=== PATIENT | female | born 1960 | race Caucasian/White ===

== ENCOUNTER 2020-05-03 17:13 | Outpatient (REF) | payer MEDICARE, MEDICAID, SELFPAY ==
--- NOTE | 2020-05-03 | MM_ITS ---
EXAMINATION: MM SCREENING DIGITAL BREAST TOMOSYNTHESIS, BILATERAL CLINICAL INFORMATION: Screening. Asymptomatic. The lifetime risk of breast cancer based on the Tyrer-Cuzick Model is 9%. COMPARISON: Mammography: 09/09/2018, 04/16/2017, 03/28/2016 TECHNIQUE: Digital breast tomosynthesis is performed in both the craniocaudal and mediolateral oblique views along with computer-aided detection (CAD). Synthesized 2D images are generated from the tomosynthesis. FINDINGS: There are scattered areas of fibroglandular density (ACR BI-RADS breast composition Category b). Parenchymal pattern is similar to prior studies. There is no interval mass or architectural abnormality or abnormal calcifications. No developing density. The axilla and skin contours are unremarkable. MM/MM tomosynthesis screening BI IMPRESSION: No mammographic evidence of malignancy. ASSESSMENT: BI-RADS 1: Negative RECOMMENDATION: Routine annual mammography screening. This patient's information was entered into a reminder system with a target due date for their next mammogram.
== END 2020-05-03 17:14 | disposition home or self-care (01) ==
LOC: HO.MAMMO 17:13
PROVIDERS: PCP Nurse Practitioner Family; Visit Provider Nurse Practitioner Family
DX: Z12.31 Encounter for screening mammogram for malignant neoplasm of breast (principal)
CPT/HCPCS: 77063; 77067

== ENCOUNTER 2020-06-13 10:53 | Emergency (ER) | payer MEDICARE, MEDICAID, SELFPAY ==
--- NOTE | 2020-06-13 | XR_ITS ---
EXAMINATION: XR HAND, LEFT CLINICAL INFORMATION: History of fall. Left wrist pain and swelling. COMPARISON: None TECHNIQUE: PA, lateral, and oblique views of the left hand. FINDINGS: Comminuted fractures of the left distal radius with dorsal angulation, and intra-articular extension is noted. Significant overlying soft tissue swelling is present. Fracture of the ulnar styloid process is also noted. The radiocarpal as well as intercarpal alignments are intact. The remainder of the visualized bones are intact. XR/XR hand LT min 3V IMPRESSION: Abnormal radiographs of the left ribs showing evidence of comminuted fracture of the left distal radius with intra-articular extension and ulnar styloid process fracture, and overlying significant soft tissue swelling.
[2020-06-13 11:06] VITALS: BP 147/76; PULSE 66; RESP 16; TEMP 36.9; O2SAT 97; BMI 23.4
--- NOTE | 2020-06-13 12:50 | ED.EXTPRO ---
HPI - Extremity Problem General Chief complaint: Extremity Injury, Upper Stated complaint: ?hand fracture, fall Time Seen by Provider: 06/13/20 12:50 History of Present Illness HPI Narrative: Patient complains of left wrist pain after a fall 7 days ago while on vacation was a fall on outstretched hand, no other injury no numbness no weakness no fever no other injury Related Data Previous Rx's Medication Instructions Recorded atorvastatin 10 mg tablet 10 mg PO DAILY 90 Days #90 tab 04/19/20 Allergies Allergy/AdvReac Type Severity Reaction Status Date / Time abacavir Allergy Unknown Verified 10/30/19 00:00 From ZIAGEN Allergy Severe HIGH FEVER Uncoded 02/26/20 15:15 Erythromycin Allergy Unknown Uncoded 10/30/19 00:00 Review of Systems Review of Systems: Positive for left wrist pain and swelling No dizziness no weakness no fever no chills no headache no head injury no neck pain no rash no numbness no weakness Yes all other systems are reviewed and are negative PMFSH Past Medical History Source: nursing notes reviewed Medical History (Updated 06/13/20 @ 13:08 by ANTONIO Anton) Acid reflux DVT (deep venous thrombosis) High cholesterol HIV (human immunodeficiency virus infection) HTN (hypertension) PTSD (post-traumatic stress disorder) Social History Social History Advance Directives: No Advance Directives Information Provided: Yes Physical Exam Vital Signs: Vital Signs: Last Vital Signs Temp 98.5 F 06/13/20 11:06 Pulse 66 06/13/20 11:06 Resp 16 06/13/20 11:06 BP 147/76 H 06/13/20 11:06 Pulse Ox 97 06/13/20 11:06 Body Mass Index 23.4 General appearance is comfortable relaxed cooperative no acute distress Head is normocephalic atraumatic Neck is supple Respiratory no distress Extremities the left wrist is mildly swollen with decreased range of motion, skin is intact, neurovascular intact distal with full range of motion in the fingers Neuro no focal deficit Course Course Course Narrative: X-ray identified a 1-week-old comminuted fracture of the left distal radius with dorsal angulation as well as a fracture of the ulnar styloid A volar splint was placed by the tech and patient will follow-up with orthopedics Discharge Plan Discharge Clinical Impression: Fracture of wrist Qualifiers: Encounter type: initial encounter Fracture type: closed Laterality: left Qualified Code(s): S62.102A - Fracture of unspecified carpal bone, left wrist, initial encounter for closed fracture Patient Disposition: Home, Self-Care Additional Instructions: Follow with orthopedist this week Return any concerns Prescriptions: No Action atorvastatin 10 mg tablet 10 mg PO DAILY 90 Days Qty: 90 RF: 1 Referrals: Jj Roman MD [Physician] - 2 days (Left wrist fracture 1-week-old) Stand Alone Forms: Work/School Release
== END 2020-06-13 13:52 | disposition home or self-care (01) ==
PROVIDERS: Physician Assistant Medical; Emergency Provider Emergency Medicine; PCP Nurse Practitioner Family
DX: S62.102A Fracture of unspecified carpal bone, left wrist, initial encounter for closed fracture (principal); M25.532 Pain in left wrist; I10 Essential (primary) hypertension; W01.0XXA Fall on same level from slipping, tripping and stumbling without subsequent striking against object, initial encounter; Y93.9 Activity, unspecified; Y92.9 Unspecified place or not applicable; Y99.9 Unspecified external cause status; Z20.828 Contact with and (suspected) exposure to other viral communicable diseases; Z79.899 Other long term (current) drug therapy
CPT/HCPCS: 29125; 73130; 99283; 99284; U0003

== ENCOUNTER 2020-06-14 16:36 | Outpatient (REF) | payer MEDICARE, MEDICAID, SELFPAY | END 2020-06-14 16:37 | disposition home or self-care (01) | LOC: HO.HOSX 16:36 | PROVIDERS: Visit Provider Orthopaedic Surgery | DX: Z13.89 Encounter for screening for other disorder (principal) ==

== ENCOUNTER 2020-06-15 09:25 | Outpatient (REF) | payer MEDICARE, MEDICAID, SELFPAY ==
--- NOTE | 2020-06-15 09:50 | XR_ITS ---
EXAMINATION: XR WRIST, LEFT CLINICAL INFORMATION: Left wrist pain. COMPARISON: 06/13/2020 TECHNIQUE: PA, lateral, and oblique views of the left wrist. FINDINGS: Interval application of a splint. Again noted is a mildly comminuted fracture of the distal radius with intra-articular extension at the level of the lunate facet, and minimal dorsal angulation of the distal radius. There is 0.2 cm cortical bone offset, posteriorly. Again noted is the mildly displaced fracture of the ulnar styloid. Carpal bones are normal. The carpal joint spaces are maintained. XR/XR wrist LT min 3V IMPRESSION: Interval application of a splint. Otherwise, no change in appearance of the fractures of the distal radius and ulnar styloid.
== END 2020-06-15 09:26 | disposition home or self-care (01) ==
LOC: HO.HOSX 09:25
PROVIDERS: PCP Nurse Practitioner Family; Visit Provider Orthopaedic Surgery
DX: S52.502A Unspecified fracture of the lower end of left radius, initial encounter for closed fracture (principal)
CPT/HCPCS: 25600; 73110; 99202

== ENCOUNTER 2020-07-06 09:20 | Outpatient (REF) | payer MEDICARE, MEDICAID, SELFPAY ==
--- NOTE | 2020-07-06 09:43 | XR_ITS ---
EXAMINATION: XR WRIST, LEFT CLINICAL INFORMATION: Left wrist pain COMPARISON: 06/15/2020 TECHNIQUE: PA, lateral, and oblique views of the left wrist. FINDINGS: Again noted is the comminuted, impacted, intra-articular fracture distal radius. There are persistent fracture lucencies. No significant interval healing. There are fracture lines that involve the distal radioulnar joint and radiocarpal joint. There is approximately degrees dorsal tilt of the distal radius, similar compared to 06/15/2020. There is approximately 0.2 cm loss of radial height/length. Soft tissues remain swollen around the fractured distal radius. Again noted is the mildly displaced fracture of the tip of the ulnar styloid. The carpal bones are intact. The carpal joint spaces are maintained. XR/XR wrist LT min 3V IMPRESSION: * Currently, no significant healing of the mildly displaced, comminuted intra-articular fracture of distal radius. There is mild posterior angulation of the distal radius. * No evidence of carpal bone injury.
== END 2020-07-06 09:21 | disposition home or self-care (01) ==
LOC: HO.HOSX 09:20
PROVIDERS: PCP Nurse Practitioner Family; Visit Provider Orthopaedic Surgery
DX: S52.502D Unspecified fracture of the lower end of left radius, subsequent encounter for closed fracture with routine healing (principal); R20.0 Anesthesia of skin
CPT/HCPCS: 73110; 99212

== ENCOUNTER 2020-07-20 08:43 | Outpatient (REF) | payer MEDICARE, MEDICAID, SELFPAY ==
--- NOTE | ~2020-07-20 | XR_ITS ---
EXAMINATION: XR WRIST, LEFT CLINICAL INFORMATION: Pain left wrist. COMPARISON: Left wrist 07/06/2020 TECHNIQUE: PA, lateral, and oblique views of the left wrist. FINDINGS: There is impacted fracture distal radius and displaced left styloid process fracture. The radiocarpal joint space is maintain normal. No visible acute fracture or dislocation seen. There is mild dorsal angulation. There is moderate dorsal wrist soft tissue swelling. XR/XR wrist LT min 3V IMPRESSION: Impacted distal radial fracture and a displaced lesser fracture are stable. There is moderate dorsal wrist soft tissues swelling which is stable as well. No callus formation seen yet.
== END 2020-07-20 08:44 | disposition home or self-care (01) ==
LOC: HO.XRAY 08:43
PROVIDERS: PCP Nurse Practitioner Family; Visit Provider Orthopaedic Surgery
DX: M25.532 Pain in left wrist (principal); S52.502A Unspecified fracture of the lower end of left radius, initial encounter for closed fracture
CPT/HCPCS: 73110; 99212

== ENCOUNTER 2020-08-11 08:25 | Outpatient (REF) | payer MEDICARE, MEDICAID, SELFPAY ==
--- NOTE | ~2020-08-11 | XR_ITS ---
EXAMINATION: XR WRIST, LEFT CLINICAL INFORMATION: Followup fracture radius. COMPARISON: Left wrist 07/20/2020 TECHNIQUE: PA, lateral, and oblique views of the left wrist. FINDINGS: Again visualized is a slowly healing distal radial impacted fracture with mild sclerotic changes likely callus formation. Minimally displaced ulnar styloid process fracture is stable. The intercarpal, radiocarpal joint space is normal. XR/XR wrist LT min 3V IMPRESSION: Slowly healing distal radial impacted fracture with mild sclerotic changes. No significant change in distal ulnar styloid process fracture.
== END 2020-08-11 08:26 | disposition home or self-care (01) ==
LOC: HO.XRAY 08:25
PROVIDERS: PCP Nurse Practitioner Family; Visit Provider Orthopaedic Surgery
DX: S52.502D Unspecified fracture of the lower end of left radius, subsequent encounter for closed fracture with routine healing (principal)
CPT/HCPCS: 73110; 99212

== ENCOUNTER 2020-09-29 10:30 | Outpatient (RCR) | payer MEDICARE, MEDICAID, SELFPAY ==
--- NOTE | 2020-08-17 10:49 | MHC.OT.OEV ---
[address] [phone] F: [phone] Occupational Therapy Evaluation Diagnosis: Left distal radius fx and ulnar fx Date of Onset: 06/06/20 Attending Provider: Dr. Mayer Prescribed Treatment: Indy and Treat MD Follow Up Appointment: History of Current Condition: Pt was on a vacation in [place], wearing heals and fell onto her left hand/wrist. She self splinted for the duration of trip, then went to the ED and was found to have left distal radius fx and left ulnar fx. She followed up with ortho 06/15/20 and was placed in short arm cast for a few weeks, then removed and placed in removable prefab wrist brace. She reports falling twice since then, but no change in healing or alignment seen on x-rays. 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 travel Living Situation, Family and/or Social Support: Granddaughter is staying with her Current Level of Function and Occupation Self Care, Employment, Leisure: Mostly Ind w/ self care and homecare, cannot carry groceries in left hand, light duty at work, avoiding carrying trays at work Sleep: Waking you up every night Driving: Independent Balance: Some impaired balance, has fallen twice since, also difficulty seeing past her mask Pain Assessment Pain Score: 5 Pain Scale Used: Numeric (0 - 10) Pain Location and Description: Ulnar wrist pain 5/10 resting, 8/10 w/ use, sharp, ache, pulling Aggravating Factors: Lifting, opening jars Alleviating Factors: Tylenol, resting Skin and Soft Tissue Assessment Comments: left dorsal and ulnar wrist swelling left thenar and hypothenar atrophy Nerve assessment Ulnar Nerve: WFL Median Nerve: WFL Radial Nerve: WFL Sensory Assessment Comments: Pt report left hand/digit numbness B/L Sparks Riky 3.61 Edema Assessment Comments: Wrist R 14.9 cm L 15.8 cm Dexterity Assessment Comments: Nine Hole Peg R 25 sec 26 sec Special Tests Comments: *Unable to flex into position for Phalen's test AROM(PROM) Strength Elbow Flexion: Extension: Pronation: R 75 L 48 Supination: R 85 L 72 Comments: Flexion: Extension: Pronation: Supination: Comments: Wrist Flexion: R 65 L 32 Extension: R 58 L 50 Ulnar Deviation: R 35 L 20 Radial Deviation: R 22 L 20 Comments: Flexion: Extension: Ulnar Deviation: Radial Deviation: Comments: Thumb Thumb CMC Flexion: Thumb MCP Flexion: Thumb IP Flexion: Radial Abduction: Palmar Abduction: [place] (Kapandji 0-10): 10 Comments: WFL Digits Index MCP: PIP: DIP: Long MCP: PIP: DIP: Ring MCP: PIP: DIP: Small MCP: PIP: DIP: Comments: WFL to DPC Gross Grasp: R 56 L 20 Lateral Pinch: R 12 L 6 Two-Point Pinch: R 8 L 3 Three-Jaw Curtis: R 12 L 4 Comments: Patient Education Primary Language: Romansh 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 Patient demonstrates Patient verbalizes Barriers to Learning: None Readiness for Learning: Accepting Who was educated? Patient Comments: Lifting/Use precautions Modifications for sleep comfort HEP w/ wrist ROM Plan of Care Assessment: Jenn presents about 10 weeks s/p FOOSH injury w/ left distal radius and distal ulna fxs. She was casted about 10 days after her injury, lag due to vacation timing, and has since been in resting wrist prefab orthosis, still wearing for work and heavier use. On assessment, she cont's to report moderate pain, primarily in ulnar wrist. She has decreased range in all planes and decreased sane rn and pinch strength. Overall, she is doing well functionally, but uses her dominant right hand mostly and is still avoiding heavier activities at work and home. She also reports left hand numbness and has visible thenar and hypothenar atrophy. Jennifer will benefit from cont'd therapy services to address range, strength, pain and functional limitations. STG Duration: 2 weeks Short Term Goals: Ind w/ HEP Left wrist flex 45 degrees Left wrist ext 55 degrees Left wrist pro 45 degrees Gross grasp >30 lb <2/10 pain in left wrist LTG Duration: 6 weeks Assisted Goals: Wean from orthosis wear Left wrist flex 55 degrees Left wrist ext 60 degrees Left wrist pro 70 degrees Gross grasp >40lb QuickDASH score <30 pts Frequency and Duration: The patient will be seen 2 x/wk for 6 weeks Treatment Plan: Therapeutic Exercise Therapeutic Activity Home Exercise Program Splinting Neuro Re-ed Patient Education Desensitization/Sensory Re-ed Edema Control ADL Training Ultrasound NMES Iontophoresis Paraffin Fluidotherapy MHP Cold Packs Joint Mobilization Soft Tissue Mobilization Kinesiotaping Electronically Signed By: Jennifer Boyd OTR/L Please sign and return to therapist, Thank you for your referral.
--- NOTE | 2020-10-25 09:51 | MHC.OT.DC ---
[address] [phone] F: [phone] Occupational Therapy Discharge Note Provider: Dr Mayer Diagnosis: Left distal radius fx and ulnar fx Date of Surgery: Date of Evaluation: 08/17/20 Date of Discharge: 10/25/20 Treatments to Date: 7 Cancellations to Date: 0 No Shows to Date: 0 Discharge Status: Patient Elected to Stop Discharge Summary: Jenn has progressed well w/ functional use of left hand and wrist, primary limitation continued to be flexion w/ decreased carry over between visits. She was fit w/ static progressing flexion orthosis but w/ poor follow through w/ use. 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 Left wrist pre tx ext 64 flex 28 post tx ext 75 flex 45 Gross Grasp 48lb Electronically Signed By: Jennifer Boyd OTR/L Reviewed/agree with student documentation: N/A Therapist: Please Sign and return to therapist, thank you for your referral.
== END 2020-10-25 13:13 | disposition other institution (70) ==
LOC: HO.OT 10:30
PROVIDERS: Visit Provider Orthopaedic Surgery
DX: S52.502A Unspecified fracture of the lower end of left radius, initial encounter for closed fracture (principal)
CPT/HCPCS: 29125; 97110; 97165; 97760

== ENCOUNTER 2020-11-10 11:19 | Outpatient (REF) | payer MEDICARE, MEDICAID, SELFPAY ==
--- NOTE | ~2020-11-10 | XR_ITS ---
EXAMINATION: XR FOOT, RIGHT CLINICAL INFORMATION: Pain. COMPARISON: None TECHNIQUE: AP, lateral, and oblique views of the right foot. FINDINGS: There is mild loss of first MTP joint space with periarticular spurring. Rest the joint spaces are preserved. No acute fracture, dislocation or lytic process seen. The ankle mortise and subtalar joints are normal. There is a small calcaneal enthesophyte. The soft tissues are normal. XR/XR foot RT min 3V IMPRESSION: Degenerative arthritic changes first MTP joint. Small calcaneal heel enthesophyte. No acute fracture or dislocation.
== END 2020-11-10 11:20 | disposition home or self-care (01) ==
LOC: HO.HMGCX 11:19
PROVIDERS: PCP Nurse Practitioner Family; Visit Provider Hospitalist
DX: M79.671 Pain in right foot (principal)
CPT/HCPCS: 73630

== ENCOUNTER 2021-01-05 09:39 | Outpatient (REF) | payer MEDICARE, MEDICAID, SELFPAY ==
--- NOTE | ~2021-01-05 | CT_ITS ---
EXAMINATION: CT CHEST SCREENING CLINICAL INFORMATION: Smoking history COMPARISON: Previous chest x-ray October 2019 TECHNIQUE: Multidetector volumetric CT imaging of the chest is performed without contrast using low dose technique. Additional 2D coronal and sagittal reformatted images and axial 3D maximum intensity projection (MIP) images are generated on the CT workstation. This CT examination was performed using dose optimization techniques as appropriate, variously including the following: *Automated exposure control *Adjustment of mA and/or kV according to patient size (this includes techniques or standardized protocols for targeted exams where dose is matched to indication/reason for exam; i.e. extremities or head) *Use of iterative reconstruction technique DLP: 32 mGy-cm FINDINGS: LUNGS: There is mild paraseptal emphysema. There is a 2 mm peripheral right lower lobe nodule axial image 292 series 5. There are 2 adjacent semisolid left lower lobe nodules axial image 300 series 5. There is a 1 mm peripheral left lower lobe nodule axial image 301 series 5. The lungs are otherwise clear. MEDIASTINUM: There is evidence of atherosclerotic disease. The thoracic aorta is upper normal in size. The heart does not appear enlarged. There is mild coronary artery calcification. There are no enlarged lymph nodes. PLEURA: There is no pleural effusion. No pleural mass or thickening. AXILLA: No lymphadenopathy. UPPER ABDOMEN: The gallbladder has been removed. There is diverticulosis of the colon. OSSEOUS STRUCTURES: There are degenerative changes of the spine. CT/CT lung screening IMPRESSION: Mild emphysema. Small pulmonary nodules. ASSESSMENT: Lung-RADS category 2: Benign RECOMMENDATION: Annual low-dose chest CT follow-up recommended.
== END 2021-01-05 09:40 | disposition home or self-care (01) ==
LOC: HO.CT 09:39
PROVIDERS: Visit Provider Physician Assistant Medical
DX: Z12.2 Encounter for screening for malignant neoplasm of respiratory organs (principal); F17.210 Nicotine dependence, cigarettes, uncomplicated
CPT/HCPCS: 71271

== ENCOUNTER 2021-01-07 09:09 | Outpatient (REF) | payer MEDICARE, MEDICAID, SELFPAY ==
[2021-01-07 11:56] LABS: Alanine Aminotransferase 17 U/L (0-31); Albumin Level 4.2 g/dL (3.5-5.0); Alkaline Phosphatase 77 U/L (39-117); Anion Gap 14 (12-20); Aspartate Amino Transferase 24 U/L (5-31); Bilirubin Total 0.5 mg/dL (0.0-1.0); Blood Urea Nitrogen 17 mg/dL (9-16); Calcium 9.5 mg/dL (8.4-10.2); Carbon Dioxide 26 mmol/L (22-29); Chloride 105 mmol/L (96-108); Cholesterol 161 mg/dL; Estimated Glomerular Filt Rate > 60; Glucose Fasting 98 mg/dL (60-99); HDL Cholesterol 74 mg/dL; LDL Cholesterol Calculated 77 mg/dl; Potassium 5.2 mmol/L (3.3-5.1); Sodium 140 mmol/L (135-145); Total Protein 7.4 g/dL (6.5-8.0); Triglycerides 53 mg/dL
[2021-01-07 12:17] LABS: TSH reflex Free T4 2.15 uIU/mL (0.32-4.0); Vitamin D 25-OH Total 24.8 ng/mL (>30)
== END 2021-01-07 09:10 | disposition home or self-care (01) ==
LOC: HO.HMGCLDS 09:09
PROVIDERS: PCP Nurse Practitioner Family; Visit Provider Nurse Practitioner Family
DX: I10 Essential (primary) hypertension (principal); Z78.0 Asymptomatic menopausal state
CPT/HCPCS: 36415; 80053; 80061; 82306; 84443

== ENCOUNTER 2021-01-13 05:27 | Emergency (ER) | payer MEDICARE, MEDICAID, SELFPAY ==
[2021-01-13 06:03] VITALS: BP 144/81; PULSE 60; RESP 16; TEMP 36.8; O2SAT 97; BMI 19.8
--- NOTE | 2021-01-13 06:37 | ED_ITS ---
HPI - Skin/Abscess/Foreign Bdy General Chief complaint: Skin/Abscess/Foreign Body Stated complaint: bug bite Time Seen by Provider: 01/13/21 06:37 Source: patient Mode of arrival: ambulatory Limitations: no limitations History of Present Illness MD complaint: insect bite/sting Onset (ago): day(s) (1) Tetanus up to date: yes Location: LUE Severity: moderate Quality: pruritic Relieving factors: none Exacerbating factors: none Context: recent camping (itchy bite did not have to remove any insect felt a bite then it became itchy) Associated symptoms: denies other symptoms Treatments prior to arrival: OTC topical medication Related Data Home Medications Medication Instructions Recorded Confirmed aspirin 81 mg tablet,delayed 81 mg PO DAILY 06/15/20 11/10/20 release (Aspirin Low Dose) buprenorphine 2 mg-naloxone 0.5 mg 2 film BUCCAL DAILY 06/15/20 11/10/20 sublingual film (Suboxone) Previous Rx's Medication Instructions Recorded atorvastatin 10 mg tablet 10 mg PO DAILY 90 Days #90 tab 08/19/20 losartan 50 mg tablet 50 mg PO DAILY 90 Days #90 tab 09/08/20 venlafaxine 25 mg tablet 25 mg PO DAILY 90 Days #90 tab 09/08/20 albuterol sulfate 90 mcg/actuation 1 puff PO QID PRN #8.5 g 10/22/20 aerosol inhaler amoxicillin 875 mg-potassium 1 tab PO BID 10 Days #20 tab 11/01/20 clavulanate 125 mg tablet (Augmentin) fluconazole 150 mg tablet 150 mg PO Q OTHER DAY 3 Days #2 tab 11/10/20 ibuprofen 600 mg tablet 600 mg PO TID #90 tab 11/10/20 mupirocin 2 % topical ointment 1 appl TOPICAL BID 7 Days #15 g 01/13/21 prednisone 20 mg tablet 40 mg PO DAILY 4 Days #8 tab 01/13/21 Allergies Allergy/AdvReac Type Severity Reaction Status Date / Time abacavir Allergy Unknown Unknown Verified 01/13/21 06:07 From ZIAGEN Allergy Severe HIGH FEVER Uncoded 01/13/21 06:07 Erythromycin Allergy Unknown Unknown Uncoded 01/13/21 06:07 Review of Systems Review of Systems: Constitutional : No Fever, No Chills ENT/Mouth : No sore throat, No Rhinorrhea Eyes: No Eye Pain, No Swelling, No Redness Cardiovascular : No Chest Pain, No SOB Respiratory : No Cough, No Sputum Gastrointestinal : No Nausea, No Vomiting, No Diarrhea, No abdominal Pain Genitourinary : No Dysuria, No Hematuria Musculoskeletal : No joint pain, No Myalgias, No Joint Swelling Skin : pos Skin Lesions, no skin rash Neuro : No Weakness, No Numbness, No Headache Psych : No Anxiety, No Depression PMFSH Past Medical History Attestation statement: The following information was validated with the patient. Medical History COPD (chronic obstructive pulmonary disease) GERD (gastroesophageal reflux disease) Hepatitis C (~1998) History of opioid abuse HIV (human immunodeficiency virus infection) (~1996) HTN (hypertension) Hyperlipidemia Liver cirrhosis Osteopenia Personal history of nicotine dependence PTSD (post-traumatic stress disorder) PVD (peripheral vascular disease) Surgical History History of angioplasty (~2017) History of carpal tunnel surgery of right wrist (~2003) History of colonoscopy (~2016) History of esophagogastroduodenoscopy (EGD) (~2016) History of hysterectomy History of liver biopsy (~2001) Hx of cholecystectomy (~2001) Family History Family History Mother Lung cancer Social History Social History Alcohol intake: current Patient Tobacco Use Status: Current everyday Tobacco user Cigarette Packs Per Day: 0.5 Cigarettes Per Day: 12 Years Smoked: 45 (onset 12) Advance Directives: No Advance Directives Information Provided: Yes Patient : No Current occupational status: employed 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 Oriented X3. No acute distress. Eyes: Pupils equal, round and reactive to light. ENT: Pharynx normal. Neck: Normal inspection. Neck supple. CVS: Normal heart rate and rhythm. Pulses normal. Respiratory: No respiratory distress. Breath sounds normal. Abdomen: Soft and nontender. Skin: Skin warm and dry. Normal skin color. L forearm anterior 3cm raised welt no erythema/fluctuance/ttp - small pinpoint bite area noted, no bullseye rash Extremities: No lower extremity edema. Neuro: Oriented X 3. No motor deficit. No sensory deficit. MDM - Skin/Abscess/Foreign Bdy MDM Narrative Medical decision making narrative: 60 yo female with hx of chronic pain, asthma, HTN comes in with 1 day of pruritic bite on L forearm, no signs of infection seems to be localized allergic reaction - will start on low dose steroids and refer to PCP if not improved. Stable for DC Discharge Plan Discharge Clinical Impression: Bug bite Qualifiers: Encounter type: initial encounter Qualified Code(s): W57.XXXA - Bitten or stung by nonvenomous insect and other nonvenomous arthropods, initial encounter Patient Disposition: Home, Self-Care Instructions: Insect Bite or Sting (ED), General Allergic Reaction (ED) Additional Instructions: return to ED for any worsening symptoms or concerns Prescriptions: New prednisone 20 mg tablet 40 mg PO DAILY 4 Days Qty: 8 RF: 0 mupirocin 2 % ointment 1 appl topical BID 7 Days Qty: 15 RF: 0 No Action atorvastatin 10 mg tablet 10 mg PO DAILY 90 Days Qty: 90 RF: 1 losartan 50 mg tablet 50 mg PO DAILY 90 Days Qty: 90 RF: 1 venlafaxine 25 mg tablet 25 mg PO DAILY 90 Days Qty: 90 RF: 1 albuterol sulfate 90 mcg/actuation HFA aerosol inhaler 1 puff PO QID PRN (Reason: for dyspnea) Qty: 8.5 RF: 3 ibuprofen 600 mg tablet 600 mg PO TID Qty: 90 RF: 0 fluconazole 150 mg tablet 150 mg PO Q OTHER DAY 3 Days Qty: 2 RF: 0 amoxicillin-pot clavulanate [Augmentin] 875-125 mg tablet 1 tab PO BID 10 Days Qty: 20 RF: 0 buprenorphine-naloxone [Suboxone] 2-0.5 mg film 2 film buccal DAILY RF: 0 aspirin [Aspirin Low Dose] 81 mg tablet,delayed release (DR/EC) 81 mg PO DAILY RF: 0 Referrals: Dami Grajeda FNP-BC [Primary Care Provider] - 2 days (if not better)
[2021-01-13] MEDS: predniSONE 20 MG TABLET 40 MG PO (07:00)
== END 2021-01-13 07:07 | disposition home or self-care (01) ==
PROVIDERS: Emergency Provider Emergency Medicine; PCP Nurse Practitioner Family
DX: L29.9 Pruritus, unspecified (principal); F17.210 Nicotine dependence, cigarettes, uncomplicated; I10 Essential (primary) hypertension; J45.909 Unspecified asthma, uncomplicated; Z71.6 Tobacco abuse counseling; Z79.899 Other long term (current) drug therapy; Z79.82 Long term (current) use of aspirin
CPT/HCPCS: 99283

== ENCOUNTER 2021-01-21 08:45 | Outpatient (REF) | payer MEDICARE, MEDICAID, SELFPAY ==
[2021-01-21 12:07] LABS: Anion Gap 13 (12-20); Carbon Dioxide 29 mmol/L (22-29); Chloride 102 mmol/L (96-108); Potassium 5.5 mmol/L (3.3-5.1); Sodium 138 mmol/L (135-145)
== END 2021-01-21 08:46 | disposition home or self-care (01) ==
LOC: HO.HMGCLDS 08:45
PROVIDERS: PCP Nurse Practitioner Family; Visit Provider Nurse Practitioner Family
DX: E87.5 Hyperkalemia (principal)
CPT/HCPCS: 36415; 80051

== ENCOUNTER 2021-01-25 09:36 | Outpatient (REF) | payer MEDICARE, MEDICAID, SELFPAY ==
[2021-01-25 11:53] LABS: Anion Gap 12 (12-20); Carbon Dioxide 29 mmol/L (22-29); Chloride 104 mmol/L (96-108); Potassium 4.5 mmol/L (3.3-5.1); Sodium 140 mmol/L (135-145)
== END 2021-01-25 09:37 | disposition home or self-care (01) ==
LOC: HO.HMGCLDS 09:36
PROVIDERS: PCP Nurse Practitioner Family; Visit Provider Nurse Practitioner Family
DX: E87.5 Hyperkalemia (principal)
CPT/HCPCS: 36415; 80051

== ENCOUNTER 2021-05-18 08:35 | Outpatient (REF) | payer MEDICARE, MEDICAID, SELFPAY ==
--- NOTE | ~2021-05-18 | MM_ITS ---
EXAMINATION: MM SCREENING DIGITAL BREAST TOMOSYNTHESIS, BILATERAL CLINICAL INFORMATION: Screening. Asymptomatic. The lifetime risk of breast cancer based on the Tyrer-Cuzick Model is 9.2%. COMPARISON: Mammography: 05/03/2020 and studies dating back to 09/02/2009. TECHNIQUE: Digital breast tomosynthesis is performed in both the craniocaudal and mediolateral oblique views along with computer-aided detection (CAD). Synthesized 2D images are generated from the tomosynthesis. FINDINGS: There are scattered areas of fibroglandular density (ACR BI-RADS breast composition Category b). There is a stable parenchymal pattern within the left breast. Within the deep lateral aspect of the right breast, there is an asymmetric density which has a solid component measuring approximately 4 x 3 mm in size, lying 8 cm from the nipple. Recommend spot compression view in craniocaudal projection. By tomosynthesis, the lesion lies superiorly; however, I cannot definitely see a new corresponding density on mediolateral oblique projection. MM/MM tomosynthesis screening BI IMPRESSION: Asymmetric density deep lateral right breast for further evaluation with spot compression view and possible ultrasound. ASSESSMENT: BI-RADS 0: Incomplete - Need Additional Imaging Evaluation RECOMMENDATION: 1. Additional views of the right breast. 2. Targeted ultrasound if warranted after review of the additional views. 3. Radiology department staff will contact the patient for additional imaging. This patient's information was entered into a reminder system with a target due date for their next mammogram.
--- NOTE | ~2021-05-18 | MM_ITS ---
EXAMINATION: BONE DENSITOMETRY CLINICAL INDICATION: Other specified disorders of bone density and structure. COMPARISON: Previous BD dated 11/20/2018 and baseline BD dated 12/11/2006. TECHNIQUE: Using a [employer] DXA System (software version: 13.1) manufactured by [employer], dual-energy x-ray absorptiometry was performed of the lumbar spine and left hip. The images are of good technical quality. Summary results are attached. FINDINGS: AP SPINE L1-L4: Current: BMD 0.939 g/cm2, Z-score -0.3, T-score -2.0, osteopenia, 4.8% increase from previous, 10.8% decrease from baseline (<5% change is not significant). Prior: BMD 0.896 g/cm2. Baseline: BMD 1.053 g/cm2. LEFT FEMUR, NECK: Current: BMD 0.726 g/cm2, Z-score -0.7, T-score -2.2, osteopenia. Prior: BMD 0.730 g/cm2. Baseline: BMD 0.815 g/cm2. LEFT FEMUR, TOTAL: Current: BMD 0.817 g/cm2, Z-score -0.2, T-score -1.5, osteopenia, 3.2% increase from previous, 8.6% decrease from baseline (<5% change is not significant). Prior: BMD 0.792 g/cm2. Baseline: BMD 0.894 g/cm2. IDENTIFIED RISK FACTORS: Recurrent falls, low calcium intake, tobacco use (current smoker), history of fracture (adult). Early menopause, secondary osteoporosis, hysterectomy, right oophorectomy. HISTORY OF FRACTURE: Wrist. Other. MEDICATIONS: Calcium supplements or multivitamin, vitamin D. MM/XR DEXA axial skeleton IMPRESSION: 1. DIAGNOSIS: Osteopenia based on the lowest T-score value of -2.2 in the femoral neck applying World Health Organization criteria. 2. 10-YEAR FRACTURE RISK PREDICTION, FRAX: Major osteoporotic fracture (clinical spine, forearm, hip or shoulder) 19.0%. Hip fracture 5.4%. 3. Treatment Recommendations: NOF guidelines recommend consideration for treatment in postmenopausal women and men age 50 and older presenting with the following: -A hip or vertebral (clinical or morphometric) fracture. -T-score less than or equal to -2.5 at the femoral neck or spine after appropriate evaluation to exclude secondary causes. -Low bone mass at the hip or spine and a 10-year fracture probability by FRAX of greater than or equal to 3% for hip fracture or greater than or equal to 20% for major osteoporotic fracture based on the [place] adapted WHO algorithm. 4. Other Recommendations: All treatment decisions require clinical judgment and consideration of individual patient factors, including patient preferences, comorbidities, previous drug use, risk factors not captured in the FRAX model (e.g. frailty, falls, vitamin D deficiency, increased bone turnover, interval significant decline in bone density) and possible under or overestimation of fracture risk by FRAX. Additional medical evaluation for secondary cause of low bone mineral density may be appropriate. FUTURE SCAN RECOMMENDATION: People with diagnosed cases of osteoporosis or at high risk for fracture should have regular bone mineral density tests. For patients eligible for Medicare, routine testing is allowed once every 2 years. The testing frequency can be increased to one year for patients who have rapidly progressing disease, those who are receiving or discontinuing medical therapy to restore bone mass, or have additional risk factors.
== END 2021-05-18 08:36 | disposition home or self-care (01) ==
LOC: HO.MAMMO 08:35
PROVIDERS: Visit Provider Nurse Practitioner Family
DX: Z12.31 Encounter for screening mammogram for malignant neoplasm of breast (principal); M85.80 Other specified disorders of bone density and structure, unspecified site; Z78.0 Asymptomatic menopausal state; Z91.81 History of falling; E83.51 Hypocalcemia; F17.200 Nicotine dependence, unspecified, uncomplicated; Z90.710 Acquired absence of both cervix and uterus; Z90.721 Acquired absence of ovaries, unilateral; Z79.899 Other long term (current) drug therapy
CPT/HCPCS: 77063; 77067; 77080

== ENCOUNTER → 2021-05-30 10:25 | Outpatient (REF) | payer MEDICARE, MEDICAID, SELFPAY ==
--- NOTE | 2021-05-30 10:28 | CA_ITS ---
Transthoracic Echocardiogram Patient (Last, First, Middle): Jenn Stahl M Gender: Female Date of : 1960 Age: 60 Procedure Date: 05/30/2021 Procedure Type: Transthoracic Echocardiogram Location: OP Height: 154.94 cm Weight: 53.07 kg BSA: 1.50 m2 Heart Rate: bpm BP: 117 / 68 mmHg Refrigeration Lead: CAROLYN Referring MD: Dami Grajeda [facility] Symptoms: R01.1 - Cardiac murmur, unspecified Study Quality: Good ECG Rhythm: Sinus Conclusions: - The left ventricular systolic function is normal. The visually estimated ejection fraction is between 65-70%. - No obvious valvular pathology seen on this study. - There is mild dilatation of the ascending aorta measuring 3.80 cm. Findings Left Ventricle Normal left ventricular cavity size. There is normal left ventricular wall thickness. The left ventricular systolic function is normal. The visually estimated ejection fraction is between 65-70%. There is no evidence of regional wall motion abnormalities. Diastolic function is normal for age. Right Ventricle Normal right ventricular cavity size and systolic function. Atria Both atria are normal in size. Aortic Valve There is a normal trileaflet aortic valve. There is mild calcification of the aortic valve. There is no aortic valve stenosis. There is no aortic valve regurgitation. Mitral Valve The mitral valve appears normal. There is trace mitral valve regurgitation. There is no mitral valve stenosis. Pulmonic Valve The pulmonic valve was not well visualized. Tricuspid Valve Normal tricuspid valve structure. There is no tricuspid valve regurgitation. The pulmonary artery systolic pressure is normal. Great Vessels The aortic annulus is normal in size. There is mild dilatation of the ascending aorta measuring 3.80 cm. Venous The inferior vena cava is normal in size and collapses greater than 50% with inspiration. Pericardium/Pleural There is no evidence of pericardial effusion. Prior Study Comparison Changes noted compared to prior study dated: 06/20/2017. Minimal increase in ascending aortic size. Could also be technical. Recommendations, Care & Conclusions No obvious valvular pathology seen on this study. Measurements 2D Linear Measurements IVSd: 0.93 0.6-0.9/0.6-1.0 cm LVIDd: 3.96 3.9-5.3/4.2-5.9 cm LVIDd Index: 2.64 2.4-3.2/2.2-3.1 cm/m2 LVIDs: 2.51 2.0-3.6 cm LVPWd: 0.88 0.7-1.1 cm Ao Root: 3.10 2.1-3.5 cm LA Diam: 2.80 2.7-3.8/3.0-4.0 cm LAIDs Index: 1.87 1.5-2.3 cm/m2 LV Mass: 135.20 67-162/88-224 g LV Mass Index: 90.13 43-95/49-115 g/m2 LVOT Diam: 1.80 3.0+(-)1.3 cm 2D Systolic Function EF 4C: 64.50 >55% EF 2C: 76.70 >55% EF BiP: 71.90 >55% Mitral Valve MV Pk E: 0.84 MV PK A: 0.83 MV Decel Time: 228.00 E/A: 1.00 E'Lateral: 8.70 E'Medial: 7.40 E/E' Med: 11.40 E/E' Lat: 9.70 PHT: 67.00 MVA PHT: 3.28 Decel Haakon: 3.71 Aortic Valve AoV Pk Manpreet: 1.03 AoV Pk Grad: 4.00 LVOT LVOT Pk Manpreet: 1.10 LVOT Mn Manpreet: 0.70 LVOT VTI: 0.25 LVOT Pk Grad: 5.00 LVOT Mn Grad: 2.00 LVOT Diam: 1.80 LVOT Area: 2.54 Diastolic Function MV Pk E: 0.84 MV Pk A: 0.83 E/A: 1.00 E'Medial: 7.40 E/E' Med: 11.40 E' Laterial: 8.70 E/E' Lat: 9.70 Right Ventricle TAPSE (mm): 2.29 TVS' Manpreet: 14.40 Tricuspid Valve TR Pk Manpreet: 2.16 TR Pk Grad: 19.00 RA Press: 3.00 RVSP: 22.00 Great Vessels Aorta Ao Root-2D: 3.10 2.0-3.7 cm Ao Asc: 3.80 2.1-3.4 cm Updated in Other Vendor System with Status of Final Cirilo Fabian MD electronically signed on 05/30/2021 5:37:07 PM with status of Final
== END ==
LOC: HO.CARD 10:25
PROVIDERS: Visit Provider Nurse Practitioner Family
DX: R01.1 Cardiac murmur, unspecified (principal)
CPT/HCPCS: 93306

== ENCOUNTER 2021-06-02 08:39 | Outpatient (REF) | payer MEDICARE, MEDICAID, SELFPAY ==
[2021-06-02 11:39] LABS: MANUAL DIFF FLAG NO
[2021-06-02 11:48] LABS: Basophils Percent Auto 0.3 % (0-2); Eosinophils Absolute Auto 0.2 X10*3/uL (0.0-0.4); Eosinophils Percent Auto 2.5 % (0-4); Hematocrit 40.1 % (37.0-47.0); Imm Gran Abs Auto 0.02 X10*3/uL (0.00-0.03); Imm Gran Pct Auto 0.3 % (0.0-0.4); Lymphocytes Absolute Auto 2.6 X10*3/uL (1.2-4.9); Lymphocytes Percent Auto 40.3 % (20-40); Mean Corpuscular HGB Conc 32.4 g/dl (31.0-35.0); Mean Corpuscular Hemoglobin 32.1 pg (27.0-33.0); Mean Platelet Volume 10.7 fL (9.4-12.3); Monocytes Absolute Auto 0.5 X10*3/uL (0.1-1.2); Neutrophils Absolute Auto 3.2 x10*3/uL (2.0-8.3); Neutrophils Percent Auto 48.6 % (45-73); Platelet Count 174 X10*3/uL (160-400); Red Blood Count 4.05 X10*6/uL (4.20-5.50); Red Cell Distribution Width 12.6 % (11.0-16.0); White Blood Count 6.5 X10*3/uL (4.8-10.8)
[2021-06-02 12:04] LABS: Alanine Aminotransferase 25 U/L (0-31); Albumin Level 4.2 g/dL (3.5-5.0); Alkaline Phosphatase 64 U/L (39-117); Anion Gap 12 (12-20); Aspartate Amino Transferase 22 U/L (5-31); Bilirubin Total 0.5 mg/dL (0.0-1.0); Blood Urea Nitrogen 19 mg/dL (9-16); Calcium 9.3 mg/dL (8.4-10.2); Carbon Dioxide 27 mmol/L (22-29); Chloride 105 mmol/L (96-108); Estimated Glomerular Filt Rate 58; Glucose Random 105 mg/dL (60-115); Iron 75 mcg/dL (30-160); Percent Iron Saturation 19 % (15-50); Potassium 4.7 mmol/L (3.3-5.1); Sodium 139 mmol/L (135-145); Total Iron Binding Capacity 385 mcg/dL (228-428); Total Protein 7.4 g/dL (6.5-8.0); Unsaturated Iron Binding 310 ug/dL
[2021-06-02 12:29] LABS: Ferritin 43 ng/mL (10-250)
[2021-06-02 12:30] LABS: TSH reflex Free T4 3.49 uIU/mL (0.32-4.0)
[2021-06-02 12:37] LABS: Folate 13.1 ng/mL (> or = 4.0); Vitamin B12 405 pg/mL (200-900)
== END 2021-06-02 08:40 | disposition home or self-care (01) ==
LOC: HO.HMGCLDS 08:39
PROVIDERS: PCP Nurse Practitioner Family; Visit Provider Nurse Practitioner Family
DX: L65.9 Nonscarring hair loss, unspecified (principal)
CPT/HCPCS: 36415; 80053; 82607; 82728; 82746; 83540; 84443; 85025

== ENCOUNTER 2021-06-02 13:21 | Outpatient (REF) | payer MEDICARE, MEDICAID, SELFPAY ==
--- NOTE | ~2021-06-02 | MM_ITS ---
EXAMINATION: MM DIAGNOSTIC DIGITAL BREAST TOMOSYNTHESIS, RIGHT CLINICAL INFORMATION: Density deep lateral aspect of the right breast. COMPARISON: Mammography: May 18, 2021 and studies dating back to September 02, 2009 TECHNIQUE: Digital breast tomosynthesis is performed. 2D images are generated from the tomosynthesis. The following views are obtained: Full-field 90 degree mediolateral and mediolateral oblique views as well as spot compression view in craniocaudal projection. FINDINGS: There are scattered areas of fibroglandular density (ACR BI-RADS breast composition Category b). Spot compression view demonstrates some effacement of the density which now has the appearance to prior studies with no new suspicious dominant mass appreciated. Results are discussed with the patient at time of visit. MM/MM tomosynthesis added views R IMPRESSION: No specific mammographic evidence to suggest malignancy. ASSESSMENT: BI-RADS 1: Negative RECOMMENDATION: Routine annual mammography screening. This patient's information was entered into a reminder system with a target due date for their next mammogram.
== END 2021-06-02 13:22 | disposition home or self-care (01) ==
LOC: HO.MAMMO 13:21
PROVIDERS: Visit Provider Nurse Practitioner Family
DX: R92.2 Inconclusive mammogram (principal)
CPT/HCPCS: 77061; 77065

== ENCOUNTER 2021-07-05 13:50 | Outpatient (REF) | payer MEDICARE, MEDICAID, SELFPAY ==
[2021-07-05 14:08] LABS: Appearance Urine CLOUDY; Color Urine YELLOW; Glucose Urine UA NEG (NEG); Leukocyte Esterase Urine 2+ (NEG); Nitrite Urine NEG (NEG); Specific Gravity - Urine 1.025 (1.005-1.025); Urine Blood TRACE (NEG); Urine Ketones NEG (NEG); Urine Protein NEG (NEG-TRACE)
[2021-07-05 14:28] LABS: Bacteria Urine 2+ /LPF; RBC Urine 0-2 /HPF (0); Squamous Epithelial Cell Urine TRACE /LPF; WBC Clumps Urine NOTED; WBC Urine 50-75 /HPF (0-4)
== END 2021-07-05 13:51 | disposition home or self-care (01) ==
LOC: HO.LNP 13:50
PROVIDERS: Visit Provider Nurse Practitioner Family
DX: R30.0 Dysuria (principal)
CPT/HCPCS: 81001; 87086; 87088; 87186

== ENCOUNTER 2021-11-02 08:40 | Outpatient (REF) | payer MEDICARE, MEDICAID, SELFPAY ==
--- NOTE | ~2021-11-02 | CT_ITS ---
EXAMINATION: CT ANGIOGRAM CHEST CLINICAL INFORMATION: Thoracic aortic ectasia. COMPARISON: CT lung screening study 01/05/2021. TECHNIQUE: Multiple axial images were obtained through the chest after the administration of 70 mL of Omnipaque 350 intravenous contrast. Extensive vascular post-processing including two-dimensional and three-dimensional reformatted images were created and reviewed on an independent workstation. This CT examination was performed using dose optimization techniques as appropriate, variously including the following: *Automated exposure control *Adjustment of mA and/or kV according to patient size (this includes techniques or standardized protocols for targeted exams where dose is matched to indication/reason for exam; i.e. extremities or head) *Use of iterative reconstruction technique DLP: 102 mGy-cm VASCULAR FINDINGS: There is mild dilatation of the ascending aorta with maximum dimension of 3.6 cm. A two-vessel branching pattern of the aortic arch is seen with a common trunk involving the brachiocephalic and left carotid arteries. Some mild calcific plaque is present. No aortic dissection. A tricuspid aortic valve is seen. Minimal coronary calcifications are present. The visualized portion of the upper abdominal aorta is unremarkable with some calcific plaque. The celiac and SMA are patent. There are single renal arteries seen on each side which are patent. NONVASCULAR FINDINGS: LUNGS: The lungs are clear with no evidence of inflammation or nodules. MEDIASTINUM: The mediastinum is normal. PLEURA: There is no pleural effusion. No pleural mass or thickening. AXILLA: No lymphadenopathy. UPPER ABDOMEN: There is a 1.3 cm right renal cyst seen which needs no further imaging or followup. OSSEOUS STRUCTURES: Mild degenerative changes present throughout the spine. Sclerosis is present in the vertebral bodies of T11 and T12 adjacent to the disc space. CT/CT angio chest aorta IMPRESSION: Maximal dimension of the ascending aorta is 3.6 cm, which is well below the upper limits of normal for a patient of 61 years of age which is 4.1 cm. Normal aortic diameters (in millimeters) Ascending aorta: 31+0.16 x age. Descending aorta: 21+0.16 x age. Reference: [employer] Cardiovascular J 2005; 40 (3): 175-178 Fleischner guidelines were followed.
[2021-11-02 10:09] LABS: Alanine Aminotransferase 13 U/L (0-31); Albumin Level 4.2 g/dL (3.5-5.0); Alkaline Phosphatase 56 U/L (39-117); Anion Gap 12 (12-20); Aspartate Amino Transferase 20 U/L (5-31); Bilirubin Total 0.4 mg/dL (0.0-1.0); Blood Urea Nitrogen 17 mg/dL (9-16); Calcium 9.6 mg/dL (8.4-10.2); Carbon Dioxide 26 mmol/L (22-29); Chloride 106 mmol/L (96-108); Cholesterol 173 mg/dL; Estimated Glomerular Filt Rate > 60; Glucose Fasting 113 mg/dL (60-99); HDL Cholesterol 64 mg/dL; LDL Cholesterol Calculated 92 mg/dl; Potassium 5.4 mmol/L (3.3-5.1); Sodium 139 mmol/L (135-145); Total Protein 7.6 g/dL (6.5-8.0); Triglycerides 88 mg/dL
[2021-11-02 10:55] LABS: Appearance Urine CLEAR; Color Urine YELLOW; Glucose Urine UA NEG (NEG); Leukocyte Esterase Urine NEG (NEG); Nitrite Urine NEG (NEG); Specific Gravity - Urine 1.025 (1.005-1.025); UACC Culture Trigger NO; Urine Blood 2+ (NEG); Urine Ketones NEG (NEG); Urine Protein NEG (NEG-TRACE)
[2021-11-02] MEDS: iohexoL 350 MG/ML 75 ML INFUS..BTL IV (11:10)
[2021-11-02 11:12] LABS: Squamous Epithelial Cell Urine 1+ /LPF
[2021-11-02 11:13] LABS: Bacteria Urine TRACE /LPF; WBC Urine 0-2 /HPF (0-4)
[2021-11-02 11:14] LABS: Amorphous Sediment Urine 1+ /LPF
== END 2021-11-02 08:41 | disposition home or self-care (01) ==
LOC: HO.CT 08:40
PROVIDERS: PCP Nurse Practitioner Family; Visit Provider Nurse Practitioner Family
DX: I77.810 Thoracic aortic ectasia (principal); F17.200 Nicotine dependence, unspecified, uncomplicated; L65.9 Nonscarring hair loss, unspecified
CPT/HCPCS: 36415; 71275; 80053; 80061; 81001; 84443; Q9967

== ENCOUNTER 2021-11-10 09:51 | Outpatient (REF) | payer MEDICARE, MEDICAID, SELFPAY ==
--- NOTE | ~2021-11-10 | XR_ITS ---
EXAMINATION: XR TOES, RIGHT CLINICAL INFORMATION: Pain COMPARISON: Previous x-ray November 2020 TECHNIQUE: 3 views of the right fifth toe were obtained. FINDINGS: Bone alignment is normal. No acute fracture or dislocation is seen. There is question of old healed fracture of the proximal phalanx of the third toe. This is seen on only one view and is unchanged from previous x-ray 2020. 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 Joint spaces are otherwise normal. There may be soft tissue swelling of the distal fifth toe. XR/XR toe RT min 2V IMPRESSION: Soft tissue swelling of the fifth toe. Question old or healing fracture of the proximal phalanx of the third toe. 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
[2021-11-10 11:11] LABS: Urine Cytology See Pathology rpt
[2021-11-10 11:22] LABS: Appearance Urine HAZY; Color Urine YELLOW; Glucose Urine UA NEG (NEG); Leukocyte Esterase Urine NEG (NEG); Nitrite Urine NEG (NEG); Specific Gravity - Urine 1.025 (1.005-1.025); Urine Blood 1+ (NEG); Urine Ketones 5 MG/DL (NEG); Urine Protein NEG (NEG-TRACE)
[2021-11-10 11:54] LABS: Anion Gap 11 (12-20); Carbon Dioxide 27 mmol/L (22-29); Chloride 104 mmol/L (96-108); Potassium 4.7 mmol/L (3.3-5.1); Sodium 137 mmol/L (135-145)
[2021-11-10 12:15] LABS: Bacteria Urine TRACE /LPF; Squamous Epithelial Cell Urine 3+ /LPF; WBC Urine 0 /HPF (0-4)
== END 2021-11-10 09:52 | disposition home or self-care (01) ==
LOC: HO.HMGCX 09:51
PROVIDERS: PCP Nurse Practitioner Family; Visit Provider Nurse Practitioner Family
DX: R31.29 Other microscopic hematuria (principal); M79.674 Pain in right toe(s); E87.5 Hyperkalemia
CPT/HCPCS: 36415; 73660; 80051; 81001; 87086; 88112

== ENCOUNTER 2022-05-24 08:25 | Outpatient (REF) | payer MEDICARE, MEDICAID, SELFPAY ==
--- NOTE | ~2022-05-24 | MM_ITS ---
EXAMINATION: MM SCREENING DIGITAL BREAST TOMOSYNTHESIS, BILATERAL CLINICAL INFORMATION: Screening. Asymptomatic. Family history breast cancer, mother. The lifetime risk of breast cancer based on the Tyrer-Cuzick Model is 9%. COMPARISON: Mammography: 06/02/2021, 05/18/2021, 05/03/2020, 09/09/2018, 04/16/2017 TECHNIQUE: Digital breast tomosynthesis is performed in both the craniocaudal and mediolateral oblique views along with computer-aided detection (CAD). Synthesized 2D images are generated from the tomosynthesis. FINDINGS: There are scattered areas of fibroglandular density (ACR BI-RADS breast composition Category b). Parenchymal pattern is similar to prior studies. There are scattered bilateral stable asymmetries. No developing density or architectural abnormality. No significant mass or abnormal calcifications. The axilla and skin contours are unremarkable. MM/MM tomosynthesis screening BI IMPRESSION: No mammographic evidence of malignancy. ASSESSMENT: BI-RADS 2: Benign RECOMMENDATION: Routine annual mammography screening. This patient's information was entered into a reminder system with a target due date for their next mammogram.
== END 2022-05-24 08:26 | disposition home or self-care (01) ==
LOC: HO.MAMMO 08:25
PROVIDERS: Visit Provider Nurse Practitioner Family
DX: Z12.31 Encounter for screening mammogram for malignant neoplasm of breast (principal)
CPT/HCPCS: 77063; 77067

== ENCOUNTER 2022-05-28 14:41 | Emergency (ER) | payer OTHER, MEDICARE, SELFPAY ==
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
[2022-05-28 15:52] VITALS: BP 135/93; PULSE 75; RESP 18; TEMP 36.4; O2SAT 100; BMI 22.2
== END 2022-05-28 19:17 | disposition left against medical advice (07) ==
PROVIDERS: Emergency Provider Emergency Medicine
DX: S76.012A Strain of muscle, fascia and tendon of left hip, initial encounter (principal); S86.912A Strain of unspecified muscle(s) and tendon(s) at lower leg level, left leg, initial encounter; M54.2 Cervicalgia; M25.552 Pain in left hip; R51.9 Headache, unspecified; V43.52XA Car driver injured in collision with other type car in traffic accident, initial encounter; Y93.9 Activity, unspecified; Y92.410 Unspecified street and highway as the place of occurrence of the external cause; Y99.9 Unspecified external cause status
CPT/HCPCS: 73502; 73564; 99281; 99283

== ENCOUNTER 2022-06-24 09:05 | Outpatient (REF) | payer OTHER, SELFPAY ==
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
== END 2022-06-24 09:06 | disposition home or self-care (01) ==
LOC: HO.HMGCX 09:05
PROVIDERS: PCP Nurse Practitioner Family; Visit Provider Nurse Practitioner Family
DX: M54.2 Cervicalgia (principal); V89.2XXA Person injured in unspecified motor-vehicle accident, traffic, initial encounter
CPT/HCPCS: 72040

== ENCOUNTER 2022-07-24 11:24 | Outpatient (REF) | payer OTHER, MEDICARE, MEDICAID, SELFPAY ==
--- NOTE | ~2022-07-24 | XR_ITS ---
EXAMINATION: XR CHEST CLINICAL INFORMATION: Cough COMPARISON: Previous chest x-ray October 2019 and chest CTA October 2021 TECHNIQUE: 2 views of the chest were obtained. FINDINGS: The cardiac and mediastinal contours are stable. There is atherosclerotic disease with thoracic aortic calcification. The lungs are clear. There is no pleural effusion or pneumothorax. There are degenerative changes of the spine. XR/XR chest 2V IMPRESSION: No evidence for acute disease in the chest.
[2022-07-24 15:05] LABS: Influenza A PCR NEGATIVE (Negative); Influenza B PCR NEGATIVE (Negative); Resp Syncy Virus RNA Qual PCR NEGATIVE (Negative); SARS COV2 PCR INHOUSE NEGATIVE (Negative)
== END 2022-07-24 11:25 | disposition home or self-care (01) ==
LOC: HO.HMGCX 11:24
PROVIDERS: PCP Nurse Practitioner Family; Visit Provider Nurse Practitioner Family
DX: Z20.822 Contact with and (suspected) exposure to COVID-19 (principal); R68.89 Other general symptoms and signs; R09.89 Other specified symptoms and signs involving the circulatory and respiratory systems; R05.9 Cough, unspecified
CPT/HCPCS: 0241U; 71046

== ENCOUNTER 2022-09-11 10:00 | Outpatient (RCR) | payer OTHER, MEDICARE, MEDICAID, SELFPAY ==
[2022-08-07 10:14] VITALS: BP 136/65; PULSE 61
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
--- NOTE | 2022-09-12 11:35 | MHC.PT.DC ---
[facility] [place] Office [place] Office [place] Office [address] [phone] F: [phone] F: [phone] F: [phone] F: [phone] Physical Therapy Discharge Report Diagnosis: Cervicalagia, low back pain Date of Surgery: NA Date of Evaluation: 08/07/22 Date of Discharge: 09/12/22 Treatments to Date: 8 Cancellations to Date: 0 No Shows to Date: 0 Discharge Status: Achieved Goals Improved Function Independent with HEP Discharge Summary: Jenn has completed 8 PT visits. She has improved significantly and is independent with all HEP. She has achieved all goals set for her. She is therefore being d/c from PT today. Jenn was in agreement with the plan. I reviewed low back and shoulder exercises with her. She was able to perform them all without any pain or difficulty. Electronically signed by: Karin Morales, PT DPT Please sign and return to therapist. Thank you for your referral.
== END 2022-09-12 11:36 | disposition home or self-care (01) ==
LOC: HO.PT 10:00
PROVIDERS: PCP Nurse Practitioner Family; Visit Provider Nurse Practitioner Family
DX: M54.2 Cervicalgia (principal); M54.50 Low back pain, unspecified; V89.2XXD Person injured in unspecified motor-vehicle accident, traffic, subsequent encounter
CPT/HCPCS: 97110; 97140; 97161; 97530

== ENCOUNTER 2022-09-29 10:57 | Emergency (ER) | payer OTHER, MEDICARE, MEDICAID, SELFPAY ==
--- NOTE | ~2022-09-29 | US_ITS ---
EXAMINATION: US VENOUS ULTRASOUND WITH DOPPLER LOWER EXTREMITY, LEFT CLINICAL INFORMATION: Left lower extremity pain COMPARISON: 04/24/2019 TECHNIQUE: Ultrasound of the deep veins is performed from the hip to the calf with compression sonography and color and pulse Doppler assessment. Spectral analysis with color-flow imaging is performed. FINDINGS: There is normal venous compression and respiratory variation and augmented flow. The visualized common femoral vein, superficial femoral vein, profunda femoral vein, popliteal vein, and the trifurcation region shows no evidence of deep venous thrombosis. There is no significant popliteal fossa cyst. If the patient's symptoms persist, followup ultrasound in 5 days 7 days might be of value to exclude proximal propagation from a non-visualized calf vein. US/US venous duplex LE LT IMPRESSION: No DVT demonstrated in the left lower extremity.
--- NOTE | ~2022-09-29 | US_ITS ---
CLINICAL INDICATION: History of arterial occlusion. FINDINGS: Real-time duplex on the examination of the lower extremity arterial systems was performed bilaterally from the levels of the common femoral artery to the ankle. Left lower extremity peak systolic velocities (cm/s): Common femoral artery: 108 Profunda femoral artery: 135 Proximal superficial femoral artery: 118 Mid superficial femoral artery: 119 Distal superficial femoral artery: 140 Popliteal artery: 57 Posterior tibial artery: 52 Grayscale and color Doppler imaging of the left lower extremity demonstrates triphasic waveforms throughout. US/US arterial duplex LE LT IMPRESSION: No evidence of hemodynamically significant stenosis.
[2022-09-29 10:59] VITALS: BP 157/80; PULSE 76; RESP 18; TEMP 36.7; O2SAT 96; BMI 22.6
--- NOTE | 2022-09-29 11:04 | ED.GENADULT ---
HPI - General Adult General Chief complaint: Extremity Problem <Curry Billings - Last Filed: 09/29/22 11:05> Stated complaint: L Calf & Foot Swelling No Injury <Curry Billings - Last Filed: 09/29/22 11:05> Time Seen by Provider: 09/29/22 16:09 <Curry Billings - Last Filed: 09/29/22 11:05> Source: patient <Dede Carreno MD - Last Filed: 09/29/22 16:37> Mode of arrival: ambulatory <Deed Carreno MD - Last Filed: 09/29/22 16:37> Limitations: no limitations <Dede Carreno MD - Last Filed: 09/29/22 16:37> History of Present Illness HPI narrative: Patient comes to the emergency room complaining of swelling in the dorsum of the left foot. Patient states that whenever she walks it hurts. 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 However, patient states that she has history of arterial clots in the right lower extremity, she called her vascular surgeon who urged her to come to the emergency room. Patient denies any numbness tingling. Denies any obvious injury. <Dede Carreno MD - Last Filed: 09/29/22 16:37> Related Data Home medications: Home Medications Medication Instructions Recorded Confirmed aspirin 81 mg tablet,delayed 81 mg PO DAILY 06/15/20 07/24/22 release (Shakira Low Dose Aspirin) buprenorphine 2 mg-naloxone 0.5 mg 2 film buccal DAILY 06/15/20 07/24/22 sublingual film (Suboxone) calcium carbonate-vitamin D3 500 cap PO 03/08/21 07/24/22 mg (1,250 mg)-50 unit capsule elviteg 150 mg-cob 150 mg-emtricit 1 tab PO DAILY 03/08/21 07/24/22 200 mg-tenofo alafenam 10 mg tablet (Genvoya) Previous Rx's Medication Instructions Recorded ibuprofen 600 mg tablet 600 mg PO TID #90 tabs 11/22/21 albuterol sulfate 90 mcg/actuation 1 puff PO QID PRN for dyspnea #8.5 03/20/22 aerosol inhaler grams venlafaxine 25 mg tablet 25 mg PO DAILY 90 days #90 tabs 05/25/22 budesonide-formoterol HFA 80 1 inh inhalation BID #10.2 grams 06/13/22 mcg-4.5 mcg/actuation aerosol inhaler (Symbicort) cyclobenzaprine 10 mg tablet 10 mg PO TID PRN muscle spasm #10 06/23/22 tabs atorvastatin 10 mg tablet 10 mg PO DAILY 90 days #90 tabs 06/25/22 losartan 50 mg tablet 50 mg PO DAILY 90 days #90 tabs 06/28/22 benzonatate 100 mg capsule 100 mg PO TID PRN cough #20 caps 07/24/22 doxycycline monohydrate 100 mg 100 mg PO BID 10 days #20 caps 07/24/22 capsule prednisone 20 mg tablet 40 mg PO DAILY 5 days #10 tabs 07/24/22 tizanidine 2 mg tablet 2 mg PO BEDTIME PRN muscle 08/14/22 spasticity 15 days #15 tabs <Curry Billings - Last Filed: 09/29/22 11:05> Allergies/adverse reactions: Allergies Allergy/AdvReac Type Severity Reaction Status Date / Time abacavir Allergy Unknown Unknown Verified 07/24/22 11:12 From ZIAGEN Allergy Severe HIGH FEVER Uncoded 06/23/22 10:18 Erythromycin Allergy Unknown Unknown Uncoded 06/23/22 10:18 <Curry Billings - Last Filed: 09/29/22 11:05> Review of Systems Review of Systems: Constitutional : No Weight loss, No Fever, No Chills, No Night Sweats, No Fatigue, No Malaise ENT/Mouth : No Hearing loss, No Ear Pain, No Nasal Congestion, No Sinus Pain, No Hoarseness, No sore throat, No Rhinorrhea, No Swallowing Difficulty Eyes: No Eye Pain, No Swelling, No Redness, No Foreign Body, No Discharge, No Vision Changes Cardiovascular : No Chest Pain, No SOB, No Dyspnea on Exertion, No Orthopnea, No Edema, No Palpitations Respiratory : No Cough, No Sputum, No Wheezing, No Smoke Exposure, No Dyspnea Gastrointestinal : No Nausea, No Vomiting, No Diarrhea, No Constipation, No abdominal Pain, No Hematochezia, No Melena Genitourinary : no irregular bleeding, No Dysuria, No Urinary Frequency, No Hematuria, No Urinary Incontinence, No Urgency, No Flank Pain, No Urinary Flow Changes, No Hesitancy Musculoskeletal : Complaining of pain in the dorsum of the left foot, No Myalgias, No Joint Swelling Skin : No Skin Lesions, No rash Neuro : No Weakness, No Numbness, No Paresthesias, No Loss of Consciousness, No Dizziness, No Headache Psych : No Anxiety/Panic, No Depression, No SI/HI/AH/VH, No Social Issues, Heme/Lymph: No Bruising, No Bleeding,No Lymphadenopathy Endocrine : No Polyuria, No Polydipsia, No Temperature Intolerance <Dede Carreno MD - Last Filed: 09/29/22 16:37> [facility] Past Medical History Medical History: Medical History COPD (chronic obstructive pulmonary disease) GERD (gastroesophageal reflux disease) Hepatitis C (~1998) History of opioid abuse HIV (human immunodeficiency virus infection) (~1996) HTN (hypertension) Hyperlipidemia Liver cirrhosis Osteopenia Personal history of nicotine dependence PTSD (post-traumatic stress disorder) PVD (peripheral vascular disease) <Curry Billings - Last Filed: 09/29/22 11:05> Surgical History: Surgical History History of angioplasty (~2017) History of carpal tunnel surgery of right wrist (~2003) History of colonoscopy (~2016) History of esophagogastroduodenoscopy (EGD) (~2016) History of hysterectomy History of liver biopsy (~2001) Hx of cholecystectomy (~2001) <Curry Billings - Last Filed: 09/29/22 11:05> Family History Family History: Family History Mother Lung cancer Father Substance use disorder Son Substance use disorder <Curry Billings - Last Filed: 09/29/22 11:05> Social History Social History: Social History Housing: Apartment Alcohol intake: current Patient Tobacco Use Status: Current everyday Tobacco user Cigarettes Per Day: 10 Years Smoked: 45 (onset 12) e-Cigarette/Vaping Use: Never Used Second Hand Smoke Exposure: No Advance Directives: No Advance Directives Information Provided: No Current occupational status: employed 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, 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 Cognitive needs: No Hearing needs: No Vision needs: No <Curry Billings - Last Filed: 09/29/22 11:05> Physical Exam ED Vital Signs: Vital Signs - 24 hr 09/29/22 10:59 09/29/22 14:55 Temperature 98.1 F 98.6 F Pulse Rate 76 61 Respiratory Rate 18 18 Blood Pressure 157/80 H 154/61 H Pulse Oximetry 96 98 Oxygen Delivery Method Room Air Room Air BMI result Body Mass Index 22.6 <Curry Billings - Last Filed: 09/29/22 11:05> Vital Signs - 24 hr 09/29/22 10:59 09/29/22 14:55 Temperature 98.1 F 98.6 F Pulse Rate 76 61 Respiratory Rate 18 18 Blood Pressure 157/80 H 154/61 H Pulse Oximetry 96 98 Oxygen Delivery Method Room Air Room Air BMI result Body Mass Index 22.6 <Dede Carreno MD - Last Filed: 09/29/22 16:37> Const Other: Appearance: Alert. Oriented X3. No acute distress. Eyes: Pupils equal, round and reactive to light. ENT: Pharynx normal. Neck: Normal inspection. Neck supple. No lymph nodes noted. No crepitus CVS: Normal heart rate and rhythm. Pulses normal. Normal S1 and S2 Respiratory: No respiratory distress. Breath sounds normal. No Wheezing. No rales Abdomen: Soft and nontender. No rigidity. No distention. Skin: Skin warm and dry. Normal skin color. Normal skin turgor. Extremities: No lower extremity edema. There is no pain to palpation in the calves, no swelling around the ankles legs, there is a 3 cm x 3 cm patch of swelling in the dorsum of the left foot, patient has good pedal pulses on both feet, both extremities are warm, no discoloration. Neuro: Oriented X 3. No motor deficit. No sensory deficit. Moving all extremities. No slurred speech. CN 2 through 12 grossly intact Psych: calm, cooperative, normal affect <Dede Carreno MD - Last Filed: 09/29/22 16:37> Course Course Course Narrative: 62-year-old female past medical history significant for right lower extremity arterial occlusion status post stent placement with Dr. Walton presents for evaluation left calf pain and swelling since Sunday. Patient was referred here by her vascular surgeon. The left lower extremity is cool with good color and minimal objective edema. Plan for arterial and venous ultrasound left lower extremity. Have a low suspicion for ischemic limb at this time. <Curry Billings - Last Filed: 09/29/22 11:05> Medical Decision Making Medical Decision Making [facility] Narrative: -patient's physical exam is not indicative of a blood clot either venous or arterial. -venous ultrasound and arterial ultrasound of the left lower extremity do not show any occlusions. -patient has a chronic lump in the dorsum of the left foot. I offered an x-ray, patient states that she needs to plan her vacation and needs to go home. Patient states that she feels follow-up with the primary care physician, already has an appointment scheduled for this week. <Dede Carreno MD - Last Filed: 09/29/22 16:37> Differential Diagnosis Differential Diagnoses: The differential diagnosis associated with the presentation includes (DVT, arterial thrombosis, Barajas's neuroma, calcification) <Dede Carreno MD - Last Filed: 09/29/22 16:37> Lab Data [facility] Lab Attestation statement: I reviewed the patient's lab results. <Dede Carreno MD - Last Filed: 09/29/22 16:37> Result Diagrams: 09/29/22 11:26 09/29/22 11:26 <Curry Billings - Last Filed: 09/29/22 11:05> Labs: Lab Results 09/29/22 09/29/22 09/29/22 Range/Units 11:26 11:26 11:26 WBC 5.6 (4.8-10.8) X10*3/uL RBC 4.32 (4.20-5.50) X10*6/uL Hgb 13.6 (12.0-16.0) g/dl Hct 41.3 (37.0-47.0) % MCV 95.6 (80.0-98.0) fL MCH 31.5 (27.0-33.0) pg MCHC 32.9 (31.0-35.0) g/dl RDW 13.1 (11.0-16.0) % Plt Count 191 (160-400) X10*3/uL MPV 9.5 (9.4-12.3) fL Immature Gran % (Auto) 0.2 (0.0-0.4) % Neut % (Auto) 63.3 (45-73) % Lymph % (Auto) 28.4 (20-40) % [place] % (Auto) 5.7 (2-11) % Eos % (Auto) 2.2 (0-4) % Baso % (Auto) 0.2 (0-2) % Lymph # (Auto) 1.6 (1.2-4.9) X10*3/uL [place] # (Auto) 0.3 (0.1-1.2) X10*3/uL Eos # (Auto) 0.1 (0.0-0.4) X10*3/uL Baso # (Auto) 0.0 (0.0-0.2) X10*3/uL Abs Immat Gran (auto) 0.01 (0.00-0.03) X10*3/uL Absolute Neuts (auto) 3.5 (2.0-8.3) x10*3/uL Absolute Nucleated RBC 0.000 (0.0-0.012) X10*3/uL Nucleated RBC % (auto) 0.0 (0.0-0.2) /100WBC PT 10.9 (10.0-13.1) SEC INR 1.0 (0.9-1.1) APTT 34.5 (26.0-36.4) SEC Sodium 141 (135-145) mmol/L Potassium 4.4 (3.3-5.1) mmol/L Chloride 106 (96-108) mmol/L Carbon Dioxide 28 (22-29) mmol/L Anion Gap 11 L (12-20) BUN 17 H (9-16) mg/dL Creatinine 0.92 (0.5-1.4) mg/dL Estim Creat Clear Calc 46.6 Estimated GFR > 60 Random Glucose 99 (60-115) mg/dL Calcium 9.3 (8.4-10.2) mg/dL <Curry Billings - Last Filed: 09/29/22 11:05> Lab Results 09/29/22 09/29/22 09/29/22 Range/Units 11:26 11:26 11:26 WBC 5.6 (4.8-10.8) X10*3/uL RBC 4.32 (4.20-5.50) X10*6/uL Hgb 13.6 (12.0-16.0) g/dl Hct 41.3 (37.0-47.0) % MCV 95.6 (80.0-98.0) fL MCH 31.5 (27.0-33.0) pg MCHC 32.9 (31.0-35.0) g/dl RDW 13.1 (11.0-16.0) % Plt Count 191 (160-400) X10*3/uL MPV 9.5 (9.4-12.3) fL Immature Gran % (Auto) 0.2 (0.0-0.4) % Neut % (Auto) 63.3 (45-73) % Lymph % (Auto) 28.4 (20-40) % [place] % (Auto) 5.7 (2-11) % Eos % (Auto) 2.2 (0-4) % Baso % (Auto) 0.2 (0-2) % Lymph # (Auto) 1.6 (1.2-4.9) X10*3/uL [place] # (Auto) 0.3 (0.1-1.2) X10*3/uL Eos # (Auto) 0.1 (0.0-0.4) X10*3/uL Baso # (Auto) 0.0 (0.0-0.2) X10*3/uL Abs Immat Gran (auto) 0.01 (0.00-0.03) X10*3/uL Absolute Neuts (auto) 3.5 (2.0-8.3) x10*3/uL Absolute Nucleated RBC 0.000 (0.0-0.012) X10*3/uL Nucleated RBC % (auto) 0.0 (0.0-0.2) /100WBC PT 10.9 (10.0-13.1) SEC INR 1.0 (0.9-1.1) APTT 34.5 (26.0-36.4) SEC Sodium 141 (135-145) mmol/L Potassium 4.4 (3.3-5.1) mmol/L Chloride 106 (96-108) mmol/L Carbon Dioxide 28 (22-29) mmol/L Anion Gap 11 L (12-20) BUN 17 H (9-16) mg/dL Creatinine 0.92 (0.5-1.4) mg/dL Estim Creat Clear Calc 46.6 Estimated GFR > 60 Random Glucose 99 (60-115) mg/dL Calcium 9.3 (8.4-10.2) mg/dL <Dede Carreno MD - Last Filed: 09/29/22 16:37> Radiology Impression Discussion of test interpretation with radiology: I have reviewed the radiologist's reading. <Dede Carreno MD - Last Filed: 09/29/22 16:37> Radiologist Impression: [place] [id number] Ultrasound Report Signed Patient: Jenn Stahl MR#: [id number] : 1960 Acct:[id number] Age/Sex: 62 / F ADM Date: 09/29/22 Loc: .ED Attending Dr: Ordering Physician: Curry Billings Date of Service: 09/29/22 Procedure(s): US venous duplex LE LT Accession Number(s): [id number] cc: Curry Billings ~ EXAMINATION:? US VENOUS ULTRASOUND WITH DOPPLER LOWER EXTREMITY, LEFT CLINICAL INFORMATION:? Left lower extremity pain COMPARISON:? 04/24/2019 TECHNIQUE: Ultrasound of the deep veins is performed from the hip to the calf with compression sonography and color and pulse Doppler assessment. Spectral analysis with color-flow imaging is performed. FINDINGS: There is normal venous compression and respiratory variation and augmented flow. The visualized common femoral vein, superficial femoral vein, profunda femoral vein, popliteal vein, and the trifurcation region shows no evidence of deep venous thrombosis. ? There is no significant popliteal fossa cyst. If the patient's symptoms persist, followup ultrasound in 5 days 7 days might be of value to exclude proximal propagation from a non-visualized calf vein. US/US venous duplex LE LT IMPRESSION: No DVT demonstrated in the left lower extremity. FINDINGS: Real-time duplex on the examination of the lower extremity arterial systems was performed bilaterally from the levels of the common femoral artery to the ankle. Left lower extremity peak systolic velocities (cm/s): Common femoral artery:? 108 Profunda femoral artery:? 135 Proximal superficial femoral artery:? 118 Mid superficial femoral artery:? 119 Distal superficial femoral artery:? 140 Popliteal artery:? 57 Posterior tibial artery:? 52 Grayscale and color Doppler imaging of the left lower extremity demonstrates triphasic waveforms throughout. US/US arterial duplex LE LT IMPRESSION: ? No evidence of hemodynamically significant stenosis. ? <Dede Carreno MD - Last Filed: 09/29/22 16:37> Discharge Plan Discharge Clinical Impression: Foot pain, left <Curry Billings - Last Filed: 09/29/22 11:05> Patient Disposition: Home, Self-Care <Curry Billings - Last Filed: 09/29/22 11:05> Instructions: Metatarsalgia (DC) <Curry Billings - Last Filed: 09/29/22 11:05> Additional Instructions: Please follow-up with your primary care physician tomorrow. If you have any worsening or new symptoms, please return to the emergency room or call 911 <Curry Billings - Last Filed: 09/29/22 11:05> Prescriptions: No Action ibuprofen 600 mg tablet 600 mg PO TID Qty: 90 0RF albuterol sulfate 90 mcg/actuation HFA aerosol inhaler 1 puff PO QID PRN (Reason: for dyspnea) Qty: 8.5 3RF venlafaxine 25 mg tablet 25 mg PO DAILY 90 Days Qty: 90 1RF budesonide-formoterol [Symbicort] 80-4.5 mcg/actuation HFA aerosol inhaler 1 inh inhalation BID Qty: 10.2 2RF atorvastatin 10 mg tablet 10 mg PO DAILY 90 Days Qty: 90 1RF losartan 50 mg tablet 50 mg PO DAILY 90 Days Qty: 90 1RF tizanidine 2 mg tablet 2 mg PO BEDTIME PRN (Reason: muscle spasticity) 15 Days Qty: 15 0RF Genvoya [id number] mg tablet 1 tab PO DAILY calcium carbonate-vitamin D3 500 mg(1,250mg) -50 unit capsule PO cyclobenzaprine 10 mg tablet 10 mg PO TID PRN (Reason: muscle spasm) Qty: 10 0RF Rx Instructions: Do not take this medication with tizanidine. Tizanidine is ineffective for this patient. doxycycline monohydrate 100 mg capsule 100 mg PO BID 10 Days Qty: 20 0RF benzonatate 100 mg capsule 100 mg PO TID PRN (Reason: cough) Qty: 20 0RF prednisone 20 mg tablet 40 mg PO DAILY 5 Days Qty: 10 0RF buprenorphine-naloxone [Suboxone] 2-0.5 mg film 2 film buccal DAILY Rx Instructions: place 1 strip/tab under (each) side of tongue aspirin [Shakira Low Dose Aspirin] 81 mg tablet,delayed release (DR/EC) 81 mg PO DAILY <Curry Billings - Last Filed: 09/29/22 11:05>
[2022-09-29 11:31] LABS: MANUAL DIFF FLAG NO
[2022-09-29 11:33] LABS: Basophils Percent Auto 0.2 % (0-2); Eosinophils Absolute Auto 0.1 X10*3/uL (0.0-0.4); Eosinophils Percent Auto 2.2 % (0-4); Hematocrit 41.3 % (37.0-47.0); Hemoglobin 13.6 g/dl (12.0-16.0); Imm Gran Abs Auto 0.01 X10*3/uL (0.00-0.03); Imm Gran Pct Auto 0.2 % (0.0-0.4); Lymphocytes Absolute Auto 1.6 X10*3/uL (1.2-4.9); Lymphocytes Percent Auto 28.4 % (20-40); Mean Corpuscular HGB Conc 32.9 g/dl (31.0-35.0); Mean Corpuscular Hemoglobin 31.5 pg (27.0-33.0); Mean Corpuscular Volume 95.6 fL (80.0-98.0); Mean Platelet Volume 9.5 fL (9.4-12.3); Monocytes Absolute Auto 0.3 X10*3/uL (0.1-1.2); Monocytes Percent Auto 5.7 % (2-11); Neutrophils Absolute Auto 3.5 x10*3/uL (2.0-8.3); Neutrophils Percent Auto 63.3 % (45-73); Platelet Count 191 X10*3/uL (160-400); Red Blood Count 4.32 X10*6/uL (4.20-5.50); Red Cell Distribution Width 13.1 % (11.0-16.0); White Blood Count 5.6 X10*3/uL (4.8-10.8)
[2022-09-29 11:39] LABS: Prothrombin Time 10.9 SEC (10.0-13.1)
[2022-09-29 11:41] LABS: Partial Thromboplastin Time 34.5 SEC (26.0-36.4)
[2022-09-29 11:52] LABS: Anion Gap 11 (12-20); Blood Urea Nitrogen 17 mg/dL (9-16); Calcium 9.3 mg/dL (8.4-10.2); Carbon Dioxide 28 mmol/L (22-29); Chloride 106 mmol/L (96-108); Creatinine Clr Calc Pharmacy 46.6; Estimated Glomerular Filt Rate > 60; Glucose Random 99 mg/dL (60-115); Potassium 4.4 mmol/L (3.3-5.1); Sodium 141 mmol/L (135-145)
[2022-09-29 14:55] VITALS: BP 154/61; PULSE 61; RESP 18; TEMP 37; O2SAT 98
== END 2022-09-29 16:46 | disposition home or self-care (01) ==
PROVIDERS: Physician Assistant; Emergency Provider Emergency Medicine; PCP Nurse Practitioner Family
DX: R60.0 Localized edema (principal); M79.672 Pain in left foot; F17.210 Nicotine dependence, cigarettes, uncomplicated; Z71.6 Tobacco abuse counseling; Z79.899 Other long term (current) drug therapy
CPT/HCPCS: 36415; 80048; 85025; 85610; 85730; 93926; 93971; 99283; 99284

== ENCOUNTER 2022-10-24 08:32 | Outpatient (REF) | payer MEDICARE, MEDICAID, SELFPAY ==
--- NOTE | ~2022-10-24 | US_ITS ---
EXAMINATION: ANKLE-BRACHIAL INDICES SINGLE LEVEL PULSE VOLUME RECORDING ARTERIAL DUPLEX BILATERAL LEGS CLINICAL INFORMATION: Peripheral vascular disease COMPARISON: Left lower extremity Doppler ultrasound 09/29/2022. Noninvasive study 10/27/2019. TECHNIQUE: Ankle-brachial indices and PVR at the ankle were obtained. Duplex Doppler of the bilateral lower extremity arterial systems was performed. FINDINGS: RIGHT: Ankle-brachial index: 0.99 PVR: Mildly abnormal. Common femoral: PSV 155 cm/s. Triphasic waveform. Deep femoral: PSV 76 cm/s. Triphasic waveform. Proximal superficial femoral: PSV 90 cm/s. Biphasic waveform. Mid superficial femoral: PSV 105 cm/s. Biphasic waveform. Distal superficial femoral: PSV 76 cm/s. Biphasic waveform. Popliteal: PSV 87 cm/s. Biphasic waveform. Posterior tibial: PSV 63 cm/s. Triphasic waveform. Peroneal: PSV 56 cm/s. Biphasic waveform. LEFT: Ankle-brachial index: 1.01 PVR: Mildly abnormal. Common femoral: PSV 136 cm/s. Triphasic waveform. Deep femoral: PSV 59 cm/s. Triphasic waveform. Proximal superficial femoral: PSV 135 cm/s. Biphasic waveform. Mid superficial femoral: PSV 97 cm/s. Biphasic waveform. Distal superficial femoral: PSV 66 cm/s. Biphasic waveform. Popliteal: PSV 61 cm/s. Biphasic waveform. Posterior tibial: PSV 67 cm/s. Biphasic waveform. Peroneal: PSV 51 cm/s. Biphasic waveform. US/US arterial duplex LE BI IMPRESSION: Right: KALYN 0.99. Mildly abnormal PVR waveform. Diffuse atherosclerosis without hemodynamically significant stenosis. Left: KALYN 1.01. Mildly abnormal PVR waveform. Diffuse atherosclerosis without hemodynamically significant stenosis. Overall, disease appears stable compared to 10/27/2019.
--- NOTE | ~2022-10-24 | US_ITS ---
EXAMINATION: ANKLE-BRACHIAL INDICES SINGLE LEVEL PULSE VOLUME RECORDING ARTERIAL DUPLEX BILATERAL LEGS CLINICAL INFORMATION: Peripheral vascular disease COMPARISON: Left lower extremity Doppler ultrasound 09/29/2022. Noninvasive study 10/27/2019. TECHNIQUE: Ankle-brachial indices and PVR at the ankle were obtained. Duplex Doppler of the bilateral lower extremity arterial systems was performed. FINDINGS: RIGHT: Ankle-brachial index: 0.99 PVR: Mildly abnormal. Common femoral: PSV 155 cm/s. Triphasic waveform. Deep femoral: PSV 76 cm/s. Triphasic waveform. Proximal superficial femoral: PSV 90 cm/s. Biphasic waveform. Mid superficial femoral: PSV 105 cm/s. Biphasic waveform. Distal superficial femoral: PSV 76 cm/s. Biphasic waveform. Popliteal: PSV 87 cm/s. Biphasic waveform. Posterior tibial: PSV 63 cm/s. Triphasic waveform. Peroneal: PSV 56 cm/s. Biphasic waveform. LEFT: Ankle-brachial index: 1.01 PVR: Mildly abnormal. Common femoral: PSV 136 cm/s. Triphasic waveform. Deep femoral: PSV 59 cm/s. Triphasic waveform. Proximal superficial femoral: PSV 135 cm/s. Biphasic waveform. Mid superficial femoral: PSV 97 cm/s. Biphasic waveform. Distal superficial femoral: PSV 66 cm/s. Biphasic waveform. Popliteal: PSV 61 cm/s. Biphasic waveform. Posterior tibial: PSV 67 cm/s. Biphasic waveform. Peroneal: PSV 51 cm/s. Biphasic waveform. US/US KALYN complete IMPRESSION: Right: KALYN 0.99. Mildly abnormal PVR waveform. Diffuse atherosclerosis without hemodynamically significant stenosis. Left: KALYN 1.01. Mildly abnormal PVR waveform. Diffuse atherosclerosis without hemodynamically significant stenosis. Overall, disease appears stable compared to 10/27/2019.
== END 2022-10-24 08:33 | disposition home or self-care (01) ==
LOC: HO.US 08:32
PROVIDERS: PCP Nurse Practitioner Family; Visit Provider Surgery Vascular Surgery
DX: I70.213 Atherosclerosis of native arteries of extremities with intermittent claudication, bilateral legs (principal)
CPT/HCPCS: 93923; 93925

== ENCOUNTER 2023-01-04 09:31 | Outpatient (REF) | payer MEDICARE, MEDICAID, SELFPAY ==
[2023-01-04 11:15] LABS: MANUAL DIFF FLAG NO
[2023-01-04 11:38] LABS: Appearance Urine Clear; Color Urine Yellow; Glucose Urine UA Negative (Negative); Leukocyte Esterase Urine Negative (Negative); Nitrite Urine Negative (Negative); PH 5.5 (5.0-9.0); Specific Gravity - Urine 1.025 (1.005-1.025); UMIC TRIGGER UACC YES; Urine Blood Trace (Negative); Urine Ketones Trace mg/dL (Negative); Urine Protein Negative (Neg-Trace)
[2023-01-04 11:41] LABS: Bacteria Urine 1+ (None Seen); Hyaline Casts Urine 0-2 /LPF (0-2); WBC Urine 0-5 /HPF (0-5)
[2023-01-04 12:01] LABS: Basophils Percent Auto 0.2 % (0-2); Eosinophils Absolute Auto 0.1 X10*3/uL (0.0-0.4); Eosinophils Percent Auto 1.8 % (0-4); Hematocrit 40.6 % (37.0-47.0); Hemoglobin 13.5 g/dl (12.0-16.0); Imm Gran Abs Auto 0.01 X10*3/uL (0.00-0.03); Imm Gran Pct Auto 0.2 % (0.0-0.4); Lymphocytes Absolute Auto 1.9 X10*3/uL (1.2-4.9); Lymphocytes Percent Auto 29.1 % (20-40); Mean Corpuscular HGB Conc 33.3 g/dl (31.0-35.0); Mean Corpuscular Hemoglobin 32.1 pg (27.0-33.0); Mean Corpuscular Volume 96.7 fL (80.0-98.0); Mean Platelet Volume 10.6 fL (9.4-12.3); Monocytes Absolute Auto 0.5 X10*3/uL (0.1-1.2); Neutrophils Percent Auto 60.7 % (45-73); Platelet Count 181 X10*3/uL (160-400); Red Cell Distribution Width 13.2 % (11.0-16.0); White Blood Count 6.5 X10*3/uL (4.8-10.8)
[2023-01-04 12:27] LABS: Alanine Aminotransferase 10 U/L (0-31); Albumin Level 4.1 g/dL (3.5-5.0); Alkaline Phosphatase 59 U/L (39-117); Anion Gap 14 (12-20); Aspartate Amino Transferase 19 U/L (5-31); Bilirubin Total 0.3 mg/dL (0.0-1.0); Blood Urea Nitrogen 17 mg/dL (9-16); Calcium 9.6 mg/dL (8.4-10.2); Carbon Dioxide 24 mmol/L (22-29); Chloride 105 mmol/L (96-108); Cholesterol 140 mg/dL; Estimated Glomerular Filt Rate > 60; Glucose Fasting 94 mg/dL (60-99); HDL Cholesterol 67 mg/dL; LDL Cholesterol Calculated 64 mg/dl; Potassium 4.3 mmol/L (3.3-5.1); Sodium 139 mmol/L (135-145); Total Protein 7.6 g/dL (6.5-8.0); Triglycerides 46 mg/dL
[2023-01-04 13:00] LABS: TSH reflex Free T4 2.06 uIU/mL (0.32-4.0); Vitamin D 25-OH Total 32.7 ng/mL (>30)
== END 2023-01-04 09:32 | disposition home or self-care (01) ==
LOC: HO.HMGCLDS 09:31
PROVIDERS: PCP Nurse Practitioner Family; Visit Provider Nurse Practitioner Family
DX: Z00.00 Encounter for general adult medical examination without abnormal findings (principal); E55.9 Vitamin D deficiency, unspecified; E78.5 Hyperlipidemia, unspecified; Z78.0 Asymptomatic menopausal state
CPT/HCPCS: 36415; 80053; 80061; 81001; 82306; 84443; 85025

== ENCOUNTER 2023-01-11 09:33 | Outpatient (AMB) | payer MEDICARE, MEDICAID, SELFPAY ==
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
[2023-01-11 09:42] VITALS: BMI 21.7
== END 2023-01-11 09:47 | disposition home or self-care (01) ==
PROVIDERS: PCP Nurse Practitioner Family; Visit Provider Surgery Vascular Surgery
DX: I73.9 Peripheral vascular disease, unspecified (principal); Z98.62 Peripheral vascular angioplasty status
CPT/HCPCS: 99213

== ENCOUNTER → 2023-01-11 09:33 | Outpatient (BNVA) | payer MEDICARE, MEDICAID, SELFPAY | PROVIDERS: PCP Nurse Practitioner Family; Visit Provider Surgery Vascular Surgery ==

== ENCOUNTER 2023-02-19 08:58 | Outpatient (AMB) | payer MEDICARE, MEDICAID, SELFPAY ==
--- NOTE | 2023-02-19 09:00 | MHC.OFFVIS ---
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 Accompanied by: Self / Same As Patient Allergies abacavir Allergy (Unknown, Verified 02/19/23 09:36) Unknown From ZIAGEN Allergy (Severe, Uncoded 02/19/23 09:36) HIGH FEVER Erythromycin Allergy (Unknown, Uncoded 02/19/23 09:36) Unknown Medication List - Last Reconciled 02/19/23 by KB Holcomb- albuterol sulfate 90 mcg/actuation 1 puff PO QID PRN aspirin (Shakira Low Dose Aspirin) 81 mg PO DAILY atorvastatin 10 mg PO DAILY 90 days budesonide-formoterol 80-4.5 mcg/actuation (Symbicort) 1 inh inhalation BID buprenorphine-naloxone 2-0.5 mg (Suboxone) 2 film buccal DAILY calcium carbonate-vitamin D3 500 mg(1,250mg) -50 unit caps PO boivzsh-czi-kpfpn-tenof alafen [id number] mg (Genvoya) 1 tab PO DAILY ibuprofen 600 mg PO TID losartan 50 mg PO DAILY 90 days venlafaxine 25 mg PO DAILY 90 days HPI HPI Comments History of Present Illness Details Jenn is a pleasant 62-year-old female patient of Dr. Grajeda. She has a past medical history of liver cirrhosis, COPD, PVD, history of opioid abuse on Suboxone, osteopenia, GERD, hyperlipidemia, hep C, nicotine dependence, PTSD, hypertension, and HIV. She presents to the office today as a new patient for microscopic hematuria. In discussion with the patient today she reports to be doing and feeling well. In review of patient's chart it appears urinalysis have been positive for microscopic hematuria dating back to June 2021. When asked she does report a longstanding smoking history of approximately 50 years. She reports smoking approximately 1 pack of cigarettes per day. She otherwise denies any known chemical exposure. She otherwise denies any urinary issues or concerns at this time. She denies urinary urgency, urinary frequency, incontinence, nocturia, hematuria, dysuria, foul smelling urine, changes to urinary stream, flank pain, fever, and or chills. She is happy with her current voiding parameters. In office urinalysis today with 1+ microscopic hematuria. Discussed at length potential causes for microscopic hematuria as well as further microscopic hematuria workup to include CT urogram, cytology, and in office cystoscopy. Discussed at length risks versus benefit of surveillance monitoring versus further microscopic hematuria. Discussed and stressed the importance of limiting/quitting smoking for overall health and well being. 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 She otherwise offers no issues or concerns at this time. [facility] Medical History Liver cirrhosis COPD (chronic obstructive pulmonary disease) PVD (peripheral vascular disease) History of opioid abuse Osteopenia GERD (gastroesophageal reflux disease) Hyperlipidemia Hepatitis C (~1998) Personal history of nicotine dependence PTSD (post-traumatic stress disorder) HTN (hypertension) HIV (human immunodeficiency virus infection) (~1996) Surgical History History of colonoscopy (~2016) History of esophagogastroduodenoscopy (EGD) (~2016) History of angioplasty (~2017) History of carpal tunnel surgery of right wrist (~2003) History of liver biopsy (~2001) Hx of cholecystectomy (~2001) History of hysterectomy Family History Mother Lung cancer Father Substance use disorder Son Substance use disorder Social History Housing: Apartment Alcohol intake: current Patient Tobacco Use Status: Current everyday Tobacco user Cigarettes Per Day: 10 Years Smoked: 45 (onset 12) e-Cigarette/Vaping Use: Never Used Second Hand Smoke Exposure: No Current occupational status: employed 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, 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 Cognitive needs: No Hearing needs: No Vision needs: No Review of Systems Const Reports as per HPI Eyes Reports no additional complaints ENT Reports no additional complaints Card Reports as per HPI Resp Reports as per HPI GI Reports as per HPI Reports as per HPI Musc Reports as per HPI Neuro Reports as per HPI Psych Reports as per HPI Endo Reports no additional complaints Nura/Lymph Reports as per HPI Physical Exam Const General: cooperative, healthy appearing, comfortable, no acute distress, well developed, alert and awake Orientation/consciousness: patient oriented x3 Limitations: no limitations HEENT Head: Yes normal to inspection, Yes normocephalic and Yes atraumatic Ears: hearing grossly normal bilaterally Eyes General: appearance normal, both eyes and all related structures Neck Neck: Yes normal visual inspection and Yes trachea midline Chest Chest palpation & inspection: normal inspection of the chest Resp Effort & Inspection: normal respiratory effort and able to speak in complete sentences Cardio Rate: regular rate GI Inspection: Yes normal to inspection General: Yes no CVA tenderness Back/Spine/Pelvis Back: no CVA tenderness Skin General skin exam: no rashes or lesions noted Neuro General: patient oriented x3 Extrem General: Yes normal to inspection Psych Appearance: grossly normal and well kempt Mental Status: mental status grossly normal Speech and movement: Normal speech and movement present and Clear speech present Affect: normal affect Attitude: cooperative Thought process: Normal thought process present Thought content: Normal thought content present Insight: Fair insight present (Psych) Judgement: Fair judgement present (Psych) Results AMB Urinalysis, Automated UA Leukoctes 0 [place]/uL Last Edit by [employer] on 02/19/23 09:14 UA Nitrite Negative Last Edit by [employer] on 02/19/23 09:14 UA Urobilinogen 0.2 mg/dL Last Edit by [employer] on 02/19/23 09:14 UA Protein 0 mg/dL Last Edit by [employer] on 02/19/23 09:14 UA pH 6.0 Last Edit by [employer] on 02/19/23 09:14 UA Blood 25 Vineet/uL Last Edit by [employer] on 02/19/23 09:14 UA Specific [place] 1.025 Last Edit by [employer] on 02/19/23 09:14 UA Ketone Negative Last Edit by [employer] on 02/19/23 09:14 UA Bilirubin 0 mg/dL Last Edit by [employer] on 02/19/23 09:14 UA Glucose 0 mg/dL Last Edit by [employer] on 02/19/23 09:14 Results Reviewed Results Reviewed: Laboratory Last Values Urine pH (Auto) 6.0 02/19/23 09:01 Specific [place] (Auto) 1.025 02/19/23 09:01 Urine Protein (Auto) 0 mg/dL 02/19/23 09:01 Glucose (UA)(Auto) 0 mg/dL 02/19/23 09:01 Urine Ketones (Auto) Negative 02/19/23 09:01 Urine Blood (Auto) 25 [place]/uL 02/19/23 09:01 Urine Nitrite (Auto) Negative 02/19/23 09:01 Urine Bilirubin (Auto) 0 mg/dL 02/19/23 09:01 Urine Urobilinogen (Auto) 0.2 mg/dL 02/19/23 09:01 Leukocyte Esterase (Auto) 0 [place]/uL 02/19/23 09:01 Assessment & Plan Assessment & Plan (1) Microscopic hematuria: Code(s): R31.29 - Other microscopic hematuria (2) Nicotine dependence: Code(s): F17.200 - Nicotine dependence, unspecified, uncomplicated Plan In office urinalysis results reviewed with the patient today; as noted above; will send for urine cytology Discussed at length potential causes for microscopic hematuria. Discussed further microscopic hematuria workup with CT urogram, cytology, and in office cystoscopy; discussed risks and benefits of surveillance monitoring verses further microscopic hematuria workup at length. Discussed, educated, instructed on the importance of drinking plenty of water daily. Discussed importance of limiting/quitting cigarette smoking for overall health and well-being. CT urogram ordered. BUN and creatinine ordered for imaging. Follow-up in office cystoscopy in 4-6 weeks with imaging, labs, and urine cytology to be completed prior; or sooner with any issues, concerns, and or questions Orders: Orders AMB Urinalysis Automated Today Z13.9 - Encounter for screening, unspecified Urine Cytology Today R31.29 - Other microscopic hematuria CT urogram Today R31.0 - Gross hematuria Creatinine Today R31.29 - Other microscopic hematuria Blood Urea Nitrogen Today R31.29 - Other microscopic hematuria Patient Instructions: The patient had an opportunity to ask questions regarding the treatment plan. All questions were answered. Physical exam, labs, and imaging were discussed and reviewed in detail. As well as risks, benefits, and discussion of treatment choices. No major barriers to understanding were identified. The patient expressed understanding and agreement with the above treatment plan. The patient was made aware they should contact our office by phone for worsening of their current condition, the appearance of new symptoms, or with any questions or concerns. Compliance is encouraged with any medications and follow up testing that is ordered. It is a privilege to be allowed the opportunity to participate in? your urological care.? Again, if you have any questions or concerns If you have any questions or concerns please do not hesitate to contact me. The office is [phone]. This note is constructed using voice recognition software. While every effort has been made to ensure accuracy holter technician errors may have been included. Yours sincerely, AMARJIT Holcomb Coding Level of Care Code New Pt Level 3 (39454) Diagnoses Microscopic hematuria R31.29 Nicotine dependence F17.200
== END 2023-02-19 09:35 | disposition home or self-care (01) ==
PROVIDERS: PCP Nurse Practitioner Family; Visit Provider Nurse Practitioner Family
DX: R31.29 Other microscopic hematuria (principal); F17.200 Nicotine dependence, unspecified, uncomplicated; Z13.9 Encounter for screening, unspecified
CPT/HCPCS: 99203

== ENCOUNTER 2023-02-19 08:58 | Outpatient (REF) | payer MEDICARE, MEDICAID, SELFPAY | END 2023-02-19 08:59 | disposition home or self-care (01) | LOC: HO.LNP 08:58 | PROVIDERS: PCP Nurse Practitioner Family; Visit Provider Nurse Practitioner Family | DX: Z13.89 Encounter for screening for other disorder (principal) | CPT/HCPCS: 81003; 99202 ==

== ENCOUNTER 2023-02-19 09:36 | Outpatient (REF) | payer MEDICARE, MEDICAID, SELFPAY ==
[2023-02-19 10:26] LABS: Urine Cytology See Pathology rpt
[2023-02-19 10:55] LABS: Blood Urea Nitrogen 16 mg/dL (9-16); Estimated Glomerular Filt Rate > 60
== END 2023-02-19 09:37 | disposition home or self-care (01) ==
LOC: HO.10HDL 09:36
PROVIDERS: Visit Provider Nurse Practitioner Family
DX: R31.29 Other microscopic hematuria (principal); F17.200 Nicotine dependence, unspecified, uncomplicated; Z71.6 Tobacco abuse counseling
CPT/HCPCS: 36415; 81003; 82565; 84520; 88112; 99202

== ENCOUNTER 2023-03-28 10:14 | Outpatient (REF) | payer MEDICARE, MEDICAID, SELFPAY ==
[2023-03-28 11:09] LABS: Blood Urea Nitrogen 14 mg/dL (9-16); Estimated Glomerular Filt Rate > 60
== END 2023-03-28 10:15 | disposition home or self-care (01) ==
LOC: HO.10HDL 10:14
PROVIDERS: Visit Provider Nurse Practitioner Family
DX: R31.29 Other microscopic hematuria (principal); R30.0 Dysuria
CPT/HCPCS: 36415; 82565; 84520

== ENCOUNTER 2023-03-30 07:54 | Outpatient (REF) | payer MEDICARE, MEDICAID, SELFPAY ==
--- NOTE | ~2023-03-30 | CT_ITS ---
EXAMINATION: CT ABDOMEN AND PELVIS WITHOUT AND WITH CONTRAST CLINICAL INFORMATION: Gross hematuria COMPARISON: None available. TECHNIQUE: Noncontrast CT of the abdomen and pelvis is performed followed by split bolus contrast-enhanced images using 85 mL Omnipaque 350 contrast.? Postcontrast imaging is performed during the combined nephrogram and excretion phase. Sagittal and coronal reformatted images were obtained on the technologist's workstation for both the precontrast and postcontrast phases. This CT examination was performed using dose optimization techniques as appropriate, variously including the following: *Automated exposure control *Adjustment of mA and/or kV according to patient size (this includes techniques or standardized protocols for targeted exams where dose is matched to indication/reason for exam; i.e. extremities or head) *Use of iterative reconstruction technique DLP: 369 mGy-cm FINDINGS: LUNG BASES: The visualized lung bases are unremarkable. LIVER, GALLBLADDER, AND BILIARY TREE: The liver is normal in size, shape, and attenuation. No focal hepatic lesion or biliary ductal dilatation is present. Gallbladder is surgically absent. PANCREAS: Unremarkable. SPLEEN: Unremarkable. ADRENAL GLANDS: Unremarkable. KIDNEYS AND URETERS: There is simple cyst in interpolar cortex of right kidney, measured 1.3 cm. There is no hydroureteronephrosis or nephrolithiasis bilaterally. Ureters are nondilated. BLADDER: Unremarkable. GASTROINTESTINAL TRACT: The small and large bowel are unremarkable. The appendix is unremarkable. ABDOMINAL WALL: No significant hernia is appreciated. LYMPH NODES: Normal. VASCULAR: There are atherosclerotic calcifications of abdominal aorta and common iliac arteries but no evidence of aneurysmal dilatation. PELVIC VISCERA: Uterus is surgically absent OSSEUS STRUCTURES: There are degenerative changes with subchondral sclerosis at the level of T12-T11 CT/CT urogram IMPRESSION: No explanation for hematuria. Simple cyst in the right kidney. Status post cholecystectomy and hysterectomy.
[2023-03-30] MEDS: iohexoL 350 MG/ML 100 ML INFUS..BTL IV (08:48)
== END 2023-03-30 07:55 | disposition home or self-care (01) ==
LOC: HO.CT 07:54
PROVIDERS: PCP Nurse Practitioner Family; Visit Provider Nurse Practitioner Family
DX: R31.0 Gross hematuria (principal)
CPT/HCPCS: 74178; Q9967

== ENCOUNTER → 2023-04-04 15:08 | Outpatient (REF) | payer MEDICARE, MEDICAID, SELFPAY ==
--- NOTE | 2023-04-04 15:10 | CA_ITS ---
Transthoracic Echocardiogram Patient (Last, First, Middle): Jenn Stahl M Gender: Female Date of : 1960 Age: 62 Procedure Date: 04/04/2023 Procedure Type: Transthoracic Echocardiogram Location: OP Height: 152.4 cm Weight: 49.9 kg BSA: 1.45 m2 Heart Rate: bpm BP: 120 / 68 mmHg Agate Setter: TO Referring MD: Dami Grajeda [facility] Icer Machine: Xavier Sanchez MD Symptoms: I77.810 - Thoracic aortic ectasia Study Quality: Adequate ECG Rhythm: Sinus Conclusions: - 1. Normal LV ejection fraction of 60 65% 2. Normal cardiac valvular Dopplers 3. Mildly dilated ascending aorta at 3.9 cm Findings Left Ventricle Normal left ventricular size, thickness, and systolic function. The visually estimated ejection fraction is between 60-65%. Spectral Doppler is indicative of a normal filling pattern. Peak GLS is -23.6%, within normal limits. Right Ventricle Normal right ventricular cavity size and systolic function. Atria Both atria are normal in size. There is no evidence of interatrial shunt. Aortic Valve The aortic valve structure and function is likely normal. There is no aortic valve stenosis. There is no aortic valve regurgitation. Mitral Valve Normal mitral valve structure and function. There is trace mitral valve regurgitation. There is no mitral valve stenosis. Pulmonic Valve The pulmonic valve is likely normal. There is trace pulmonic valve regurgitation. Tricuspid Valve Normal tricuspid valve structure. There is trace tricuspid valve regurgitation. The right ventricular systolic pressure is normal. Normal right atrial pressure. There is no evidence of pulmonary hypertension. Great Vessels The pulmonary artery was not well visualized. There is mild dilatation of the ascending aorta. Venous The inferior vena cava is normal in size and collapses greater than 50% with inspiration. Pericardium/Pleural There is no evidence of pericardial effusion. Prior Study Comparison No significant change compared to prior study dated: 05/30/2021. Measurements 2D Linear Measurements IVSd: 1.03 0.6-0.9/0.6-1.0 cm LVIDd: 3.91 3.9-5.3/4.2-5.9 cm LVIDd Index: 2.70 2.4-3.2/2.2-3.1 cm/m2 LVIDs: 2.36 2.0-3.6 cm LVPWd: 0.82 0.7-1.1 cm LA Diam: 3.60 2.7-3.8/3.0-4.0 cm LAIDs Index: 2.48 1.5-2.3 cm/m2 LV Mass: 136.89 67-162/88-224 g LV Mass Index: 94.41 43-95/49-115 g/m2 LVOT Diam: 2.00 3.0+(-)1.3 cm 2D Systolic Function EF 4C: 64.60 >55% EF 2C: 67.10 >55% EF BiP: 65.70 >55% Mitral Valve MV Pk E: 0.72 MV PK A: 0.86 MV Decel Time: 296.00 E/A: 0.80 E'Lateral: 6.85 E'Medial: 4.90 E/E' Med: 14.60 E/E' Lat: 10.50 PHT: 87.00 MVA PHT: 2.53 Decel Bethel: 2.42 Aortic Valve AoV Pk Manpreet: 1.68 AoV Mn Manpreet: 1.16 AoV VTI: 0.35 AoV Pk Grad: 11.00 Aov Mn Grad: 6.00 AGNIESZKA Cont.VTI: 2.44 LVOT LVOT Pk Manpreet: 1.34 LVOT Mn Manpreet: 0.74 LVOT VTI: 0.27 LVOT Pk Grad: 7.00 LVOT Mn Grad: 3.00 LVOT Diam: 2.00 LVOT Area: 3.14 Diastolic Function MV Pk E: 0.72 MV Pk A: 0.86 E/A: 0.80 E'Medial: 4.90 E/E' Med: 14.60 E' Laterial: 6.85 E/E' Lat: 10.50 Right Ventricle TAPSE (mm): 20.00 TVS' Manpreet: 12.90 Tricuspid Valve TR Pk Manpreet: 2.40 TR Pk Grad: 23.00 RA Press: 3.00 RVSP: 26.00 Great Vessels Aorta Sinus of Valsalva: 3.01 2.0-3.5 cm Ao Asc: 3.90 2.1-3.4 cm Updated in Other Vendor System with Status of Final Xavier Sanchez MD electronically signed on 04/05/2023 5:01:37 PM with status of Final
== END ==
LOC: HO.CARD 15:08
PROVIDERS: PCP Nurse Practitioner Family; Visit Provider Nurse Practitioner Family
DX: I77.810 Thoracic aortic ectasia (principal); R01.1 Cardiac murmur, unspecified
CPT/HCPCS: 93306

== ENCOUNTER → 2023-04-04 15:10 | Outpatient (BNV) | payer MEDICARE, MEDICAID, SELFPAY | PROVIDERS: PCP Nurse Practitioner Family; Visit Provider Internal Medicine Cardiovascular Disease | DX: R01.1 Cardiac murmur, unspecified (principal); I77.810 Thoracic aortic ectasia | CPT/HCPCS: 93306 ==

== ENCOUNTER 2023-05-07 14:58 | Outpatient (AMB) | payer MEDICARE, MEDICAID, SELFPAY ==
--- NOTE | 2023-05-07 15:02 | A.OFFPC_ITS ---
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 It was recommended that pt have a carotid US, will order. Pt reports recent hair loss. Will order labs and refer to dermatology. Denies fever, chills, and dizziness. [facility] Medical History Liver cirrhosis COPD (chronic obstructive pulmonary disease) PVD (peripheral vascular disease) History of opioid abuse Osteopenia GERD (gastroesophageal reflux disease) Hyperlipidemia Hepatitis C (~1998) Personal history of nicotine dependence PTSD (post-traumatic stress disorder) HTN (hypertension) HIV (human immunodeficiency virus infection) (~1996) Surgical History History of colonoscopy (~2016) History of esophagogastroduodenoscopy (EGD) (~2016) History of angioplasty (~2017) History of carpal tunnel surgery of right wrist (~2003) History of liver biopsy (~2001) Hx of cholecystectomy (~2001) History of hysterectomy Family History Mother Lung cancer Father Substance use disorder Son Substance use disorder Housing: Apartment Alcohol intake: current Patient Tobacco Use Status: Current everyday Tobacco user Cigarettes Per Day: 10 Years Smoked: 45 (onset 12) Packs per year/per ci.00 e-Cigarette/Vaping Use: Never Used Second Hand Smoke Exposure: No Current occupational status: employed 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 Richard Gonzalez, Annie Pérez, James Nevarez and colleagues, with an educational florinda from [employer]. Review of Systems Const Reports as per HPI Physical exam (Primary Care) Vital Signs: Last Vital Signs Pulse 51 05/07/23 15:05 BP 122/76 05/07/23 15:05 Pulse Ox 97 05/07/23 15:05 Oxygen Delivery Method Room Air 05/07/23 15:05 BMI result Body Mass Index 21.7 Tobacco/Smoking Status: Tobacco use Status Tobacco use date assessed 11/08/22 05/07/23 15:04 Patient Tobacco Use Status Current everyday Tobacco 05/07/23 15:04 e-Cigarette/Vaping Use Never Used 05/07/23 15:04 Thrive Assessment: Date of Thrive Assessment Date Thrive assessed 11/08/22 05/07/23 15:04 Const General: cooperative Orientation/consciousness: patient oriented x3 HENMT Other: fairly large amt of hair noted to scalp. Resp Effort & Inspection: normal respiratory effort Auscultation: clear to auscultation bilaterally Cardio Rate: regular rate Rhythm: regular rhythm Heart sounds: S1 normal heart sound present, S2 normal heart sound present and Murmur heart sound present systolic Neuro General: patient oriented x3 Psych Appearance: grossly normal Mental Status: mental status grossly normal Speech and movement: Normal speech and movement present Affect: normal affect Attitude: cooperative Thought process: Normal thought process present Thought content: Normal thought content present Insight: Good insight present (Psych) Judgement: Good judgement present (Psych) Assessment and Plan Assessment & Plan (1) Hollenhorst plaque: Code(s): H34.219 - Partial retinal artery occlusion, unspecified eye Plan: Carotid US ordered (2) Hair loss: Code(s): L65.9 - Nonscarring hair loss, unspecified Plan: Labs ordered Plan The patient agreed to the use of a medical records coder for this encounter. Scribed for AMARJIT Littlejohn by Romi Mancilla medical records coder, on 05/07/2023 at 15:30 EST. Orders: Orders US carotid duplex BI Today H34.219 - Partial retinal artery occlusion, unspecified eye Complete Blood Count Auto Diff Today L65.9 - Nonscarring hair loss, unspecified TSH reflex Free T4 Today L65.9 - Nonscarring hair loss, unspecified Vitamin B12 and Folate Today L65.9 - Nonscarring hair loss, unspecified Referrals Dermatology Referral L65.9 - Nonscarring hair loss, unspecified Coding Level of Care Code Est Pt Level 3 (01145) Diagnoses Hollenhorst plaque H34.219 Hair loss L65.9
[2023-05-07 15:05] VITALS: BP 122/76; PULSE 51; O2SAT 97; BMI 21.7
== END 2023-05-07 16:16 | disposition home or self-care (01) ==
PROVIDERS: PCP Nurse Practitioner Family; Visit Provider Nurse Practitioner Family
DX: H34.219 Partial retinal artery occlusion, unspecified eye (principal); L65.9 Nonscarring hair loss, unspecified
CPT/HCPCS: 99213

== ENCOUNTER 2023-05-10 13:19 | Outpatient (AMB) | payer MEDICARE, MEDICAID, SELFPAY ==
--- NOTE | 2023-05-10 13:24 | A.OFFVIS_ITS ---
Intake Intake Visit Reasons: 6w/cysto/CT Intake Note: Patient presents today for a CYSTOSCOPY Procedure: Meds: None Allergies to Antibiotic: No Known Allergies Blood Thinner: Aspirin Urinalysis test clear for Cysto? Disposable Uro-G Cystoscope Cannula: Lot: [id number] Exp: 10/22/2024 Dining Room Cashier Required: No Accompanied by: Self / Same As Patient Allergies abacavir Allergy (Unknown, Verified 05/10/23 13:25) Unknown From ZIAGEN Allergy (Severe, Uncoded 05/10/23 13:25) HIGH FEVER Erythromycin Allergy (Unknown, Uncoded 05/10/23 13:25) Unknown HPI HPI Comments History of Present Illness Details Jenn is a 62-year-old female who presents today to the office for a follow-up. 05/10/2023? She is followed today for a cystosocpy procedure. She was last seen by EQUIPMENT APPLICATION SPECIALIST on 02/19/2023 for microscopic hematuria. The patient has a history of HIV, hepatitis C, history of opiod abuse, and personal history of nicotine dependence, depression and peripneral vascular dieaase. Cystoscopy procedure: consent was obtained for the procedure. Cystoscopy findings: small erythmeatous irregularity noted on the left lateral wall. Review of chart: Last visit: 02/19/2023? Jenn is a pleasant 62-year-old female patient of Dr. Grajeda. She has a past medical history of liver cirrhosis, COPD, PVD, history of opioid abuse on Suboxone, osteopenia, GERD, hyperlipidemia, hep C, nicotine dependence, PTSD, hypertension, and HIV. She presents to the office today as a new patient for microscopic hematuria. In discussion with the patient today she reports to be doing and feeling well. In review of patient's chart it appears urinalysis cain ve been positive for microscopic hematuria dating back to June 2021. When asked she does report a longstanding smoking history of approximately 50 years. She r.eports smoking approximately 1 pack of cigarettes per day. She otherwise denies any known chemical exposure. She otherwise denies any urinary issues or concerns at this time. She denies urinary urgency, urinary frequency, incontinence, nocturia, hematuria, dysuria, foul smelling urine, changes to urinary stream, flank pain, fever, and or chills. She is happy with her current voiding parameters. In office urinalysis today with 1+ microscopic hematuria. Discussed at length potential causes for microscopic hematuria as well as further microscopic hematuria workup to include CT urogram, cytology, and in office cystoscopy. Discussed at length risks versus benefit of surveillance monitoring versus further microscopic hematuria. Discussed and stressed the importance of limiting/quitting smoking for overall health and well being. Plan: 05/10/23---Smoking cessation discussed Cystoscopy bladder biopsies. Discussed risks to include but not limited to, blood in the urine, burning with urination, urgency. Consent obtained. [facility] Medical History Liver cirrhosis COPD (chronic obstructive pulmonary disease) PVD (peripheral vascular disease) History of opioid abuse Osteopenia GERD (gastroesophageal reflux disease) Hyperlipidemia Hepatitis C (~1998) Personal history of nicotine dependence PTSD (post-traumatic stress disorder) HTN (hypertension) HIV (human immunodeficiency virus infection) (~1996) Surgical History History of colonoscopy (~2016) History of esophagogastroduodenoscopy (EGD) (~2016) History of angioplasty (~2017) History of carpal tunnel surgery of right wrist (~2003) History of liver biopsy (~2001) Hx of cholecystectomy (~2001) History of hysterectomy Family History Mother Lung cancer Father Substance use disorder Son Substance use disorder Social History Housing: Apartment Alcohol intake: current Patient Tobacco Use Status: Current everyday Tobacco user Cigarettes Per Day: 10 Years Smoked: 45 (onset 12) e-Cigarette/Vaping Use: Never Used Second Hand Smoke Exposure: No Current occupational status: employed 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 Information consent for procedure given to the patient. Discussed technical aspects, risks, benefits and alternatives in full. Addressed all of the patient's questions and concerns regarding the procedure. The patient demonstrated knowledge and understanding. They wish to proceed with this procedure. Preparation The patient was prepped in the usual manner. A sled maker was present and in the room. Genitalia was prepped with betadine solution in a sterile manner. Lidocaine Jelly 2% was placed into the urethra and 16Fr flexible Olympus cystoscope was inserted into the meatus after adequate lubrication. Procedure Time out per protocol performed. Bladder Inspection Bladder Inspection: The bladder was inspected in its entirety with utilization retroflexion displaying: Tumor(s): small erythmeatous irregularity noted on the left lateral wall. Trabeculation: mild Mucosal Erthema: mild Orifices: normal shape and position Urethra: normal Cystoscopy findings: small erythmeatous irregularity noted on the left lateral wall. [id number] DISPOSABLE SCOPE URO-G FLEXIBLE SCOPE Procedure code (CPT) selection complete Office Meds lidocaine HCl 2 % mucosal jelly in applicator Performing Provider: Stacie Dawson MD Performing Location: [facility] Administered by: Merlyn Birch RN on 05/10/23 13:40 Dose Route Admin Location Dispensed Lot Number Expiration Date NDC Classification Analyst 10 mL intra-urethral 20 mL naproxen 500 mg tablet Performing Provider: Stacie Dawson MD Performing Location: [facility] Administered by: Merlyn Birch RN on 05/10/23 13:40 Dose Route Admin Location Dispensed Lot Number Expiration Date NDC Classification Analyst 500 mg PO 1 tab ciprofloxacin HCl 500 mg tablet Performing Provider: Stacie Dawson MD Performing Location: [facility] Administered by: Merlyn Birch RN on 05/10/23 13:40 Dose Route Admin Location Dispensed Lot Number Expiration Date NDC Classification Analyst 500 mg PO 1 tab Results AMB Urinalysis, Automated UA Leukoctes 0 [place]/uL Last Edit by EMILIO Wilkinson on 05/10/23 13:38 UA Nitrite Negative Last Edit by EMILIO Wilkinson on 05/10/23 13:38 UA Urobilinogen 0.2 mg/dL Last Edit by Ashlee Carrington [facility] on 05/10/23 13:3 8 UA Protein 15 mg/dL Last Edit by Ashlee Carrington [facility] on 05/10/23 13:38 UA pH 6.0 Last Edit by Ashlee Carrington [facility] on 05/10/23 13:38 UA Blood 25 Vineet/uL Last Edit by sAhlee Carrington [facility] on 05/10/23 13:38 1+ Ashlee Carrington 05/10/23 13:38 UA Specific [place] 1.030 Last Edit by Ashlee Carrington [place] on 05/10/23 13: 38 UA Ketone Negative Last Edit by Ashlee Carrington [facility] on 05/10/23 13:38 UA Bilirubin 0 mg/dL Last Edit by Ashlee Carrington [facility] on 05/10/23 13:38 UA Glucose 0 mg/dL Last Edit by Ashlee Carrington [facility] on 05/10/23 13:38 Results Reviewed Results Reviewed: Laboratory Last Values Urine pH (Auto) 6.0 05/10/23 13:33 Specific [place] (Auto) 1.030 05/10/23 13:33 Urine Protein (Auto) 15 mg/dL 05/10/23 13:33 Glucose (UA)(Auto) 0 mg/dL 05/10/23 13:33 Urine Ketones (Auto) Negative 05/10/23 13:33 Urine Blood (Auto) 25 Vineet/uL 05/10/23 13:33 Urine Nitrite (Auto) Negative 05/10/23 13:33 Urine Bilirubin (Auto) 0 mg/dL 05/10/23 13:33 Urine Urobilinogen (Auto) 0.2 mg/dL 05/10/23 13:33 Leukocyte Esterase (Auto) 0 [place]/uL 05/10/23 13:33 Date of Service: 03/30/23 EXAMINATION: CT ABDOMEN AND PELVIS WITHOUT AND WITH CONTRAST CLINICAL INFORMATION: Gross hematuria COMPARISON: None FINDINGS: LUNG BASES: The visualized lung bases are unremarkable. LIVER, GALLBLADDER, AND BILIARY TREE: The liver is normal in size, shape, and attenuation. No focal hepatic lesion or biliary ductal dilatation is present. Gallbladder is surgically absent. PANCREAS: Unremarkable. SPLEEN: Unremarkable. ADRENAL GLANDS: Unremarkable. KIDNEYS AND URETERS: There is simple cyst in interpolar cortex of right kidney, measured 1.3 cm. There is no hydroureteronephrosis or nephrolithiasis bilaterally. Ureters are nondilated. BLADDER: Unremarkable. GASTROINTESTINAL TRACT: The small and large bowel are unremarkable. The appendix is unremarkable. ABDOMINAL WALL: No significant hernia is appreciated. LYMPH NODES: Normal. VASCULAR: There are atherosclerotic calcifications of abdominal aorta and common iliac arteries but no evidence of aneurysmal dilatation. PELVIC VISCERA: Uterus is surgically absent OSSEUS STRUCTURES: There are degenerative changes with subchondral sclerosis at the level of T12-T11 IMPRESSION: No explanation for hematuria. Simple cyst in the right kidney. Status post cholecystectomy and hysterectomy Assessment & Plan Assessment & Plan (1) Nicotine dependence: Code(s): F17.200 - Nicotine dependence, unspecified, uncomplicated (2) Lesion of bladder: Code(s): N32.9 - Bladder disorder, unspecified (3) Hematuria: Code(s): R31.9 - Hematuria, unspecified Plan 05/10/23---Smoking cessation discussed Cystoscopy bladder biopsies. Discussed risks to include but not limited to, blood in the urine, burning with urination, urgency. Consent obtained. Orders: Orders AMB Urinalysis Automated 05/10/23 Z13.9 - Encounter for screening, unspecified AMB Cystoscopy 05/10/23 R30.0 - Dysuria, R31.29 - Other microscopic hematuria Patient Instructions: The patient had an opportunity to ask questions regarding treatment plan. All questions were answered. Imaging, Laboratory studies and physical exam results were discussed and reviewed in detail. No major barriers to understanding were identified. The patient expressed understanding and agreement with the above treatment plan. The patient is aware they should contact our office by phone for worsening of their current condition or the appearance of new symptoms. Compliance is encouraged with any medications and followup testing that is ordered. It is a privilege to be allowed the opportunity to participate in the urologic care of your patient. If you have any questions or concerns regarding treatment for the above conditions please do not hesitate to contact me. The office telephone contact is [phone]. This note is constructed in part using voice recognition software. While every effort has been made to ensure accuracy support service tech errors may have been included. Yours sincerely, Stacie Dawson MD Coding Level of Care Code Est Pt Level 4 (93007) Diagnoses Nicotine dependence F17.200 Lesion of bladder N32.9 Hematuria R31.9 CPT Codes Cystoscopy - CPT: 49784-[id number] ([id number])
== END 2023-05-10 14:42 | disposition home or self-care (01) ==
PROVIDERS: PCP Nurse Practitioner Family; Visit Provider Urology
DX: R31.29 Other microscopic hematuria (principal); R30.0 Dysuria; Z13.9 Encounter for screening, unspecified
CPT/HCPCS: 52000

== ENCOUNTER → 2023-05-10 13:19 | Outpatient (BNVA) | payer MEDICARE, MEDICAID, SELFPAY | PROVIDERS: PCP Nurse Practitioner Family; Visit Provider Urology | DX: N32.9 Bladder disorder, unspecified (principal); R31.9 Hematuria, unspecified; F17.210 Nicotine dependence, cigarettes, uncomplicated; Z71.6 Tobacco abuse counseling | CPT/HCPCS: 52000; 81003 ==

== ENCOUNTER 2023-05-21 09:54 | Outpatient (REF) | payer MEDICARE, MEDICAID, SELFPAY ==
[2023-05-21 10:29] LABS: MANUAL DIFF FLAG NO
[2023-05-21 10:34] LABS: Basophils Percent Auto 0.2 % (0-2); Eosinophils Absolute Auto 0.2 X10*3/uL (0.0-0.4); Eosinophils Percent Auto 2.4 % (0-4); Hematocrit 44.3 % (37.0-47.0); Hemoglobin 14.7 g/dl (12.0-16.0); Imm Gran Abs Auto 0.01 X10*3/uL (0.00-0.03); Imm Gran Pct Auto 0.1 % (0.0-0.4); Lymphocytes Absolute Auto 2.3 X10*3/uL (1.2-4.9); Lymphocytes Percent Auto 25.4 % (20-40); Mean Corpuscular HGB Conc 33.2 g/dl (31.0-35.0); Mean Corpuscular Hemoglobin 32.6 pg (27.0-33.0); Mean Corpuscular Volume 98.2 fL (80.0-98.0); Mean Platelet Volume 9.9 fL (9.4-12.3); Monocytes Absolute Auto 0.7 X10*3/uL (0.1-1.2); Monocytes Percent Auto 7.3 % (2-11); Neutrophils Absolute Auto 5.7 x10*3/uL (2.0-8.3); Neutrophils Percent Auto 64.6 % (45-73); Platelet Count 219 X10*3/uL (160-400); Red Blood Count 4.51 X10*6/uL (4.20-5.50); Red Cell Distribution Width 12.6 % (11.0-16.0); White Blood Count 8.9 X10*3/uL (4.8-10.8)
[2023-05-21 11:07] LABS: TSH reflex Free T4 1.82 uIU/mL (0.32-4.0)
[2023-05-21 11:45] LABS: Folate 12.9 ng/mL (> or = 4.0); Vitamin B12 550 pg/mL (200-900)
== END 2023-05-21 09:55 | disposition home or self-care (01) ==
LOC: HO.10HDL 09:54
PROVIDERS: Visit Provider Nurse Practitioner Family
DX: L65.9 Nonscarring hair loss, unspecified (principal)
CPT/HCPCS: 36415; 82607; 82746; 84443; 85025

== ENCOUNTER 2023-05-22 09:23 | Outpatient (AMB) | payer MEDICARE, MEDICAID, SELFPAY ==
--- NOTE | 2023-05-22 09:26 | A.OFFPC_ITS ---
Vital Signs 05/22/23 09:28 Weight 112 lb BP 120/78 Blood Pressure Location Rt brachial Position Sitting Pulse 60 Pulse Source Pulse Oximeter Pulse Oximetry (%) 96 Oxygen Delivery Method Room Air Intake Visit Reasons: Cystoscopy w bladder bx-EKG Allergies abacavir Allergy (Unknown, Verified 05/22/23 09:28) Unknown From ZIAGEN Allergy (Severe, Uncoded 05/22/23 09:28) HIGH FEVER Erythromycin Allergy (Unknown, Uncoded 05/22/23 09:28) Unknown Tobacco use date assessed: 11/08/22 HPI Cystoscopy w bladder bx-EKG HPI Details Pt is here for a pre-op evaluation. She is scheduled to undergo a cystoscopy with bladder biopsy on 06/19 due to a small bladder lesion. EKG done in office showed NSR. Pt is clear for surgery/procedure from my standpoint. [facility] Medical History Liver cirrhosis COPD (chronic obstructive pulmonary disease) PVD (peripheral vascular disease) History of opioid abuse Osteopenia GERD (gastroesophageal reflux disease) Hyperlipidemia Hepatitis C (~1998) Personal history of nicotine dependence PTSD (post-traumatic stress disorder) HTN (hypertension) HIV (human immunodeficiency virus infection) (~1996) Surgical History History of colonoscopy (~2016) History of esophagogastroduodenoscopy (EGD) (~2016) History of angioplasty (~2017) History of carpal tunnel surgery of right wrist (~2003) History of liver biopsy (~2001) Hx of cholecystectomy (~2001) History of hysterectomy Family History Mother Lung cancer Father Substance use disorder Son Substance use disorder Social History Housing: Apartment Alcohol intake: current Patient Tobacco Use Status: Current everyday Tobacco user Cigarettes Per Day: 10 Years Smoked: 45 (onset 12) e-Cigarette/Vaping Use: Never Used Second Hand Smoke Exposure: No Current occupational status: employed 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 Richard Gonzalez, Annie Pérez, James Nevarez and colleagues, with an educational florinda from [employer]. Review of Systems Const Denies chills and Denies fever(s) Eyes Denies blurry vision ENT Denies vertigo, Denies dizziness and Denies sore throat Card Denies chest pain at rest, Denies chest pain with activity, Denies diaphoresis, Denies dyspnea and Denies dyspnea on exertion Resp Denies cough, Denies dyspnea, Denies dyspnea on exertion and Denies wheezing GI Denies abdominal pain, Denies melena, Denies hematochezia, Denies constipation, Denies diarrhea and Denies loose stools Denies hematuria Musc Denies numbness and Denies tingling Skin/Breast Denies lesions Neuro Denies vertigo, Denies dizziness, Denies numbness and Denies tingling Psych Denies anxiety, Denies depression, Denies homicidal ideation, Denies suicidal ideation and Denies other (substance abuse) Aller/Immun Denies wheezing Physical exam (Primary Care) Vital Signs: Last Vital Signs Pulse 60 05/22/23 09:28 BP 120/78 05/22/23 09:28 Pulse Ox 96 05/22/23 09:28 Oxygen Delivery Method Room Air 05/22/23 09:28 Tobacco/Smoking Status: Tobacco use Status Tobacco use date assessed 11/08/22 05/22/23 09:27 Patient Tobacco Use Status Current everyday Tobacco 05/22/23 09:27 e-Cigarette/Vaping Use Never Used 05/22/23 09:27 Thrive Assessment: Date of Thrive Assessment Date Thrive assessed 11/08/22 05/22/23 09:27 Const General: cooperative Nutritional Appearance: well nourished Orientation/consciousness: patient oriented x3 Neck Neck: Yes no lymphadenopathy Resp Other: lungs fairly clear Effort & Inspection: normal respiratory effort Cardio Rate: regular rate Rhythm: regular rhythm Heart sounds: S1 normal heart sound present, S2 normal heart sound present and Murmur heart sound present systolic Neuro General: patient oriented x3 Psych Appearance: grossly normal Mental Status: mental status grossly normal Speech and movement: Normal speech and movement present Affect: normal affect Attitude: cooperative Thought process: Normal thought process present Thought content: Normal thought content present Insight: Good insight present (Psych) Judgement: Good judgement present (Psych) Assessment and Plan Assessment & Plan (1) Pre-op evaluation: Code(s): Z01.818 - Encounter for other preprocedural examination Plan The patient agreed to the use of a biomedical engineering professor for this encounter. Scribed for KB Littlejohn-MARIBEL by Romi Mancilla biomedical engineering professor, on 05/22/2023 at 09:50 EST. Coding Level of Care Code Est Pt Prev Care 40-64y(82011) Diagnoses Pre-op evaluation Z01.818
[2023-05-22 09:28] VITALS: BP 120/78; PULSE 60; O2SAT 96
== END 2023-05-22 11:06 | disposition home or self-care (01) ==
PROVIDERS: PCP Nurse Practitioner Family; Visit Provider Nurse Practitioner Family
DX: Z01.818 Encounter for other preprocedural examination (principal)
CPT/HCPCS: 93000; 99213

== ENCOUNTER 2023-06-05 14:18 | Outpatient (REF) | payer MEDICARE, MEDICAID, SELFPAY ==
--- NOTE | ~2023-06-05 | US_ITS ---
EXAMINATION: US EXTRACRANIAL CAROTID DUPLEX, BILATERAL CLINICAL INFORMATION: Partial retinal artery occlusion, unspecified eye COMPARISON: None available. TECHNIQUE: Real-time ultrasound and Doppler techniques (integrating B-mode 2-D vascular images, Doppler spectral analysis and color-flow Doppler imaging) were utilized to interrogate the extracranial carotid arteries, the vertebral arteries and proximal subclavian arteries bilaterally. The degree of stenosis is determined by criteria similar to NASCET. FINDINGS: Right Side: 1. There is mild atherosclerotic plaque seen in the bifurcation/proximal ICA region. 2. The common carotid artery PSV proximally is 71.1 cm/s and distally 68.0 cm/s. 3. The proximal internal carotid artery velocities are 70.7 cm/s systolic and 25.5 cm/s diastolic. 4. The proximal external carotid artery PSV is 77.8 cm/s. 5. The vertebral artery shows antegrade flow. 6. The subclavian artery waveforms are normal. Left Side: 1. There is mild atherosclerotic plaque seen in the bifurcation/proximal ICA region. 2. The common carotid artery PSV proximally is 65.2 cm/s and distally 70.3 cm/s. 3. The proximal internal carotid artery velocities are 82.7 cm/s systolic and 32.8 cm/s diastolic. 4. The proximal external carotid artery PSV is 77.4 cm/s. 5. The vertebral artery shows antegrade flow. 6. The subclavian artery waveforms are normal. US/US carotid duplex BI IMPRESSION: 1. RIGHT: Minimal, non-hemodynamically significant stenosis of the proximal right internal carotid artery corresponding to a 0-49% stenosis by velocity criteria. 2. LEFT: Minimal, non-hemodynamically significant stenosis of the proximal left internal carotid artery corresponding to a 0-49% stenosis by velocity criteria.
== END 2023-06-05 14:19 | disposition home or self-care (01) ==
LOC: HO.US 14:18
PROVIDERS: PCP Nurse Practitioner Family; Visit Provider Nurse Practitioner Family
DX: I65.23 Occlusion and stenosis of bilateral carotid arteries (principal)
CPT/HCPCS: 93880

== ENCOUNTER 2023-06-19 08:32 | Day surgery (SDC) | payer MEDICARE, MEDICAID, SELFPAY ==
[2023-06-15 10:13] VITALS: BMI 21.2
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
[2023-06-19] VITALS (7 sets, daily range): BP systolic 114–138; BP diastolic 51–65; PULSE 57–73; RESP 14–17; TEMP 36.4–37.2; O2SAT 92–100; BMI 22.5
--- NOTE | 2023-06-19 09:28 | PC.NURSE ---
patient had four attempts iv insertion with no luck. md iraheta attempting iv insertion to left upper wrist and patient jumped in the air and yelled out my nerve catheter removed. redirected and applied ice pack to inner left wrist and top of left hand. no other iv insertions attempted at this time.
--- NOTE | 2023-06-19 10:04 | PC.NURSE ---
no longer having nerve pain to her left hand. iv inserted to right hand by md anti. valencia well. no other complaints.
[2023-06-19] MEDS: Lactated Ringers 1,000 ML 100 ML IVCONT (10:05)
[2023-06-19] MEDS: Albuterol Sulfate (0.083%) 2.5 MG/3 ML VIAL.NEB INHALE (11:17)
--- NOTE | 2023-06-19 11:29 | MHC.SHP ---
Pre-Procedural Eval Section A Date of Service: 06/19/23 The patient is an INPATIENT: No Section B Chief Complaint: Bladder disorder, unspecified Allergies: Allergies Allergy/AdvReac Type Severity Reaction Status Date / Time abacavir Allergy Severe high fever Verified 06/15/23 09:53 erythromycin base Allergy Unknown Unknown Verified 06/15/23 09:52 Plan Diagnosis/Plan: Unchanged I have reviewed the history and physical and performed a pertinent physical examination on my patient. No changes have occurred unless specified. Cystoscopy bladder biopsy Time Spent With Patient Time: Total time managing care of this patient today ____ minutes.
--- NOTE | 2023-06-19 12:12 | W.PM.OPN ---
Operative Note Operative Note Date of Service: 06/19/23 Narrative: PREOP DIAGNOSIS: Microscopic hematuria, nicotine dependence, irregular erythematous bladder lesion POSTOP DIAGNOSIS: Microscopic hematuria, nicotine dependence, irregular erythematous bladder lesion PROCEDURE: CYSTOSCOPY, BLADDER BIOPSY SURGEON: Satcie Dawson MD ANESTHESIA: General Findings: Less than 1 cm irregular bladder lesion left lateral wall Details of procedure: The patient was brought into the operating room placed on the OR table in supine position. Ancef 2 g IV. General anesthesia was administered. The patient was repositioned into lithotomy position, prepped and draped in the usual sterile fashion. Time-out was done per protocol. A 22 fr cystoscope was placed transurethrally into the bladder. Urine was sent for culture. The right and left ureteral orifices were visualized. There were mild trabeculations noted. There was an irregular erythematous lesion less than 1 cm at the left lateral wall. The flexible biopsy forceps was used to biopsy this area. The entire abnormal tissue grossly visualized was removed. The Bugbee was used to provide adequate hemostasis. 2% lidocaine urojet was passed transurethrally into the bladder. The patient was brought out of anesthesia and taken to recovery in stable condition. Complications: None Drains: none
[2023-06-19] MEDS: Phenazopyridine HCL 200 MG TABLET PO (12:36)
== END 2023-06-19 14:05 | disposition home or self-care (01) ==
PROVIDERS: PCP Nurse Practitioner Family; Visit Provider Urology
PROC: (CPT 52204; principal; 2023-06-19 10:10)
DX: N32.89 Other specified disorders of bladder (principal); R31.29 Other microscopic hematuria; K74.60 Unspecified cirrhosis of liver; J44.9 Chronic obstructive pulmonary disease, unspecified; B20 Human immunodeficiency virus [HIV] disease; K21.9 Gastro-esophageal reflux disease without esophagitis; E78.5 Hyperlipidemia, unspecified; I73.9 Peripheral vascular disease, unspecified; I10 Essential (primary) hypertension; M85.80 Other specified disorders of bone density and structure, unspecified site; Z79.82 Long term (current) use of aspirin; Z79.891 Long term (current) use of opiate analgesic; Z88.1 Allergy status to other antibiotic agents; Z88.8 Allergy status to other drugs, medicaments and biological substances; F17.210 Nicotine dependence, cigarettes, uncomplicated
CPT/HCPCS: 52204; 87086; 88305; 88342; 88360; 94640; J0131; J0690; J1100; J2250; J2405; J2704; J3010

== ENCOUNTER → 2023-06-19 08:32 | Outpatient (BNV) | payer MEDICARE, MEDICAID, SELFPAY | PROVIDERS: PCP Nurse Practitioner Family; Visit Provider Urology | DX: N32.9 Bladder disorder, unspecified (principal) | CPT/HCPCS: 52204 ==

== ENCOUNTER 2023-06-25 15:15 | Outpatient (REF) | payer MEDICARE, MEDICAID, SELFPAY ==
--- NOTE | ~2023-06-25 | CT_ITS ---
EXAMINATION: CT CHEST SCREENING CLINICAL INFORMATION: Current smoker with 50 pack-year history COMPARISON: Previous CTs, most recent, 11/06/2021. TECHNIQUE: Multidetector volumetric CT imaging of the chest is performed without contrast using low dose technique. Additional 2D coronal and sagittal reformatted images and axial 3D maximum intensity projection (MIP) images are generated on the CT workstation. This CT examination was performed using dose optimization techniques as appropriate, variously including the following: *Automated exposure control *Adjustment of mA and/or kV according to patient size (this includes techniques or standardized protocols for targeted exams where dose is matched to indication/reason for exam; i.e. extremities or head) *Use of iterative reconstruction technique DLP: 102 mGy-cm FINDINGS: MEDICAID SPECIALIST: Right superior mediastinal prominence. Clear lungs. Aortic calcifications. LUNGS: Trachea and bronchi are patent. Centrilobular emphysema with hyperinflation. Cystic lung changes. Scattered atelectasis. MEDIASTINUM: Unremarkable thyroid. No pathologic lymphadenopathy. Nonenlarged heart. No pericardial effusion. Atherosclerotic calcifications nonaneurysmal aorta. Nonenlarged pulmonary arteries. CORONARY ARTERY CALCIFICATION: Mild PLEURA: There is no pleural effusion. No pleural mass or thickening. AXILLA: No lymphadenopathy. UPPER ABDOMEN: Status post cholecystectomy. OSSEOUS STRUCTURES: Degenerative changes. Lower thoracic compression deformities with spurring and sclerosis. No suspicious osseous lesions. CT/CT lung screening IMPRESSION: Emphysema. No suspicious lung lesions. ASSESSMENT: Lung-RADS category 1: Negative RECOMMENDATION: Routine annual low-dose CT screening in 12 months.
== END 2023-06-25 15:16 | disposition home or self-care (01) ==
LOC: HO.CT 15:15
PROVIDERS: PCP Nurse Practitioner Family; Visit Provider Nurse Practitioner Family
DX: Z12.2 Encounter for screening for malignant neoplasm of respiratory organs (principal); F17.210 Nicotine dependence, cigarettes, uncomplicated
CPT/HCPCS: 71271

== ENCOUNTER 2023-06-29 11:02 | Outpatient (AMB) | payer MEDICARE, MEDICAID, SELFPAY ==
--- NOTE | 2023-06-29 11:03 | A.OFFVIS_ITS ---
Intake Intake Visit Reasons: Bladder bx results Intake Note: Patient presents today via phone for Biopsy Results: Meds: None Allergies to Antibiotic: No Known Allergies Blood Thinner: Aspirin Ip Network Architect Required: No Accompanied by: Self / Same As Patient Allergies abacavir Allergy (Severe, Verified 08/15/23 13:56) high fever erythromycin base Allergy (Unknown, Verified 08/15/23 13:56) Unknown HPI HPI Comments History of Present Illness Details Jenn is a 62-year-old female who presents today telehealth follow- up. The patient has a history of HIV, hepatitis C, history of opiod abuse, and personal history of nicotine dependence, depression and peripneral vascular dieaase. Status post cystoscopy bladder biopsy 06/19/2023. I have reviewed the pathology results with the patient--atypical area that was biopsied came back as--- Benign urothelial hyperplasia with edema and chronic inflammation with lymphoid aggregates, consistent with cystitis. The patient states she is doing well post procedure denies dysuria, denies gross hematuria. Review of chart 05/10/2023? She is followed today for a cystosocpy procedure. She was last seen by RESOURCE TECHNICIAN on 02/19/2023 for microscopic hematuria. The patient has a history of HIV, hepatitis C, history of opiod abuse, and personal history of nicotine dependence, depression and peripneral vascular dieaase. Cystoscopy procedure: consent was obtained for the procedure. Cystoscopy findings: small erythmeatous irregularity noted on the left lateral wall. Plan: ---Smoking cessation discussed, Cystoscopy bladder biopsies. Discussed risks to include but not limited to, blood in the urine, burning with urination, urgency. Consent obtained. 02/19/2023? Jenn is a pleasant 62-year-old female patient of Dr. Grajeda. She has a past medical history of liver cirrhosis, COPD, PVD, history of opioid abuse on Suboxone, osteopenia, GERD, hyperlipidemia, hep C, nicotine dependence, PTSD, hypertension, and HIV. She presents to the office today as a new patient for microscopic hematuria. In discussion with the patient today she reports to be doing and feeling well. In review of patient's chart it appears urinalysis have been positive for microscopic hematuria dating back to June 2021. When asked she does report a longstanding smoking history of approximately 50 years. She r.eports smoking approximately 1 pack of cigarettes per day. She otherwise denies any known chemical exposure. She otherwise denies any urinary issues or concerns at this time. She denies urinary urgency, urinary frequency, incontinence, nocturia, hematuria, dysuria, foul smelling urine, changes to urinary stream, flank pain, fever, and or chills. She is happy with her current voiding parameters. In office urinalysis today with 1+ microscopic hematuria. Discussed at length potential causes for microscopic hematuria as well as further microscopic hematuria workup to include CT urogram, cytology, and in office cystoscopy. Discussed at length risks versus benefit of surveillance monitoring versus further microscopic hematuria. Discussed and stressed the importance of limiting/quitting smoking for overall health and well being. 06/29/23--Plan FU in 6 months [facility] [place] Medical History Liver cirrhosis COPD (chronic obstructive pulmonary disease) PVD (peripheral vascular disease) History of opioid abuse Osteopenia GERD (gastroesophageal reflux disease) Hyperlipidemia Hepatitis C (~1998) Personal history of nicotine dependence PTSD (post-traumatic stress disorder) HTN (hypertension) HIV (human immunodeficiency virus infection) (~1996) Surgical History History of colonoscopy (~2016) History of esophagogastroduodenoscopy (EGD) (~2016) History of angioplasty (~2017) History of carpal tunnel surgery of right wrist (~2003) History of liver biopsy (~2001) Hx of cholecystectomy (~2001) History of hysterectomy Family History Mother Lung cancer Father Substance use disorder Son Substance use disorder Social History Household Members: None Housing: Apartment Do you presently have visiting nurse or other home services: No Alcohol intake: current Patient Tobacco Use Status: Current everyday Tobacco user Tobacco use type: Cigarette Cigarette Packs Per Day: 1.5 Cigarettes Per Day: 30.0 Years Smoked: 50 e-Cigarette/Vaping Use: Never Used Second Hand Smoke Exposure: No service: No Current occupational status: employed 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, 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 Cognitive needs: No Hearing needs: No Vision needs: No Review of Systems Const Reports as per HPI Eyes Reports no additional complaints ENT Reports no additional complaints Card Reports as per HPI Resp Reports as per HPI GI Reports as per HPI Reports as per HPI Musc Reports as per HPI Neuro Reports as per HPI Psych Reports as per HPI Endo Reports no additional complaints Nura/Lymph Reports as per HPI Results Reviewed Results Reviewed: Collected: 06/19/23 Location: [facility] Received: 06/19/23 Diagnosis Bladder, left lateral wall, biopsy: Benign urothelial hyperplasia with edema and chronic inflammation with lymphoid aggregates, consistent with cystitis; no evidence of malignancy Assessment & Plan Assessment & Plan (1) Nicotine dependence: Code(s): F17.200 - Nicotine dependence, unspecified, uncomplicated (2) Lesion of bladder: Code(s): N32.9 - Bladder disorder, unspecified (3) Hematuria: Code(s): R31.9 - Hematuria, unspecified Plan FU in 6 months Patient Instructions: The patient had an opportunity to ask questions regarding treatment plan. All questions were answered. Laboratory results were discussed and reviewed in [facility]. No major barriers to understanding were identified. The patient expressed understanding and agreement with the above treatment plan. The patient is aware they should contact our office by phone for worsening of their current condition or the appearance of new symptoms. Compliance is encouraged with any medications and followup testing that is ordered. It is a privilege to be allowed the opportunity to participate in the urologic care of your patient. If you have any questions or concerns regarding treatment for the above conditions please do not hesitate to contact me. The office telephone contact is [phone]. This note is constructed in part using voice recognition software. While every effort has been made to ensure accuracy manager general errors may have been included. Yours sincerely, Stacie Dawson MD Telehealth Telehealth Location of provider rendering services: practice address Location of patient: address on file Patient Identification confirmed using: Name, : Yes Telehealth method: voice only Patient verbally consented to treatment: Yes Patient verbally consented to billing insurance company: Yes Patient informed of any privacy concerns related to visit: Yes Minutes spent on Phone/Video with Pt.: 15 Coding Level of Care Code Tele Est Pt Level 3 (85177) Diagnoses Nicotine dependence F17.200 Lesion of bladder N32.9 Hematuria R31.9
== END 2023-06-29 11:32 | disposition home or self-care (01) ==
LOC: HO.HUSH 11:02
PROVIDERS: PCP Nurse Practitioner Family; Visit Provider Urology
DX: F17.200 Nicotine dependence, unspecified, uncomplicated (principal); N32.9 Bladder disorder, unspecified; R31.9 Hematuria, unspecified
CPT/HCPCS: 99442

== ENCOUNTER → 2023-06-29 11:02 | Outpatient (BNVA) | payer MEDICARE, MEDICAID, SELFPAY | PROVIDERS: PCP Nurse Practitioner Family; Visit Provider Urology ==

== ENCOUNTER 2023-07-05 14:39 | Outpatient (REF) | payer MEDICARE, MEDICAID, SELFPAY ==
--- NOTE | ~2023-07-05 | MM_ITS ---
EXAMINATION: BONE DENSITOMETRY CLINICAL INDICATION: Other specified disorders of bone density and structure, unspecified. COMPARISON: Previous BD dated 05/18/2021 and baseline BD dated 12/11/2006. TECHNIQUE: Using a Spotsetter DXA System (software version: 13.1) manufactured by [employer], dual-energy x-ray absorptiometry was performed of the lumbar spine and left hip. The images are of good technical quality. Summary results are attached. FINDINGS: LEFT FEMUR, NECK: Current: BMD 0.715 g/cm2, Z-score -0.7, T-score -2.3, osteopenia. Prior: BMD 0.726 g/cm2. Baseline: BMD 0.815 g/cm2. LEFT FEMUR, TOTAL: Current: BMD 0.785 g/cm2, Z-score -0.3, T-score -1.8, osteopenia, 3.9% decrease from previous, 12.2% decrease from baseline (<5% change is not significant). Prior: BMD 0.817 g/cm2. Baseline: BMD 0.894 g/cm2. AP SPINE L1-L4: Current: BMD 0.954 g/cm2, Z-score 0.0, T-score -1.9, osteopenia, 1.6% increase from previous, 9.4% decrease from baseline (<5% change is not significant). Prior: BMD 0.939 g/cm2. Baseline: BMD 1.053 g/cm2. IDENTIFIED RISK FACTORS: History of fracture (adult), hysterectomy, left oophorectomy, menopause, tobacco user (current smoker). HISTORY OF FRACTURE: Wrist, other. MEDICATIONS: Calcium, vitamin D. MM/XR DEXA axial skeleton IMPRESSION: 1. DIAGNOSIS: Osteopenia based on the lowest T-score value of -2.3 in the femoral neck applying World Health Organization criteria. 2. 10-YEAR FRACTURE RISK PREDICTION, FRAX: Major osteoporotic fracture (clinical spine, forearm, hip or shoulder) 20.2%. Hip fracture 6.4%. 3. Treatment Recommendations: NOF guidelines recommend consideration for treatment in postmenopausal women and men age 50 and older presenting with the following: -A hip or vertebral (clinical or morphometric) fracture. -T-score less than or equal to -2.5 at the femoral neck or spine after appropriate evaluation to exclude secondary causes. -Low bone mass at the hip or spine and a 10-year fracture probability by FRAX of greater than or equal to 3% for hip fracture or greater than or equal to 20% for major osteoporotic fracture based on the [place] adapted WHO algorithm. 4. Other Recommendations: All treatment decisions require clinical judgment and consideration of individual patient factors, including patient preferences, comorbidities, previous drug use, risk factors not captured in the FRAX model (e.g. frailty, falls, vitamin D deficiency, increased bone turnover, interval significant decline in bone density) and possible under or overestimation of fracture risk by FRAX. Additional medical evaluation for secondary cause of low bone mineral density may be appropriate. FUTURE SCAN RECOMMENDATION: People with diagnosed cases of osteoporosis or at high risk for fracture should have regular bone mineral density tests. For patients eligible for Medicare, routine testing is allowed once every 2 years. The testing frequency can be increased to one year for patients who have rapidly progressing disease, those who are receiving or discontinuing medical therapy to restore bone mass, or have additional risk factors.
== END 2023-07-05 14:40 | disposition home or self-care (01) ==
LOC: HO.MAMMO 14:39
PROVIDERS: PCP Nurse Practitioner Family; Visit Provider Nurse Practitioner Family
DX: Z12.31 Encounter for screening mammogram for malignant neoplasm of breast (principal); Z13.820 Encounter for screening for osteoporosis; M85.80 Other specified disorders of bone density and structure, unspecified site; Z78.0 Asymptomatic menopausal state
CPT/HCPCS: 77063; 77067; 77080

== ENCOUNTER → 2023-07-05 15:00 | Outpatient (BNV) | payer MEDICARE, MEDICAID, SELFPAY | PROVIDERS: PCP Nurse Practitioner Family; Visit Provider Radiology Diagnostic Radiology | DX: Z12.31 Encounter for screening mammogram for malignant neoplasm of breast (principal) | CPT/HCPCS: 77063; 77067 ==

== ENCOUNTER 2023-07-16 08:00 | Outpatient (AMB) | payer MEDICARE, MEDICAID, SELFPAY ==
--- NOTE | 2023-07-16 08:02 | AM.OFFWIN_ITS ---
Intake Vital Signs 07/16/23 08:03 Height 5 ft Weight 52.163 kg BMI 22.5 BP 122/76 Blood Pressure Location Lt brachial Position Sitting Pulse 80 Pulse Source Pulse Oximeter Temp 101.1 F H Temp Source Oral Pulse Oximetry (%) 92 Oxygen Delivery Method Room Air Intake Visit Reasons: EP cough, body ache (masked) Intake Note: pt is here for c.o cough and body ache, difficulty breathing since sunday night Patient Tobacco Use Status: Current everyday Tobacco user Allergies abacavir Allergy (Severe, Verified 07/16/23 08:06) high fever erythromycin base Allergy (Unknown, Verified 07/16/23 08:06) Unknown Do you need a note to return to daycare/school/sports/work: No HPI HPI Comments History of Present Illness Details 0819 62 year old female hx cigaret smoking, c arotid stenosis , hep c, HIV, ascending aortic dilation, peripheral artery disease, osteopenia, presenting with complaints of shortness of breath, fatigue, malaise, subjective fevers and chills since Sunday worsening. Patient reports she has been feeling very short of breath particularly when she walks her dog. No associated chest pain, sick contacts, nausea, vomiting, abdominal pain. Physical examination with bilateral wheezing on expiration. Patient noted to be tachycardic and febrile. Heart rate around 120 History and physical exam concerning for viral illness versus pneumonia. Unlikely PE, ACS. No signs of acute respiratory distress at this time Ambulatory oxygen 89-90% on room air. Patient does not use oxygen. Called in and expect to [facility] Emergency Department spoke with Dr. Crowe [facility] Medical History Liver cirrhosis COPD (chronic obstructive pulmonary disease) PVD (peripheral vascular disease) History of opioid abuse Osteopenia GERD (gastroesophageal reflux disease) Hyperlipidemia Hepatitis C (~1998) Personal history of nicotine dependence PTSD (post-traumatic stress disorder) HTN (hypertension) HIV (human immunodeficiency virus infection) (~1996) Surgical History History of colonoscopy (~2016) History of esophagogastroduodenoscopy (EGD) (~2016) History of angioplasty (~2017) History of carpal tunnel surgery of right wrist (~2003) History of liver biopsy (~2001) Hx of cholecystectomy (~2001) History of hysterectomy Family History Mother Lung cancer Father Substance use disorder Son Substance use disorder Social History Housing: Apartment Alcohol intake: current Patient Tobacco Use Status: Current everyday Tobacco user Tobacco use type: Cigarette Cigarettes Per Day: 15 Years Smoked: 45 (onset 12) e-Cigarette/Vaping Use: Never Used Second Hand Smoke Exposure: No Current occupational status: employed Current occupation: [employer], 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 Cognitive needs: No Hearing needs: No Vision needs: No Review of Systems Const All systems reviewed & are unremarkable except as noted in HPI and below Physical Exam Vital Signs: Last Vital Signs Temp 101.1 F H 07/16/23 08:03 Pulse 80 07/16/23 08:03 BP 122/76 07/16/23 08:03 Pulse Ox 92 07/16/23 08:03 Oxygen Delivery Method Room Air 07/16/23 08:03 BMI result Body Mass Index 22.5 febrile Appearance: Alert.? Oriented X3.? No acute distress.? Head: Normocephalic, atraumatic, no step-offs or deformities Eyes: Pupils equal, round and reactive to light.? ENT: Pharynx normal.? Neck: Normal inspection.? Neck supple.? CVS: Rapid regular rhythm likely sinus tachycardia in the 120s.? Pulses normal.? Respiratory: No respiratory distress.? Breath sounds with bilateral wheezing.? Abdomen: Soft and nontender.? Skin: Skin warm and dry.? Normal skin color.? Normal skin turgor.? Extremities: No lower extremity edema.? No calf ttp. 5/5 strength to bilateral upper and lower extremities Back: No midline tenderness, no C-spine tenderness, full range of motion, no CVA tenderness bilaterally Neuro: Oriented X 3.? No motor deficit.? No sensory deficit. CN 2-12 intact Assessment & Plan Assessment & Plan (1) Hypoxia: Code(s): R09.02 - Hypoxemia (2) Bronchitis: Code(s): J40 - Bronchitis, not specified as acute or chronic Plan [facility] Coding Level of Care Code Est Pt Level 3 (65490) Diagnoses Hypoxia R09.02 Bronchitis J40
[2023-07-16 08:03] VITALS: BP 122/76; PULSE 80; TEMP 38.4; O2SAT 92; BMI 22.5
== END 2023-07-16 08:38 | disposition home or self-care (01) ==
PROVIDERS: PCP Nurse Practitioner Family; Visit Provider Physician Assistant
DX: R09.02 Hypoxemia (principal); J40 Bronchitis, not specified as acute or chronic
CPT/HCPCS: 99213

== ENCOUNTER 2023-07-16 08:33 | Inpatient (IN) | payer MEDICARE, MEDICAID, SELFPAY ==
[2023-07-16] VITALS (13 sets, daily range): BP systolic 111–143; BP diastolic 50–66; PULSE 66–80; RESP 14–20; TEMP 36.6–37.1; O2SAT 89–97; BMI 22.6
--- NOTE | ~2023-07-16 | XR_ITS ---
EXAMINATION: XR CHEST CLINICAL INFORMATION: Chest tightness COMPARISON: 07/25/2022 TECHNIQUE: 2 views of the chest were obtained. FINDINGS: No significant abnormality is noted involving the heart, lungs, mediastinum, bony thorax or soft tissues. XR/XR chest 2V IMPRESSION: Unremarkable examination, without interval change.
--- NOTE | 2023-07-16 08:48 | ECG_ITS ---
Test Reason : CHEST TIGHTNESS Blood Pressure : / mmHG Vent. Rate : 072 BPM Atrial Rate : 072 BPM P-R Int : 134 ms QRS Dur : 072 ms QT Int : 360 ms P-R-T Axes : 081 076 071 degrees QTc Int : 394 ms Normal sinus rhythm Normal ECG When compared with ECG of 12-MAY-2014 10:51, No significant change was found Referred By: Remy Crowe Electronically Signed By:ZEINAB SHI
--- NOTE | 2023-07-16 08:56 | ED.URI ---
HPI - URI/Sore Throat General Chief Complaint: Upper Respiratory Symptoms Stated Complaint: Fever/Body aches/Oxygen level 90 Time Seen by Provider: 07/16/23 08:47 Source: patient Mode of arrival: ambulatory Limitations: no limitations History of Present Illness HPI Narrative: 62-year-old female with history of asthma/ COPD and currently smoker came in for evaluation of cough, fever, body ache. Patient initially was evaluated at a walk-in clinic because her oxygenation was 90% on room air was a concern of sepsis patient was sent to the emergency room for further evaluation. Patient with initial vital signs appear stable do not meet criteria for SIRS. Related Data Home Medications Medication Instructions Recorded Confirmed aspirin 81 mg tablet,delayed 81 mg PO DAILY 06/15/20 06/15/23 release (Shakira Low Dose Aspirin) calcium carbonate-vitamin D3 500 1 cap PO DAILY 03/08/21 06/15/23 mg (1,250 mg)-50 unit capsule elviteg 150 mg-cob 150 mg-emtricit 1 tab PO DAILY 03/08/21 06/15/23 200 mg-tenofo alafenam 10 mg tablet (Genvoya) buprenorphine 8 mg-naloxone 2 mg 16 mg sublingual DAILY 06/15/23 06/18/23 sublingual film Previous Rx's Medication Instructions Recorded ibuprofen 600 mg tablet 600 mg PO TID #90 tabs 11/22/21 albuterol sulfate 90 mcg/actuation 1 puff PO QID PRN for dyspnea #8.5 03/20/22 aerosol inhaler grams budesonide-formoterol HFA 80 1 inh inhalation BID #10.2 grams 10/02/22 mcg-4.5 mcg/actuation aerosol inhaler (Symbicort) atorvastatin 10 mg tablet 10 mg PO DAILY 90 days #90 tabs 07/01/23 losartan 50 mg tablet 50 mg PO DAILY 90 days #90 tabs 07/01/23 venlafaxine 25 mg tablet 25 mg PO DAILY 90 days #90 tabs 07/01/23 Allergies Allergy/AdvReac Type Severity Reaction Status Date / Time abacavir Allergy Severe high fever Verified 07/16/23 08:39 erythromycin base Allergy Unknown Unknown Verified 07/16/23 08:39 Review of Systems Review of Systems: All other systems are reviewed and are negative Constitutional: Reports as per HPI and Reports no additional constitutional complaints Eyes: Reports as per HPI and Reports no additional eye complaints Reports system reviewed and no additional complaints, except as documented Cardiovascular: Reports as per HPI and Reports no additional cardiovascular complaints Respiratory: Reports as per HPI and Reports no additional respiratory complaints Gastrointestinal: Reports as per HPI and Reports no additional gastrointestinal complaints Genitourinary: Reports no additional female genitourinary complaints Musculoskeletal: Reports no additional musculoskeletal complaints Skin/Breast: Reports system reviewed and no additional complaints, except as docu Psychiatric: Reports no additional psychiatric complaints Endocrine: Reports no additional endocrine complaints Hematologic/Lymphatic: Reports no additional hematologic/lymphatic complaints Allergic/Immunologic: Reports no additional allergic/immunologic complaints Reports system reviewed and no additional complaints, except as documented and Reports Abnormal speech present [facility] Past Medical History Medical History Liver cirrhosis COPD (chronic obstructive pulmonary disease) PVD (peripheral vascular disease) History of opioid abuse Osteopenia GERD (gastroesophageal reflux disease) Hyperlipidemia Hepatitis C (~1998) Personal history of nicotine dependence PTSD (post-traumatic stress disorder) HTN (hypertension) HIV (human immunodeficiency virus infection) (~1996) Surgical History History of colonoscopy (~2016) History of esophagogastroduodenoscopy (EGD) (~2016) History of angioplasty (~2017) History of carpal tunnel surgery of right wrist (~2003) History of liver biopsy (~2001) Hx of cholecystectomy (~2001) History of hysterectomy Family History Family History Mother Lung cancer Father Substance use disorder Son Substance use disorder Social History Social History Housing: Apartment Alcohol intake: current Patient Tobacco Use Status: Current everyday Tobacco user Tobacco use type: Cigarette Cigarettes Per Day: 15 Years Smoked: 45 (onset 12) Smoked in Last 30 Days: Yes e-Cigarette/Vaping Use: Never Used Second Hand Smoke Exposure: No Use of substances other than those prescribed or required for medical reasons: No Advance Directives: No Advance Directives Information Provided: No Current occupational status: employed 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 Blood pressure elevated. Heart rate normal. Respiratory rate normal. Temperature normal. Oxygen saturation normal. Appearance: Alert. Oriented X3. No acute distress. Head: Normal external exam. Normocephalic. Atraumatic. No Marcelino signs noted. No raccoon eyes noted Eyes: PERRLA. EOMI. Conjunctiva and sclera normal. Eyelids normal. ENT: TM's Normal. Pharynx normal. Uvula midline. Moist mucous membranes. No trismus noted. No drooling noted. No muffled voice noted. Neck: Normal inspection. Neck supple. FROM. No adenopathy. Thyroid Normal. No meningeal signs. No neck mass noted. CVS: Normal heart rate and rhythm. Heart sound normal. No murmurs noted. Pulses normal throughout. Respiratory: No respiratory distress. Painless inspiration. diffuse bilateral expiratory wheezing with prolonged expiration and decreased breathing sounds bilaterally. No accessory muscle usage noted or decreased air movement noted. Abdomen: Soft and nontender. Bowel sounds normal in all 4 quadrants. No distention noted. No organomegaly noted. No visible injury noted. Back: No CVA tenderness. Full range of motion noted. Skin: Skin warm and dry. Normal skin color. Normal skin turgor. No rashes/lesions/lacerations noted. Extremities: No lower extremity edema. Extremities exhibit normal range of motion. Extremities nontender. Neuro: Oriented X 3. Cranial nerve exam: II-XII are grossly intact No motor deficit. No sensory deficit. Reflexes normal. Course Reevaluation(s) Reevaluation #1: 62-year-old female with history of COPD and heavy smoking positive for influenza A, patient is hypoxic on air, require supplemental oxygen to keep her in normal oxygenation. COPD exacerbation. Time: 14:30 Medications Administered Discontinued Medications Generic Name Dose Route Start Last Admin Trade Name Freq PRN Reason Stop Dose Admin Albuterol Sulfate 2.5 mg/ 0 mg 07/16/23 11:46 07/16/23 11:50 Albuterol/Ipratropium 3 ml INHALE 07/16/23 11:47 5 dose ONCE ONE Administration Sodium Chloride 1,000 mls @ 999 mls/hr 07/16/23 08:47 07/16/23 10:41 Ns IV 07/16/23 09:47 Infused .Q1H1M ONE Infusion Medical Decision Making Differential Diagnosis Differential Diagnoses: The differential diagnosis associated with the presentation includes ( Pneumonia, pneumothorax, effusion, influenza, COVID-19 infection, RSV, UTI, COPD exacerbation.) Admission/Observation Consideration of admission/observation: Escalation of care including admission/observation considered Consult Healthcare Provider Management of the patient was discussed with: Hospitalist ( Dr. Pathak) Lab Data MDM Lab Attestation statement: I reviewed the patient's lab results. 07/16/23 09:25 07/16/23 10:32 Labs: Lab Results 07/16/23 07/16/23 07/16/23 Range/Units 09:25 09:59 10:32 WBC 4.7 L (4.8-10.8) X10*3/uL RBC 4.20 (4.20-5.50) X10*6/uL Hgb 13.7 (12.0-16.0) g/dl Hct 40.8 (37.0-47.0) % MCV 97.1 (80.0-98.0) fL MCH 32.6 (27.0-33.0) pg MCHC 33.6 (31.0-35.0) g/dl RDW 12.6 (11.0-16.0) % Plt Count 130 L D (160-400) X10*3/uL MPV 10.1 (9.4-12.3) fL Immature Gran % (Auto) 0.4 (0.0-0.4) % Neut % (Auto) 64.5 (45-73) % Lymph % (Auto) 17.4 L (20-40) % [place] % (Auto) 15.2 H (2-11) % Eos % (Auto) 2.1 (0-4) % Baso % (Auto) 0.4 (0-2) % Lymph # (Auto) 0.8 L (1.2-4.9) X10*3/uL [place] # (Auto) 0.7 (0.1-1.2) X10*3/uL Eos # (Auto) 0.1 (0.0-0.4) X10*3/uL Baso # (Auto) 0.0 (0.0-0.2) X10*3/uL Abs Immat Gran (auto) 0.02 (0.00-0.03) X10*3/uL Absolute Neuts (auto) 3.0 (2.0-8.3) x10*3/uL Absolute Nucleated RBC 0.000 (0.0-0.012) X10*3/uL Nucleated RBC % (auto) 0.0 (0.0-0.2) /100WBC Smear Tech's Comments VERIFIED Sodium 136 (135-145) mmol/L Potassium 4.0 (3.3-5.1) mmol/L Chloride 103 (96-108) mmol/L Carbon Dioxide 26 (22-29) mmol/L Anion Gap 11 L (12-20) BUN 12 (9-16) mg/dL Creatinine 0.76 (0.5-1.4) mg/dL Estim Creat Clear Calc 53.6 Estimated GFR > 60 Random Glucose 82 (60-115) mg/dL Lactic Acid 0.5 (0.5-2.0) mmol/L Calcium 8.1 L D (8.4-10.2) mg/dL Total Bilirubin 0.3 (0.0-1.0) mg/dL Direct Bilirubin 0.1 (0.0-0.5) mg/dL AST 21 (5-31) U/L ALT 12 (0-31) U/L Alkaline Phosphatase 51 (39-117) U/L Troponin I High Sens 5.3 (<3.5-17.0) ng/L B-Natriuretic Peptide 87 (<100) pg/mL Total Protein 6.5 (6.5-8.0) g/dL Albumin 3.5 (3.5-5.0) g/dL Lipase 10 (8-78) U/L Urine Color Urine Appearance Urine pH (5.0-9.0) Ur Specific [place] (1.005-1.025) Urine Protein (Neg-Trace) mg/dL Urine Glucose (UA) (Negative) mg/dL Urine Ketones (Negative) mg/dL Urine Blood (Negative) Urine Nitrite (Negative) Ur Leukocyte Esterase (Negative) Urine RBC (0-2) /HPF Urine WBC (0-5) /HPF Ur Squamous Epith Cells (0-2) /HPF Urine Bacteria (None Seen) Hyaline Casts (0-2) /LPF Influenza Type A (PCR) POSITIVE A (Negative) Influenza Type B (PCR) NEGATIVE (Negative) RSV RNA Qual (PCR) NEGATIVE (Negative) SARS-CoV-2 RNA (RT-PCR) NEGATIVE (Negative) 07/16/23 Range/Units 11:40 WBC (4.8-10.8) X10*3/uL RBC (4.20-5.50) X10*6/uL Hgb (12.0-16.0) g/dl Hct (37.0-47.0) % MCV (80.0-98.0) fL MCH (27.0-33.0) pg MCHC (31.0-35.0) g/dl RDW (11.0-16.0) % Plt Count (160-400) X10*3/uL MPV (9.4-12.3) fL Immature Gran % (Auto) (0.0-0.4) % Neut % (Auto) (45-73) % Lymph % (Auto) (20-40) % [place] % (Auto) (2-11) % Eos % (Auto) (0-4) % Baso % (Auto) (0-2) % Lymph # (Auto) (1.2-4.9) X10*3/uL [place] # (Auto) (0.1-1.2) X10*3/uL Eos # (Auto) (0.0-0.4) X10*3/uL Baso # (Auto) (0.0-0.2) X10*3/uL Abs Immat Gran (auto) (0.00-0.03) X10*3/uL Absolute Neuts (auto) (2.0-8.3) x10*3/uL Absolute Nucleated RBC (0.0-0.012) X10*3/uL Nucleated RBC % (auto) (0.0-0.2) /100WBC Smear Tech's Comments Sodium (135-145) mmol/L Potassium (3.3-5.1) mmol/L Chloride (96-108) mmol/L Carbon Dioxide (22-29) mmol/L Anion Gap (12-20) BUN (9-16) mg/dL Creatinine (0.5-1.4) mg/dL Estim Creat Clear Calc Estimated GFR Random Glucose (60-115) mg/dL Lactic Acid (0.5-2.0) mmol/L Calcium (8.4-10.2) mg/dL Total Bilirubin (0.0-1.0) mg/dL Direct Bilirubin (0.0-0.5) mg/dL AST (5-31) U/L ALT (0-31) U/L Alkaline Phosphatase (39-117) U/L Troponin I High Sens (<3.5-17.0) ng/L B-Natriuretic Peptide (<100) pg/mL Total Protein (6.5-8.0) g/dL Albumin (3.5-5.0) g/dL Lipase (8-78) U/L Urine Color Yellow Urine Appearance Clear Urine pH 5.5 (5.0-9.0) Ur Specific [place] 1.010 (1.005-1.025) Urine Protein Negative (Neg-Trace) mg/dL Urine Glucose (UA) Negative (Negative) mg/dL Urine Ketones Trace (Negative) mg/dL Urine Blood Moderate (2+) H (Negative) Urine Nitrite Negative (Negative) Ur Leukocyte Esterase Negative (Negative) Urine RBC 6-10 H (0-2) /HPF Urine WBC 0-5 (0-5) /HPF Ur Squamous Epith Cells 0-2 (0-2) /HPF Urine Bacteria None Seen (None Seen) Hyaline Casts 0-2 (0-2) /LPF Influenza Type A (PCR) (Negative) Influenza Type B (PCR) (Negative) RSV RNA Qual (PCR) (Negative) SARS-CoV-2 RNA (RT-PCR) (Negative) Independent Interpretation I performed an independent interpretation of an: Plain X-Ray ( chest:Unremarkable examination, without interval change.) Radiology Impression Discussion of test interpretation with radiology: I have reviewed the radiologist's reading. Chronic Conditions Patient?s care impacted by: Other ( COPD, history of cigarette smoking.) Discharge Plan Discharge Clinical Impression: COPD exacerbation, Influenza A, Hypoxia Patient Disposition: Admitted As Inpatient Prescriptions: No Action ibuprofen 600 mg tablet 600 mg PO TID Qty: 90 0RF albuterol sulfate 90 mcg/actuation HFA aerosol inhaler 1 puff PO QID PRN (Reason: for dyspnea) Qty: 8.5 3RF budesonide-formoterol [Symbicort] 80-4.5 mcg/actuation HFA aerosol inhaler 1 inh inhalation BID Qty: 10.2 2RF atorvastatin 10 mg tablet 10 mg PO DAILY 90 Days Qty: 90 1RF venlafaxine 25 mg tablet 25 mg PO DAILY 90 Days Qty: 90 1RF losartan 50 mg tablet 50 mg PO DAILY 90 Days Qty: 90 1RF buprenorphine-naloxone 8-2 mg film 16 mg sublingual DAILY Genvoya [id number] mg tablet 1 tab PO DAILY calcium carbonate-vitamin D3 500 mg(1,250mg) -50 unit capsule 1 cap PO DAILY aspirin [Shakira Low Dose Aspirin] 81 mg tablet,delayed release (DR/EC) 81 mg PO DAILY
[2023-07-16] MEDS: 0.9 % Sodium Chloride 1,000 ML 999 ML IV (09:27)
[2023-07-16 09:43] LABS: Basophils Percent Auto 0.4 % (0-2); Eosinophils Absolute Auto 0.1 X10*3/uL (0.0-0.4); Eosinophils Percent Auto 2.1 % (0-4); Hematocrit 40.8 % (37.0-47.0); Hemoglobin 13.7 g/dl (12.0-16.0); Imm Gran Abs Auto 0.02 X10*3/uL (0.00-0.03); Imm Gran Pct Auto 0.4 % (0.0-0.4); Lymphocytes Absolute Auto 0.8 X10*3/uL (1.2-4.9); Lymphocytes Percent Auto 17.4 % (20-40); Mean Corpuscular HGB Conc 33.6 g/dl (31.0-35.0); Mean Corpuscular Hemoglobin 32.6 pg (27.0-33.0); Mean Corpuscular Volume 97.1 fL (80.0-98.0); Monocytes Absolute Auto 0.7 X10*3/uL (0.1-1.2); Monocytes Percent Auto 15.2 % (2-11); Neutrophils Percent Auto 64.5 % (45-73); Red Cell Distribution Width 12.6 % (11.0-16.0); White Blood Count 4.7 X10*3/uL (4.8-10.8)
[2023-07-16 09:48] LABS: MANUAL DIFF FLAG SCAN
[2023-07-16 10:04] LABS: Mean Platelet Volume 10.1 fL (9.4-12.3); Platelet Count 130 X10*3/uL (160-400); SLIDE REVIEW VERIFIED
[2023-07-16 10:55] LABS: Lactic Acid 0.5 mmol/L (0.5-2.0)
[2023-07-16 11:02] LABS: Alanine Aminotransferase 12 U/L (0-31); Albumin Level 3.5 g/dL (3.5-5.0); Alkaline Phosphatase 51 U/L (39-117); Anion Gap 11 (12-20); Aspartate Amino Transferase 21 U/L (5-31); Bilirubin Direct 0.1 mg/dL (0.0-0.5); Bilirubin Total 0.3 mg/dL (0.0-1.0); Blood Urea Nitrogen 12 mg/dL (9-16); Calcium 8.1 mg/dL (8.4-10.2); Carbon Dioxide 26 mmol/L (22-29); Chloride 103 mmol/L (96-108); Creatinine Clr Calc Pharmacy 53.6; Estimated Glomerular Filt Rate > 60; Glucose Random 82 mg/dL (60-115); Lipase 10 U/L (8-78); Sodium 136 mmol/L (135-145); Total Protein 6.5 g/dL (6.5-8.0)
[2023-07-16 11:08] LABS: B Type Natriuretic Peptide 87 pg/mL (<100); Troponin-I High Sensitivity 5.3 ng/L (<3.5-17.0)
[2023-07-16 11:46] LABS: Appearance Urine Clear; Color Urine Yellow; Glucose Urine UA Negative (Negative); Leukocyte Esterase Urine Negative (Negative); Nitrite Urine Negative (Negative); PH 5.5 (5.0-9.0); UMIC TRIGGER UACC YES; Urine Blood Moderate (2+) (Negative); Urine Ketones Trace mg/dL (Negative); Urine Protein Negative (Neg-Trace)
[2023-07-16 11:48] LABS: Bacteria Urine None Seen (None Seen); Hyaline Casts Urine 0-2 /LPF (0-2); Squamous Epithelial Cell Urine 0-2 /HPF (0-2); WBC Urine 0-5 /HPF (0-5)
--- NOTE | 2023-07-16 11:48 | PC.NURSE ---
md arizmendi aware pt drops at times to 90-91% on monitor. on walking to and from bathroom o2 sat 95% on return. pt reports sob at times- RN paged RT to evaluate. no distress noted. +CMS. regular breathing rate.
[2023-07-16] MEDS: Albuterol Sulfate 2.5 MG, Albuterol/Iprat 2.5/0.5MG 3 ML 3 ML INHALE (11:50)
[2023-07-16 13:16] LABS: Influenza A PCR POSITIVE (Negative); Influenza B PCR NEGATIVE (Negative); Resp Syncy Virus RNA Qual PCR NEGATIVE (Negative); SARS COV2 PCR INHOUSE NEGATIVE (Negative)
--- NOTE | 2023-07-16 15:33 | P.HPHOSP_ITS ---
History of Present Illness Date of Service: 07/16/23 Chief Complaint: sob 62F PMH hiv, hcv, copd, pvd, htn, mood disorder, presented with sob. Patient Reports 2 days of symptoms. sob, non productive cough, fevers, body aches. denies chest pain, n/v/d. presented to urgent care, found to be hypoxic. in ED flu positive. Review of Systems 2 Review of Systems: Yes all other systems are reviewed and are negative [facility] Medical History Liver cirrhosis COPD (chronic obstructive pulmonary disease) PVD (peripheral vascular disease) History of opioid abuse Osteopenia GERD (gastroesophageal reflux disease) Hyperlipidemia Hepatitis C (~1998) Personal history of nicotine dependence PTSD (post-traumatic stress disorder) HTN (hypertension) HIV (human immunodeficiency virus infection) (~1996) Family History Mother Lung cancer Father Substance use disorder Son Substance use disorder Surgical History History of colonoscopy (~2016) History of esophagogastroduodenoscopy (EGD) (~2016) History of angioplasty (~2017) History of carpal tunnel surgery of right wrist (~2003) History of liver biopsy (~2001) Hx of cholecystectomy (~2001) History of hysterectomy Social History Housing: Apartment Alcohol intake: current Patient Tobacco Use Status: Current everyday Tobacco user Tobacco use type: Cigarette Cigarettes Per Day: 15 Years Smoked: 45 (onset 12) Smoked in Last 30 Days: Yes e-Cigarette/Vaping Use: Never Used Second Hand Smoke Exposure: No Use of substances other than those prescribed or required for medical reasons: No Advance Directives: No Advance Directives Information Provided: No Current occupational status: employed 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, 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 Cognitive needs: No Hearing needs: No Vision needs: No Meds Allergies Allergy/AdvReac Type Severity Reaction Status Date / Time abacavir Allergy Severe high fever Verified 07/16/23 08:39 erythromycin base Allergy Unknown Unknown Verified 07/16/23 08:39 Active Medications: Current Medications Acetaminophen (Acetaminophen 325 Mg Tablet) 650 mg PO Q6H PRN PRN Reason: Pain, Mild (Pain Scale 1-3) Albuterol/Ipratropium (Albuterol/Iprat 2.5/0.5mg 3 Ml Ampul.Neb) 3 ml INHALE RQ4H WHILE AWAKE [facility] Enoxaparin Sodium (Enoxaparin Sodium 40 Mg/0.4 Ml Syringe) 40 mg SUBCUT Q24H KIMANI Melatonin (Melatonin 3 Mg Tablet) 6 mg PO BEDTIME PRN PRN Reason: Insomnia Methylprednisolone Sodium Succinate (Methylprednisolone Sod Succ 40 Mg/Ml Vial) 40 mg IVPUSH Q12H [facility] Nicotine (Nicotine 21 Mg Patch.Td24) 21 mg TRANSDERMA DAILY [facility] Oseltamivir Phosphate (Oseltamivir Phosphate 75 Mg Capsule) 75 mg PO Q12H KIMANI Stop: 07/21/23 06:01 Sodium Chloride (0.9 % Sodium Chloride Flush 3 Ml Syringe) 3 ml IVFLUSH QSHIFT [facility] Home Medications Medication Instructions Recorded Confirmed Last Taken Type aspirin 81 mg tablet,delayed 81 mg PO DAILY 06/15/20 07/16/23 07/15/23 History release (Shakira Low Dose Aspirin) calcium carbonate-vitamin D3 500 1 cap PO DAILY 03/08/21 07/16/23 07/15/23 History mg (1,250 mg)-50 unit capsule elviteg 150 mg-cob 150 mg-emtricit 1 tab PO DAILY 03/08/21 07/16/23 07/15/23 History 200 mg-tenofo alafenam 10 mg tablet (Genvoya) buprenorphine 8 mg-naloxone 2 mg 16 mg sublingual DAILY 06/15/23 07/16/23 07/15/23 History sublingual film ibuprofen 600 mg tablet 600 mg PO TID PRN Pain (Scale 07/16/23 07/16/23 07/15/23 History Score 1-3) Physical Exam 2 Vital Signs and Narrative: Vital Signs: Last Vital Signs Temp 98.7 F 07/16/23 13:45 Pulse 76 07/16/23 14:00 Resp 16 07/16/23 13:45 BP 111/52 L 07/16/23 14:00 Pulse Ox 97 07/16/23 14:00 O2 Del Method Nasal Cannula 07/16/23 14:00 O2 Flow Rate 2 07/16/23 14:00 BMI result Body Mass Index 22.6 General: AO X 3, no acute distress Resp: diminished bilateral, no accessory muscles used CVS: S1,S2,RRR GI: soft, non tender, non distended Neuro: motor grossly intact, alert Psych: appropriate affect, appropriate insight Results Labs 07/16/23 09:25 07/16/23 10:32 Labs: Laboratory Results - last 24 hr 07/16/23 07/16/23 07/16/23 09:25 09:59 10:32 MCV 97.1 MCH 32.6 MCHC 33.6 RDW 12.6 Plt Count 130 L D MPV 10.1 Immature Gran % (Auto) 0.4 Neut % (Auto) 64.5 Lymph % (Auto) 17.4 L [place] % (Auto) 15.2 H Eos % (Auto) 2.1 Baso % (Auto) 0.4 Lymph # (Auto) 0.8 L [place] # (Auto) 0.7 Eos # (Auto) 0.1 Baso # (Auto) 0.0 Abs Immat Gran (auto) 0.02 Absolute Neuts (auto) 3.0 Absolute Nucleated RBC 0.000 Nucleated RBC % (auto) 0.0 Smear Tech's Comments VERIFIED Anion Gap 11 L Estim Creat Clear Calc 53.6 Estimated GFR > 60 Random Glucose 82 Lactic Acid 0.5 Calcium 8.1 L D Total Bilirubin 0.3 Direct Bilirubin 0.1 AST 21 ALT 12 Alkaline Phosphatase 51 B-Natriuretic Peptide 87 Total Protein 6.5 Albumin 3.5 Lipase 10 Urine Color Urine Appearance Urine pH Ur Specific [place] Urine Protein Urine Glucose (UA) Urine Ketones Urine Blood Urine Nitrite Ur Leukocyte Esterase Urine RBC Urine WBC Ur Squamous Epith Cells Urine Bacteria Hyaline Casts Influenza Type A (PCR) POSITIVE A Influenza Type B (PCR) NEGATIVE RSV RNA Qual (PCR) NEGATIVE SARS-CoV-2 RNA (RT-PCR) NEGATIVE 07/16/23 11:40 MCV MCH MCHC RDW Plt Count MPV Immature Gran % (Auto) Neut % (Auto) Lymph % (Auto) [place] % (Auto) Eos % (Auto) Baso % (Auto) Lymph # (Auto) [place] # (Auto) Eos # (Auto) Baso # (Auto) Abs Immat Gran (auto) Absolute Neuts (auto) Absolute Nucleated RBC Nucleated RBC % (auto) Smear Tech's Comments Anion Gap Estim Creat Clear Calc Estimated GFR Random Glucose Lactic Acid Calcium Total Bilirubin Direct Bilirubin AST ALT Alkaline Phosphatase B-Natriuretic Peptide Total Protein Albumin Lipase Urine Color Yellow Urine Appearance Clear Urine pH 5.5 Ur Specific [place] 1.010 Urine Protein Negative Urine Glucose (UA) Negative Urine Ketones Trace Urine Blood Moderate (2+) H Urine Nitrite Negative Ur Leukocyte Esterase Negative Urine RBC 6-10 H Urine WBC 0-5 Ur Squamous Epith Cells 0-2 Urine Bacteria None Seen Hyaline Casts 0-2 Influenza Type A (PCR) Influenza Type B (PCR) RSV RNA Qual (PCR) SARS-CoV-2 RNA (RT-PCR) Imaging Radiologist's Impressions: Impressions Chest X-Ray 07/16/23 08:57 IMPRESSION: Unremarkable examination, without interval change. Assessment and Plan (1) Hypoxia: Status: Acute Plan 62F PMH hiv, hcv, copd, pvd, htn, mood disorder, presented with sob acute hypoxic respiratory failure due to copd with acute decompensation due to flu solumderol, duonebs, tamiflu wean o2 hiv haart htn losartan mood disorder effexor opiate dependence suboxone pvd asa, statin dvt prophylaxis - lovenox full code patient with hyopxia due to flu and copd, needs o2 supplement and iv steroids, nebs, likely to require atleast 2 midnights inpatient Quality Stroke Does the patient have a stroke diagnosis?: No VTE Prior VTE?: No VTE Risk Level:: Medical - moderate - high VTE Device Contraindication: Treatment Not Indicated VTE Drug Contraindication: N/A - Med Ordered
--- NOTE | 2023-07-16 15:38 | PHA.MEDREC ---
Pharmacy Consult ? Medication Reconciliation Pharmacy has completed the medication reconciliation. Patient reported medications. Sheron Amezcua, ChauD
[2023-07-16] MEDS: Albuterol/Iprat 2.5/0.5MG 3 ML AMPUL.NEB INHALE ×2 (15:57→19:20)
[2023-07-16] MEDS: Acetaminophen 325 MG TABLET 650 MG PO (16:34)
[2023-07-16] MEDS: Nicotine 21 MG PATCH.TD24 TRANSDERMA (16:34)
[2023-07-16] MEDS: methylPREDNISolone Sod Succ 40 MG/ML VIAL IVPUSH (16:35)
[2023-07-16] MEDS: Oseltamivir Phosphate 75 MG CAPSULE PO (18:51)
[2023-07-16] MEDS: Enoxaparin Sodium 40 MG/0.4 ML SYRINGE SUBCUT (18:51)
--- NOTE | 2023-07-16 21:52 | PC.NURSE ---
assumed care of patient at 21:15 - pt resting comfortably on stretcher in no apparent distress,denies pain, call banegas within reach. plan of care ongoing
[2023-07-17 05:03] LABS: Hematocrit 39.6 % (37.0-47.0); Hemoglobin 13.1 g/dl (12.0-16.0); Mean Corpuscular HGB Conc 33.1 g/dl (31.0-35.0); Mean Corpuscular Hemoglobin 32.9 pg (27.0-33.0); Mean Corpuscular Volume 99.5 fL (80.0-98.0); Mean Platelet Volume 10.1 fL (9.4-12.3); Platelet Count 127 X10*3/uL (160-400); Red Blood Count 3.98 X10*6/uL (4.20-5.50); Red Cell Distribution Width 12.4 % (11.0-16.0); White Blood Count 3.9 X10*3/uL (4.8-10.8)
[2023-07-17 05:25] LABS: Anion Gap 12 (12-20); Blood Urea Nitrogen 11 mg/dL (9-16); Calcium 9.1 mg/dL (8.4-10.2); Carbon Dioxide 26 mmol/L (22-29); Chloride 105 mmol/L (96-108); Creatinine Clr Calc Pharmacy 52.3; Estimated Glomerular Filt Rate > 60; Glucose Fasting 143 mg/dL (60-99); Potassium 4.4 mmol/L (3.3-5.1); Sodium 139 mmol/L (135-145)
[2023-07-17] MEDS: methylPREDNISolone Sod Succ 40 MG/ML VIAL IVPUSH ×2 (05:25→15:26)
[2023-07-17] MEDS: Oseltamivir Phosphate 75 MG CAPSULE PO ×2 (05:25→17:07)
[2023-07-17] MEDS: Acetaminophen 325 MG TABLET 650 MG PO ×2 (05:25→17:07)
--- NOTE | 2023-07-17 05:29 | PC.NURSE ---
pt medicated per mar tolerated well with water. lung sounds cta. pt reports feeling comfortably and does not need breathing tx at this time. sats 98% on 2L NC. resp even and unlabored. call banegas within reach.
[2023-07-17 07:29] VITALS: PULSE 57; RESP 18; O2SAT 94
[2023-07-17] MEDS: Albuterol/Iprat 2.5/0.5MG 3 ML AMPUL.NEB INHALE ×3 (07:29→15:35)
[2023-07-17 08:42] VITALS: BP 141/68; PULSE 71; RESP 20; TEMP 36.1; O2SAT 93
[2023-07-17] MEDS: Losartan Potassium 50 MG TABLET PO (09:03)
[2023-07-17] MEDS: Atorvastatin Calcium 10 MG TABLET PO (09:03)
[2023-07-17] MEDS: Venlafaxine HCL 25 MG TABLET PO (09:03)
[2023-07-17] MEDS: Calcium + Vitamin D 250 MG TABLET 500 MG PO (09:03)
[2023-07-17] MEDS: Aspirin Enteric Coated 81 MG TABLET.DR PO (09:03)
[2023-07-17] MEDS: Nicotine 21 MG PATCH.TD24 TRANSDERMA (09:04)
[2023-07-17] MEDS: Buprenorphine/Naloxone 8/2 mg FILM 2 FILM SUBLINGUAL (09:04)
[2023-07-17] MEDS: 0.9 % Sodium Chloride Flush 3 ML SYRINGE IVFLUSH ×2 (09:04→15:26)
--- NOTE | 2023-07-17 09:06 | P.PNIM_ITS ---
Subjective Subjective Date of Service: 07/17/23 Interval History: nasuea Physical Exam 2 Vital Signs: Vital Signs: Last Vital Signs Temp 97.0 F 07/17/23 08:42 Pulse 71 07/17/23 08:42 Resp 20 07/17/23 08:42 BP 141/68 H 07/17/23 08:42 Pulse Ox 93 07/17/23 08:42 O2 Del Method Room Air 07/17/23 08:42 O2 Flow Rate 2 07/16/23 20:26 BMI result Body Mass Index 22.6 General: AO X 3, no acute distress Resp: mild wheeze bilateral, no accessory muscles used CVS: S1,S2,RRR GI: soft, non tender, non distended Neuro: motor grossly intact, alert Psych: appropriate affect, appropriate insight Objective Data Active Medications Acetaminophen (Acetaminophen 325 Mg Tablet) 650 mg PO Q6H PRN PRN Reason: Pain, Mild (Pain Scale 1-3) Last Admin: 07/17/23 05:25 Dose: 650 mg Documented By: ASTRID Albuterol/Ipratropium (Albuterol/Iprat 2.5/0.5mg 3 Ml Ampul.Neb) 3 ml INHALE RQ4H WHILE AWAKE [facility] Last Admin: 07/17/23 07:29 Dose: 3 ml Documented By: MOHIT Aspirin (Aspirin Enteric Coated 81 Mg Tablet.Dr) 81 mg PO DAILY [facility] Atorvastatin Calcium (Atorvastatin Calcium 10 Mg Tablet) 10 mg PO DAILY [facility] Buprenorphine/Naloxone (Buprenorphine/Naloxone 8/2 Mg Film) 2 film SUBLINGUAL DAILY [facility] Calcium Carbonate/Cholecalciferol (Calcium + Vitamin D 250 Mg Tablet) 500 mg PO DAILY [facility] Enoxaparin Sodium (Enoxaparin Sodium 40 Mg/0.4 Ml Syringe) 40 mg SUBCUT Q24H [facility] Last Admin: 07/16/23 18:51 Dose: 40 mg Documented By: CARMEN Losartan Potassium (Losartan Potassium 50 Mg Tablet) 50 mg PO DAILY [facility]; Protocol Melatonin (Melatonin 3 Mg Tablet) 6 mg PO BEDTIME PRN PRN Reason: Insomnia Methylprednisolone Sodium Succinate (Methylprednisolone Sod Succ 40 Mg/Ml Vial) 40 mg IVPUSH Q12H [facility] Last Admin: 07/17/23 05:25 Dose: 40 mg Documented By: ASTRID Nicotine (Nicotine 21 Mg Patch.Td24) 21 mg TRANSDERMA DAILY [facility] Last Admin: 07/16/23 16:34 Dose: 21 mg Documented By: CARMEN Non-Formulary Medication (Cwacmbd-Zeb-Axuce-Tenof Alafen [Genvoya]) 1 tab PO DAILY [facility] Oseltamivir Phosphate (Oseltamivir Phosphate 75 Mg Capsule) 75 mg PO Q12H [facility] Stop: 07/21/23 06:01 Last Admin: 07/17/23 05:25 Dose: 75 mg Documented By: ASTRID Sodium Chloride (0.9 % Sodium Chloride Flush 3 Ml Syringe) 3 ml IVFLUSH QSHIFT [facility] Last Admin: 07/17/23 00:38 Dose: Not Given Documented By: BRUCE Non-Admin Reason: Previously Administered Venlafaxine HCl (Venlafaxine Hcl 25 Mg Tablet) 25 mg PO DAILY [facility] Labs 07/17/23 04:51 07/17/23 04:51 Labs: Laboratory Results - last 24 hr 07/16/23 07/16/23 07/16/23 09:25 09:59 10:32 MCV 97.1 MCH 32.6 MCHC 33.6 RDW 12.6 Plt Count 130 L D MPV 10.1 Immature Gran % (Auto) 0.4 Neut % (Auto) 64.5 Lymph % (Auto) 17.4 L [place] % (Auto) 15.2 H Eos % (Auto) 2.1 Baso % (Auto) 0.4 Lymph # (Auto) 0.8 L [place] # (Auto) 0.7 Eos # (Auto) 0.1 Baso # (Auto) 0.0 Abs Immat Gran (auto) 0.02 Absolute Neuts (auto) 3.0 Absolute Nucleated RBC 0.000 Nucleated RBC % (auto) 0.0 Smear Tech's Comments VERIFIED Anion Gap 11 L Estim Creat Clear Calc 53.6 Estimated GFR > 60 Random Glucose 82 Fasting Glucose Lactic Acid 0.5 Calcium 8.1 L D Total Bilirubin 0.3 Direct Bilirubin 0.1 AST 21 ALT 12 Alkaline Phosphatase 51 B-Natriuretic Peptide 87 Total Protein 6.5 Albumin 3.5 Lipase 10 Urine Color Urine Appearance Urine pH Ur Specific [place] Urine Protein Urine Glucose (UA) Urine Ketones Urine Blood Urine Nitrite Ur Leukocyte Esterase Urine RBC Urine WBC Ur Squamous Epith Cells Urine Bacteria Hyaline Casts Influenza Type A (PCR) POSITIVE A Influenza Type B (PCR) NEGATIVE RSV RNA Qual (PCR) NEGATIVE SARS-CoV-2 RNA (RT-PCR) NEGATIVE 07/16/23 07/17/23 11:40 04:51 MCV 99.5 H MCH 32.9 MCHC 33.1 RDW 12.4 Plt Count 127 L MPV 10.1 Immature Gran % (Auto) Neut % (Auto) Lymph % (Auto) [place] % (Auto) Eos % (Auto) Baso % (Auto) Lymph # (Auto) [place] # (Auto) Eos # (Auto) Baso # (Auto) Abs Immat Gran (auto) Absolute Neuts (auto) Absolute Nucleated RBC 0.000 Nucleated RBC % (auto) 0.0 Smear Tech's Comments Anion Gap 12 Estim Creat Clear Calc 52.3 Estimated GFR > 60 Random Glucose Fasting Glucose 143 H Lactic Acid Calcium 9.1 D Total Bilirubin Direct Bilirubin AST ALT Alkaline Phosphatase B-Natriuretic Peptide Total Protein Albumin Lipase Urine Color Yellow Urine Appearance Clear Urine pH 5.5 Ur Specific [place] 1.010 Urine Protein Negative Urine Glucose (UA) Negative Urine Ketones Trace Urine Blood Moderate (2+) H Urine Nitrite Negative Ur Leukocyte Esterase Negative Urine RBC 6-10 H Urine WBC 0-5 Ur Squamous Epith Cells 0-2 Urine Bacteria None Seen Hyaline Casts 0-2 Influenza Type A (PCR) Influenza Type B (PCR) RSV RNA Qual (PCR) SARS-CoV-2 RNA (RT-PCR) Assessment and Plan (1) Hypoxia: Status: Acute Plan 62F PMH hiv, hcv, copd, pvd, htn, mood disorder, presented with sob acute hypoxic respiratory failure due to copd with acute decompensation due to flu continue solumderol, duonebs, day 2 tamiflu wean o2 as tolerated hiv haart htn losartan mood disorder effexor opiate dependence suboxone pvd asa, statin dvt prophylaxis - lovenox full code reason for continued hospitalization:nausea, sob, weaning o2 Quality Stroke Does the patient have a stroke diagnosis?: No VTE Prior VTE?: No VTE Risk Level:: Medical - moderate - high VTE Device Contraindication: Treatment Not Indicated VTE Drug Contraindication: N/A - Med Ordered
--- NOTE | 2023-07-17 10:18 | HO.WOUND ---
Wound Consult: Initial 62yr old?F admitted to [facility] on 07/16/23 - See progress notes and H&P for detailed history.? Wound consult placed for Left Hand wound POA.? Patient agreeable to assessment and photo documentation.? Arrival to bedside pt reports the wound originated as a dog bit approximately one month ago. She reports she went to walk in clinic and they prescribed her oral ABX but she was not able to fill the script. Of note she does appear to have a dermatitis throughout her hands including the palms of her hands. She reports she has had this for years. The tissue is intact and blanchable. The wounds on the Left dorsal side of the hand are resolving - they do not appear to be infected at this time - there is slight swelling noted along with slight pink pigmentation - the patient reports the left hand does not feel swollen. She reports she has no pain and no oozing from the wounds. Although Dog bits are concerning for infection given over a month ago there does not appear to be an active infection at this time - TT to provider to assess for infection. No topical interventions needed at this time. The dermatitis can be treated with topical steroids or ointment to sooth the dry skin. She was advised to follow up outpt dermatology for dermatitis etiology and treatment - she reports understanding.
[2023-07-17 11:38] VITALS: PULSE 64; RESP 18; O2SAT 95
--- NOTE | 2023-07-17 11:47 | MHC.CM.PN ---
pt on droplet precaitions dc plan home no servies she has a ride home
--- NOTE | 2023-07-17 12:15 | MHC.CLN ---
RE; CONSULT FOR POOR PO RECOMMEND ADDING ENSURE BID TO INCREASE KCALS. SUPP TO PROVIDE 700KCALS, 40G PROTEIN MONITOR PO INTAKE CLOSELY
[2023-07-17 15:07] VITALS: BP 113/55; PULSE 60; RESP 18; TEMP 36.2; O2SAT 93
[2023-07-17 15:35] VITALS: PULSE 70; RESP 18; O2SAT 96
[2023-07-17] MEDS: Enoxaparin Sodium 40 MG/0.4 ML SYRINGE SUBCUT (17:08)
[2023-07-17 19:24] VITALS: BP 131/59; PULSE 66; RESP 18; TEMP 36.3; O2SAT 93
[2023-07-18] MEDS: 0.9 % Sodium Chloride Flush 3 ML SYRINGE IVFLUSH ×2 (00:05→08:42)
[2023-07-18 03:13] VITALS: BP 125/60; PULSE 56; RESP 16; TEMP 36.1; O2SAT 96
[2023-07-18] MEDS: methylPREDNISolone Sod Succ 40 MG/ML VIAL IVPUSH (04:27)
[2023-07-18] MEDS: Oseltamivir Phosphate 75 MG CAPSULE PO (06:04)
[2023-07-18 07:27] VITALS: BP 130/82; PULSE 61; RESP 16; TEMP 36; O2SAT 93
[2023-07-18 07:51] VITALS: PULSE 61; RESP 16; O2SAT 95
[2023-07-18] MEDS: Albuterol/Iprat 2.5/0.5MG 3 ML AMPUL.NEB INHALE ×2 (07:51→11:29)
[2023-07-18] MEDS: Losartan Potassium 50 MG TABLET PO (08:40)
[2023-07-18] MEDS: Nicotine 21 MG PATCH.TD24 TRANSDERMA (08:41)
[2023-07-18] MEDS: Calcium + Vitamin D 250 MG TABLET 500 MG PO (08:41)
[2023-07-18] MEDS: Atorvastatin Calcium 10 MG TABLET PO (08:41)
[2023-07-18] MEDS: Aspirin Enteric Coated 81 MG TABLET.DR PO (08:41)
[2023-07-18] MEDS: Venlafaxine HCL 25 MG TABLET PO (08:41)
[2023-07-18] MEDS: Buprenorphine/Naloxone 8/2 mg FILM 2 FILM SUBLINGUAL (08:43)
--- NOTE | 2023-07-18 10:38 | PM.DS ---
DS: Providers Provider Date of Service: 07/18/23 Date of admission: 07/16/23 17:30 Primary care physician: AMARJIT Vazquez Consults: 07/17/23 08:45 Consult to Wound Care Routine Reason for consultation: recent dog bite Has provider been notified: Yes DS: Diagnosis Discharge Diagnosis (1) Hypoxia: Status: Acute (2) Influenza A: Status: Acute (3) COPD exacerbation: Status: Acute DS: Summary Hospital Course Hospital Course: Admission note HPI 62F PMH hiv, hcv, copd, pvd, htn, mood disorder, presented with sob. Patient Reports 2 days of symptoms. sob, non productive cough, fevers, body aches. denies chest pain, n/v/d. presented to urgent care, found to be hypoxic. in ED flu positive. Hospital course The patient was admitted for treatment of acute hypoxic respiratory failure due to copd with acute decompensation due to Influenza A infection. Treated with solumderol, duonebs and tamiflu with good response over the course of hospital stay as she was weaned o2 down to room air. Continue Prednisone and Tamiflu for 3 more days Use nebulizer 3 times daily for the next 3 days then as needed Nicotine patches to helo quitting smoking Time Attestation Discharge coordination time: Greater than 30 minutes Quality: Safe Use of Opioids Does Pt have an Active Cancer Diagnosis on the Problem List?: No Quality: Stroke Does the patient have a stroke diagnosis?: No Physical Exam Vital Signs: Vital Signs: Last Vital Signs Temp 96.8 F 07/18/23 07:27 Pulse 61 07/18/23 07:51 Resp 16 07/18/23 07:51 BP 130/82 07/18/23 07:27 Pulse Ox 93 07/18/23 07:27 O2 Del Method Room Air 07/18/23 07:27 O2 Flow Rate 2 07/16/23 20:26 BMI result Body Mass Index 22.6 Const: Other: Constitutional : Awake, interactive, not in distress Neck : Normal inspection, Supple Cardiovascular : RRR, no JVP, no lower extremity edema Respiratory : good bilateral air entry, no crackles, wheezes or rhonchi Gastrointestinal: soft, lax, Normal bowel sounds, Non tender Skin : Warm, Dry Neurological : Alert & oriented x3, No focal deficit DS: Data Data Completed and Pending Labs on day of discharge: Preliminary micro results at discharge 07/16/23 10:43 Blood Culture - Preliminary Blood - Venous No growth after 24 hours. 07/16/23 10:32 Blood Culture - Preliminary Blood - Venous No growth after 24 hours. Imaging Chest x-ray: Radiologist's impression: ITS Impressions Chest X-Ray 07/16/23 08:57 IMPRESSION: Unremarkable examination, without interval change. Discharge Plan Discharge Anticipated Discharge Date/Time: 07/18/23 10:31 Patient Disposition: Home, Self-Care Discharge Diagnosis: Influenza A COPD exacerbation Referrals: Dami Grajeda FNP- [Primary Care Provider] - 1 Week Discharge Medications: New ipratropium-albuterol 0.5 mg-3 mg(2.5 mg base)/3 mL Solution For Nebulization 3 ml inhalation TID Qty: 180 0RF oseltamivir [Tamiflu] 75 mg Capsule 75 mg PO Q12H Qty: 6 0RF nicotine 21 mg/24 hr Patch 24 Hour 21 mg transdermal DAILY Qty: 90 0RF (DME) nebulizers Misc See Rx Instructions .Route Qty: 1 0RF Rx Instructions: As directed prednisone 20 mg tablet 40 mg PO DAILY Qty: 6 0RF Continued albuterol sulfate 90 mcg/actuation HFA aerosol inhaler 1 puff PO QID PRN (Reason: for dyspnea) Qty: 8.5 3RF atorvastatin 10 mg tablet 10 mg PO DAILY 90 Days Qty: 90 1RF venlafaxine 25 mg tablet 25 mg PO DAILY 90 Days Qty: 90 1RF losartan 50 mg tablet 50 mg PO DAILY 90 Days Qty: 90 1RF buprenorphine-naloxone 8-2 mg film 16 mg sublingual DAILY ibuprofen 600 mg tablet 600 mg PO TID PRN (Reason: Pain (Scale Score 1-3)) Genvoya [phone] mg tablet 1 tab PO DAILY calcium carbonate-vitamin D3 500 mg(1,250mg) -50 unit capsule 1 cap PO DAILY aspirin [Shakira Low Dose Aspirin] 81 mg tablet,delayed release (DR/EC) 81 mg PO DAILY Discharge Orders: Discharge Order (Routine); Ordered 07/18/23 Ordered By: Latasha Cortes Diet: Advance to usual diet Activity on Discharge: As tolerated Stand Alone Forms: Patient Portal Discharge page Care Plan Goals: Read below Health Concerns: Read below Plan of Treatment: Read below Assessment: Continue Prednisone and Tamiflu for 3 more days Use nebulizer 3 times daily for the next 3 days then as needed Nicotine patches to helo quitting smoking
--- NOTE | 2023-07-18 10:41 | MHC.CM.PN ---
pt dcd home no servies
[2023-07-18 11:29] VITALS: PULSE 68; RESP 16; O2SAT 95
== END 2023-07-18 12:25 | disposition home or self-care (01) | DRG 193 ==
LOC: HO.ED 14:37 → HO.EDOVER 17:37 → HO.S3 07-17 07:48
PROVIDERS: Admitting Provider Internal Medicine; Emergency Provider Emergency Medicine; PCP Nurse Practitioner Family; Visit Provider Student in an Organized Health Care Education/Training Program
DX: J10.1 Influenza due to other identified influenza virus with other respiratory manifestations (principal); J96.01 Acute respiratory failure with hypoxia; F11.20 Opioid dependence, uncomplicated; J44.1 Chronic obstructive pulmonary disease with (acute) exacerbation; Z21 Asymptomatic human immunodeficiency virus [HIV] infection status; F17.210 Nicotine dependence, cigarettes, uncomplicated; F39 Unspecified mood [affective] disorder; I73.9 Peripheral vascular disease, unspecified; I10 Essential (primary) hypertension; Z71.6 Tobacco abuse counseling; Z79.82 Long term (current) use of aspirin; Z79.899 Other long term (current) drug therapy
CPT/HCPCS: 0241U; 36415; 71046; 80048; 80076; 81001; 83605; 83690; 83880; 84484; 85025; 85027; 87040; 93005; 94640; 99285; J1650; J2920

== ENCOUNTER → 2023-07-16 08:48 | Outpatient (BNV) | payer MEDICARE, MEDICAID, SELFPAY | PROVIDERS: Emergency Provider Emergency Medicine; PCP Nurse Practitioner Family; Visit Provider Internal Medicine | DX: R07.89 Other chest pain (principal); R09.02 Hypoxemia | CPT/HCPCS: 93010 ==

== ENCOUNTER → 2023-07-16 09:31 | Outpatient (BNV) | payer MEDICARE, MEDICAID, SELFPAY | PROVIDERS: Emergency Provider Emergency Medicine; PCP Nurse Practitioner Family; Visit Provider Internal Medicine | DX: J96.01 Acute respiratory failure with hypoxia (principal); J44.1 Chronic obstructive pulmonary disease with (acute) exacerbation; J10.1 Influenza due to other identified influenza virus with other respiratory manifestations | CPT/HCPCS: 99223; 99233; 99239 ==

== ENCOUNTER 2023-08-15 13:01 | Outpatient (AMB) | payer MEDICARE, MEDICAID, SELFPAY ==
--- NOTE | 2023-08-15 13:04 | MHC.PC.OV ---
Vital Signs 08/15/23 13:07 Weight 117 lb BP 130/72 Blood Pressure Location Rt brachial Position Sitting Pulse 63 Pulse Source Pulse Oximeter Pulse Oximetry (%) 96 Oxygen Delivery Method Room Air Intake Visit Reasons: 2 month fu Allergies abacavir Allergy (Severe, Verified 08/15/23 13:56) high fever erythromycin base Allergy (Unknown, Verified 08/15/23 13:56) Unknown Medication List - Last Reconciled 08/15/23 by ALLEN Reaves albuterol sulfate 90 mcg/actuation 1 puff PO QID PRN aspirin (Shakira Low Dose Aspirin) 81 mg PO DAILY atorvastatin 10 mg PO DAILY 90 days buprenorphine-naloxone 8-2 mg 16 mg sublingual DAILY calcium carbonate-vitamin D3 500 mg(1,250mg) -50 unit 1 cap PO DAILY gnoplda-abk-gdpaa-tenof alafen [phone] mg (Genvoya) 1 tab PO DAILY ibuprofen 600 mg PO TID PRN ipratropium-albuterol 0.5 mg-3 mg(2.5 mg base)/3 mL 3 mL inhalation TID losartan 50 mg PO DAILY 90 days nebulizers copd, use PRN nicotine 21 mg transdermal DAILY venlafaxine 25 mg PO DAILY 90 days Tobacco use date assessed: 08/15/23 Fall risk assessment: No Falls in past year Last assessed Fall Risk: 08/15/23 Dental Screening Dental Screen Date: 08/15/23 Did you have a dental visit in the last 12 months?: Yes Did you have a dental problem in the last 6 months where you did not have access to dental care?: No Was dental information given to patient?: Patient has dentist HPI 2 month fu HPI Details recent hospitalization for COPD exac/flu. Pt reports wearing a nicotine patch since being admitted (21mg patch). Pt reports having 5 cigarettes since being released. Gave her encouragement to stay off cigarettes. Will cont the nicotine patches. #2 right toe, first mtp joint (pt pointed to) reports pain. 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 Will get an xr. [facility] Medical History Liver cirrhosis COPD (chronic obstructive pulmonary disease) PVD (peripheral vascular disease) History of opioid abuse Osteopenia GERD (gastroesophageal reflux disease) Hyperlipidemia Hepatitis C (~1998) Personal history of nicotine dependence PTSD (post-traumatic stress disorder) HTN (hypertension) HIV (human immunodeficiency virus infection) (~1996) Surgical History History of colonoscopy (~2016) History of esophagogastroduodenoscopy (EGD) (~2016) History of angioplasty (~2017) History of carpal tunnel surgery of right wrist (~2003) History of liver biopsy (~2001) Hx of cholecystectomy (~2001) History of hysterectomy Family History Mother Lung cancer Father Substance use disorder Son Substance use disorder Social History Household Members: None Housing: Apartment Do you presently have visiting nurse or other home services: No Alcohol intake: current Patient Tobacco Use Status: Current everyday Tobacco user Tobacco use type: Cigarette Cigarette Packs Per Day: 1.5 Cigarettes Per Day: 30.0 Years Smoked: 50 e-Cigarette/Vaping Use: Never Used Second Hand Smoke Exposure: No service: No Current occupational status: employed 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 83991 - PHQ-9 Billing: Patient declined-do not bill Source: Developed by Drs. Richard Gonzalez, James Frances and colleagues, with an educational florinda from [employer]. Thrive Questionnaire Date Thrive assessed: 07/17/23 PEARL-7 AMB Questionnaire PEARL-7 Date PEARL - 7 assessed: 08/15/23 Source: Developed by Drs. Richard Gonzalez, James Frances and colleagues, with an educational florinda from [employer]. PEARL-7 Assessment Billing PEARL-7 Assessment Tool: pt declined-do not bill Physical exam (Primary Care) Vital Signs: Last Vital Signs Pulse 63 08/15/23 13:07 BP 130/72 08/15/23 13:07 Pulse Ox 96 08/15/23 13:07 Oxygen Delivery Method Room Air 08/15/23 13:07 Tobacco/Smoking Status: Tobacco use Status Tobacco use date assessed 08/15/23 08/15/23 13:11 Patient Tobacco Use Status Current everyday Tobacco 08/15/23 13:04 Tobacco use type Cigarette 08/15/23 13:04 e-Cigarette/Vaping Use Never Used 08/15/23 13:04 Thrive Assessment: Date of Thrive Assessment Date Thrive assessed 07/17/23 08/15/23 13:04 Const General: cooperative and healthy appearing Resp Auscultation: clear to auscultation bilaterally Cardio Rate: regular rate Rhythm: regular rhythm Heart sounds: S1 normal heart sound present, S2 normal heart sound present and Murmur heart sound present systolic Extrem Other: right foot, first toe, MTP joint tender with weight bearing but not with palpation. slight swelling, no erythema. Assessment and Plan Assessment & Plan (1) Foot pain: Code(s): M79.673 - Pain in unspecified foot Plan: xr ordered (2) Smoker: Code(s): F17.200 - Nicotine dependence, unspecified, uncomplicated (3) Flu: Code(s): J11.1 - Influenza due to unidentified influenza virus with other respiratory manifestations Plan pt wearing nicotine patches, working well. Orders: Orders XR foot RT 2V Today M79.673 - Pain in unspecified foot Medications: Changed From nebulizers As directed 1 ea 0RF J44.1 - Chronic obstructive pulmonary disease with (acute) exacerbation To nebulizers copd, use PRN 1 ea 0RF J44.1 - Chronic obstructive pulmonary disease with (acute) exacerbation Coding Level of Care Code Est Pt Level 3 (60272) Diagnoses Foot pain M79.673 Smoker F17.200 Flu J11.1
[2023-08-15 13:07] VITALS: BP 130/72; PULSE 63; O2SAT 96
== END 2023-08-15 16:44 | disposition home or self-care (01) ==
PROVIDERS: PCP Nurse Practitioner Family; Visit Provider Nurse Practitioner Family
DX: M79.671 Pain in right foot (principal); F17.210 Nicotine dependence, cigarettes, uncomplicated; J11.1 Influenza due to unidentified influenza virus with other respiratory manifestations
CPT/HCPCS: 99213

== ENCOUNTER 2023-08-15 13:43 | Outpatient (REF) | payer MEDICARE, MEDICAID, SELFPAY ==
--- NOTE | ~2023-08-15 | XR_ITS ---
EXAMINATION: XR FOOT, RIGHT CLINICAL INFORMATION: Pain in unspecified foot COMPARISON: Right foot 11/10/2020 TECHNIQUE: AP, lateral, and oblique views of the right foot. FINDINGS: The bones are intact. No acute fracture. Question of old healed fracture of the proximal phalanx of the third toe. This is only seen on one view and is unchanged compared to the prior study of 11/10/2020 Alignment is anatomic. There is severe narrowing of the first metatarsophalangeal joint with ncpt-as-uvhx appearance, marginal osteophytes including a dorsal osteophyte. Large posterior plantar calcaneal spur is seen. XR/XR foot RT 2V IMPRESSION: 1. Severe osteoarthritis of the first metatarsophalangeal joint. 2. Large posterior plantar calcaneal spur.
== END 2023-08-15 13:44 | disposition home or self-care (01) ==
LOC: HO.HMGCX 13:43
PROVIDERS: PCP Nurse Practitioner Family; Visit Provider Nurse Practitioner Family
DX: M79.671 Pain in right foot (principal)
CPT/HCPCS: 73620

== ENCOUNTER 2023-08-22 14:04 | Outpatient (REF) | payer MEDICARE, MEDICAID, SELFPAY ==
[2023-08-22 16:27] LABS: MANUAL DIFF FLAG NO
[2023-08-22 16:59] LABS: Basophils Percent Auto 0.2 % (0-2); Eosinophils Absolute Auto 0.1 X10*3/uL (0.0-0.4); Eosinophils Percent Auto 2.2 % (0-4); Hematocrit 36.5 % (37.0-47.0); Hemoglobin 12.4 g/dl (12.0-16.0); Imm Gran Abs Auto 0.04 X10*3/uL (0.00-0.03); Imm Gran Pct Auto 0.8 % (0.0-0.4); Lymphocytes Absolute Auto 1.9 X10*3/uL (1.2-4.9); Lymphocytes Percent Auto 39.3 % (20-40); Mean Corpuscular Hemoglobin 32.5 pg (27.0-33.0); Mean Corpuscular Volume 95.5 fL (80.0-98.0); Mean Platelet Volume 10.6 fL (9.4-12.3); Monocytes Absolute Auto 0.4 X10*3/uL (0.1-1.2); Monocytes Percent Auto 7.5 % (2-11); Neutrophils Absolute Auto 2.5 x10*3/uL (2.0-8.3); Platelet Count 196 X10*3/uL (160-400); Red Blood Count 3.82 X10*6/uL (4.20-5.50); Red Cell Distribution Width 12.8 % (11.0-16.0); White Blood Count 4.9 X10*3/uL (4.8-10.8)
[2023-08-23 22:04] LABS: Anti DNA DS Antibody <1 IU/mL; Antibody to SS-A Antigen <1.0 NEG AI (<1.0 NEG); Antibody to SS-B Antigen <1.0 NEG AI (<1.0 NEG)
[2023-08-24 11:52] LABS: Anti Nuclear Antibody Screen NEGATIVE (NEGATIVE)
[2023-08-24 20:28] LABS: A. Phagocytphilium DNA,RT-PCR NOT DETECTED (NOT DETECTED); Babesia Microti DNA, RT-PCR NOT DETECTED (NOT DETECTED); Borrelia Miyamotoi,DNA RT-PCR NOT DETECTED (NOT DETECTED); E.Chaffeensis DNA RT-PCR NOT DETECTED (NOT DETECTED); Lyme(Borrelia ssp)DNA RT-PCR NOT DETECTED (NOT DETECTED)
[2023-08-26 15:12] LABS: DNAds, Crithidia Antibody Negative (Negative)
[2023-08-28 10:24] LABS: Complement C3 120 mg/dL (83-193)
== END 2023-08-22 14:05 | disposition home or self-care (01) ==
LOC: HO.HMGCLDS 14:04
PROVIDERS: PCP Nurse Practitioner Family; Visit Provider Nurse Practitioner Family
DX: R53.83 Other fatigue (principal)
CPT/HCPCS: 36415; 85025; 86038; 86160; 86225; 86235; 86255; 87468; 87469; 87478; 87484; 87798

== ENCOUNTER 2023-12-05 11:31 | Outpatient (AMB) | payer MEDICARE, MEDICAID, SELFPAY ==
--- NOTE | 2023-12-05 11:37 | A.OFFPC_ITS ---
Vital Signs 12/05/23 11:39 Height 5 ft Weight 110 lb BMI 21.5 BP 124/76 Blood Pressure Location Lt brachial Position Sitting Pulse 73 Pulse Oximetry (%) 97 Oxygen Delivery Method Room Air Intake Visit Reasons: Preop- no labs or EKG Intake Note: pt here for pre-op clearance for Cataract surgery 12/11/23 and 12/25/23 Allergies abacavir Allergy (Severe, Verified 12/05/23 11:49) high fever erythromycin base Allergy (Unknown, Verified 12/05/23 11:49) Unknown Medication List - Last Reconciled 12/05/23 by Bernabe Dumont, KB albuterol sulfate 90 mcg/actuation 1 puff PO QID PRN aspirin (Shakira Low Dose Aspirin) 81 mg PO DAILY atorvastatin 10 mg PO DAILY 90 days buprenorphine-naloxone 8-2 mg 16 mg sublingual DAILY calcium carbonate-vitamin D3 500 mg(1,250mg) -50 unit 1 cap PO DAILY rrfrxqp-qfe-guppx-tenof alafen [phone] mg (Genvoya) 1 tab PO DAILY ibuprofen 600 mg PO TID PRN ipratropium-albuterol 0.5 mg-3 mg(2.5 mg base)/3 mL 3 mL inhalation TID losartan 50 mg PO DAILY 90 days nebulizers copd, use PRN venlafaxine 25 mg PO DAILY 90 days Tobacco use date assessed: 12/05/23 Dental Screening Dental Screen Date: 12/05/23 Did you have a dental visit in the last 12 months?: Yes Did you have a dental problem in the last 6 months where you did not have access to dental care?: No Was dental information given to patient?: Patient has dentist HPI HPI Comments History of Present Illness Details Patient is a 63-year-old female in today for a preoperative clearance for cataract surgery with intra-ocular lens implants in hydrus micro stent insertion. Patient is scheduled to have this procedure on 12/11/2023. Patient has a past medical history significant for HIV, peripheral vascular disease, cataract, glaucoma, reactive airway disease, chronic GERD, nicotine dependence, PTSD, currently utilizing Suboxone for history of opioid dependence. We have received preoperative clearance forms from [facility] where patient is getting the procedure. Will order labs CBC, CD4, viral load. Concerned that these labs will not reflex before patient surgery in 5 days. Patient understands to withhold NSAIDs at least 3 days prior to surgery. [facility] Medical History (Updated 12/06/23 @ 09:13 by KB Martin) Liver cirrhosis COPD (chronic obstructive pulmonary disease) PVD (peripheral vascular disease) History of opioid abuse Osteopenia GERD (gastroesophageal reflux disease) Hyperlipidemia Hepatitis C (~1998) Personal history of nicotine dependence PTSD (post-traumatic stress disorder) HTN (hypertension) HIV (human immunodeficiency virus infection) (~1996) Surgical History History of colonoscopy (~2016) History of esophagogastroduodenoscopy (EGD) (~2016) History of angioplasty (~2017) History of carpal tunnel surgery of right wrist (~2003) History of liver biopsy (~2001) Hx of cholecystectomy (~2001) History of hysterectomy Family History Mother Lung cancer Father Substance use disorder Son Substance use disorder Social History Household Members: None Housing: Apartment Do you presently have visiting nurse or other home services: No Alcohol intake: current Patient Tobacco Use Status: Current everyday Tobacco user Tobacco use type: Cigarette Cigarette Packs Per Day: 1.5 Cigarettes Per Day: 30.0 Years Smoked: 50 e-Cigarette/Vaping Use: Never Used Second Hand Smoke Exposure: No service: No Current occupational status: employed 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 How often do you have a drink containing alcohol?: 2-4 times a month 2. How many drinks containing alcohol do you have on a typical day when you are drinking?: 1 or 2 3. How often do you have six or more drinks on one occasion?: Never Total Score: 2 PEARL-7 AMB Questionnaire PEARL-7 Date PEARL - 7 assessed: 08/15/23 Source: Developed by Drs. Richard Gonzalez, Annie Pérez, James Nevarez and colleagues, with an educational florinda from [employer]. Review of Systems Const All systems reviewed & are unremarkable except as noted in HPI and below Denies chills, Denies fever(s) and Denies headache(s) ENT Denies dizziness, Denies headache(s) and Denies sore throat Card Denies chest pain and Denies dyspnea Resp Denies chest congestion, Denies cough, Denies dyspnea and Denies wheezing GI Denies diarrhea, Denies nausea and Denies vomiting Neuro Denies dizziness and Denies headache(s) Psych Denies homicidal ideation and Denies suicidal ideation Aller/Immun Denies wheezing Physical exam (Primary Care) Vital Signs: Last Vital Signs Pulse 73 12/05/23 11:39 BP 124/76 12/05/23 11:39 Pulse Ox 97 12/05/23 11:39 Oxygen Delivery Method Room Air 12/05/23 11:39 Care Plan Goal for BP management: Patient's blood pressure is controlled. BMI result Body Mass Index 21.5 Tobacco/Smoking Status: Tobacco use Status Tobacco use date assessed 12/05/23 12/05/23 11:45 Patient Tobacco Use Status Current everyday Tobacco 12/05/23 11:45 Tobacco use type Cigarette 12/05/23 11:45 e-Cigarette/Vaping Use Never Used 12/05/23 11:45 Are you ready to quit: No Thrive Assessment: Date of Thrive Assessment Date Thrive assessed 07/17/23 12/05/23 11:45 Const General: cooperative and no acute distress Orientation/consciousness: patient oriented x3 Limitations: no limitations HENMT Head: Yes normal to inspection and Yes normocephalic Ears: TM's normal bilaterally Neck Neck: Yes normal visual inspection, Yes full ROM and Yes no lymphadenopathy Resp Effort & Inspection: normal respiratory effort Auscultation: clear to auscultation bilaterally Cardio Rate: regular rate Rhythm: regular rhythm Heart sounds: Murmur heart sound present systolic GI Inspection: Yes normal to inspection Skin General skin exam: no rashes or lesions noted Neuro General: patient oriented x3 and deep tendon reflexes 2+ bilaterally Cognition (Neuro): normal cognition Romberg Test: Negative Extrem General: Yes normal to inspection Psych Thought content: Normal thought content present, suicidality and no homicidality Insight: Good insight present (Psych) Judgement: Good judgement present (Psych) Assessment and Plan Assessment & Plan (1) Pre-operative clearance: Comment: Will draw labs including CBC, CD4, HIV viral load. Patient is moderate cardiac risk for procedure. Code(s): Z01.818 - Encounter for other preprocedural examination (2) PAD (peripheral artery disease): Comment: 11/14/2017 - right popliteal artery plasty. Followed by vascular surgery. Code(s): I73.9 - Peripheral vascular disease, unspecified (3) Smoker: Comment: Half a pack per day smoker. Code(s): F17.200 - Nicotine dependence, unspecified, uncomplicated (4) Murmur: Comment: Known systolic murmur. Patient has echocardiogram on file Code(s): R01.1 - Cardiac murmur, unspecified (5) HIV (human immunodeficiency virus infection): Onset Date: ~1996 Comment: (dx 1996 - on Genvoya - followed by [facility] last seen 09/2020). Last lab draw 2022. Code(s): B20 - Human immunodeficiency virus [HIV] disease Qualifiers: HIV symptom status: unspecified Qualified Code(s): B20 - Human immu nodeficiency virus [HIV] disease Plan: Will draw CD4 and viral load per preoperative request. Orders: Orders Complete Blood Count Auto Diff 12/05/23 Z13.0 - Encounter for screening for diseases of the blood and blood-forming organs and certain disorders involving the immune mechanism HIV-1 RNA QN PCR Expanded 12/05/23 B20 - Human immunodeficiency virus [HIV] disease Lymphocyte Subset Panel 4 12/05/23 B20 - Human immunodeficiency virus [HIV] disease Comprehensive Met. Panel 12/05/23 Z91.89 - Other specified personal risk factors, not elsewhere classified Medications: Refilled albuterol sulfate 90 mcg/actuation 1 puff PO QID PRN 8.5 grams 3RF for dyspnea Coding Level of Care Code Est Pt Level 3 (52879) Diagnoses Pre-operative clearance Z01.818 PAD (peripheral artery disease) I73.9 Smoker F17.200 Murmur R01.1 HIV infection, unspecified symptom status B20 HIV symptom status: unspecified Time Spent (min) 28
[2023-12-05 11:39] VITALS: BP 124/76; PULSE 73; O2SAT 97; BMI 21.5
== END 2023-12-05 12:15 | disposition home or self-care (01) ==
PROVIDERS: PCP Nurse Practitioner Family; Visit Provider Nurse Practitioner Primary Care
DX: I73.9 Peripheral vascular disease, unspecified (principal); B20 Human immunodeficiency virus [HIV] disease; Z01.818 Encounter for other preprocedural examination; F17.200 Nicotine dependence, unspecified, uncomplicated; R01.1 Cardiac murmur, unspecified
CPT/HCPCS: 99213

== ENCOUNTER 2023-12-05 12:02 | Outpatient (REF) | payer BC, MEDICAID, SELFPAY ==
[2023-12-05 13:08] LABS: MANUAL DIFF FLAG NO
[2023-12-05 13:19] LABS: Basophils Percent Auto 0.1 % (0-2); Eosinophils Absolute Auto 0.1 X10*3/uL (0.0-0.4); Hematocrit 41.6 % (37.0-47.0); Hemoglobin 14.2 g/dl (12.0-16.0); Imm Gran Abs Auto 0.02 X10*3/uL (0.00-0.03); Imm Gran Pct Auto 0.3 % (0.0-0.4); Lymphocytes Absolute Auto 1.8 X10*3/uL (1.2-4.9); Lymphocytes Percent Auto 24.7 % (20-40); Mean Corpuscular HGB Conc 34.1 g/dl (31.0-35.0); Mean Corpuscular Hemoglobin 32.9 pg (27.0-33.0); Mean Corpuscular Volume 96.5 fL (80.0-98.0); Mean Platelet Volume 10.2 fL (9.4-12.3); Monocytes Absolute Auto 0.5 X10*3/uL (0.1-1.2); Monocytes Percent Auto 6.1 % (2-11); Neutrophils Percent Auto 67.8 % (45-73); Platelet Count 184 X10*3/uL (160-400); Red Blood Count 4.31 X10*6/uL (4.20-5.50); Red Cell Distribution Width 12.6 % (11.0-16.0); White Blood Count 7.3 X10*3/uL (4.8-10.8)
[2023-12-05 13:37] LABS: Alanine Aminotransferase 13 U/L (0-31); Albumin Level 4.4 g/dL (3.5-5.0); Alkaline Phosphatase 66 U/L (39-117); Anion Gap 14 (12-20); Aspartate Amino Transferase 22 U/L (5-31); Bilirubin Total 0.4 mg/dL (0.0-1.0); Blood Urea Nitrogen 16 mg/dL (9-16); Calcium 9.3 mg/dL (8.4-10.2); Carbon Dioxide 27 mmol/L (22-29); Chloride 103 mmol/L (96-108); Estimated Glomerular Filt Rate > 60; Glucose Random 89 mg/dL (60-115); Potassium 4.5 mmol/L (3.3-5.1); Sodium 139 mmol/L (135-145); Total Protein 7.9 g/dL (6.5-8.0)
== END 2023-12-05 12:03 | disposition home or self-care (01) ==
LOC: HO.HMGCLDS 12:02
PROVIDERS: PCP Nurse Practitioner Family; Visit Provider Nurse Practitioner Primary Care
DX: Z13.0 Encounter for screening for diseases of the blood and blood-forming organs and certain disorders involving the immune mechanism (principal); Z91.89 Other specified personal risk factors, not elsewhere classified
CPT/HCPCS: 36415; 80053; 85025

== ENCOUNTER 2023-12-27 10:03 | Outpatient (AMB) | payer MEDICARE, MEDICAID, SELFPAY ==
--- NOTE | 2023-12-27 10:09 | A.OFFVIS_ITS ---
Intake Visit Reasons: 6m follow up Intake Note: Patient presents today FOR 6M F/U Meds: None Allergies to Antibiotic: No Known Allergies Blood Thinner: Aspirin [employer] Hitch Driver Required: No Accompanied by: Self / Same As Patient Allergies abacavir Allergy (Severe, Verified 12/27/23 10:25) high fever erythromycin base Allergy (Unknown, Verified 12/27/23 10:25) Unknown HPI Comments Details: 12/27/23--Jenn has been evaluated for microscopic hematuria, she workup negative for malignancy or kidney stones. past medical history significant for HIV, hepatitis-C, history of opioid abuse, history of nicotine use. She presents for follow-up. She states she recently had cataract surgery and surgery for glaucoma. She denies urinary symptoms. Urinalysis trace blood no signs of infection. Discussed follow-up on a p.r.n. basis at this time. Review of chart 06/29/23--Jenn is a 62-year-old female who presents today telehealth follow- up. The patient has a history of HIV, hepatitis C, history of opiod abuse, and personal history of nicotine dependence, depression and peripneral vascular dieaase. Status post cystoscopy bladder biopsy 06/19/2023. I have reviewed the pathology results with the patient--atypical area that was biopsied came back as---Benign urothelial hyperplasia with edema and chronic inflammation with lymphoid aggregates, consistent with cystitis. The patient states she is doing well post procedure denies dysuria, denies gross hematuria. 05/10/2023? She is followed today for a cystosocpy procedure. She was last seen by METAL TECHNICIAN on 02/19/2023 for microscopic hematuria. The patient has a history of HIV, hepatitis C, history of opiod abuse, and personal history of nicotine dependence, depression and peripneral vascular dieaase. Cystoscopy procedure: consent was obtained for the procedure. Cystoscopy findings: small erythmeatous irregularity noted on the left lateral wall. Plan: ---Smoking cessation discussed, Cystoscopy bladder biopsies. Discussed risks to include but not limited to, blood in the urine, burning with urination, urgency. Consent obtained. 02/19/2023? Jenn is a pleasant 62-year-old female patient of Dr. Grajeda. She has a past medical history of liver cirrhosis, COPD, PVD, history of opioid abuse on Suboxone, osteopenia, GERD, hyperlipidemia, hep C, nicotine dependence, PTSD, hypertension, and HIV. She presents to the office today as a new patient for microscopic hematuria. In discussion with the patient today she reports to be doing and feeling well. In review of patient's chart it appears urinalysis have been positive for microscopic hematuria dating back to June 2021. When asked she does report a longstanding smoking history of approximately 50 years. She r.eports smoking approximately 1 pack of cigarettes per day. She otherwise denies any known chemical exposure. She otherwise denies any urinary issues or concerns at this time. She denies urinary urgency, urinary frequency, incontinence, nocturia, hematuria, dysuria, foul smelling urine, changes to urinary stream, flank pain, fever, and or chills. She is happy with her current voiding parameters. In office urinalysis today with 1+ microscopic hematuria. Discussed at length potential causes for microscopic hematuria as well as further microscopic hematuria workup to include CT urogram, cytology, and in office cystoscopy. Discussed at length risks versus benefit of surveillance monitoring versus further microscopic hematuria. Discussed and stressed the importance of limiting/quitting smoking for overall health and well being. [facility] Medical History Liver cirrhosis COPD (chronic obstructive pulmonary disease) PVD (peripheral vascular disease) History of opioid abuse Osteopenia GERD (gastroesophageal reflux disease) Hyperlipidemia Hepatitis C (~1998) Personal history of nicotine dependence PTSD (post-traumatic stress disorder) HTN (hypertension) HIV (human immunodeficiency virus infection) (~1996) Surgical History History of colonoscopy (~2016) History of esophagogastroduodenoscopy (EGD) (~2016) History of angioplasty (~2017) History of carpal tunnel surgery of right wrist (~2003) History of liver biopsy (~2001) Hx of cholecystectomy (~2001) History of hysterectomy Family History Mother Lung cancer Father Substance use disorder Son Substance use disorder Social History Household Members: None Housing: Apartment Do you presently have visiting nurse or other home services: No Alcohol intake: current Patient Tobacco Use Status: Current everyday Tobacco user Tobacco use type: Cigarette Cigarette Packs Per Day: 1.5 Cigarettes Per Day: 30.0 Years Smoked: 50 e-Cigarette/Vaping Use: Never Used Second Hand Smoke Exposure: No service: No Current occupational status: employed 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, 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 Cognitive needs: No Hearing needs: No Vision needs: No Review of Systems Const All systems reviewed & are unremarkable except as noted in HPI and below Reports no additional complaints Eyes Reports no additional complaints ENT Reports no additional complaints Card Reports no additional complaints Resp Reports no additional complaints GI Reports no additional complaints Reports as per HPI Musc Reports no additional complaints Skin/Breast Reports system reviewed and no additional complaints, except as documented Neuro Reports no additional complaints Psych Reports no additional complaints Endo Reports no additional complaints Nura/Lymph Reports no additional complaints Aller/Immun Reports no additional complaints Results AMB Urinalysis, Automated UA Leukoctes 0 Zaire/uL Last Edit by CHRISTOS Padilla on 12/27/23 10:37 UA Nitrite Negative Last Edit by CHRISTOS Padilla on 12/27/23 10:37 UA Urobilinogen 0.2 mg/dL Last Edit by CHRISTOS Padilla on 12/27/23 10:3 7 UA Protein 0 mg/dL Last Edit by CHRISTOS Padilla on 12/27/23 10:37 UA pH 6.0 Last Edit by CHRISTOS Padilla on 12/27/23 10:37 UA Blood 10 Vineet/uL Last Edit by CHRISTOS Padilla on 12/27/23 10:37 UA Specific [place] 1.015 Last Edit by CHRISTOS Padilla on 12/27/23 10: 37 UA Ketone Negative Last Edit by CHRISTOS Padilla on 12/27/23 10:37 UA Bilirubin 0 mg/dL Last Edit by CHRISTOS Padilla on 12/27/23 10:37 UA Glucose 0 mg/dL Last Edit by CHRISTOS Padilla on 12/27/23 10:37 Results Reviewed Results Reviewed: Date of Service: 03/30/23 EXAMINATION: CT ABDOMEN AND PELVIS WITHOUT AND WITH CONTRAST CLINICAL INFORMATION: Gross hematuria COMPARISON: None FINDINGS: LUNG BASES: The visualized lung bases are unremarkable. LIVER, GALLBLADDER, AND BILIARY TREE: The liver is normal in size, shape, and attenuation. No focal hepatic lesion or biliary ductal dilatation is present. Gallbladder is surgically absent. PANCREAS: Unremarkable. SPLEEN: Unremarkable. ADRENAL GLANDS: Unremarkable. KIDNEYS AND URETERS: There is simple cyst in interpolar cortex of right kidney, measured 1.3 cm. There is no hydroureteronephrosis or nephrolithiasis bilaterally. Ureters are nondilated. BLADDER: Unremarkable. GASTROINTESTINAL TRACT: The small and large bowel are unremarkable. The appendix is unremarkable. ABDOMINAL WALL: No significant hernia is appreciated. LYMPH NODES: Normal. VASCULAR: There are atherosclerotic calcifications of abdominal aorta and common iliac arteries but no evidence of aneurysmal dilatation. PELVIC VISCERA: Uterus is surgically absent OSSEUS STRUCTURES: There are degenerative changes with subchondral sclerosis at the level of T12-T11 IMPRESSION: No explanation for hematuria. Simple cyst in the right kidney. Status post cholecystectomy and hysterectomy Collected: 06/19/23 Location: [facility] Received: 06/19/23 Diagnosis Bladder, left lateral wall, biopsy: Benign urothelial hyperplasia with edema and chronic inflammation with lymphoid aggregates, consistent with cystitis; no evidence of malignancy Assessment & Plan Assessment & Plan (1) Nicotine dependence: Code(s): F17.200 - Nicotine dependence, unspecified, uncomplicated Category: Medical (2) Microscopic hematuria: Code(s): R31.29 - Other microscopic hematuria Category: Medical (3) Cystitis with hematuria: Code(s): N30.91 - Cystitis, unspecified with hematuria Category: Medical Plan Workup negative for malignancy or kidney stones. Follow-up p.r.n. Orders: Orders AMB Urinalysis Automated Today Z13.9 - Encounter for screening, unspecified Patient Instructions: The patient had an opportunity to ask questions regarding treatment plan. The patient expressed understanding and agreement with the above treatment plan. The patient is aware they should contact our office by phone for worsening of their current condition or the appearance of new symptoms. Compliance is encouraged with any medications and followup testing that is ordered. It is a privilege to be allowed the opportunity to participate in the urologic care of your patient. If you have any questions or concerns regarding treatment for the above conditions please do not hesitate to contact me. The office telephone contact is [phone]. This note is constructed in part using voice recognition software. While every effort has been made to ensure accuracy mine motor operator errors may have been included. Yours sincerely, Stacie Dawson MD Coding Level of Care Code Est Pt Level 3 (74209) Diagnoses Nicotine dependence F17.200 Microscopic hematuria R31.29 Cystitis with hematuria N30.91
== END 2023-12-27 10:42 | disposition home or self-care (01) ==
PROVIDERS: PCP Nurse Practitioner Family; Visit Provider Urology
DX: F17.200 Nicotine dependence, unspecified, uncomplicated (principal); R31.29 Other microscopic hematuria; N30.91 Cystitis, unspecified with hematuria; Z13.9 Encounter for screening, unspecified
CPT/HCPCS: 99213

== ENCOUNTER → 2023-12-27 10:03 | Outpatient (BNVA) | payer MEDICARE, MEDICAID, SELFPAY | PROVIDERS: PCP Nurse Practitioner Family; Visit Provider Urology | DX: N30.91 Cystitis, unspecified with hematuria (principal); R31.29 Other microscopic hematuria; F17.210 Nicotine dependence, cigarettes, uncomplicated | CPT/HCPCS: 81003; 99212 ==

== ENCOUNTER 2024-01-25 09:03 | Outpatient (AMB) | payer MEDICARE, SELFPAY ==
--- NOTE | 2024-01-25 09:31 | AM.OFFWIN_ITS ---
Intake Vital Signs 01/25/24 09:33 Height 5 ft Weight 109 lb BMI 21.3 BP 120/70 Blood Pressure Location Rt brachial Position Sitting Pulse 69 Pulse Source Pulse Oximeter Temp 98.7 F Temp Source Oral Pulse Oximetry (%) 96 Oxygen Delivery Method Room Air Intake Visit Reasons: EP Lumps in back of [id number] Intake Note: patient here for lumps in back of throat that have been present since December 25. Patient Tobacco Use Status: Current everyday Tobacco user Allergies abacavir Allergy (Severe, Verified 01/25/24 09:32) high fever erythromycin base Allergy (Unknown, Verified 01/25/24 09:32) Unknown Do you need a note to return to daycare/school/sports/work: No HPI HPI Comments History of Present Illness Details 63 y/o female patient who presents to [facility] walk in clinic with c/o Bumps on her tongue x 6 days. Reports painful lumps associated with throat pain. She is HIV positive and she is chronic cigarette smoker. [facility] Medical History (Updated 01/25/24 @ 10:09 by Mary Lou Ramos NP) Tongue sore Liver cirrhosis COPD (chronic obstructive pulmonary disease) PVD (peripheral vascular disease) History of opioid abuse Osteopenia GERD (gastroesophageal reflux disease) Hyperlipidemia Hepatitis C (~1998) Personal history of nicotine dependence PTSD (post-traumatic stress disorder) HTN (hypertension) HIV (human immunodeficiency virus infection) (~1996) Surgical History History of colonoscopy (~2016) History of esophagogastroduodenoscopy (EGD) (~2016) History of angioplasty (~2017) History of carpal tunnel surgery of right wrist (~2003) History of liver biopsy (~2001) Hx of cholecystectomy (~2001) History of hysterectomy Family History Mother Lung cancer Father Substance use disorder Son Substance use disorder Social History Household Members: None Housing: Apartment Do you presently have visiting nurse or other home services: No Alcohol intake: current Patient Tobacco Use Status: Current everyday Tobacco user Tobacco use type: Cigarette Cigarette Packs Per Day: 1.5 Cigarettes Per Day: 30.0 Years Smoked: 50 e-Cigarette/Vaping Use: Never Used Second Hand Smoke Exposure: No service: No Current occupational status: employed 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, 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 Cognitive needs: No Hearing needs: No Vision needs: No Review of Systems Const All systems reviewed & are unremarkable except as noted in HPI and below Physical Exam Vital Signs: Last Vital Signs Temp 98.7 F 01/25/24 09:33 Pulse 69 01/25/24 09:33 BP 120/70 01/25/24 09:33 Pulse Ox 96 01/25/24 09:33 Oxygen Delivery Method Room Air 01/25/24 09:33 BMI result Body Mass Index 21.3 Const General: cooperative and no acute distress Nutritional Appearance: thin Orientation/consciousness: patient oriented x3 HEENT Head: Yes normocephalic Ears: external ears normal and TM's normal bilaterally General nose exam: Normal external nose present Mouth: tongue abnormal (multiple small bumps on tongue. ) with white coating Resp Effort & Inspection: normal respiratory effort Auscultation: clear to auscultation bilaterally, no crackles, no rales, no rhonchi and no wheezes Cardio Heart sounds: S1 normal heart sound present and S2 normal heart sound present Neuro General: patient oriented x3 Results AMB Rapid Strep AMB Rapid Strep Negative Last Edit by CHRISTOS Gabriel on 01/25/24 09:58 Results Reviewed Results Reviewed: Laboratory Last Values Strep Scn Rapid Clinic Negative 01/25/24 09:58 Assessment & Plan Assessment & Plan (1) Tongue sore: Code(s): K14.6 - Glossodynia Plan: DDx's Thrush oral She is immunocompromised due to HIV Smoking cessation education provided to patient. Avoiding acidic or spicy foods rinsing the mouth with salt water Orders: Orders AMB Rapid Strep Screen Today Z13.9 - Encounter for screening, unspecified Medications: New nystatin swish in the mouth and retain for as long as possible (several minutes) before swallowing. 100,000 units PO QID 10 days 40 mL 0RF K14.6 - Glossodynia Coding Level of Care Code Est Pt Level 3 (99804) Diagnoses Tongue sore K14.6 Time Spent (min) 15
[2024-01-25 09:33] VITALS: BP 120/70; PULSE 69; TEMP 37.1; O2SAT 96; BMI 21.3
== END 2024-01-25 10:25 | disposition home or self-care (01) ==
PROVIDERS: PCP Nurse Practitioner Family; Visit Provider Nurse Practitioner Family
DX: K14.6 Glossodynia (principal); Z13.9 Encounter for screening, unspecified
CPT/HCPCS: 87880; 99213

== ENCOUNTER 2024-02-25 09:32 | Outpatient (AMB) | payer MEDICARE, SELFPAY ==
--- NOTE | 2024-02-25 09:49 | AM.OFFWIN_ITS ---
Intake Vital Signs 02/25/24 09:53 Weight 110 lb BP 124/66 Blood Pressure Location Lt brachial Position Sitting Pulse 71 Pulse Source Pulse Oximeter Pulse Oximetry (%) 98 Oxygen Delivery Method Room Air Intake Visit Reasons: EP-lt side ribs pain when breathing Intake Note: Patient here for for left sided rib pain that hurts when takes deep breathe, she states it started hurting in her mid back first. Patient Tobacco Use Status: Current everyday Tobacco user Allergies abacavir Allergy (Severe, Verified 02/25/24 09:52) high fever erythromycin base Allergy (Unknown, Verified 02/25/24 09:52) Unknown Do you need a note to return to daycare/school/sports/work: No HPI EP-lt side ribs pain when breathing HPI Details This note is constructed using voice recognition software. While every effort has been made to ensure accuracy, payroll representative errors may have been included. The patient is a 63 year old female who presents to the clinic today with left- sided rib pain for the past 2 months worsening in the last couple of days. She notes that she was ill 12/25/2023 with an upper respiratory infection which she has been dealing with since. She has been coughing regularly, particularly worse in the morning when she is coughing up a large amount of stuff . She does report that she is a smoker, and is not interested in quitting at this time, though she is aware that quitting smoking could help her situation. She has not tried anything to make the cough better, she was provided benzonatate 2 months ago, but did not feel that that helped much. She denies any fever, c hills, dyspnea. The pain is worse when she moves or rolls or coughs or takes a deep breath. She denies chest pain, palpitations, pressure. [facility] Medical History (Updated 01/25/24 @ 10:09 by Mary Lou Ramos NP) Tongue sore Liver cirrhosis COPD (chronic obstructive pulmonary disease) PVD (peripheral vascular disease) History of opioid abuse Osteopenia GERD (gastroesophageal reflux disease) Hyperlipidemia Hepatitis C (~1998) Personal history of nicotine dependence PTSD (post-traumatic stress disorder) HTN (hypertension) HIV (human immunodeficiency virus infection) (~1996) Surgical History History of colonoscopy (~2016) History of esophagogastroduodenoscopy (EGD) (~2017) History of angioplasty (~2018) History of carpal tunnel surgery of right wrist (~2003) History of liver biopsy (~2001) Hx of cholecystectomy (~2001) History of hysterectomy Family History Mother Lung cancer Father Substance use disorder Son Substance use disorder Social History Household Members: None Housing: Apartment Do you presently have visiting nurse or other home services: No Alcohol intake: current Patient Tobacco Use Status: Current everyday Tobacco user Tobacco use type: Cigarette Cigarette Packs Per Day: 1.5 Cigarettes Per Day: 30.0 Years Smoked: 50 e-Cigarette/Vaping Use: Never Used Second Hand Smoke Exposure: No service: No Current occupational status: employed 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, 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 Cognitive needs: No Hearing needs: No Vision needs: No Review of Systems Const All systems reviewed & are unremarkable except as noted in HPI and below Physical Exam Vital Signs: Last Vital Signs Pulse 71 02/25/24 09:53 BP 124/66 02/25/24 09:53 Pulse Ox 98 02/25/24 09:53 Oxygen Delivery Method Room Air 02/25/24 09:53 Const General: cooperative, healthy appearing, comfortable, no acute distress and alert Orientation/consciousness: patient oriented x3 Limitations: no limitations HEENT Head: Yes normal to inspection and Yes normocephalic Ears: hearing grossly normal bilaterally General nose exam: Normal external nose present Face and sinus: Yes normal facial exam and Yes sinuses nontender Mouth: Normal oral and palatal mucosa present and tongue normal Teeth and gingiva: dentition normal Throat: Yes posterior oropharynx normal Eyes General: appearance normal, both eyes and all related structures Neck Neck: Yes normal visual inspection, Yes full ROM and Yes no lymphadenopathy Chest Other: TTP over left side chest wall posteriorly and anterior. No erythema, warmth, or rash. Chest palpation & inspection: normal inspection of the chest Resp Effort & Inspection: normal respiratory effort and able to speak in complete sentences Auscultation: clear to auscultation bilaterally Cardio Jugular venous distension: no JVD Palpation: normal PMI Rate: regular rate Heart sounds: S1 normal heart sound present, S2 normal heart sound present, no click, no gallops, no murmurs and no rubs Skin General skin exam: no rashes or lesions noted, elasticity normal and turgor normal Neuro General: patient oriented x3 Psych Appearance: grossly normal Mental Status: mental status grossly normal Speech and movement: Normal speech and movement present Affect: normal affect Assessment & Plan Assessment & Plan (1) Rib pain on left side: Code(s): R07.81 - Pleurodynia Plan: Likely consistent with costochondritis. Advised patient to try a [id number] Robitussin, or use her benzonatate for symptomatic management. Patient declined any additional prescription at this time. Chest x-ray ordered given patient's longstanding history of smoking. Advised smoking cessation. Patient declined to wait for provider to review x-ray prior to leaving, we will contact patient with results when available. Discussed potential for antibiotic should there be any pneumonia, though it does not appear to be present on physical examination. Plan See above for full details and plan. Orders: Orders XR chest 2V Today R07.81 - Pleurodynia Coding Level of Care Code Est Pt Level 4 (29525) Diagnoses Rib pain on left side R07.81
[2024-02-25 09:53] VITALS: BP 124/66; PULSE 71; O2SAT 98
== END 2024-02-25 10:45 | disposition home or self-care (01) ==
PROVIDERS: PCP Nurse Practitioner Family; Visit Provider Registered Nurse
DX: R07.81 Pleurodynia (principal)

== ENCOUNTER → 2024-02-25 09:32 | Outpatient (BNVA) | payer MEDICARE, SELFPAY | PROVIDERS: PCP Nurse Practitioner Family; Visit Provider Nurse Practitioner Family ==

== ENCOUNTER 2024-02-25 10:27 | Outpatient (REF) | payer MEDICARE, SELFPAY ==
--- NOTE | ~2024-02-25 | XR_ITS ---
EXAMINATION: XR CHEST CLINICAL INFORMATION: Pleurodynia. COMPARISON: Chest x-ray dated 07/16/2023 and older exams. TECHNIQUE: 2 views of the chest were obtained. FINDINGS: The cardiomediastinal silhouette is within normal limits in size. Calcification of the aorta is seen. There is a small left pleural effusion blunting the CP angle with associated linear opacities in the left lung base, consistent with linear atelectasis. Lungs are otherwise hyperinflated, consistent with underlying obstructive lung disease. Minimal S-shaped thoracolumbar scoliosis, osteopenia, mild compression deformity of T12 and multilevel mild vertebral spondylosis again seen. Right upper quadrant jaya in place from prior cholecystectomy. Degenerative sclerotic change at the superior aspect of L1 again noted, similar to prior CT scan. XR/XR chest 2V IMPRESSION: 1. Small left pleural effusion with associated left basilar linear atelectasis. 2. Obstructive lung disease. 3. Osteopenia with mild compression deformity of T12, unchanged. Electronically signed by: Brigid Payne MD 02/25/2024 11:38 AM EDT
== END 2024-02-25 10:28 | disposition home or self-care (01) ==
LOC: HO.HMGCX 10:27
PROVIDERS: PCP Nurse Practitioner Family; Visit Provider Registered Nurse
DX: R07.81 Pleurodynia (principal)
CPT/HCPCS: 71046; 99212

== ENCOUNTER 2024-03-07 12:39 | Outpatient (AMB) | payer MEDICARE, SELFPAY ==
--- NOTE | 2024-03-07 12:43 | AM.OFFWIN_ITS ---
Intake Vital Signs 03/07/24 12:46 Height 5 ft Weight 110 lb BMI 21.5 BP 128/70 Blood Pressure Location Rt brachial Position Sitting Pulse 72 Pulse Source Pulse Oximeter Temp 98.1 F Temp Source Oral Pulse Oximetry (%) 98 Oxygen Delivery Method Room Air Intake Visit Reasons: EP Pneumonia on meds & still not well Intake Note: Patient here because she has pneumonia and was on meds for 10 days and still does not feel better. Patient Tobacco Use Status: Current everyday Tobacco user Allergies abacavir Allergy (Severe, Verified 03/07/24 12:46) high fever erythromycin base Allergy (Unknown, Verified 03/07/24 12:46) Unknown Do you need a note to return to daycare/school/sports/work: Yes HPI HPI Comments History of Present Illness Details This is a 63-year-old female who presented to the walk-in clinic complaining of persistent left-sided pleuritic chest/back pain. Patient was seen at the walk-in clinic on 02/25/2024 for left-sided rib pain. She underwent a chest x-ray, which showed a left-sided pleural effusion and some atelectasis. Patient was treated with PO amoxicillin/clavulanate 875/125 mg twice daily x 10 days for presumed pneumonia. Patient states she took this full course of antibiotics and travelled to [place]; however, her symptoms have progressively worsened despite antibiotics. She reports severe left-sided pleuritic chest and back pain. She states that the pain has started to travel to the right-side of her chest, as well. She reports some chronic shortness of breath but denies any new or worsening shortness of breath. She reports an occasional cough with occasional sputum production. She reports subjective fever/chills. She denies an y lower extremity edema. Patient also states she has been sick since December 26, 2023. She has unintentionally lost weight since then. [facility] Medical History (Updated 01/25/24 @ 10:09 by Mary Lou Ramos NP) Tongue sore Liver cirrhosis COPD (chronic obstructive pulmonary disease) PVD (peripheral vascular disease) History of opioid abuse Osteopenia GERD (gastroesophageal reflux disease) Hyperlipidemia Hepatitis C (~1998) Personal history of nicotine dependence PTSD (post-traumatic stress disorder) HTN (hypertension) HIV (human immunodeficiency virus infection) (~1996) Surgical History History of colonoscopy (~2016) History of esophagogastroduodenoscopy (EGD) (~2016) History of angioplasty (~2017) History of carpal tunnel surgery of right wrist (~2003) History of liver biopsy (~2001) Hx of cholecystectomy (~2001) History of hysterectomy Family History Mother Lung cancer Father Substance use disorder Son Substance use disorder Social History Household Members: None Housing: Apartment Do you presently have visiting nurse or other home services: No Alcohol intake: current Patient Tobacco Use Status: Current everyday Tobacco user Tobacco use type: Cigarette Cigarette Packs Per Day: 1.5 Cigarettes Per Day: 30.0 Years Smoked: 50 e-Cigarette/Vaping Use: Never Used Second Hand Smoke Exposure: No service: No Current occupational status: employed 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, 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 Cognitive needs: No Hearing needs: No Vision needs: No Review of Systems Const All systems reviewed & are unremarkable except as noted in HPI and below Reports no additional complaints Eyes Reports no additional complaints ENT Reports no additional complaints Card Reports no additional complaints Resp Reports no additional complaints GI Reports no additional complaints Reports no additional complaints Musc Reports no additional complaints Skin/Breast Reports system reviewed and no additional complaints, except as documented Neuro Reports no additional complaints Psych Reports no additional complaints Endo Reports no additional complaints Nura/Lymph Reports no additional complaints Aller/Immun Reports no additional complaints Physical Exam Vital Signs: Last Vital Signs Temp 98.1 F 03/07/24 12:46 Pulse 72 03/07/24 12:46 BP 128/70 03/07/24 12:46 Pulse Ox 98 03/07/24 12:46 Oxygen Delivery Method Room Air 03/07/24 12:46 BMI result Body Mass Index 21.5 Const Other: Vital signs reviewed. Constitutional: Non-toxic appearing. No acute distress. Well-developed and well-nourished. HEENT: Normocephalic and atraumatic. Tympanic membranes without erythema, edema, or bulging bilaterally. External auditory canals without erythema or edema bilaterally. Moist mucous membranes. No pharyngeal erythema or exudates. Skin: Warm and dry. No rashes or lesions noted. Neck: Full and painless range of motion. No cervical lymphadenopathy. Cardio: Regular rate and rhythm. No murmurs, gallops, or rubs. No lower extremity edema. No JVD. Pulmonary: No respiratory distress. No accessory muscle usage. Diminished breath sounds of the left base but otherwise clear to auscultation without wheezing, crackles, or rhonchi. Gastrointestinal: Soft, nontender, and nondistended in all 4 quadrants. Musculoskeletal: Normal range of motion in joints throughout the body. No deformity or other signs of injury. Neuro: Alert and oriented x4. Cranial nerves 2-12 grossly intact. No focal deficits appreciated. Psych: Normal mood and affect. Assessment & Plan Assessment & Plan (1) Pleuritic chest pain: Code(s): R07.81 - Pleurodynia Plan: This is a 63-year-old female who presented to the walk-in clinic complaining of persistent and progressively worsening left-sided pleuritic chest/back pain in the setting of recently diagnosed pneumonia on 02/25/2024. Patient had a chest x-ray on 02/25/2024, which showed a left-sided pleural effusion with atelectasis and this was treated as presumed pneumonia with amoxicillin/clavulanate. Patient states she completed this course of antibiotics; however, she continues to have progressively worsening pleuritic left-sided chest and back pain. Given recent travel, history of COPD and tobacco use disorder, and persistent symptoms despite antibiotic therapy, I recommended patient proceed to the emergency room for further evaluation. I believe the patient requires further lab workup as well as further radiological workup such as a CT chest or CTA chest to evaluate for worsening effusion, worsening pneumonia, or pulmonary embolism. Patient agreed with this plan and will proceed directly to [facility] Emergency room. I spoke with Nicol at [facility] regarding patient's history and physical examination as well as my recommendations for further work-up. I offered the patient an ambulance; however, she declined at this time and will drive herself. In my opinion, patient has the capacity to make her own medical decisions S she is alert and oriented x4 and she understands the risks. Coding Level of Care Code Est Pt Level 3 (92591) Diagnoses Pleuritic chest pain R07.81
[2024-03-07 12:46] VITALS: BP 128/70; PULSE 72; TEMP 36.7; O2SAT 98; BMI 21.5
== END 2024-03-07 13:16 | disposition home or self-care (01) ==
PROVIDERS: PCP Nurse Practitioner Family; Visit Provider Physician Assistant Medical
DX: R07.81 Pleurodynia (principal)

== ENCOUNTER → 2024-03-07 12:39 | Outpatient (BNVA) | payer MEDICARE, SELFPAY | PROVIDERS: PCP Nurse Practitioner Family | DX: R07.81 Pleurodynia (principal) | CPT/HCPCS: 99212 ==

== ENCOUNTER 2024-03-07 13:31 | Emergency (ER) | payer MEDICARE, SELFPAY ==
--- NOTE | ~2024-03-07 | XR_ITS ---
EXAMINATION: XR CHEST CLINICAL INFORMATION: Pneumonia since November. COMPARISON: Chest radiograph dated 02/25/2024. TECHNIQUE: 2 views of the chest were obtained. FINDINGS: The heart is normal in size. There is calcific atherosclerotic disease of the aorta. The right lung is clear. There is a small left pleural effusion, similar to the prior study. There is left lower lobe linear atelectasis, similar to the prior study. No pneumothorax. No acute osseous abnormality. There are cholecystectomy clips. XR/XR chest 2V IMPRESSION: Small left pleural effusion and left lower lobe linear atelectasis, similar to the prior examination dated 02/25/2024. Electronically signed by: Shashi Rodriguez DO 03/07/2024 03:46 PM EDT
[2024-03-07 13:55] VITALS: BP 147/56; PULSE 60; RESP 20; TEMP 37; O2SAT 97; BMI 20.8
[2024-03-07 17:01] LABS: MANUAL DIFF FLAG NO
[2024-03-07 17:03] LABS: Basophils Percent Auto 0.1 % (0-2); Eosinophils Absolute Auto 0.9 X10*3/uL (0.0-0.4); Eosinophils Percent Auto 12.6 % (0-4); Hematocrit 39.5 % (37.0-47.0); Hemoglobin 13.7 g/dl (12.0-16.0); Imm Gran Abs Auto 0.01 X10*3/uL (0.00-0.03); Imm Gran Pct Auto 0.1 % (0.0-0.4); Lymphocytes Absolute Auto 1.9 X10*3/uL (1.2-4.9); Lymphocytes Percent Auto 26.8 % (20-40); Mean Corpuscular HGB Conc 34.7 g/dl (31.0-35.0); Mean Corpuscular Hemoglobin 33.8 pg (27.0-33.0); Mean Corpuscular Volume 97.5 fL (80.0-98.0); Monocytes Absolute Auto 0.5 X10*3/uL (0.1-1.2); Monocytes Percent Auto 7.5 % (2-11); Neutrophils Absolute Auto 3.8 x10*3/uL (2.0-8.3); Neutrophils Percent Auto 52.9 % (45-73); Platelet Count 213 X10*3/uL (160-400); Red Blood Count 4.05 X10*6/uL (4.20-5.50); Red Cell Distribution Width 12.6 % (11.0-16.0); White Blood Count 7.2 X10*3/uL (4.8-10.8)
[2024-03-07 17:09] LABS: INTERNATIONAL NORM RATIO 0.9 (0.9-1.1); Prothrombin Time 10.6 SEC (10.9-12.4)
[2024-03-07 17:16] LABS: Anion Gap 11 (12-20); Blood Urea Nitrogen 10 mg/dL (9-16); Calcium 9.7 mg/dL (8.4-10.2); Carbon Dioxide 31 mmol/L (22-29); Chloride 101 mmol/L (96-108); Creatinine Clr Calc Pharmacy 50.9; Estimated Glomerular Filt Rate > 60; Glucose Random 100 mg/dL (60-115); Potassium 4.1 mmol/L (3.3-5.1); Sodium 139 mmol/L (135-145)
[2024-03-07 17:39] LABS: Influenza A PCR NEGATIVE (Negative); Influenza B PCR NEGATIVE (Negative); Resp Syncy Virus RNA Qual PCR NEGATIVE (Negative); SARS COV2 PCR INHOUSE NEGATIVE (Negative)
[2024-03-07 17:46] LABS: Troponin-I High Sensitivity < 2.7 ng/L (<3.5-17.0)
--- NOTE | 2024-03-07 18:26 | ED_ITS ---
HPI - General Adult General Chief complaint: General Medical Stated complaint: pneumonia Time Seen by Provider: 03/07/24 20:16 Source: patient Mode of arrival: ambulatory Limitations: no limitations History of Present Illness ED Provider: nahid SANABRIA narrative: Patient is chronic smoker with history of COPD been coughing since 01/01 mostly dry also having pain in the left lower lung for last 2 weeks no fever no chills cough is mostly dry patient is a nighttime pain gets worse on the left side of the chest but she takes a deep breath no leg swelling or pain patient was prescribed doxycycline and Augmentin on 02/24 for possible pneumonia patient comes here as she is still having the pain in the left side of the lower chest patient when she takes a deep breath patient does have history of HIV with undetectable viral load Related Data Home Medications ?Medication ?Instructions ?Recorded ?Confirmed aspirin 81 mg tablet,delayed 81 mg PO DAILY 06/15/20 12/05/23 release (Shakira Low Dose Aspirin) calcium carbonate-vitamin D3 500 1 cap PO DAILY 03/08/21 12/05/23 mg (1,250 mg)-50 unit capsule elviteg 150 mg-cob 150 mg-emtricit 1 tab PO DAILY 03/08/21 12/05/23 200 mg-tenofo alafenam 10 mg tablet (Genvoya) buprenorphine 8 mg-naloxone 2 mg 16 mg sublingual DAILY 06/15/23 12/05/23 sublingual film ibuprofen 600 mg tablet 600 mg PO TID PRN Pain (Scale 07/16/23 12/05/23 Score 1-3) Previous Rx's ?Medication ?Instructions ?Recorded ipratropium 0.5 mg-albuterol 3 mg 3 ml inhalation TID #180 mL 07/18/23 (2.5 mg base)/3 mL nebulization soln nebulizers #1 ea 08/15/23 albuterol sulfate 90 mcg/actuation 1 puff PO QID PRN for dyspnea #8.5 12/05/23 aerosol inhaler grams atorvastatin 10 mg tablet 10 mg PO DAILY 90 days #90 tabs 12/31/23 losartan 50 mg tablet 50 mg PO DAILY 90 days #90 tabs 12/31/23 venlafaxine 25 mg tablet 25 mg PO DAILY 90 days #90 tabs 12/31/23 benzonatate 100 mg capsule 100 mg PO TID #90 caps 01/25/24 nystatin 100,000 unit/mL oral 100,000 unit PO QID 10 days #40 mL 01/25/24 suspension amoxicillin 875 mg-potassium 1 tab PO BID 10 days #20 tabs 02/25/24 clavulanate 125 mg tablet doxycycline hyclate 100 mg capsule 100 mg PO BID #20 caps 02/25/24 albuterol sulfate 2.5 mg/3 mL 2.5 mg (3 mL) inhalation Q4-6H PRN 03/07/24 (0.083 %) solution for nebulization shortness of breath or wheezing #90 mL benzonatate 200 mg capsule 200 mg PO TID PRN cough #30 caps 03/07/24 fluconazole 150 mg tablet 150 mg PO DAILY 1 dose #1 tab 03/07/24 ibuprofen 600 mg tablet 600 mg PO Q6H PRN fever or pain 03/07/24 #30 tabs prednisone 20 mg tablet 40 mg (2 x 20 mg) PO DAILY #10 tabs 03/07/24 Allergies Allergy/AdvReac Type Severity Reaction Status Date / Time abacavir Allergy Severe high fever Verified 03/07/24 13:57 erythromycin base Allergy Unknown Unknown Verified 03/07/24 13:57 Review of Systems 2 Review of Systems: Yes all other systems are reviewed and are negative PMFSH Past Medical History Medical History Tongue sore Liver cirrhosis COPD (chronic obstructive pulmonary disease) PVD (peripheral vascular disease) History of opioid abuse Osteopenia GERD (gastroesophageal reflux disease) Hyperlipidemia Hepatitis C (~1998) Personal history of nicotine dependence PTSD (post-traumatic stress disorder) HTN (hypertension) HIV (human immunodeficiency virus infection) (~1996) Surgical History History of colonoscopy (~2016) History of esophagogastroduodenoscopy (EGD) (~2016) History of angioplasty (~2017) History of carpal tunnel surgery of right wrist (~2003) History of liver biopsy (~2001) Hx of cholecystectomy (~2001) History of hysterectomy Family History Family History Mother Lung cancer Father Substance use disorder Son Substance use disorder Social History Social History Household Members: None Housing: Apartment Do you presently have visiting nurse or other home services: No Alcohol intake: current Patient Tobacco Use Status: Current everyday Tobacco user Tobacco use type: Cigarette Cigarette Packs Per Day: 1.5 Cigarettes Per Day: 30.0 Years Smoked: 50 Smoked in Last 30 Days: Yes e-Cigarette/Vaping Use: Never Used Second Hand Smoke Exposure: No Use of substances other than those prescribed or required for medical reasons: No Advance Directives: No Advance Directives Information Provided: No Do you have a plan to hurt others: No Plan service: No Current occupational status: employed 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 Oriented X3. No acute distress. Eyes: No pallor or icterus ENT: Pharynx normal. Oral Mucosa moist Neck: Normal inspection. Neck supple. CVS: Normal heart rate and rhythm. Pulses normal. Respiratory: No respiratory distress. Equal air entry bilateral, prolonged expiration no crack or dullness Abdomen: Soft and nontender. Bowel sounds are present, no mass palpable, Skin: Skin warm and dry. Normal skin color. Normal skin turgor. Extremities: No lower extremity edema. No calf tenderness Neuro: Oriented X 3. Course Course Course Narrative: This is a Rapid Medical Exam performed in triage by Cynthia Luis PA-C. Full HPI, ROS and PE to be performed by primary ED provider. 63-year-old female with a past medical history hepatitis-C, HIV, HTN, PTSD, COPD, liver cirrhosis, presenting to the ED c/o left-sided chest discomfort and SOB x10 days. Admits was recently diagnosed with pneumonia, finished course of antibiotics without improvement. Reports pain worse with deep inspiration and movement. Reports history of arterial clot requiring stenting, currently on aspirin PE: Lungs CTA, talking in complete sentences. No pedal edema. Concern for PE Plan: Labs, CXR, CTA Medications Administered Discontinued Medications Generic Name Dose Route Start Last Admin Trade Name Freq PRN Reason Stop Dose Admin Benzonatate 200 mg 03/07/24 20:51 03/07/24 21:43 Benzonatate 100 Mg Capsule PO 03/07/24 20:52 200 mg ONCE ONE Administration Albuterol Sulfate 2.5 mg/ 0 mg 03/07/24 20:39 03/07/24 21:25 Albuterol/Ipratropium 3 ml INHALE 03/07/24 20:40 5 dose ONCE ONE Administration Ibuprofen 600 mg 03/07/24 20:57 03/07/24 21:43 Ibuprofen 600 Mg Tablet PO 03/07/24 20:58 600 mg ONCE ONE Administration Prednisone 40 mg 03/07/24 20:39 03/07/24 21:43 Prednisone 20 Mg Tablet PO 03/07/24 20:40 40 mg ONCE ONE Administration Medical Decision Making Medical Decision Making MDM Narrative: Patient with chronic cough chronic smoker with COPD/chronic bronchitis comes with a left-sided rib pain/pleurisy for last 2 weeks treated for possible pneumonia with doxycycline and Augmentin chest x-ray at this time is negative labs are stable discharge patient home on ibuprofen prednisone and advised to take nebulizing treatment and stop smoking Differential Diagnosis Differential Diagnoses: The differential diagnosis associated with the presentation includes Lab Data MDM Lab Attestation statement: I reviewed the patient's lab results. [address] [address] XRay Report Signed Patient: Jenn Stahl MR#: [id number] : 1960 Acct:[id number] Age/Sex: 63 / F ADM Date: 03/07/24 Loc: .ED Attending Dr: Ordering Physician: Generic ED Physician Date of Service: 03/07/24 Procedure(s): XR chest 2V Accession Number(s): [id number] cc: Generic ED Physician; Dami Grajeda-BC~ EXAMINATION: XR CHEST CLINICAL INFORMATION: Pneumonia since November. COMPARISON: Chest radiograph dated 02/25/2024. TECHNIQUE: 2 views of the chest were obtained. FINDINGS: The heart is normal in size. There is calcific atherosclerotic disease of the aorta. The right lung is clear. There is a small left pleural effusion, similar to the prior study. There is left lower lobe linear atelectasis, similar to the prior study. No pneumothorax. No acute osseous abnormality. There are cholecystectomy clips. XR/XR chest 2V IMPRESSION: Small left pleural effusion and left lower lobe linear atelectasis, similar to the prior examination dated 02/25/2024. Electronically signed by: Shashi Rodriguez DO 03/07/2024 03:46 PM EDT RP 03/07/24 16:55 03/07/24 16:55 Labs: Lab Results 03/07/24 Range/Units 16:55 WBC 7.2 (4.8-10.8) X10*3/uL RBC 4.05 L (4.20-5.50) X10*6/uL Hgb 13.7 (12.0-16.0) g/dl Hct 39.5 (37.0-47.0) % MCV 97.5 (80.0-98.0) fL MCH 33.8 H (27.0-33.0) pg MCHC 34.7 (31.0-35.0) g/dl RDW 12.6 (11.0-16.0) % Plt Count 213 (160-400) X10*3/uL MPV 9.0 L (9.4-12.3) fL Immature Gran % (Auto) 0.1 (0.0-0.4) % Neut % (Auto) 52.9 (45-73) % Lymph % (Auto) 26.8 (20-40) % Leslie % (Auto) 7.5 (2-11) % Eos % (Auto) 12.6 H (0-4) % Baso % (Auto) 0.1 (0-2) % Lymph # (Auto) 1.9 (1.2-4.9) X10*3/uL Leslie # (Auto) 0.5 (0.1-1.2) X10*3/uL Eos # (Auto) 0.9 H (0.0-0.4) X10*3/uL Baso # (Auto) 0.0 (0.0-0.2) X10*3/uL Abs Immat Gran (auto) 0.01 (0.00-0.03) X10*3/uL Absolute Neuts (auto) 3.8 (2.0-8.3) x10*3/uL Absolute Nucleated RBC 0.000 (0.0-0.012) X10*3/uL Nucleated RBC % (auto) 0.0 (0.0-0.2) /100WBC PT 10.6 L (10.9-12.4) SEC INR 0.9 (0.9-1.1) D-Dimer High Sensitivty 220 NG/ML Sodium 139 (135-145) mmol/L Potassium 4.1 (3.3-5.1) mmol/L Chloride 101 (96-108) mmol/L Carbon Dioxide 31 H (22-29) mmol/L Anion Gap 11 L (12-20) BUN 10 (9-16) mg/dL Creatinine 0.79 (0.5-1.4) mg/dL Estim Creat Clear Calc 50.9 Estimated GFR > 60 Random Glucose 100 (60-115) mg/dL Calcium 9.7 (8.4-10.2) mg/dL Total Bilirubin 0.3 (0.0-1.0) mg/dL Direct Bilirubin 0.2 (0.0-0.5) mg/dL AST 18 (5-31) U/L ALT 10 (0-31) U/L Alkaline Phosphatase 85 (39-117) U/L Troponin I High Sens < 2.7 (<3.5-17.0) ng/L B-Natriuretic Peptide 39 (<100) pg/mL Total Protein 7.5 (6.5-8.0) g/dL Albumin 3.9 (3.5-5.0) g/dL Influenza Type A (PCR) NEGATIVE (Negative) Influenza Type B (PCR) NEGATIVE (Negative) RSV RNA Qual (PCR) NEGATIVE (Negative) SARS-CoV-2 RNA (RT-PCR) NEGATIVE (Negative) Discharge Plan Discharge Clinical Impression: Pleurisy, Chronic bronchitis Patient Disposition: Home, Self-Care Instructions: Pleurisy (ED), Chronic Bronchitis (ED) Additional Instructions: Stop smoking Continue nebulizing treatment every 4-6 hours as needed Prednisone as prescribed Ibuprofen for pain and inflammation Follow up with your PCP if not better Prescriptions: New albuterol sulfate 2.5 mg /3 mL (0.083 %) solution for nebulization 2.5 mg inhalation Q4-6H PRN (Reason: shortness of breath or wheezing) Qty: 90 0RF benzonatate 200 mg capsule 200 mg PO TID PRN (Reason: cough) Qty: 30 0RF prednisone 20 mg tablet 40 mg PO DAILY Qty: 10 0RF fluconazole 150 mg tablet 150 mg PO DAILY Qty: 1 0RF Rx Instructions: administer on day 1 of therapy ibuprofen 600 mg tablet 600 mg PO Q6H PRN (Reason: fever or pain) Qty: 30 0RF No Action atorvastatin 10 mg tablet 10 mg PO DAILY 90 Days Qty: 90 1RF venlafaxine 25 mg tablet 25 mg PO DAILY 90 Days Qty: 90 1RF losartan 50 mg tablet 50 mg PO DAILY 90 Days Qty: 90 1RF doxycycline hyclate 100 mg capsule 100 mg PO BID Qty: 20 0RF amoxicillin-pot clavulanate 875-125 mg tablet 1 tab PO BID 10 Days Qty: 20 0RF buprenorphine-naloxone 8-2 mg film 16 mg sublingual DAILY ibuprofen 600 mg tablet 600 mg PO TID PRN (Reason: Pain (Scale Score 1-3)) ipratropium-albuterol 0.5 mg-3 mg(2.5 mg base)/3 mL Solution For Nebulization 3 ml inhalation TID Qty: 180 0RF Genvoya [phone] mg tablet 1 tab PO DAILY calcium carbonate-vitamin D3 500 mg(1,250mg) -50 unit capsule 1 cap PO DAILY (DME) nebulizers Misc See Rx Instructions .Route Qty: 1 0RF Rx Instructions: copd, use PRN albuterol sulfate 90 mcg/actuation HFA aerosol inhaler 1 puff PO QID PRN (Reason: for dyspnea) Qty: 8.5 3RF nystatin 100,000 unit/mL suspension 100,000 unit PO QID 10 Days Qty: 40 0RF Rx Instructions: swish in the mouth and retain for as long as possible (several minutes) before swallowing. benzonatate 100 mg capsule 100 mg PO TID Qty: 90 0RF aspirin [Shakira Low Dose Aspirin] 81 mg tablet,delayed release (DR/EC) 81 mg PO DAILY Interventions: ED Discharge Assessment Last Done: 03/07/24 21:41 Discharge Date/Time: 03/07/24 21:48 Print Language: Singaporean
[2024-03-07 18:27] VITALS: BP 141/64; PULSE 74; RESP 20; TEMP 36.5; O2SAT 98
[2024-03-07 18:47] LABS: Alanine Aminotransferase 10 U/L (0-31); Albumin Level 3.9 g/dL (3.5-5.0); Alkaline Phosphatase 85 U/L (39-117); Aspartate Amino Transferase 18 U/L (5-31); Bilirubin Direct 0.2 mg/dL (0.0-0.5); Bilirubin Total 0.3 mg/dL (0.0-1.0); Total Protein 7.5 g/dL (6.5-8.0)
[2024-03-07 18:58] LABS: B Type Natriuretic Peptide 39 pg/mL (<100)
[2024-03-07 20:00] VITALS: BP 154/67; PULSE 62; RESP 20; TEMP 37.2; O2SAT 98
[2024-03-07 20:48] LABS: D Dimer High Sensitivity 220 NG/ML
[2024-03-07] MEDS: Albuterol Sulfate 2.5 MG, Albuterol/Iprat 2.5/0.5MG 3 ML 3 ML INHALE (21:25)
[2024-03-07 21:26] VITALS: PULSE 64; RESP 16; O2SAT 98
[2024-03-07 21:41] VITALS: BP 153/72; PULSE 72; RESP 16; TEMP 37.2; O2SAT 97
[2024-03-07] MEDS: predniSONE 20 MG TABLET 40 MG PO (21:43)
[2024-03-07] MEDS: Benzonatate 100 MG CAPSULE 200 MG PO (21:43)
[2024-03-07] MEDS: Ibuprofen 600 MG TABLET PO (21:43)
== END 2024-03-07 21:48 | disposition home or self-care (01) ==
PROVIDERS: Physician Assistant; Emergency Provider Internal Medicine; PCP Nurse Practitioner Family
DX: R09.1 Pleurisy (principal); J42 Unspecified chronic bronchitis; Z03.818 Encounter for observation for suspected exposure to other biological agents ruled out; R05.9 Cough, unspecified; R07.89 Other chest pain; B20 Human immunodeficiency virus [HIV] disease; F17.210 Nicotine dependence, cigarettes, uncomplicated
CPT/HCPCS: 0241U; 71046; 80048; 80076; 83880; 84484; 85025; 85379; 85610; 94640; 99284; 99285

== ENCOUNTER 2024-03-18 13:26 | Outpatient (REF) | payer MEDICARE, SELFPAY ==
--- NOTE | ~2024-03-18 | CT_ITS ---
EXAMINATION: CT CHEST WITHOUT CONTRAST CLINICAL INFORMATION: Pleural effusion not elsewhere classified COMPARISON: Prior chest radiograph dated 03/07/2024 TECHNIQUE: Multidetector volumetric CT imaging of the chest was done. Axial MIP volume rendering provided. Sagittal and coronal reformatted images were obtained. This CT examination was performed using dose optimization techniques as appropriate, variously including the following: *Automated exposure control *Adjustment of mA and/or kV according to patient size (this includes techniques or standardized protocols for targeted exams where dose is matched to indication/reason for exam; i.e. 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 There is linear scarring in the anterior left lower lung. The left pleural effusion seen on the prior chest radiograph has resolved. No suspicious consolidations or masses at this time. MEDIASTINUM: Heart size normal. No pericardial effusion. No significant adenopathy. Thoracic inlet is unremarkable. The transverse diameter of the ascending aorta at the level of the main pulmonary artery is 39 mm. CORONARY ARTERY CALCIFICATION: Mild to moderate PLEURA: Minimal residual left basilar pleural thickening. AXILLA: No lymphadenopathy. UPPER ABDOMEN: Unremarkable. OSSEOUS STRUCTURES: Kyphosis and spondylitic change in the thoracic spine particularly at the thoracolumbar junction. Sternum intact. CT/CT chest wo IV con IMPRESSION: Interval improvement. Only residual pleural thickening at the left base. Fleischner guidelines were followed. Electronically signed by: Pancho Gonzalez MD 03/19/2024 02:17 PM EDT
== END 2024-03-18 13:27 | disposition home or self-care (01) ==
LOC: HO.CT 13:26
PROVIDERS: PCP Nurse Practitioner Family; Visit Provider Nurse Practitioner Family
DX: J90 Pleural effusion, not elsewhere classified (principal)
CPT/HCPCS: 71250

== ENCOUNTER 2024-04-01 15:28 | Outpatient (AMB) | payer MEDICARE, SELFPAY ==
--- NOTE | 2024-04-01 13:27 | A.OFFVIS_ITS ---
Vital Signs 04/01/24 15:32 Height 5 ft Weight 106 lb 4 oz BMI 20.7 BP 108/56 L Blood Pressure Location Rt brachial Position Sitting Pulse 63 Pulse Source Pulse Oximeter Pulse Oximetry (%) 96 Oxygen Delivery Method Room Air Intake Visit Reasons: Abnormal CT scan/COPD Allergies abacavir Allergy (Severe, Verified 04/01/24 15:36) high fever erythromycin base Allergy (Unknown, Verified 04/01/24 15:36) Unknown HPI HPI Abnormal CT scan/COPD: Details: Varsha is a pleasant 63-year-old female, current 3/4 ppd smoker with 50 pack year history with underlying history of HIV, hepatitis-C with cirrhosis, hypertension, hyperlipidemia and opioid use disorder on Suboxone. She was referred by PCP after recent abnormal chest CT which revealed left lower lobe pleural thickening with associated pleural effusion. She was recently treated on 02/24 with doxycycline and Augmentin for presumed pneumonia as well as prednisone on 03/07 for pleuritic discomfort. PCP sent for chest CT from 03/18 given suboptimal response to medications which revealed resolution of pneumonia and LLL pleural effusion with residual left lower lobe pleural thickening. Prior LDCT did not reveal this. She reports prior h/o asthma, never requiring intubation. Arranging appointments for vaccinations. She reports dyspnea with exertion such as stairs and intermittent cough. She has symbicort 80 mcg however has not used yet. She uses albuterol MDI/neb frequently. She reports mother, former smoker, with history of lung cancer. She denies any seasonal allergies. She denies any occupational exposures. [facility] Medical History (Updated 04/01/24 @ 16:30 by Dede Acosta NP) Tongue sore Liver cirrhosis COPD (chronic obstructive pulmonary disease) PVD (peripheral vascular disease) History of opioid abuse Osteopenia GERD (gastroesophageal reflux disease) Hyperlipidemia Hepatitis C (~1998) Personal history of nicotine dependence PTSD (post-traumatic stress disorder) HTN (hypertension) HIV (human immunodeficiency virus infection) (~1996) Surgical History History of colonoscopy (~2016) History of esophagogastroduodenoscopy (EGD) (~2016) History of angioplasty (~2017) History of carpal tunnel surgery of right wrist (~2003) History of liver biopsy (~2001) Hx of cholecystectomy (~2001) History of hysterectomy Family History Mother Lung cancer Father Substance use disorder Son Substance use disorder Social History (Updated 04/01/24 @ 15:35 by Rhoda Dorsey CMA) Household Members: None Housing: Apartment Do you presently have visiting nurse or other home services: No Alcohol intake: current Patient Tobacco Use Status: Current everyday Tobacco user Tobacco use type: Cigarette Cigarette Packs Per Day: 1 Cigarettes Per Day: 20 Years Smoked: 50 e-Cigarette/Vaping Use: Never Used Second Hand Smoke Exposure: No service: No Current occupational status: employed 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, 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 Cognitive needs: No Hearing needs: No Vision needs: No Review of Systems Const Denies chills, Denies excessive sweating, Denies fever(s), Denies headache(s) an d Denies night sweats Eyes Denies dry eyes, Denies irritation and Denies itchy eyes ENT Reports Normal hearing present, Denies headache(s), Denies nasal congestion, Denies nasal discharge, Denies post nasal drip and Denies sore throat Card Denies chest pain, Denies chest pain at rest, Denies chest pain with activity, Denies claudication, Denies leg edema, Denies orthopnea and Denies paroxysmal nocturnal dyspnea Resp Denies chest congestion, Denies excessive phlegm production, Denies pain on insp iration, Denies pain with cough and Denies stridor Musc Denies myalgias Neuro Reports Normal hearing present and Denies headache(s) Endo Denies excessive sweating Nura/Lymph Denies lymphadenopathy Aller/Immun Denies itchy eyes and Denies seasonal rhinorrhea Physical Exam Vital Signs: Last Vital Signs Pulse 63 04/01/24 15:32 BP 108/56 L 04/01/24 15:32 Pulse Ox 96 04/01/24 15:32 Oxygen Delivery Method Room Air 04/01/24 15:32 BMI result Body Mass Index 20.7 Const General: cooperative, healthy appearing, comfortable, no acute distress, well developed and alert Orientation/consciousness: patient oriented x3 Limitations: no limitations HEENT Head: Yes normal to inspection, Yes normocephalic and Yes atraumatic Ears: hearing grossly normal bilaterally and external ears normal Eyes General: appearance normal, both eyes and all related structures Eyelids: Yes eyelids normal Sclerae: sclerae normal EOM: EOMs intact bilaterally Neck Neck: Yes normal visual inspection and Yes no lymphadenopathy Lymphatic: no lymphadenopathy noted Chest Chest palpation & inspection: normal inspection of the chest Resp Effort & Inspection: normal respiratory effort, able to speak in complete sen tences, no audible wheezes, no cough, no stridor, not tachypneic, no tripod positioning and no use of accessory muscles Auscultation: diminished lung sounds Cardio Jugular venous distension: no JVD Rate: regular rate Rhythm: regular rhythm Skin Other: warm, dry General skin exam: no rashes or lesions noted Neuro General: patient oriented x3 Cranial nerves: Yes Normal hearing present Cognition (Neuro): normal cognition Gait exam (Neuro): Normal gait present Extrem General: Yes normal to inspection, Yes capillary refill normal, Yes no clubbing, cyanosis or edema and Yes no pedal edema Psych Appearance: grossly normal and well kempt Speech and movement: Normal speech and movement present and Clear speech present Affect: normal affect Attitude: cooperative Thought process: Normal thought process present Thought content: Normal thought content present Insight: Good insight present (Psych) Judgement: Good judgement present (Psych) Results Reviewed Results Reviewed: [address] [address] [address] Scan Report Signed Patient: Jenn Stahl MR#: [id number] : 1960 Acct:[id number] Age/Sex: 63 / F ADM Date: 03/18/24 Loc: HO.CT Attending Dr: Dami OCASIO Ordering Physician: Dami Grajeda Date of Service: 03/18/24 Procedure(s): CT chest wo IV con Accession Number(s): [id number] cc: Dami Grajeda~ EXAMINATION: CT CHEST WITHOUT CONTRAST CLINICAL INFORMATION: Pleural effusion not elsewhere classified COMPARISON: Prior chest radiograph dated 03/07/2024 TECHNIQUE: Multidetector volumetric CT imaging of the chest was done. Axial MIP volume rendering provided. Sagittal and coronal reformatted images were obtained. This CT examination was performed using dose optimization techniques as appropriate, variously including the following: *Automated exposure control *Adjustment of mA and/or kV according to patient size (this includes techniques or standardized protocols for targeted exams where dose is matched to indication/reason for exam; i.e. extremities or head) *Use of iterative reconstruction technique DLP: 79 mGy-cm FINDINGS: CENTRAL STERILIZATION TECHNICIAN: Unremarkable LUNGS: The lungs are hyperaerated. There is linear scarring in the anterior left lower lung. The left pleural effusion seen on the prior chest radiograph has resolved. No suspicious consolidations or masses at this time. MEDIASTINUM: Heart size normal. No pericardial effusion. No significant adenopathy. Thoracic inlet is unremarkable. The transverse diameter of the ascending aorta at the level of the main pulmonary artery is 39 mm. CORONARY ARTERY CALCIFICATION: Mild to moderate PLEURA: Minimal residual left basilar pleural thickening. AXILLA: No lymphadenopathy. UPPER ABDOMEN: Unremarkable. OSSEOUS STRUCTURES: Kyphosis and spondylitic change in the thoracic spine particularly at the thoracolumbar junction. Sternum intact. CT/CT chest wo IV con IMPRESSION: Interval improvement. Only residual pleural thickening at the left base. Fleischner guidelines were followed. Electronically signed by: Pancho Gonzalez MD 03/19/2024 02:17 PM EDT Dictated By: Pancho Gonzalez MD Signed By: <Electronically signed by Pancho Gonzalez MD in OV> 03/19/24 1417 DD/ 1336 TD/TT: 03/18/24 1356 [employer]: Assessment & Plan Assessment & Plan (1) COPD (chronic obstructive pulmonary disease): Code(s): J44.9 - Chronic obstructive pulmonary disease, unspecified Category: Medical (2) Personal history of nicotine dependence: Comment: (Current smoker, onset 12, 1-1.5ppd x 45yrs, now 1/2-3/4ppd, 50+PYH + fam hx lung ca - in LDCT program) Code(s): Z87.891 - Personal history of nicotine dependence Category: Medical (3) Pleural effusion: Code(s): J90 - Pleural effusion, not elsewhere classified Category: Medical Plan Jenn presents for pulmonary evaluation with worsening COPD symptoms, unclear severity. Will send for PFT to assess. She has a prescription for symbicort but has been reluctant to use as she is prone to yeast infections. Discussed importance of good oral hygiene and will trial symbicort. She was recently treated for pneumonia and pleurisy with augmentin, doxycyline and prednisone with resolution of symptoms. Will have repeat chest CT in two months to assess LLL pleuritic thickening, which was likely associated from recent infectious process. All questions were answered and patient is in agreement of plan. Will follow up in 6-8 weeks or sooner if needed. Orders: Orders CT chest wo IV con 2 Months Z87.891 - Personal history of nicotine dependence PFT pulmonary function test Today J44.9 - Chronic obstructive pulmonary disease, unspecified Medications: Refilled albuterol sulfate 2.5 mg (3 mL) inhalation Q4-6H PRN 90 mL 0RF shortness of breath or wheezing Coding Level of Care Code New Pt Level 4 (44674) Diagnoses COPD (chronic obstructive pulmonary disease) J44.9 Personal history of nicotine dependence Z87.891 Pleural effusion J90
[2024-04-01 15:32] VITALS: BP 108/56; PULSE 63; O2SAT 96; BMI 20.7
== END 2024-04-01 16:12 | disposition home or self-care (01) ==
PROVIDERS: PCP Nurse Practitioner Family; Referring Provider Nurse Practitioner Family; Visit Provider Nurse Practitioner Family
DX: J44.9 Chronic obstructive pulmonary disease, unspecified (principal); Z87.891 Personal history of nicotine dependence; J90 Pleural effusion, not elsewhere classified
CPT/HCPCS: 99204; 99214

== ENCOUNTER → 2024-04-01 15:28 | Outpatient (BNVA) | payer MEDICARE, SELFPAY | PROVIDERS: PCP Nurse Practitioner Family; Referring Provider Nurse Practitioner Family; Visit Provider Nurse Practitioner Family | DX: J44.9 Chronic obstructive pulmonary disease, unspecified (principal); J90 Pleural effusion, not elsewhere classified; F17.210 Nicotine dependence, cigarettes, uncomplicated | CPT/HCPCS: 99202 ==

== ENCOUNTER 2024-04-21 12:54 | Outpatient (AMB) | payer MEDICARE, SELFPAY ==
[2024-04-21 13:10] VITALS: BP 126/66; PULSE 76; O2SAT 98; BMI 21.1
--- NOTE | 2024-04-21 13:10 | MHC.PC.OV ---
Vital Signs 04/21/24 13:10 Height 5 ft Weight 108 lb BMI 21.1 BP 126/66 Blood Pressure Location Lt brachial Position Sitting Pulse 76 Pulse Source Pulse Oximeter Pulse Oximetry (%) 98 Oxygen Delivery Method Room Air Intake Visit Reasons: PE Intake Note: Pt is here today for PE. Allergies abacavir Allergy (Severe, Verified 04/21/24 13:34) high fever erythromycin base Allergy (Unknown, Verified 04/21/24 13:34) Unknown Medication List - Last Reconciled 04/21/24 by ALLEN Reaves albuterol sulfate 90 mcg/actuation 1 puff PO QID PRN albuterol sulfate 2.5 mg (3 mL) inhalation Q4-6H PRN aspirin (Shakira Low Dose Aspirin) 81 mg PO DAILY atorvastatin 10 mg PO DAILY 90 days buprenorphine-naloxone 8-2 mg 16 mg sublingual DAILY calcium carbonate-vitamin D3 500 mg(1,250mg) -50 unit 1 cap PO DAILY yjzfeni-fux-arvlh-tenof alafen [id number] mg (Genvoya) 1 tab PO DAILY fluconazole 150 mg PO DAILY 1 dose ibuprofen 600 mg PO Q6H PRN ipratropium-albuterol 0.5 mg-3 mg(2.5 mg base)/3 mL 3 mL inhalation TID losartan 50 mg PO DAILY 90 days nebulizers copd, use PRN nystatin 100,000 units PO QID 10 days venlafaxine 25 mg PO DAILY 90 days Tobacco use date assessed: 04/21/24 Fall risk assessment: No Falls in past year Last assessed Fall Risk: 04/21/24 Dental Screening Dental Screen Date: 12/05/23 HPI PE HPI Details Pt is here for a PE. Will order labs. Colon screen is up to date. Pt no longer sees a EXECUTIVE MARKETING ASSISTANT, not interested in this. Mammo is up to date. Pt sees pulmonology, ID, and urology. Pt goes for low-dose CTs (smoker). Pt has a hx of esophageal stricture. She reports choking on liquids and solids. Will repeat barium swallow study (years ago last one, pt reported at the time she had a esophageal stricture) and refer to GI for a possible endo. [facility] Medical History Tongue sore Liver cirrhosis COPD (chronic obstructive pulmonary disease) PVD (peripheral vascular disease) History of opioid abuse Osteopenia GERD (gastroesophageal reflux disease) Hyperlipidemia Hepatitis C (~1998) Personal history of nicotine dependence PTSD (post-traumatic stress disorder) HTN (hypertension) HIV (human immunodeficiency virus infection) (~1996) Surgical History History of colonoscopy (~2016) History of esophagogastroduodenoscopy (EGD) (~2016) History of angioplasty (~2017) History of carpal tunnel surgery of right wrist (~2003) History of liver biopsy (~2001) Hx of cholecystectomy (~2001) History of hysterectomy Family History Mother Lung cancer Father Substance use disorder Son Substance use disorder Social History Household Members: None Housing: Apartment Do you presently have visiting nurse or other home services: No Alcohol intake: current Patient Tobacco Use Status: Current everyday Tobacco user Tobacco use type: Cigarette Cigarette Packs Per Day: 1 Cigarettes Per Day: 20 Years Smoked: 50 e-Cigarette/Vaping Use: Never Used Second Hand Smoke Exposure: No service: No Current occupational status: employed 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 1. Little interest or pleasure in doing things: not at all 2. Feeling down, depressed, or hopeless: not at all 3. Trouble falling or staying asleep, or sleeping too much: several days 4. Feeling tired or having little energy: several days 5. Poor appetite or overeating: not at all 6. Feeling bad about yourself - or that you are a failure or have let yourself or your family down: not at all 7. Trouble concentrating on things, such as reading the newspaper or watching television: not at all 8. Moving or speaking so slowly that other people could have noticed. Or the opposite - being so fidgety or restless that you have been moving around a lot more than usual: not at all 9. Thoughts that you would be better off or of hurting yourself in some way: not at all Total score: 2 Depression Screening Interpretation: Negative Depression Screening Done: Yes 60273 - PHQ-9 Billing: Yes Source: Developed by Drs. Richard Gonzalez, Annie Pérez, James Nevarez and colleagues, with an educational florinda from [employer]. Thrive Questionnaire Date Thrive assessed: 04/21/24 I am a: Patient What is your living situation today?: I have a steady place to live Within the past 12 months, did the food you bought not last and you didn't have the money to get more?: Never true Within the past 12 months, did you worry whether your food would run out before you got money to buy more?: Sometimes True Do you have trouble paying for medicines?: No Do you have trouble getting transportation to medical appointments?: No Do you have trouble paying your heating and electricity bill?: No Do you have trouble taking care of your child, family member or friend?: No Do you have trouble with day-to-day activities such as bathing, preparing meals, shopping, managing finances, etc.?: No Are you currently unemployed and looking for a job?: Yes Are you interested in more education?: No Please select the resources that you would like help with: None Currently or been in a relationship where the following occur: No concerns reported THRIVE Score: 1 AUDIT C Alcohol Use Questionnaire (AUDIT-C) 1. How often do you have a drink containing alcohol?: 2-4 times a month 2. How many drinks containing alcohol do you have on a typical day when you are drinking?: 1 or 2 3. How often do you have six or more drinks on one occasion?: Never Total Score: 2 PEARL-7 AMB Questionnaire PEARL-7 Date PEARL - 7 assessed: 04/21/24 Feeling nervous, anxious, or on edge: 1 = Several days Not being able to stop or control worryin = More than half the days Worrying too much about different things: 2 = More than half the days Trouble relaxin = Not at all Being so restless that it is hard to sit still: 1 = Several days Becoming easily annoyed or irritable: 0 = Not at all Feeling afraid as if something awful might happen: 1 = Several days Total PEARL-7 score (0-4 normal; 5-9 mild; 10-14 moderate; 15-21 severe): 7 Source: Developed by Drs. Richard Gonzalez, Annie Pérez, James Nevarez and colleagues, with an educational florinda from [employer]. PEARL-7 Assessment Billing PEARL-7 Assessment Tool: PEARL-7 Assessment 01504 Review of Systems Const Denies chills and Denies fever(s) Eyes Denies blurry vision ENT Denies vertigo, Denies dizziness and Denies sore throat Card Denies chest pain at rest, Denies chest pain with activity, Denies diaphoresis, Denies dyspnea and Denies dyspnea on exertion Resp Denies cough, Denies dyspnea, Denies dyspnea on exertion and Denies wheezing GI Denies abdominal pain, Denies melena, Denies hematochezia, Denies constipation, Denies diarrhea and Denies loose stools Denies hematuria Musc Denies numbness and Denies tingling Skin/Breast Denies lesions Neuro Denies vertigo, Denies dizziness, Denies numbness and Denies tingling Psych Denies anxiety, Denies depression, Denies homicidal ideation, Denies suicidal ideation and Denies other (substance abuse) Aller/Immun Denies wheezing Physical exam (Primary Care) Vital Signs: Last Vital Signs Pulse 76 04/21/24 13:10 BP 126/66 04/21/24 13:10 Pulse Ox 98 04/21/24 13:10 Oxygen Delivery Method Room Air 04/21/24 13:10 BMI result Body Mass Index 21.1 Tobacco/Smoking Status: Tobacco use Status Tobacco use date assessed 04/21/24 04/21/24 13:15 Patient Tobacco Use Status Current everyday Tobacco 04/21/24 13:15 Tobacco use type Cigarette 04/21/24 13:15 e-Cigarette/Vaping Use Never Used 04/21/24 13:15 PHQ-9: PHQ-9 Score PHQ-9: Total score 2 04/21/24 13:20 Depression Screening Interpretation: Negative Thrive Assessment: Date of Thrive Assessment Date Thrive assessed 04/21/24 04/21/24 13:15 Currently or been in a relationship where the following occur: No concerns reported Const General: cooperative Nutritional Appearance: well nourished Orientation/consciousness: patient oriented x3 HENMT Head: Yes normal to inspection, Yes normocephalic and Yes atraumatic Ears: TM's normal bilaterally Eyes General: appearance normal, both eyes and all related structures Alignment and Position: alignment normal and position normal Neck Neck: Yes normal visual inspection, Yes no lymphadenopathy and Yes supple Resp Effort & Inspection: normal respiratory effort Auscultation: clear to auscultation bilaterally and diminished lung sounds Cardio Rate: regular rate Rhythm: regular rhythm Heart sounds: S1 normal heart sound present, S2 normal heart sound present and Murmur heart sound present systolic GI Palpation (GI): Soft to palpation and nontender Auscultation: normal bowel sounds Skin Rashes: no rashes Neuro General: patient oriented x3, moves all extremities, no focal motor deficits and deep tendon reflexes 2+ bilaterally Romberg Test: Negative Psych Appearance: grossly normal Mental Status: mental status grossly normal Speech and movement: Normal speech and movement present Affect: normal affect Attitude: cooperative Thought process: Normal thought process present Thought content: Normal thought content present Insight: Good insight present (Psych) Judgement: Good judgement present (Psych) Coding Level of Care Code Est Pt Prev Care >65y(83681) Diagnoses Physical exam Z00.00 Vitamin D deficiency E55.9 Esophageal stricture K22.2 Dysphagia R13.10 Additional Codes PEARL-7 Assessment Billing - PEARL-7 Assessment Tool: PEARL-7 Assessment 45493 ([id number]) PHQ-9 - 94533 - PHQ-9 Billing: Yes ([id number]) Assessment & Plan Assessment & Plan (1) Physical exam: Code(s): Z00.00 - Encounter for general adult medical examination without abnormal findings Category: Medical (2) Vitamin D deficiency: Code(s): E55.9 - Vitamin D deficiency, unspecified Category: Medical Plan: lab ordered (3) Esophageal stricture: Code(s): K22.2 - Esophageal obstruction Category: Medical Plan: barium swallow ordered, referral to gastro (4) Dysphagia: Code(s): R13.10 - Dysphagia, unspecified Category: Medical Plan The patient agreed to the use of a medical records assistant for this encounter. Scribed for AMARJIT Littlejohn by Romi Mancilla medical records assistant, on 04/21/2024 at 13:20 EST. Orders: Orders Complete Blood Count Auto Diff Today Z00.00 - Encounter for general adult medical examination without abnormal findings Comprehensive [place]. Panel Fast Today Z00.00 - Encounter for general adult medical examination without abnormal findings TSH reflex Free T4 Today Z00.00 - Encounter for general adult medical examination without abnormal findings UA CC w/rflx Micro + Cult Today Z00.00 - Encounter for general adult medical examination without abnormal findings Lipid Panel Today Z00.00 - Encounter for general adult medical examination without abnormal findings Vitamin D 25-OH Total Today E55.9 - Vitamin D deficiency, unspecified [place] Modified Barium Swallow Today R13.10 - Dysphagia, unspecified Referrals Gastroenterology Referral K22.2 - Esophageal obstruction
== END 2024-04-21 13:38 | disposition home or self-care (01) ==
PROVIDERS: PCP Nurse Practitioner Family; Visit Provider Nurse Practitioner Family
DX: K22.2 Esophageal obstruction (principal); E55.9 Vitamin D deficiency, unspecified

== ENCOUNTER → 2024-04-21 12:54 | Outpatient (BNVA) | payer MEDICARE, SELFPAY | PROVIDERS: PCP Nurse Practitioner Family; Visit Provider Nurse Practitioner Family | DX: Z00.00 Encounter for general adult medical examination without abnormal findings (principal); E55.9 Vitamin D deficiency, unspecified; K22.2 Esophageal obstruction; R13.10 Dysphagia, unspecified | CPT/HCPCS: 96127; 99212 ==

== ENCOUNTER 2024-05-28 14:59 | Outpatient (REF) | payer MEDICARE, SELFPAY ==
[2024-05-28 10:59] VITALS: PULSE 76; O2SAT 96
--- NOTE | 2024-05-28 15:07 | PFT_ITS ---
Flows: FEV1: 75 % of predicted at 1.53 L FVC: 102 % of predicted at 2.63 L FEV1/FVC: 58 % Bronchodilator response: Absent Volumes: Total lung capacity: 94 % of predicted at 4.12 L Residual volume: 93 % of predicted at 1.49 L Slow vital capacity: 94 % of predicted at 2.62 L Expiratory reserve volume: 205 % of predicted at 1.31 L Diffusion capacity: Mildly decreased Impression: Moderate obstructive ventilatory defect with no bronchodilator response. Decreased diffusion capacity suggests emphysema. MTDD
== END 2024-05-28 15:00 | disposition home or self-care (01) ==
LOC: HO.RESP 14:59
PROVIDERS: PCP Nurse Practitioner Family; Visit Provider Nurse Practitioner Family
DX: J44.9 Chronic obstructive pulmonary disease, unspecified (principal)
CPT/HCPCS: 94010; 94640; 94727; 94729

== ENCOUNTER → 2024-05-28 15:07 | Outpatient (BNV) | payer MEDICARE, SELFPAY | PROVIDERS: PCP Nurse Practitioner Family; Visit Provider Internal Medicine Pulmonary Disease | DX: J44.9 Chronic obstructive pulmonary disease, unspecified (principal) | CPT/HCPCS: 94060; 94727; 94729 ==

== ENCOUNTER 2024-07-08 14:33 | Outpatient (REF) | payer MEDICARE, SELFPAY | END 2024-07-08 14:34 | disposition home or self-care (01) | LOC: HO.MAMMO 14:33 | PROVIDERS: PCP Nurse Practitioner Family; Visit Provider Nurse Practitioner Family | DX: Z12.31 Encounter for screening mammogram for malignant neoplasm of breast (principal) | CPT/HCPCS: 77063; 77067 ==

== ENCOUNTER → 2024-07-08 14:45 | Outpatient (BNV) | payer MEDICARE, SELFPAY | PROVIDERS: PCP Nurse Practitioner Family; Visit Provider Internal Medicine | DX: Z12.31 Encounter for screening mammogram for malignant neoplasm of breast (principal) | CPT/HCPCS: 77063; 77067 ==

== ENCOUNTER 2024-09-10 11:03 | Outpatient (REF) | payer MEDICARE, SELFPAY ==
[2024-09-10 13:12] LABS: MANUAL DIFF FLAG NO
[2024-09-10 13:26] LABS: Basophils Percent Auto 0.4 % (0-2); Eosinophils Absolute Auto 0.2 X10*3/uL (0.0-0.4); Eosinophils Percent Auto 2.5 % (0-4); Hemoglobin 14.6 g/dl (12.0-16.0); Imm Gran Abs Auto 0.02 X10*3/uL (0.00-0.03); Imm Gran Pct Auto 0.3 % (0.0-0.4); Lymphocytes Percent Auto 25.9 % (20-40); Mean Corpuscular Hemoglobin 34.1 pg (27.0-33.0); Mean Corpuscular Volume 100.5 fL (80.0-98.0); Mean Platelet Volume 10.2 fL (9.4-12.3); Monocytes Absolute Auto 0.6 X10*3/uL (0.1-1.2); Monocytes Percent Auto 7.4 % (2-11); Neutrophils Percent Auto 63.5 % (45-73); Platelet Count 145 X10*3/uL (160-400); Red Blood Count 4.28 X10*6/uL (4.20-5.50); Red Cell Distribution Width 13.2 % (11.0-16.0); White Blood Count 7.9 X10*3/uL (4.8-10.8)
[2024-09-10 13:44] LABS: Alanine Aminotransferase 14 U/L (0-31); Albumin Level 4.4 g/dL (3.5-5.0); Alkaline Phosphatase 72 U/L (39-117); Anion Gap 11 (12-20); Aspartate Amino Transferase 26 U/L (5-31); Bilirubin Total 0.6 mg/dL (0.0-1.0); Blood Urea Nitrogen 16 mg/dL (9-16); Calcium 9.8 mg/dL (8.4-10.2); Carbon Dioxide 30 mmol/L (22-29); Chloride 104 mmol/L (96-108); Cholesterol 169 mg/dL (<200); Estimated Glomerular Filt Rate > 60; Glucose Fasting 93 mg/dL (60-99); HDL Cholesterol 86 mg/dL (>40); LDL Cholesterol Calculated 59 mg/dL (<100); Potassium 4.9 mmol/L (3.3-5.1); Sodium 140 mmol/L (135-145); Total Protein 7.8 g/dL (6.5-8.0); Triglycerides 122 mg/dL (<150)
[2024-09-10 13:51] LABS: TSH reflex Free T4 1.45 uIU/mL (0.32-4.0); Vitamin D 25-OH Total 35.6 ng/mL (>30)
[2024-09-10 14:03] LABS: Appearance Urine Cloudy; Color Urine Yellow; Glucose Urine UA Negative (Negative); Leukocyte Esterase Urine Small (1+) (Negative); Nitrite Urine Negative (Negative); Specific Gravity - Urine 1.025 (1.005-1.025); UMIC TRIGGER UACC YES; Urine Blood Small (1+) (Negative); Urine Ketones Negative (Negative); Urine Protein Negative (Neg-Trace)
[2024-09-10 14:33] LABS: Bacteria Urine 4+ (None Seen); Calcium Oxalate Crystals Urine Present; Hyaline Casts Urine 0-2 /LPF (0-2); Squamous Epithelial Cell Urine >20 /HPF (0-2); UACC Culture Trigger YES
== END 2024-09-10 11:04 | disposition home or self-care (01) ==
LOC: HO.10HDL 11:03
PROVIDERS: Visit Provider Nurse Practitioner Family
DX: Z00.00 Encounter for general adult medical examination without abnormal findings (principal); E55.9 Vitamin D deficiency, unspecified; R82.90 Unspecified abnormal findings in urine
CPT/HCPCS: 36415; 80053; 80061; 81001; 81003; 82306; 84443; 85025; 87086

== ENCOUNTER 2024-09-27 11:55 | Outpatient (AMB) | payer MEDICARE, SELFPAY ==
[2024-09-27 14:40] VITALS: BP 140/80; PULSE 107; RESP 17; TEMP 37; O2SAT 98; BMI 21.5
--- NOTE | 2024-09-27 14:40 | AM.OFFWIN_ITS ---
Intake Vital Signs 09/27/24 14:40 Height 5 ft Weight 110 lb BMI 21.5 BP 140/80 H Blood Pressure Location Rt brachial Position Sitting Respiration 17 Pulse 107 H Pulse Source Pulse Oximeter Temp 98.6 F Temp Source Oral Pulse Oximetry (%) 98 Oxygen Delivery Method Room Air Intake Visit Reasons: EP- Pain Lt lung, cough [phone] Intake Note: Pt is here today c/o coughing and Lt side of rib pain Patient Tobacco Use Status: Current everyday Tobacco user Allergies abacavir Allergy (Severe, Verified 10/03/24 10:59) high fever erythromycin base Allergy (Unknown, Verified 10/03/24 10:59) Unknown HPI EP- Pain Lt lung, cough [phone] HPI Details Patient is a 64-year-old female with history of HIV, COPD, current tobacco smoker, and liver cirrhosis, who comes to the walk-in clinic complaining of persistent cough, that is now associated with left chest pain with breathing or coughing. She reports she has had these symptoms in the past and was diagnosed with pleurisy, which cleared with a course of steroids. She is pending follow-up with fruit or nut crops farm manager for repeat CT scan as she has developed another steady cough for the last few months, and she is supposed to follow up next week with a repeat chest CT with pulmonology, however it had to be rescheduled. She then started with left side pleuritic chest pain, reproducible with breathing. She denies shortness of breath, productive mucus with the cough, fever or chills, nausea vomiting or diarrhea, weakness or dizziness, palpitations, syncope, heartburn, abdominal pain, severe headache, or other significant associated symptoms. [facility] Medical History Nicotine dependence, cigarettes, uncomplicated Tongue sore Liver cirrhosis COPD (chronic obstructive pulmonary disease) PVD (peripheral vascular disease) History of opioid abuse Osteopenia GERD (gastroesophageal reflux disease) Hyperlipidemia Hepatitis C (~1998) PTSD (post-traumatic stress disorder) HTN (hypertension) HIV (human immunodeficiency virus infection) (~1996) Surgical History History of colonoscopy (~2016) History of esophagogastroduodenoscopy (EGD) (~2016) History of angioplasty (~2017) History of carpal tunnel surgery of right wrist (~2003) History of liver biopsy (~2001) Hx of cholecystectomy (~2001) History of hysterectomy Family History Mother Lung cancer Father Substance use disorder Son Substance use disorder Social History Household Members: None Housing: Apartment Do you presently have visiting nurse or other home services: No Alcohol intake: current Patient Tobacco Use Status: Current everyday Tobacco user Tobacco use type: Cigarette Cigarette Packs Per Day: 1 Cigarettes Per Day: 20 Years Smoked: 50 e-Cigarette/Vaping Use: Never Used Second Hand Smoke Exposure: No service: No Current occupational status: employed 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, 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 Cognitive needs: No Hearing needs: No Vision needs: No Review of Systems Const All systems reviewed & are unremarkable except as noted in HPI and below Physical Exam Vital Signs: Last Vital Signs Temp 98.6 F 09/27/24 14:40 Pulse 107 H 09/27/24 14:40 Resp 17 09/27/24 14:40 BP 140/80 H 09/27/24 14:40 Pulse Ox 98 09/27/24 14:40 Oxygen Delivery Method Room Air 09/27/24 14:40 BMI result Body Mass Index 21.5 Const General: cooperative, healthy appearing, comfortable, no acute distress, alert, awake, Physically active and well groomed; No anxious, diaphoretic, ill appearing, intoxicated appearing, poor hygiene or tired appearing Nutritional Appearance: average body habitus Orientation/consciousness: patient oriented x3 Limitations: no limitations HEENT Head: Yes normal to inspection, Yes normocephalic and Yes atraumatic Ears: hearing grossly normal bilaterally, external ears normal, TM's normal bilaterally and EAC's normal General nose exam: Normal external nose present, Normal nares present, No nasal polyps present, Normal nasal mucous membranes and turbinates present, Normal septum present and No nasal discharge present Face and sinus: Yes normal facial exam, Yes sinuses nontender and Yes face symmetric Mouth: Normal oral and palatal mucosa present, lip normal and tongue normal Throat: Yes posterior oropharynx normal, Yes abnormal tonsil (mildly erythematous bilaterally), No peritonsillar mass, No postnasal drainage, No uvular edema and No cobblestoning Chest Chest palpation & inspection: tenderness (Left lower ribs anterolaterally) Resp Effort & Inspection: normal respiratory effort, able to speak in complete sentences, normal respiratory pattern, no audible wheezes, Actively coughing (Frequent dry), respiratory effort not decreased, no grunting, not labored, no nasal flaring, no pursed lip breathing, no respiratory distress, no retractions, no segmental paradox chest wall movement, not tachypneic, no tripod positioning, no use of accessory muscles, No prolonged expiratory phase and symmetric chest movement Auscultation: clear to auscultation bilaterally, no crackles, no rales, no rhonchi, no wheezes, diminished lung sounds (Slightly at the bases bilaterally) and No rub present Percussion: percussion normal Cardio Palpation: normal PMI Rate: regular rate Rhythm: regular rhythm Heart sounds: S1 normal heart sound present and S2 normal heart sound present Skin Other: Good color, warm and dry Neuro General: patient oriented x3 Psych Appearance: grossly normal Mental Status: mental status grossly normal Speech and movement: Normal speech and movement present Affect: normal affect Attitude: cooperative Thought process: Normal thought process present Insight: Good insight present (Psych) Judgement: Good judgement present (Psych) Results Reviewed Results Reviewed: Plain film two view x-ray of the chest shows no acute cardiopulmonary disease, per radiologist read and my wet read Assessment & Plan Assessment & Plan (1) Cough: Code(s): R05.9 - Cough, unspecified Qualifiers: Cough type: chronic Qualified Code(s): R05.3 - Chronic cough Plan 64-year-old female with history of HIV, COPD, current tobacco smoker, and liver cirrhosis, who comes to the walk-in clinic complaining of persistent cough for a few months, that is now associated with left chest pain with breathing or coughing. She reports she has had these symptoms in the past and was diagnosed with pleurisy, which cleared with a course of steroids. She is pending follow- up with fruit or nut crops farm manager for repeat CT scan as she has developed another steady cough for the last few months, and she is supposed to follow up next week with a repeat chest CT with pulmonology, however it had to be rescheduled. Patient is overall stable today, with normal vital signs and overall unremarkable exam except for persistent cough. Plain film x-rays unremarkable for acute card iopulmonary disease, although it is possible that she does have an early pneumonia or that this is a flare-up of her emphysema, although she attributes her symptoms to recurrent pleurisy. We discussed that she should go to the emergency department for a chest CT to determine for sure if this was pleurisy, and to rule out pulmonary embolism, acute coronary syndrome, or other life threatening conditions. She reports that she will not go today, but she understands that it would be the safest option for her. As this could also be a flare-up of emphysema, I did agree to start her on a course of antibiotics and oral steroids. I think she should let her fruit or nut crops farm manager know that her symptoms have started to progress, and they might be able to seen her sooner than later next week. She agreed to go to the emergency department if symptoms worsened at all in the meantime. Orders: Orders SARS-CoV2/FLU/RSV 09/27/24 J06.9 - Acute upper respiratory infection, unspecified XR chest 2V 09/27/24 R05.9 - Cough, unspecified Medications: New doxycycline monohydrate 100 mg PO BID 14 caps 0RF 7 days prednisone then take 3 tabs for 3 days, then 2 tabs for 3 days, then 1 tab for 3 days. 40 mg (4 x 10 mg) PO DAILY 30 tabs 0RF 3 days Coding Level of Care Code Est Pt Level 4 (56228) Diagnoses Chronic cough R05.3 Cough type: chronic
== END 2024-09-27 15:20 | disposition home or self-care (01) ==
LOC: HO.HMCWIC 11:55
PROVIDERS: PCP Nurse Practitioner Family; Visit Provider Physician Assistant Medical
DX: R05.3 Chronic cough (principal)

== ENCOUNTER 2024-09-27 11:55 | Outpatient (REF) | payer MEDICARE, SELFPAY ==
--- NOTE | ~2024-09-27 | XR_ITS ---
CLINICAL HISTORY: R05.9 - Cough, unspecified 2 view chest x-ray Comparison: CR/SR - XR CHEST 2V - 03/07/2024 02:40 PM EDT Findings: The lungs are clear. Normal size heart. No acute fracture. IMPRESSION: 1. No acute findings. This document has been electronically signed by: Pradeep Martínez MD on 09/27/2024 15:24:08
== END 2024-09-27 11:56 | disposition home or self-care (01) ==
LOC: HO.HMGCX 11:55
PROVIDERS: PCP Nurse Practitioner Family; Visit Provider Physician Assistant Medical
DX: R05.3 Chronic cough (principal)
CPT/HCPCS: 71046; 99212

== ENCOUNTER → 2024-09-27 14:50 | Outpatient (BNV) | payer MEDICARE, SELFPAY | PROVIDERS: PCP Nurse Practitioner Family; Visit Provider Specialist | DX: R05.9 Cough, unspecified (principal) | CPT/HCPCS: 71046 ==

== ENCOUNTER 2024-10-03 10:52 | Emergency (ER) | payer MEDICARE, SELFPAY ==
--- NOTE | ~2024-10-03 | CT_ITS ---
EXAMINATION: CT CHEST ANGIOGRAPHY WITH IV CONTRAST INDICATION: pleuritic L sided chest pain, dyspnea COMPARISON: Comparison is made with the prior examination dated 03/18/2024. TECHNIQUE: Helical CT scan of the chest was performed following administration of intravenous contrast (65 mL Omnipaque 350). The contrast bolus was timed to optimally opacify the pulmonary arteries. Thin sections were obtained through the pulmonary arteries. Coronal and sagittal reformatted images were generated. 3D/MIP reconstructed images are also obtained and reviewed. This CT exam was performed with one or more of the following dose reduction techniques: automated exposure control, adjustment of the mA and/or kV according to patient size, use of iterative reconstruction technique. DLP: 175 mGy-cm CHEST: THYROID: The thyroid gland is unremarkable. PULMONARY ARTERIES: No intraluminal filling defects are identified within the pulmonary arteries to suggest pulmonary emboli. LUNGS: There are mild emphysematous changes. Again seen is scarring in the left lower lobe. The lungs are otherwise clear. MEDIASTINUM: There is no mediastinal lymphadenopathy. JUAN PABLO: There is no hilar lymphadenopathy. CARDIOVASCULATURE: The heart is normal in size. There is no pericardial effusion. Again seen is dilatation of the ascending thoracic aorta measuring up to 3.7 cm in diameter. DEGREE OF CORONARY CALCIFICATION: mild PLEURA: There is no pleural effusion. No pneumothorax. MAIN AIRWAYS: The mainstem bronchi and proximal branches are patent. AXILLA: There is no axillary lymphadenopathy. UPPER ABDOMEN: The visualized portions of the liver, spleen, and adrenals are unremarkable. BONES AND SOFT TISSUES: There is degenerative disc disease of the spine. CT/CT angio chest PE protocol IMPRESSION: No evidence of pulmonary emboli. Mild emphysema. Left lower lobe scarring. No acute abnormality is identified. Electronically signed by: Richard Elizondo MD 10/03/2024 12:36 PM EDT
[2024-10-03 10:54] VITALS: BP 141/98; PULSE 88; RESP 22; TEMP 37.1; O2SAT 98; BMI 18.6
[2024-10-03 11:17] LABS: MANUAL DIFF FLAG NO
[2024-10-03 11:24] LABS: Basophils Percent Auto 0.3 % (0-2); Eosinophils Percent Auto 0.3 % (0-4); Hematocrit 40.3 % (37.0-47.0); Hemoglobin 13.8 g/dl (12.0-16.0); Imm Gran Abs Auto 0.05 X10*3/uL (0.00-0.03); Imm Gran Pct Auto 0.4 % (0.0-0.4); Lymphocytes Absolute Auto 3.9 X10*3/uL (1.2-4.9); Lymphocytes Percent Auto 34.6 % (20-40); Mean Corpuscular HGB Conc 34.2 g/dl (31.0-35.0); Mean Corpuscular Hemoglobin 34.6 pg (27.0-33.0); Mean Platelet Volume 9.8 fL (9.4-12.3); Monocytes Absolute Auto 1.1 X10*3/uL (0.1-1.2); Monocytes Percent Auto 9.6 % (2-11); Neutrophils Absolute Auto 6.2 x10*3/uL (2.0-8.3); Neutrophils Percent Auto 54.8 % (45-73); Platelet Count 185 X10*3/uL (160-400); Red Blood Count 3.99 X10*6/uL (4.20-5.50); Red Cell Distribution Width 13.2 % (11.0-16.0); White Blood Count 11.3 X10*3/uL (4.8-10.8)
--- NOTE | 2024-10-03 11:25 | PC.NURSE ---
Patient was seen at the on Sunday for r/o pneumonia and pluracy. Placed on doxycycline and prednisone with minimal effect. Sent to the ED for a CT. c/o left sided chest pain increasing with movement and position. Patient alert and oriented. Lungs clear bilat. Respirations even and non-labored. Abdomen soft, flat, non-tender with positive bowel sounds. Positive pedal pulses with no edema noted. Provider arabella completed.
[2024-10-03 11:40] LABS: Alanine Aminotransferase 20 U/L (0-31); Albumin Level 4.2 g/dL (3.5-5.0); Alkaline Phosphatase 65 U/L (39-117); Anion Gap 10 (12-20); Aspartate Amino Transferase 28 U/L (5-31); Bilirubin Total 0.5 mg/dL (0.0-1.0); Blood Urea Nitrogen 16 mg/dL (9-16); Calcium 10.1 mg/dL (8.4-10.2); Carbon Dioxide 31 mmol/L (22-29); Chloride 103 mmol/L (96-108); Creatinine Clr Calc Pharmacy 54.7; Estimated Glomerular Filt Rate > 60; Glucose Random 100 mg/dL (60-115); Magnesium 1.8 mg/dL (1.6-2.6); Potassium 4.6 mmol/L (3.3-5.1); Sodium 139 mmol/L (135-145); Total Protein 7.3 g/dL (6.5-8.0); Troponin-I High Sensitivity 5.2 ng/L (<3.5-17.0)
[2024-10-03 11:48] LABS: B Type Natriuretic Peptide 73 pg/mL (<100)
--- NOTE | 2024-10-03 11:50 | ED_ITS ---
HPI - SOB/Dyspnea General Chief Complaint: Dyspnea Stated Complaint: Told To Come In For CT Scan Time Seen by Provider: 10/03/24 11:09 Source: patient and old records reviewed Mode of arrival: ambulatory Limitations: no limitations History of Present Illness ED Provider: LOU SANABRIA Narrative: 64 yo female with PMH of COPD, still smokes, pleurisy, HIV, PAD, aortic ascending dilation who notes last Sunday she went to in [place] who started her on prednisone and doxy after a normal CXR. She then states it is not getting better it hurts to breathe and touch. No fevers, does have some mucous. Had symptoms prior to the trip. She has no rash either. She already completed the doxy without relief. MD elicited complaint: shortness of breath and pain with inspiration Onset (ago): day(s) (10) Context: other Timing: intermittent Severity: moderate Exacerbating factors: coughing, inspiration and deep breaths Relieving factors: nothing Known history of: COPD Associated symptoms: cough Treatment prior to arrival: other (abx and prednisone) Related Data Home Medications ?Medication ?Instructions ?Recorded ?Confirmed aspirin 81 mg tablet,delayed 81 mg PO DAILY 06/15/20 04/21/24 release (Shakira Low Dose Aspirin) calcium carbonate-vitamin D3 500 1 cap PO DAILY 03/08/21 04/21/24 mg (1,250 mg)-50 unit capsule elviteg 150 mg-cob 150 mg-emtricit 1 tab PO DAILY 03/08/21 04/21/24 200 mg-tenofo alafenam 10 mg tablet (Genvoya) buprenorphine 8 mg-naloxone 2 mg 16 mg sublingual DAILY 06/15/23 04/21/24 sublingual film Previous Rx's ?Medication ?Instructions ?Recorded ipratropium 0.5 mg-albuterol 3 mg 3 ml inhalation TID #180 mL 07/18/23 (2.5 mg base)/3 mL nebulization soln nebulizers #1 ea 08/15/23 albuterol sulfate 90 mcg/actuation 1 puff PO QID PRN for dyspnea #8.5 12/05/23 aerosol inhaler grams nystatin 100,000 unit/mL oral 100,000 unit PO QID 10 days #40 mL 01/25/24 suspension ibuprofen 600 mg tablet 600 mg PO Q6H PRN fever or pain 03/07/24 #30 tabs albuterol sulfate 2.5 mg/3 mL 2.5 mg (3 mL) inhalation Q4-6H PRN 04/01/24 (0.083 %) solution for nebulization shortness of breath or wheezing #90 mL atorvastatin 10 mg tablet 10 mg PO DAILY 90 days #90 tabs 07/01/24 losartan 50 mg tablet 50 mg PO DAILY 90 days #90 tabs 07/01/24 venlafaxine 25 mg tablet 25 mg PO DAILY 90 days #90 tabs 07/25/24 doxycycline monohydrate 100 mg 100 mg PO BID 7 days #14 caps 09/27/24 capsule prednisone 10 mg tablet 40 mg (4 x 10 mg) PO DAILY 3 days 09/27/24 #30 tabs cyclobenzaprine 10 mg tablet 10 mg PO TID PRN muscle spasm #14 10/03/24 tabs lidocaine 5 % topical patch 1 patch topical DAILY #30 ea 10/03/24 Allergies Allergy/AdvReac Type Severity Reaction Status Date / Time abacavir Allergy Severe high fever Verified 10/03/24 10:59 erythromycin base Allergy Unknown Unknown Verified 10/03/24 10:59 Review of Systems 2 Review of Systems: Constitutional : No Weight loss, No Fever, No Chills ENT/Mouth : No sore throat, No Rhinorrhea Eyes: No Eye Pain, No Swelling Cardiovascular : pos Chest Pain, pos SOB, no Dyspnea on Exertion, No Orthopnea, No Edema, No Palpitations Respiratory : No Cough, No Sputum Gastrointestinal : no Nausea, No Vomiting, No Diarrhea, No abdominal Pain, No Hematochezia, No Melena Genitourinary : No Dysuria, No Urinary Frequency Musculoskeletal : No joint pain, No Myalgias, No Joint Swelling Skin : No Skin Lesions, No rash Neuro : No Weakness, No Numbness, No Dizziness, No Headache All other systems reviewed and are negative [facility] Past Medical History Attestation statement: The following information was validated with the patient. Source: old records reviewed Medical History Nicotine dependence, cigarettes, uncomplicated Tongue sore Liver cirrhosis COPD (chronic obstructive pulmonary disease) PVD (peripheral vascular disease) History of opioid abuse Osteopenia GERD (gastroesophageal reflux disease) Hyperlipidemia Hepatitis C (~1998) PTSD (post-traumatic stress disorder) HTN (hypertension) HIV (human immunodeficiency virus infection) (~1996) Surgical History History of colonoscopy (~2016) History of esophagogastroduodenoscopy (EGD) (~2016) History of angioplasty (~2017) History of carpal tunnel surgery of right wrist (~2003) History of liver biopsy (~2001) Hx of cholecystectomy (~2001) History of hysterectomy Family History Family History Mother Lung cancer Father Substance use disorder Son Substance use disorder Social History Social History Household Members: None Housing: Apartment Do you presently have visiting nurse or other home services: No Alcohol intake: current Patient Tobacco Use Status: Current everyday Tobacco user Tobacco use type: Cigarette Cigarette Packs Per Day: 1 Cigarettes Per Day: 20 Years Smoked: 50 e-Cigarette/Vaping Use: Never Used Second Hand Smoke Exposure: No Advance Directives: No Advance Directives Information Provided: Yes service: No Current occupational status: employed 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 Oriented X3. No acute distress. Eyes: Pupils equal, round and reactive to light. ENT: Pharynx normal. Neck: Normal inspection. Neck supple. CVS: Normal heart rate and rhythm. Pulses normal. Chest: ttp along L ribs no rash noted Respiratory: No respiratory distress. Breath sounds normal. Abdomen: Soft and nontender. Skin: Skin warm and dry. Normal skin color. Normal skin turgor. Extremities: No lower extremity edema. No calf ttp Neuro: Oriented X 3. No motor deficit. No sensory deficit. CN2-12 intact Medications Administered Discontinued Medications Generic Name Dose Route Start Last Admin Trade Name Freq PRN Reason Stop Dose Admin Iohexol 100 ml 10/03/24 12:00 10/03/24 12:02 Iohexol 350 Mg/Ml 100 Ml Infus..Btl IV 10/03/24 12:01 65 ml ONCE ONE Administration Medical Decision Making Medical Decision Making [facility] Narrative: 64 yo female with PMH of COPD, still smokes, pleurisy, HIV, PAD, aortic ascending dilation who has persistent L anterio chest pain x 10 days with pleuriti component and no response to steroids/doxy at this time will need EKG, trop, BNP, CTA for PE vs mass vs pneumonia vs rib fracture. She is not toxic appearing and in no resp distress. Differential Diagnosis Differential Diagnoses: The differential diagnosis associated with the presentation includes pleurisy, COPD, rib fracture, VTE Admission/Observation Consideration of admission/observation: Escalation of care including admission/observation considered trop negative , CTA negative stable for outpatient management Lab Data [facility] Lab Attestation statement: I reviewed the patient's lab results. 10/03/24 11:13 10/03/24 11:13 Labs: Lab Results 10/03/24 Range/Units 11:13 WBC 11.3 H (4.8-10.8) X10*3/uL RBC 3.99 L (4.20-5.50) X10*6/uL Hgb 13.8 (12.0-16.0) g/dl Hct 40.3 (37.0-47.0) % MCV 101.0 H (80.0-98.0) fL MCH 34.6 H (27.0-33.0) pg MCHC 34.2 (31.0-35.0) g/dl RDW 13.2 (11.0-16.0) % Plt Count 185 D (160-400) X10*3/uL MPV 9.8 (9.4-12.3) fL Immature Gran % (Auto) 0.4 (0.0-0.4) % Neut % (Auto) 54.8 (45-73) % Lymph % (Auto) 34.6 (20-40) % [place] % (Auto) 9.6 (2-11) % Eos % (Auto) 0.3 (0-4) % Baso % (Auto) 0.3 (0-2) % Lymph # (Auto) 3.9 (1.2-4.9) X10*3/uL [place] # (Auto) 1.1 (0.1-1.2) X10*3/uL Eos # (Auto) 0.0 (0.0-0.4) X10*3/uL Baso # (Auto) 0.0 (0.0-0.2) X10*3/uL Abs Immat Gran (auto) 0.05 H (0.00-0.03) X10*3/uL Absolute Neuts (auto) 6.2 (2.0-8.3) x10*3/uL Absolute Nucleated RBC 0.000 (0.0-0.012) X10*3/uL Nucleated RBC % (auto) 0.0 (0.0-0.2) /100WBC Sodium 139 (135-145) mmol/L Potassium 4.6 (3.3-5.1) mmol/L Chloride 103 (96-108) mmol/L Carbon Dioxide 31 H (22-29) mmol/L Anion Gap 10 L (12-20) BUN 16 (9-16) mg/dL Creatinine 0.81 (0.5-1.4) mg/dL Estim Creat Clear Calc 54.7 Estimated GFR > 60 Random Glucose 100 (60-115) mg/dL Calcium 10.1 (8.4-10.2) mg/dL Magnesium 1.8 (1.6-2.6) mg/dL Total Bilirubin 0.5 (0.0-1.0) mg/dL AST 28 (5-31) U/L ALT 20 (0-31) U/L Alkaline Phosphatase 65 (39-117) U/L Troponin I High Sens 5.2 D (<3.5-17.0) ng/L B-Natriuretic Peptide 73 (<100) pg/mL Total Protein 7.3 (6.5-8.0) g/dL Albumin 4.2 (3.5-5.0) g/dL Influenza Type A (PCR) NEGATIVE (Negative) Influenza Type B (PCR) NEGATIVE (Negative) RSV RNA Qual (PCR) NEGATIVE (Negative) SARS-CoV-2 RNA (RT-PCR) NEGATIVE (Negative) Independent Interpretation I performed an independent interpretation of an: EKG and CT Scan (no findings of pain) Interpretation: Rate: 66 Rhythm: NSR [place]: normal Normal P waves. Normal ALBERTO. Normal QRS complex. ST T wave : no ELLIS, normal qTC: 381 prior studies: no change from prior The study has been interpreted contemporaneously by me. . Radiology Impression Discussion of test interpretation with radiology: I have reviewed the radiologist's reading. External Record Review External record reviewed: Outpatient record Prescription Management I considered prescription management with: Pain Medication Discharge Plan Discharge Clinical Impression: Pleurisy Patient Disposition: Home, Self-Care Instructions: Pleurisy (ED) Additional Instructions: labs reassuring no covid flu rsv CT scan finds no cause of her pain at this time take tylenol for pain as needed and use lidocaine patches return for any worsening symptoms or concerns CT/CT angio chest PE protocol IMPRESSION: No evidence of pulmonary emboli. Mild emphysema. Left lower lobe scarring. No acute abnormality is identified. Prescriptions: New cyclobenzaprine 10 mg tablet 10 mg PO TID PRN (Reason: muscle spasm) Qty: 14 0RF lidocaine 5 % adhesive patch,medicated 1 patch topical DAILY Qty: 30 0RF Rx Instructions: leave on most painful area for up to 12 hrs No Action losartan 50 mg tablet 50 mg PO DAILY 90 Days Qty: 90 1RF atorvastatin 10 mg tablet 10 mg PO DAILY 90 Days Qty: 90 1RF venlafaxine 25 mg tablet 25 mg PO DAILY 90 Days Qty: 90 0RF buprenorphine-naloxone 8-2 mg film 16 mg sublingual DAILY ibuprofen 600 mg tablet 600 mg PO Q6H PRN (Reason: fever or pain) Qty: 30 0RF ipratropium-albuterol 0.5 mg-3 mg(2.5 mg base)/3 mL Solution For Nebulization 3 ml inhalation TID Qty: 180 0RF Genvoya [phone] mg tablet 1 tab PO DAILY calcium carbonate-vitamin D3 500 mg(1,250mg) -50 unit capsule 1 cap PO DAILY (DME) nebulizers Misc See Rx Instructions .Route Qty: 1 0RF Rx Instructions: copd, use PRN albuterol sulfate 90 mcg/actuation HFA aerosol inhaler 1 puff PO QID PRN (Reason: for dyspnea) Qty: 8.5 3RF nystatin 100,000 unit/mL suspension 100,000 unit PO QID 10 Days Qty: 40 0RF Rx Instructions: swish in the mouth and retain for as long as possible (several minutes) before swallowing. aspirin [Shakira Low Dose Aspirin] 81 mg tablet,delayed release (DR/EC) 81 mg PO DAILY albuterol sulfate 2.5 mg /3 mL (0.083 %) solution for nebulization 2.5 mg inhalation Q4-6H PRN (Reason: shortness of breath or wheezing) Qty: 90 0RF doxycycline monohydrate 100 mg capsule 100 mg PO BID 7 Days Qty: 14 0RF prednisone 10 mg tablet 40 mg PO DAILY 3 Days Qty: 30 0RF Rx Instructions: then take 3 tabs for 3 days, then 2 tabs for 3 days, then 1 tab for 3 days. Print Language: [place] Island[place]
[2024-10-03 12:00] VITALS: BP 136/66; PULSE 74; RESP 18; TEMP 36.6; O2SAT 96
[2024-10-03] MEDS: iohexoL 350 MG/ML 100 ML INFUS..BTL IV (12:02)
--- NOTE | 2024-10-03 12:02 | ECG_ITS ---
Test Reason : SOB Blood Pressure : */* mmHG Vent. Rate : 66 BPM Atrial Rate : 66 BPM P-R Int : 132 ms QRS Dur : 78 ms QT Int : 364 ms P-R-T Axes : 67 55 58 degrees QTcB Int : 381 ms Normal sinus rhythm Minimal voltage criteria for LVH, may be normal variant ( Sokolow-Barkley ) Borderline ECG When compared with ECG of 16-Jul-2023 09:18, No significant change was found Referred By: Mayte Hollis Electronically Signed By: ZEINAB SHI
[2024-10-03 12:30] LABS: Influenza A PCR NEGATIVE (Negative); Influenza B PCR NEGATIVE (Negative); Resp Syncy Virus RNA Qual PCR NEGATIVE (Negative); SARS COV2 PCR INHOUSE NEGATIVE (Negative)
[2024-10-03 13:25] VITALS: BP 136/66; PULSE 74; RESP 18; TEMP 36.6; O2SAT 96
== END 2024-10-03 13:26 | disposition home or self-care (01) ==
PROVIDERS: Emergency Provider Emergency Medicine; PCP Nurse Practitioner Family
DX: R09.1 Pleurisy (principal); R06.02 Shortness of breath; R05.9 Cough, unspecified; B20 Human immunodeficiency virus [HIV] disease; B19.20 Unspecified viral hepatitis C without hepatic coma; I10 Essential (primary) hypertension; E78.5 Hyperlipidemia, unspecified; F17.210 Nicotine dependence, cigarettes, uncomplicated; Z03.818 Encounter for observation for suspected exposure to other biological agents ruled out; Z79.02 Long term (current) use of antithrombotics/antiplatelets; Z79.899 Other long term (current) drug therapy
CPT/HCPCS: 0241U; 36415; 71275; 80053; 83735; 83880; 84484; 85025; 93005; 99284; 99285; Q9967

== ENCOUNTER → 2024-10-03 11:14 | Outpatient (BNV) | payer MEDICARE, SELFPAY | PROVIDERS: Emergency Provider Emergency Medicine; PCP Nurse Practitioner Family; Visit Provider Radiology Diagnostic Radiology | DX: J98.4 Other disorders of lung (principal) | CPT/HCPCS: 71275 ==

== ENCOUNTER → 2024-10-03 12:02 | Outpatient (BNV) | payer MEDICARE, SELFPAY | PROVIDERS: Emergency Provider Emergency Medicine; PCP Nurse Practitioner Family; Visit Provider Internal Medicine | DX: R06.02 Shortness of breath (principal) | CPT/HCPCS: 93010 ==

== ENCOUNTER 2024-10-21 09:47 | Outpatient (AMB) | payer MEDICARE, SELFPAY ==
[2024-10-21 09:48] VITALS: BP 118/76; PULSE 73; RESP 18; TEMP 36.9; O2SAT 97; BMI 18.5
--- NOTE | 2024-10-21 09:48 | A.OFFPC_ITS ---
Vital Signs 10/21/24 09:48 Height 5 ft 5 in Weight 111 lb BMI 18.5 BP 118/76 Blood Pressure Location Lt brachial Position Sitting Respiration 18 Pulse 73 Pulse Source Pulse Oximeter Temp 98.4 F Temp Source Oral Pulse Oximetry (%) 97 Oxygen Delivery Method Room Air Intake Visit Reasons: 6 months follow up Intake Note: Pt is here today for 6 months follow up visit. Allergies abacavir Allergy (Severe, Verified 10/21/24 09:49) high fever erythromycin base Allergy (Unknown, Verified 10/21/24 09:49) Unknown Tobacco use date assessed: 10/21/24 Fall risk assessment: No Falls in past year Last assessed Fall Risk: 10/21/24 Dental Screening Dental Screen Date: 10/21/24 Did you have a dental visit in the last 12 months?: No Did you have a dental problem in the last 6 months where you did not have access to dental care?: No Was dental information given to patient?: Patient declined HPI 6 months follow up HPI Details Chief Complaint The patient presents with a cough and increased shortness of breath. History of Present Illness The patient is a 64-year-old female presenting with a cough and increased shortness of breath. The symptoms are particularly noticeable on the left side of the chest, under the breast, and laterally during deep breathing. The cough and associated dyspnea have been worsening. A computed tomography angiography performed on October 03, 2024, indicated mild emphysema and scarring of the left lower lobe but was negative for pulmonary embolism. The patient denies fever, chills, and systemic symptoms such as chest pain outside of the noted breathing difficulty. Social History Health Maintenance Review of Systems - Respiratory: Reports cough and increas ed shortness of breath aggravated by breathing. - Constitutional: Denies fever and chill s. - Skin: Denies skin problems. - Lymphatic: Denies lymphadenopathy. - Musculoskeletal: Denies pain or aggrav ated discomfort with palpation or torso movement. Physical Exam General: Cooperative, healthy appearing, comfortable, no acute distress and well developed Orientation: Patient oriented x3 Limitations: No limitations Head: Normal to inspection Ears: Hearing grossly normal bilaterally Nose: Normal external nose present Face and sinus: Normal facial exam Eyes: Appearance normal, both eyes and all related structures Neck: Normal visual inspection and Yes full ROM Respiratory: Diminished lung sounds on the left side with faint wheezing. Normal respiratory effort and able to speak in complete sentences. Cardiovascular: Regular rate and rhythm. Normal S1 and S2 GI: Normal to inspection. Soft to palpation and nontender Skin: No rashes or lesions noted Neuro: Patient oriented x3 Extremities: Normal to inspection Results - Imaging: CTA performed on 10/03/2024 wa s negative for pulmonary embolism; findings included mild emphysema and left lower lobe scarring. WBC elevated (pt on steroids at the time) Plan The plan is to repeat the computed tomography scan with contrast to evaluate any potential changes in the pulmonary conditions. This repeat imaging aims to detect any progressions in the mild emphysema or left lower lobe scarring and guide further management strategies. The patient should maintain regular follow- up with the ship loader based on the outcome of the results. It is crucial that the patient understands the necessity of seeking immediate care for any significant worsening of symptoms. Discussion Notes I discussed with the patient the potential causes of her symptoms, including the presence of mild emphysema and scarring in the left lower lobe as identified on the CTA. We considered repeating the scan with contrast to rule out worsening conditions. I explained the risks and benefits of this approach, emphasizing that the scan will help in closely monitoring her lung health. The need for follow-up with a ship loader was also stressed based on findings, to adjust any therapies as needed. I advised her on signs and symptoms that would necessitate an ER visit, such as a significant increase in shortness of breath or onset of chest pain. Patient Instructions - Seek immediate medical attention if sy mptoms like severe shortness of breath or chest pain worsen. - Prepare for a repeat CT scan with cont rast as scheduled. - Follow up with your ship loader base d on imaging results. - Report any new or worsening symptoms p romptly. [facility] Medical History Nicotine dependence, cigarettes, uncomplicated Tongue sore Liver cirrhosis COPD (chronic obstructive pulmonary disease) PVD (peripheral vascular disease) History of opioid abuse Osteopenia GERD (gastroesophageal reflux disease) Hyperlipidemia Hepatitis C (~1998) PTSD (post-traumatic stress disorder) HTN (hypertension) HIV (human immunodeficiency virus infection) (~1996) Surgical History History of colonoscopy (~2016) History of esophagogastroduodenoscopy (EGD) (~2017) History of angioplasty (~2018) History of carpal tunnel surgery of right wrist (~2003) History of liver biopsy (~2001) Hx of cholecystectomy (~2001) History of hysterectomy Family History (Reviewed 10/21/24 @ 10:09 by Dami Grajeda [facility]) Mother Lung cancer Father Substance use disorder Son Substance use disorder Social History (Reviewed 10/21/24 @ 10:09 by Dami Grajeda [facility]) Household Members: None Housing: Apartment Do you presently have visiting nurse or other home services: No Alcohol intake: current Patient Tobacco Use Status: Current everyday Tobacco user Tobacco use type: Cigarette Cigarette Packs Per Day: 1 Cigarettes Per Day: 20 Years Smoked: 50 e-Cigarette/Vaping Use: Never Used Second Hand Smoke Exposure: No service: No Current occupational status: employed 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 1. Little interest or pleasure in doing things: several days 2. Feeling down, depressed, or hopeless: several days 3. Trouble falling or staying asleep, or sleeping too much: more than half the days 4. Feeling tired or having little energy: more than half the days 5. Poor appetite or overeating: several days 6. Feeling bad about yourself - or that you are a failure or have let yourself or your family down: not at all 7. Trouble concentrating on things, such as reading the newspaper or watching television: not at all 8. Moving or speaking so slowly that other people could have noticed. Or the opposite - being so fidgety or restless that you have been moving around a lot more than usual: not at all 9. Thoughts that you would be better off or of hurting yourself in some way: not at all Total score: 7 Depression Screening Interpretation: Negative Depression Screening Done: Yes 69973 - PHQ-9 Billing: Yes Source: Developed by Drs. Richard Gonzalez, Annie Pérez, James Nevarez and colleagues, with an educational florinda from [employer]. Thrive Questionnaire Date Thrive assessed: 10/21/24 I am a: Patient What is your living situation today?: I have a steady place to live Within the past 12 months, did the food you bought not last and you didn't have the money to get more?: Never true Within the past 12 months, did you worry whether your food would run out before you got money to buy more?: Never true Do you have trouble paying for medicines?: No Do you have trouble getting transportation to medical appointments?: No Do you have trouble paying your heating and electricity bill?: No Do you have trouble taking care of your child, family member or friend?: No Do you have trouble with day-to-day activities such as bathing, preparing meals, shopping, managing finances, etc.?: No Are you currently unemployed and looking for a job?: No Are you interested in more education?: No Please select the resources that you would like help with: None Currently or been in a relationship where the following occur: No concerns reported THRIVE Score: 0 AUDIT C Alcohol Use Questionnaire (AUDIT-C) 1. How often do you have a drink containing alcohol?: 2-4 times a month 2. How many drinks containing alcohol do you have on a typical day when you are drinking?: 1 or 2 3. How often do you have six or more drinks on one occasion?: Never Total Score: 2 PEARL-7 AMB Questionnaire PEARL-7 Date PEARL - 7 assessed: 10/21/24 Feeling nervous, anxious, or on edge: 0 = Not at all Not being able to stop or control worryin = Several days Worrying too much about different things: 1 = Several days Trouble relaxin = Not at all Being so restless that it is hard to sit still: 0 = Not at all Becoming easily annoyed or irritable: 0 = Not at all Feeling afraid as if something awful might happen: 0 = Not at all Total PEARL-7 score (0-4 normal; 5-9 mild; 10-14 moderate; 15-21 severe): 2 Source: Developed by Drs. Richard Gonzalez, Annie Pérez, James Nevarez and colleagues, with an educational florinda from [employer] PEARL-7 Assessment Billing PEARL-7 Assessment Tool: PEARL-7 Assessment 71213 Physical exam (Primary Care) Vital Signs: Last Vital Signs Temp 98.4 F 10/21/24 09:48 Pulse 73 10/21/24 09:48 Resp 18 10/21/24 09:48 BP 118/76 10/21/24 09:48 Pulse Ox 97 10/21/24 09:48 Oxygen Delivery Method Room Air 10/21/24 09:48 BMI result Body Mass Index 18.5 Tobacco/Smoking Status: Tobacco use Status Tobacco use date assessed 10/21/24 10/21/24 09:51 Patient Tobacco Use Status Current everyday Tobacco 10/21/24 09:51 Tobacco use type Cigarette 10/21/24 09:51 e-Cigarette/Vaping Use Never Used 10/21/24 09:51 PHQ-9: PHQ-9 Score PHQ-9: Total score 7 10/21/24 09:51 Depression Screening Interpretation: Negative Thrive Assessment: Date of Thrive Assessment Date Thrive assessed 10/21/24 10/21/24 09:51 Currently or been in a relationship where the following occur: No concerns repo rted Coding Level of Care Code Est Pt Level 4 (38202) Diagnoses Chronic cough R05.3 Cough type: chronic Chest discomfort R07.89 Additional Codes PEARL-7 Assessment Billing - PEARL-7 Assessment Tool: PEARL-7 Assessment 74218 ([id number]) PHQ-9 - 34322 - PHQ-9 Billing: Yes ([id number]) Assessment & Plan Assessment & Plan (1) Cough: Code(s): R05.9 - Cough, unspecified Category: Medical Qualifiers: Cough type: chronic Qualified Code(s): R05.3 - Chronic cough (2) Chest discomfort: Code(s): R07.89 - Other chest pain Category: Medical Plan . Orders: Orders CT chest w IV con Today R05.3 - Chronic cough, R07.89 - Other chest pain Complete Blood Count Auto Diff Today R05.3 - Chronic cough, R07.89 - Other chest pain TSH reflex Free T4 Today R05.3 - Chronic cough, R07.89 - Other chest pain Comprehensive Met. Panel Today R05.3 - Chronic cough, R07.89 - Other chest pain UA CC w/rflx Micro + Cult Today R05.3 - Chronic cough, R07.89 - Other chest pain Medications: New varenicline tartrate (Chantix) starter pack 0.5 mg PO BID 30 days 60 tabs 0RF
== END 2024-10-21 13:36 | disposition home or self-care (01) ==
LOC: HO.HMCC 09:48
PROVIDERS: PCP Nurse Practitioner Family; Visit Provider Nurse Practitioner Family
DX: R05.3 Chronic cough (principal); R07.89 Other chest pain

== ENCOUNTER → 2024-10-21 09:47 | Outpatient (BNVA) | payer MEDICARE, SELFPAY | PROVIDERS: PCP Nurse Practitioner Family; Visit Provider Nurse Practitioner Family | DX: R05.3 Chronic cough (principal); R07.89 Other chest pain | CPT/HCPCS: 96127; 99212 ==

== ENCOUNTER 2024-11-07 09:54 | Outpatient (AMB) | payer MEDICARE, SELFPAY ==
[2024-11-07 10:03] VITALS: BP 118/60; PULSE 73; O2SAT 94; BMI 18.2
--- NOTE | 2024-11-07 10:03 | A.OFFVIS_ITS ---
Vital Signs 11/07/24 10:03 Height 5 ft 5 in Weight 109 lb 8 oz BMI 18.2 BP 118/60 Blood Pressure Location Lt brachial Position Sitting Pulse 73 Pulse Source Pulse Oximeter Pulse Oximetry (%) 94 Oxygen Delivery Method Room Air Intake Visit Reasons: COPD/ [facility] ER FU/ CTA FU Allergies abacavir Allergy (Severe, Verified 11/07/24 10:06) high fever erythromycin base Allergy (Unknown, Verified 11/07/24 10:06) Unknown HPI HPI COPD/ [facility] ER FU/ CTA FU: Details: Varsha is a pleasant 64-year-old female, current smoker with 50 pack year history with underlying history of HIV, hepatitis-C with cirrhosis, hypertension, hyperlipidemia and opioid use disorder on Suboxone. She has been suboptimally controlled on Symbicort continues with dyspnea on exertion, productive morning cough and intermittent wheezing. Of note, symbicort no longer covered by insurance and previously prescribed DuoNeb, also not covered. She was recently treated for bronchitic symptoms with doxycycline and prednisone afer traveling in September with associated pleuritic discomfort. She was evaluated at [facility] ED on 10/03 diagnosed with pleurisy, CTA negative for PE. She continues to report pleuritic discomfort in the left substernal area that completely resovled with prednisone however once discontinued symptoms returned. She reports pain is sharp in nature and worsened with inspiration/cough. PCP ordered CT with IV contrast which is scheduled later today. She also will be starting Chantix as she continues to smoke 1 ppd and is motivated to quit. [facility] Medical History Nicotine dependence, cigarettes, uncomplicated Tongue sore Liver cirrhosis COPD (chronic obstructive pulmonary disease) PVD (peripheral vascular disease) History of opioid abuse Osteopenia GERD (gastroesophageal reflux disease) Hyperlipidemia Hepatitis C (~1998) PTSD (post-traumatic stress disorder) HTN (hypertension) HIV (human immunodeficiency virus infection) (~1996) Surgical History History of colonoscopy (~2016) History of esophagogastroduodenoscopy (EGD) (~2016) History of angioplasty (~2017) History of carpal tunnel surgery of right wrist (~2003) History of liver biopsy (~2001) Hx of cholecystectomy (~2001) History of hysterectomy Family History Mother Lung cancer Father Substance use disorder Son Substance use disorder Social History Household Members: None Housing: Apartment Do you presently have visiting nurse or other home services: No Alcohol intake: current Patient Tobacco Use Status: Current everyday Tobacco user Tobacco use type: Cigarette Cigarette Packs Per Day: 1 Cigarettes Per Day: 20 Years Smoked: 50 e-Cigarette/Vaping Use: Never Used Second Hand Smoke Exposure: No service: No Current occupational status: employed 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, 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 Cognitive needs: No Hearing needs: No Vision needs: No Review of Systems Const Denies chills, Denies excessive sweating, Denies fever(s), Denies headache(s) and Denies night sweats Eyes Denies dry eyes, Denies irritation and Denies itchy eyes ENT Reports Normal hearing present, Denies headache(s), Denies nasal congestion, Denies nasal discharge, Denies post nasal drip and Denies sore throat Card Denies chest pain, Denies chest pain at rest, Denies chest pain with activity, Denies claudication, Denies leg edema, Reports dyspnea on exertion, Denies orthopnea and Denies paroxysmal nocturnal dyspnea Resp Denies chest congestion, Reports cough, Denies excessive phlegm production, Denies pain on inspiration, Denies pain with cough, Reports dyspnea on exertion, Denies stridor and Reports wheezing Musc Denies myalgias Neuro Reports Normal hearing present and Denies headache(s) Endo Denies excessive sweating Nura/Lymph Denies lymphadenopathy Aller/Immun Denies itchy eyes, Denies seasonal rhinorrhea and Reports wheezing Physical Exam Vital Signs: Last Vital Signs Pulse 73 11/07/24 10:03 BP 118/60 11/07/24 10:03 Pulse Ox 94 11/07/24 10:03 Oxygen Delivery Method Room Air 11/07/24 10:03 BMI result Body Mass Index 18.2 Const General: cooperative, healthy appearing, comfortable, no acute distress, well developed and alert Orientation/consciousness: patient oriented x3 Limitations: no limitations HEENT Head: Yes normal to inspection, Yes normocephalic and Yes atraumatic Ears: hearing grossly normal bilaterally and external ears normal Eyes General: appearance normal, both eyes and all related structures Eyelids: Yes eyelids normal Sclerae: sclerae normal EOM: EOMs intact bilaterally Neck Neck: Yes normal visual inspection and Yes no lymphadenopathy Lymphatic: no lymphadenopathy noted Chest Chest palpation & inspection: normal inspection of the chest Resp Other: improved aeration after DuoNeb Effort & Inspection: normal respiratory effort, able to speak in complete sentences, no audible wheezes, no cough, no stridor, not tachypneic, no tripod positioning and no use of accessory muscles Auscultation: diminished lung sounds Cardio Jugular venous distension: no JVD Rate: regular rate Rhythm: regular rhythm Skin Other: warm, dry General skin exam: no rashes or lesions noted Neuro General: patient oriented x3 Cranial nerves: Yes Normal hearing present Cognition (Neuro): normal cognition Gait exam (Neuro): Normal gait present Extrem General: Yes normal to inspection, Yes capillary refill normal, Yes no clubbing, cyanosis or edema and Yes no pedal edema Psych Appearance: grossly normal and well kempt Speech and movement: Normal speech and movement present and Clear speech present Affect: normal affect Attitude: cooperative Thought process: Normal thought process present Thought content: Normal thought content present Insight: Good insight present (Psych) Judgement: Good judgement present (Psych) Office Procedures Nebulizer Treatment Nebulizer Treatment [id number]/MDI RX initial, or Nebulizer Subsequent Treatment Office Meds ipratropium 0.5 mg-albuterol 3 mg (2.5 mg base)/3 mL nebulization soln Performing Provider: Dede Acosta NP Performing Location: [facility] Administered by: Sydnee More LPN on 11/07/24 10:42 Dose Route Admin Location Dispensed Lot Number Expiration Date [facility] Nuclear Cardiology Technologist 3 mL inhalation 3 mL [id number] 02/08/26 94899-632-53 [employer] Results Reviewed Results Reviewed: [address] [address] [address] Scan Report Signed Patient: Jenn Stahl MR#: [id number] : 1960 Acct:[id number] Age/Sex: 64 / F ADM Date: 10/03/24 Loc: .ED Attending Dr: Ordering Physician: Mayte Hollis DO Date of Service: 10/03/24 Procedure(s): CT angio chest PE protocol Accession Number(s): [id number] cc: Mayte Hollis DO; Dami Grajeda [employer]TER-BC~ Report Number: [id number]: Total DLP = 175.00 mGy-cm EXAMINATION: CT CHEST ANGIOGRAPHY WITH IV CONTRAST INDICATION: pleuritic L sided chest pain, dyspnea COMPARISON: Comparison is made with the prior examination dated 03/18/2024. TECHNIQUE: Helical CT scan of the chest was performed following administration of intravenous contrast (65 mL Omnipaque 350). The contrast bolus was timed to optimally opacify the pulmonary arteries. Thin sections were obtained through the pulmonary arteries. Coronal and sagittal reformatted images were generated. 3D/MIP reconstructed images are also obtained and reviewed. This CT exam was performed with one or more of the following dose reduction techniques: automated exposure control, adjustment of the mA and/or kV according to patient size, use of iterative reconstruction technique. DLP: 175 mGy-cm CHEST: THYROID: The thyroid gland is unremarkable. PULMONARY ARTERIES: No intraluminal filling defects are identified within the pulmonary arteries to suggest pulmonary emboli. LUNGS: There are mild emphysematous changes. Again seen is scarring in the left lower lobe. The lungs are otherwise clear. MEDIASTINUM: There is no mediastinal lymphadenopathy. JUAN PABLO: There is no hilar lymphadenopathy. CARDIOVASCULATURE: The heart is normal in size. There is no pericardial effusion. Again seen is dilatation of the ascending thoracic aorta measuring up to 3.7 cm in diameter. DEGREE OF CORONARY CALCIFICATION: mild PLEURA: There is no pleural effusion. No pneumothorax. MAIN AIRWAYS: The mainstem bronchi and proximal branches are patent. AXILLA: There is no axillary lymphadenopathy. UPPER ABDOMEN: The visualized portions of the liver, spleen, and adrenals are unremarkable. BONES AND SOFT TISSUES: There is degenerative disc disease of the spine. CT/CT angio chest PE protocol IMPRESSION: No evidence of pulmonary emboli. Mild emphysema. Left lower lobe scarring. No acute abnormality is identified. Electronically signed by: Richard Elizondo MD 10/03/2024 12:36 PM EDT RP Dictated By: Richard Elizondo MD Signed By: <Electronically signed by Richard Elizondo MD in OV> 10/03/24 1236 DD/ 1156 TD/TT: 10/03/24 1211 Certified Credit Counselor: Assessment & Plan Assessment & Plan (1) COPD (chronic obstructive pulmonary disease): Code(s): J44.9 - Chronic obstructive pulmonary disease, unspecified Category: Medical (2) Nicotine dependence, cigarettes, uncomplicated: Comment: (Current smoker, onset 12, 1-1.5ppd x 45yrs, now 1/2-3/4ppd, 50+PYH + fam hx lung ca - in LDCT program) Code(s): F17.210 - Nicotine dependence, cigarettes, uncomplicated Category: Medical (3) Pleuritic pain: Code(s): R07.81 - Pleurodynia Category: Medical Plan Jenn reports suboptimal control on Symbicort, will switch to Trelegy and resend DuoNeb as her insurance recently changed. She is aware to call if symptoms do not improve. Will also send prednisone rx for pleurisy and await reading from chest CT scheduled later today. She is aware if symptoms worsen to seek emergent care. CTA 09/2024 negative for PE. Smoking cessation reviewed and patient motivated to quit with initiation of Chantix. All questions were answered and patient is in agreement of plan. Will follow up in 6-8 weeks or sooner if needed. Orders: Orders AMB Nebulizer Treatment Today J44.9 - Chronic obstructive pulmonary disease, unspecified Medications: New xfusjebcmwe-gucagmdxb-hgnxdquj 200-62.5-25 mcg (Trelegy Ellipta) 1 inh inhalation DAILY 60 ea 6RF prednisone see taper instructions; 40 mg Daily x3 days, 30 mg daily x3 days, 20 mg daily x3 days, 10 mg daily x3 days 10 mg PO DIRECTED 30 tabs 0RF Refilled ipratropium-albuterol 0.5 mg-3 mg(2.5 mg base)/3 mL 3 mL inhalation TID 180 mL 0RF ipratropium-albuterol 0.5 mg-3 mg(2.5 mg base)/3 mL 3 mL inhalation TID 180 mL 6RF J44.9 - Chronic obstructive pulmonary disease, unspecified albuterol sulfate 90 mcg/actuation 1 puff PO QID PRN 8.5 grams 3RF for dyspnea Coding Level of Care Code Est Pt Level 4 (55176) Diagnoses COPD (chronic obstructive pulmonary disease) J44.9 Nicotine dependence, cigarettes, uncomplicated F17.210 Pleuritic pain R07.81 CPT Codes Nebulizer Treatment - Nebulizer Treatment, initial or subsequent: 22746- Nebulizer/MDI RX initial, or Nebulizer Subsequent Treatment ([id number])
== END 2024-11-07 10:53 | disposition home or self-care (01) ==
LOC: HO.HPSW 10:01
PROVIDERS: PCP Nurse Practitioner Family; Visit Provider Nurse Practitioner Family
DX: J44.9 Chronic obstructive pulmonary disease, unspecified (principal); F17.210 Nicotine dependence, cigarettes, uncomplicated; R07.81 Pleurodynia
CPT/HCPCS: 99214

== ENCOUNTER 2024-11-07 15:26 | Outpatient (REF) | payer MEDICARE, SELFPAY ==
--- NOTE | ~2024-11-07 | CT_ITS ---
EXAMINATION: CT CHEST WITH CONTRAST CLINICAL INFORMATION: Other chest pain. COMPARISON: None available. TECHNIQUE: Multidetector volumetric CT imaging of the chest was obtained after the administration of 50 mL of Omnipaque 350 intravenous contrast without immediate adverse reactions. Axial MIP volume rendering provided. Sagittal and coronal reformatted images were obtained. This CT examination was performed using dose optimization techniques as appropriate, variously including the following: *Automated exposure control *Adjustment of mA and/or kV according to patient size (this includes techniques or standardized protocols for targeted exams where dose is matched to indication/reason for exam; i.e. extremities or head) *Use of iterative reconstruction technique FINDINGS: LUNGS: Mild centrilobular emphysema with upper lobe predominance. Trace scarring in the anterior left lower lobe. Minimal scarring or atelectasis in the lingula and medial right middle lobe. No consolidations or abnormal groundglass opacities. Small airways are normal without thickening. No pleural effusion or pneumothorax. No suspicious pulmonary nodule evident. MEDIASTINUM: Normal thyroid. No adenopathy or mass. Aorta is normal in caliber with mild to moderate atheromatous calcification. Great vessels are patent with mild to moderate atheromatous calcification. Main pulmonary artery is normal in size. Central airways are patent. No esophageal abnormality. The heart is normal in size. No pericardial effusion. There are mild three-vessel coronary calcifications. AXILLA/CHEST WALL: No masses or lymphadenopathy. UPPER ABDOMEN: There is diffuse fatty infiltration of the liver. There has been a cholecystectomy. Remainder the imaged upper abdominal contents appear normal. OSSEOUS STRUCTURES: No suspicious lytic or blastic bone lesions. Mild degenerative spinal changes. Sclerosis of the endplates at T10-T11 and T11-T12. CT/CT chest w IV con IMPRESSION: 1. Mild centrilobular emphysema without active lung disease. Electronically signed by: Tyree León MD 11/07/2024 04:11 PM EDT
[2024-11-07] MEDS: iohexoL 350 MG/ML 100 ML INFUS..BTL IV (16:01)
[2024-11-07 17:52] LABS: Creatinine POC 0.7 mg/dL (0.5-1.4); GFR POC > 60
== END 2024-11-07 15:27 | disposition home or self-care (01) ==
LOC: HO.CT 15:26
PROVIDERS: PCP Nurse Practitioner Family; Visit Provider Nurse Practitioner Family
DX: R07.89 Other chest pain (principal); R05.3 Chronic cough
CPT/HCPCS: 71260; 82565; Q9967

== ENCOUNTER → 2024-11-07 15:28 | Outpatient (BNV) | payer MEDICARE, SELFPAY | PROVIDERS: PCP Nurse Practitioner Family; Visit Provider Radiology Diagnostic Radiology | DX: R07.89 Other chest pain (principal) | CPT/HCPCS: 71260 ==

== ENCOUNTER 2024-12-26 13:48 | Outpatient (AMB) | payer MEDICARE, SELFPAY ==
--- OUTSIDE RECORDS SUMMARY | 2024-12-26 13:51 | XMS_ITS | Patient Health Record ---
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
--- NOTE | 2024-12-26 13:52 | A.OFFVIS_ITS ---
Vital Signs 12/26/24 13:58 Height 5 ft 5 in Weight 109 lb BMI 18.1 BP 126/70 Pulse 73 Pulse Source Pulse Oximeter Pulse Oximetry (%) 97 Oxygen Delivery Method Room Air Intake Visit Reasons: COPD [employer] Workers Required: No District Gauger: District Gauger offered & declined Accompanied by: Self / Same As Patient Allergies abacavir Allergy (Severe, Verified 12/26/24 13:53) high fever erythromycin base Allergy (Unknown, Verified 12/26/24 13:53) Unknown Medication List - Last Reconciled 12/26/24 by Sydnee More LPN albuterol sulfate 2.5 mg (3 mL) inhalation Q4-6H PRN albuterol sulfate 90 mcg/actuation 1 puff PO QID PRN aspirin (Shakira Low Dose Aspirin) 81 mg PO DAILY atorvastatin 10 mg PO DAILY 90 days buprenorphine-naloxone 8-2 mg 16 mg sublingual DAILY calcium carbonate-vitamin D3 500 mg(1,250mg) -50 unit 1 cap PO DAILY aqjxkkt-dxp-dyfsf-tenof alafen 199-544-813-10 mg (Genvoya) 1 tab PO DAILY iodpgefpoqj-inygsriyi-mtwgwyzu 200-62.5-25 mcg (Trelegy Ellipta) 1 inh inhalation DAILY ibuprofen 600 mg PO Q6H PRN ipratropium-albuterol 0.5 mg-3 mg(2.5 mg base)/3 mL 3 mL inhalation TID lidocaine 5% 1 patch topical DAILY losartan 50 mg PO DAILY 90 days nebulizers copd, use PRN varenicline tartrate (Chantix) 0.5 mg PO BID 30 days venlafaxine 25 mg PO DAILY 90 days HPI HPI COPD: Details: Varsha is a pleasant 64-year-old female, current smoker with 50 pack year history with underlying history of HIV, hepatitis-C with cirrhosis, hypertension, hyperlipidemia and opioid use disorder on Suboxone. She was suboptimally controlled on Symbicort and switched to Trelegy with moderate improvements. Unfortunately over the last few weeks she has developed a productive cough with yellow sputum with associated chest congestion. Denies fevers, chills or sick contacts. Since the last visit, she underwent chest CT which did not reveal any significant abnormalities and no concerning pulmonary nodules. The patient has been receiving annual lung cancer screenings with CT scans and will reestablish. The patient is a smoker and has been using Chantix to aid in smoking cessation. She reports a reduction in smoking but has not completely quit. [facility] Medical History Nicotine dependence, cigarettes, uncomplicated Tongue sore Liver cirrhosis COPD (chronic obstructive pulmonary disease) PVD (peripheral vascular disease) History of opioid abuse Osteopenia GERD (gastroesophageal reflux disease) Hyperlipidemia Hepatitis C (~1998) PTSD (post-traumatic stress disorder) HTN (hypertension) HIV (human immunodeficiency virus infection) (~1996) Surgical History History of colonoscopy (~2016) History of esophagogastroduodenoscopy (EGD) (~2016) History of angioplasty (~2017) History of carpal tunnel surgery of right wrist (~2003) History of liver biopsy (~2001) Hx of cholecystectomy (~2001) History of hysterectomy Family History Mother Lung cancer Father Substance use disorder Son Substance use disorder Social History Household Members: None Housing: Apartment Do you presently have visiting nurse or other home services: No Alcohol intake: current Patient Tobacco Use Status: Current everyday Tobacco user Tobacco use type: Cigarette Cigarette Packs Per Day: 1 Cigarettes Per Day: 20 Years Smoked: 50 e-Cigarette/Vaping Use: Never Used Second Hand Smoke Exposure: No service: No Current occupational status: employed 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, 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 Cognitive needs: No Hearing needs: No Vision needs: No Review of Systems Const Denies chills, Denies excessive sweating, Denies fever(s), Denies headache(s) and Denies night sweats Eyes Denies dry eyes, Denies irritation and Denies itchy eyes ENT Reports Normal hearing present, Denies headache(s), Denies nasal congestion, Denies nasal discharge, Denies post nasal drip and Denies sore throat Card Denies chest pain, Denies chest pain at rest, Denies chest pain with activity, Denies claudication, Denies leg edema, Denies dyspnea, Denies dyspnea on exertion, Denies orthopnea and Denies paroxysmal nocturnal dyspnea Resp Denies pain on inspiration, Denies pain with cough, Denies dyspnea, Denies dyspnea on exertion and Denies stridor Musc Denies myalgias Neuro Reports Normal hearing present and Denies headache(s) Endo Denies excessive sweating Nura/Lymph Denies lymphadenopathy Aller/Immun Denies itchy eyes and Denies seasonal rhinorrhea Physical Exam Vital Signs: Last Vital Signs Pulse 73 12/26/24 13:58 BP 126/70 12/26/24 13:58 Pulse Ox 97 12/26/24 13:58 Oxygen Delivery Method Room Air 12/26/24 13:58 BMI result Body Mass Index 18.1 Const General: cooperative, healthy appearing, comfortable, no acute distress, well developed and alert Orientation/consciousness: patient oriented x3 Limitations: no limitations HEENT Head: Yes normal to inspection, Yes normocephalic and Yes atraumatic Ears: hearing grossly normal bilaterally and external ears normal Eyes General: appearance normal, both eyes and all related structures Eyelids: Yes eyelids normal Sclerae: sclerae normal EOM: EOMs intact bilaterally Neck Neck: Yes normal visual inspection and Yes no lymphadenopathy Lymphatic: no lymphadenopathy noted Chest Chest palpation & inspection: normal inspection of the chest Resp Effort & Inspection: normal respiratory effort, able to speak in complete sentences, no audible wheezes, no cough, no stridor, not tachypneic, no tripod positioning and no use of accessory muscles Auscultation: diminished lung sounds Cardio Jugular venous distension: no JVD Rate: regular rate Rhythm: regular rhythm Skin Other: warm, dry General skin exam: no rashes or lesions noted Neuro General: patient oriented x3 Cranial nerves: Yes Normal hearing present Cognition (Neuro): normal cognition Gait exam (Neuro): Normal gait present Extrem General: Yes normal to inspection, Yes capillary refill normal, Yes no clubbing, cyanosis or edema and Yes no pedal edema Psych Appearance: grossly normal and well kempt Speech and movement: Normal speech and movement present and Clear speech present Affect: normal affect Attitude: cooperative Thought process: Normal thought process present Thought content: Normal thought content present Insight: Good insight present (Psych) Judgement: Good judgement present (Psych) Results Reviewed Results Reviewed: [address] [address] [address] Scan Report Signed Patient: Jenn Stahl MR#: [id number] : 1960 Acct:[id number] Age/Sex: 64 / F ADM Date: 11/07/24 Loc: HO.CT Attending Dr: Dami Grajeda [facility] Ordering Physician: Dami Grajeda Date of Service: 11/07/24 Procedure(s): CT chest w IV con Accession Number(s): [id number] cc: Dami Grajeda~ Report Number: [id number]: Total DLP = 72.00 mGy-cm EXAMINATION: CT CHEST WITH CONTRAST CLINICAL INFORMATION: Other chest pain. COMPARISON: None available. TECHNIQUE: Multidetector volumetric CT imaging of the chest was obtained after the administration of 50 mL of Omnipaque 350 intravenous contrast without immediate adverse reactions. Axial MIP volume rendering provided. Sagittal and coronal reformatted images were obtained. This CT examination was performed using dose optimization techniques as appropriate, variously including the following: *Automated exposure control *Adjustment of mA and/or kV according to patient size (this includes techniques or standardized protocols for targeted exams where dose is matched to indication/reason for exam; i.e. extremities or head) *Use of iterative reconstruction technique FINDINGS: LUNGS: Mild centrilobular emphysema with upper lobe predominance. Trace scarring in the anterior left lower lobe. Minimal scarring or atelectasis in the lingula and medial right middle lobe. No consolidations or abnormal groundglass opacities. Small airways are normal without thickening. No pleural effusion or pneumothorax. No suspicious pulmonary nodule evident. MEDIASTINUM: Normal thyroid. No adenopathy or mass. Aorta is normal in caliber with mild to moderate atheromatous calcification. Great vessels are patent with mild to moderate atheromatous calcification. Main pulmonary artery is normal in size. Central airways are patent. No esophageal abnormality. The heart is normal in size. No pericardial effusion. There are mild three-vessel coronary calcifications. AXILLA/CHEST WALL: No masses or lymphadenopathy. UPPER ABDOMEN: There is diffuse fatty infiltration of the liver. There has been a cholecystectomy. Remainder the imaged upper abdominal contents appear normal. OSSEOUS STRUCTURES: No suspicious lytic or blastic bone lesions. Mild degenerative spinal changes. Sclerosis of the endplates at T10-T11 and T11-T12. CT/CT chest w IV con IMPRESSION: 1. Mild centrilobular emphysema without active lung disease. Electronically signed by: Tyree León MD 11/07/2024 04:11 PM EDT Dictated By: Tyree León MD Signed By: <Electronically signed by Tyree León MD in OV> 11/07/24 1611 DD/ 1542 TD/TT: 11/07/24 1600 Hydrographer: Assessment & Plan Assessment & Plan (1) COPD (chronic obstructive pulmonary disease): Code(s): J44.9 - Chronic obstructive pulmonary disease, unspecified Category: Medical (2) Nicotine dependence, cigarettes, uncomplicated: Comment: (Current smoker, onset 12, 1-1.5ppd x 45yrs, now 1/2-3/4ppd, 50+PYH + fam hx lung ca - in LDCT program) Code(s): F17.210 - Nicotine dependence, cigarettes, uncomplicated Category: Medical Plan The patient will be treated with Augmentin for 10 days to address the productive cough with yellow sputum, indicating a possible underlying infection. She is advised to use the nebulizer in the mornings to help clear mucus and improve airway function in addition to Trelegy. Smoking cessation is strongly encouraged, and the patient is advised to resume Chantix to aid in quitting smoking completely. Annual CT scans for lung cancer screening will continue, with the next one scheduled for October of the following year. Follow-up is planned in three months to reassess the cough and overall pulmonary health. All questions were answered and patient is in agreement of plan. Medications: New amoxicillin-pot clavulanate 875-125 mg 1 tab PO Q12H 20 tabs 0RF Coding Level of Care Code Est Pt Level 4 (41059) Diagnoses COPD (chronic obstructive pulmonary disease) J44.9 Nicotine dependence, cigarettes, uncomplicated F17.210
[2024-12-26 13:58] VITALS: BP 126/70; PULSE 73; O2SAT 97; BMI 18.1
== END 2024-12-26 14:23 | disposition home or self-care (01) ==
LOC: HO.HPSW 13:49
PROVIDERS: PCP Nurse Practitioner Family; Visit Provider Nurse Practitioner Family
DX: J44.9 Chronic obstructive pulmonary disease, unspecified (principal); F17.210 Nicotine dependence, cigarettes, uncomplicated
CPT/HCPCS: 99214

== ENCOUNTER → 2024-12-26 13:48 | Outpatient (BNVA) | payer MEDICARE, SELFPAY | PROVIDERS: PCP Nurse Practitioner Family; Visit Provider Nurse Practitioner Family | DX: J44.9 Chronic obstructive pulmonary disease, unspecified (principal); F17.210 Nicotine dependence, cigarettes, uncomplicated; Z71.6 Tobacco abuse counseling; Z79.82 Long term (current) use of aspirin; Z79.899 Other long term (current) drug therapy | CPT/HCPCS: 99212 ==

== ENCOUNTER 2025-03-13 13:38 | Outpatient (AMB) | payer MEDICARE, SELFPAY ==
--- NOTE | 2025-03-13 13:51 | AM.OFFVISNUR ---
Vital Signs 03/13/25 13:53 03/13/25 13:56 Height 5 ft 5 in 5 ft Weight 103 lb BMI 20.1 BP 162/80 H Blood Pressure Location Lt brachial Position Sitting Pulse 88 Pulse Source Pulse Oximeter Temp 98.7 F Temp Source Oral Pulse Oximetry (%) 92 Oxygen Delivery Method Room Air Intake Visit Reasons: EP SOB, sick 2 weeks, sore throat/cold symp Intake Note: Pt came into the [place]. Ambulated (I) gait steady to triage room. Pt c/o shortness of breath, productive cough (yellow/green) and a headache. Pt appears anxious stated that she is short of breath. Pt speaks in full sentences. Lungs - diminished all lobes. Inital 02 sat 89% on room air. O2 sat decreased to 86% then 89% and then 95% on room air. Pt stated that she used her duoneb machine this am and her medication Trellegy inhaler was used. Pt stated that she smoke approximately 13 cigarettes daily. SHABBIR (Citlalli) and Caitlyn (BESS) aware. Allergies abacavir Allergy (Severe, Verified 03/13/25 13:58) high fever erythromycin base Allergy (Unknown, Verified 03/13/25 13:58) Unknown Coding
--- OUTSIDE RECORDS SUMMARY | 2025-03-13 13:53 | XMS_ITS | Patient Health Record ---
Author Organization [facility] Address [address] [place] [address] Care Team Providers Care Senior Operator Name Role Phone Richard Varela Unavailable [phone] Reason For Referral No Information Plan Of Treatment No Information
[2025-03-13 13:56] VITALS: BP 162/80; PULSE 88; TEMP 37.1; O2SAT 95; BMI 20.1
--- NOTE | 2025-03-13 13:56 | MHC.OFFWIV ---
Intake Vital Signs 03/13/25 13:53 03/13/25 13:56 Height 5 ft 5 in 5 ft Weight 103 lb BMI 20.1 BP 162/80 H Blood Pressure Location Lt brachial Position Sitting Pulse 88 Pulse Source Pulse Oximeter Temp 98.7 F Temp Source Oral Pulse Oximetry (%) 95 Oxygen Delivery Method Room Air Intake Visit Reasons: EP SOB, sick 2 weeks, sore throat/cold symp Patient Tobacco Use Status: Current everyday Tobacco user Allergies abacavir Allergy (Severe, Verified 03/13/25 13:58) high fever erythromycin base Allergy (Unknown, Verified 03/13/25 13:58) Unknown Do you need a note to return to daycare/school/sports/work: No HPI EP SOB, sick 2 weeks, sore throat/cold symp HPI Details This is a 64 year old female patient with a PMH significant for htn, Hep C, HIV, COPD, PVD, GERD, presents to the [place] clinic with report of upper respiratory symptoms for the past 2 weeks. She reports this initially started with a runny nose and sore throat for about 1 week. These symptoms have mostly resolved, and for the last week has had increasing sinus pressure and productive cough. Has occasional SOB. Using inhaler and nebulizer at home with some moderate relief. She took a few leftover amoxicillin pills at home over the last few days without any benefit. Denies any fevers however has been feeling hot/cold. [facility] Medical History Nicotine dependence, cigarettes, uncomplicated Tongue sore Liver cirrhosis COPD (chronic obstructive pulmonary disease) PVD (peripheral vascular disease) History of opioid abuse Osteopenia GERD (gastroesophageal reflux disease) Hyperlipidemia Hepatitis C (~1998) PTSD (post-traumatic stress disorder) HTN (hypertension) HIV (human immunodeficiency virus infection) (~1996) Surgical History History of colonoscopy (~2016) History of esophagogastroduodenoscopy (EGD) (~2016) History of angioplasty (~2017) History of carpal tunnel surgery of right wrist (~2003) History of liver biopsy (~2001) Hx of cholecystectomy (~2001) History of hysterectomy Family History Mother Lung cancer Father Substance use disorder Son Substance use disorder Social History Household Members: None Housing: Apartment Do you presently have visiting nurse or other home services: No Alcohol intake: current Patient Tobacco Use Status: Current everyday Tobacco user Tobacco use type: Cigarette Cigarette Packs Per Day: 1 Cigarettes Per Day: 20 Years Smoked: 50 e-Cigarette/Vaping Use: Never Used Second Hand Smoke Exposure: No service: No Current occupational status: employed 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, 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 Cognitive needs: No Hearing needs: No Vision needs: No Review of Systems Const All systems reviewed & are unremarkable except as noted in HPI and below Physical Exam Vital Signs: Last Vital Signs Temp 98.7 F 03/13/25 13:56 Pulse 88 03/13/25 13:56 BP 162/80 H 03/13/25 13:56 Pulse Ox 92 03/13/25 13:56 Oxygen Delivery Method Room Air 03/13/25 13:56 BMI result Body Mass Index 20.1 Const General: cooperative, no acute distress and tired appearing HEENT Head: Yes normal to inspection and Yes normocephalic Ears: hearing grossly normal bilaterally General nose exam: Normal external nose present Face and sinus: Yes normal facial exam and Yes sinus tenderness (frontal/maxillary) Mouth: Normal oral and palatal mucosa present Throat: Yes posterior oropharynx normal Neck Neck: Yes no lymphadenopathy Resp Effort & Inspection: normal respiratory effort and Actively coughing Quality: actively coughing Auscultation: wheezes upper bilaterally Cardio Palpation: normal PMI Rate: regular rate Rhythm: regular rhythm Heart sounds: S1 normal heart sound present and S2 normal heart sound present Skin General skin exam: no rashes or lesions noted Extrem General: Yes capillary refill normal and Yes no clubbing, cyanosis or edema Psych Appearance: grossly normal Mental Status: mental status grossly normal Speech and movement: Normal speech and movement present Assessment & Plan Assessment & Plan (1) Acute asthmatic bronchitis: Code(s): J45.909 - Unspecified asthma, uncomplicated Plan: -Will start patient on Prednisone - she has done well on this for previous illnesses/COPD exacerbations. -Will start on Doxycycline,. We reviewed indications, use, possible side effects of medications prescribed. -She can continue to use inhalers and nebulizer at home prn -We discussed smoking cessation and particularly reduction during episodes of acute illness -We reviewed additional conservative measures for treatment including healthy diet/fluid intake, rest -We discussed that if she does not improve with time and treatment, or if symptoms such as worsening shortness of breath, fevers develop, she should go to the emergency department for evaluation. -All questions were answered and patient verbalizes understanding and agrees to plan (2) Acute sinusitis: Code(s): J01.90 - Acute sinusitis, unspecified Qualifiers: Sinusitis location: maxillary Recurrence: non-recurrent Qualified Code(s): J01.00 - Acute maxillary sinusitis, unspecified Plan: Abx as above Medications: New prednisone 40 mg (2 x 20 mg) PO DAILY 10 tabs 0RF 5 days J45.909 - Unspecified asthma, uncomplicated doxycycline hyclate 100 mg PO BID 14 caps 0RF 7 days J01.00 - Acute maxillary sinusitis, unspecified, J45.909 - Unspecified asthma, uncomplicated Coding Level of Care Code Est Pt Level 4 (63493) Diagnoses Acute asthmatic bronchitis J45.909 Acute non-recurrent maxillary sinusitis J01.00 Sinusitis location: maxillary Recurrence: non-recurrent
== END 2025-03-13 14:29 | disposition home or self-care (01) ==
PROVIDERS: PCP Nurse Practitioner Family; Visit Provider Nurse Practitioner Family
DX: J45.909 Unspecified asthma, uncomplicated (principal); J01.00 Acute maxillary sinusitis, unspecified

== ENCOUNTER → 2025-03-13 13:38 | Outpatient (BNVA) | payer MEDICARE, SELFPAY | PROVIDERS: PCP Nurse Practitioner Family; Visit Provider Nurse Practitioner Family | DX: J01.00 Acute maxillary sinusitis, unspecified (principal); J45.909 Unspecified asthma, uncomplicated; F17.210 Nicotine dependence, cigarettes, uncomplicated; Z79.899 Other long term (current) drug therapy | CPT/HCPCS: 99212 ==

== ENCOUNTER 2025-03-16 06:23 | Inpatient (IN) | payer MEDICARE, SELFPAY ==
[2025-03-16] VITALS (13 sets, daily range): BP systolic 100–153; BP diastolic 65–77; PULSE 61–84; RESP 15–22; TEMP 36.6–36.9; O2SAT 88–98; BMI 27.3; BMI 20.4
--- NOTE | ~2025-03-16 | CT_ITS ---
CLINICAL HISTORY: fall, dyspnea, cough CT chest without contrast Comparison: CT/SR - CT CHEST WITH IV CONTRAST - 11/07/24 15:42 EDT Findings: No cardiomegaly or pericardial effusion. There is ectasia of the ascending thoracic aorta measuring up to 3.8 cm. Moderate atherosclerotic disease of the coronary arteries. There is airway thickening and faint patchy and tree-in-bud densities of the lung bases. No effusion. No pneumothorax. No displaced or acute rib fracture identified. Old left-sided rib fractures are noted. The visualized upper abdomen is unremarkable. No acute osseous findings. Impression: Probable bronchopneumonia versus bronchitis. This document has been electronically signed by: Fred Franco MD on 03/16/2025 08:22:14
--- NOTE | ~2025-03-16 | CT_ITS ---
EXAMINATION: CT ANGIOGRAM CHEST CLINICAL INFORMATION: chest pain, dyspnea, elevated d-dimer COMPARISON: 03/16, 11/07, and 10/03/2024 TECHNIQUE: Multiple axial images were obtained through the chest after the administration of 85 mL of Omnipaque 350 intravenous contrast. Extensive vascular post-processing including two-dimensional and three-dimensional reformatted images were created and reviewed on an independent workstation. This CT examination was performed using dose optimization techniques as appropriate, variously including the following: *Automated exposure control *Adjustment of mA and/or kV according to patient size (this includes techniques or standardized protocols for targeted exams where dose is matched to indication/reason for exam; i.e. extremities or head) *Use of iterative reconstruction technique FINDINGS: QUALITY OF STUDY/CONTRAST BOLUS: Adequate PULMONARY ARTERIES: There is heterogeneous contrast opacification involving branches leading into the left lower lobe, likely a flow phenomenon rather than a true filling defects. There is similar heterogeneity on the 10/03/2024 CTPA. No other areas raise suspicion for pulmonary emboli. THORACIC AORTA: Moderate atherosclerotic calcifications are present. There is no intimal flap is no aneurysm. LUNGS AND PLEURA: Mild centrilobular and paraseptal emphysema with several scattered pneumatoceles are present in the lungs, unchanged. There is minimal linear atelectasis in the posterior lung bases and lingula. Lungs are clear otherwise. MEDIASTINUM: Unremarkable CORONARY ARTERY CALCIFICATION: Present CHEST WALL/AXILLA: No axillary or internal mammary lymphadenopathy. UPPER ABDOMEN: The gallbladder is surgically absent. There are clips in the gallbladder fossa. BONES: Multilevel degenerative changes are most advanced in the lower thoracic spine where there is severe disc space during, vacuum phenomena, endplate sclerosis, and osteophytes. There is mild wedging of T11 and T12, unchanged. CT/CT angio chest PE protocol IMPRESSION: No definite pulmonary embolus. There is heterogeneity within pulmonary vessels leading to the left lower lobe that is similar but slightly more pronounced than on the prior CTPA on 10/03/2024. Flow-related heterogeneity is favored over pulmonary emboli. Mild to moderate emphysema. Cholecystectomy. Fleischner guidelines were followed. Electronically signed by: Ricardo Reardon MD 03/16/2025 12:18 PM EDT
--- NOTE | 2025-03-16 06:35 | ECG_ITS ---
Test Reason : SOB, CP Blood Pressure : */* mmHG Vent. Rate : 64 BPM Atrial Rate : 64 BPM P-R Int : 132 ms QRS Dur : 78 ms QT Int : 356 ms P-R-T Axes : 89 79 64 degrees QTcB Int : 367 ms Normal sinus rhythm Minimal voltage criteria for LVH, may be normal variant ( Sokolow-Barkley ) Borderline ECG When compared with ECG of 03-Oct-2024 12:57, ST elevation now present in Anterior leads T wave amplitude has decreased in Lateral leads Referred By: Mayte Hollis Electronically Signed By: JANAE BARR MD
[2025-03-16] MEDS: Magnesium Sulfate/H2O 2 GM/50 ML PIGGYBACK IV (06:54)
--- NOTE | 2025-03-16 06:55 | ED.ASTHMA ---
HPI - Asthma General Chief Complaint: Upper Respiratory Symptoms Stated Complaint: COPD Time Seen by Provider: 03/16/25 06:29 Source: patient and old records reviewed Mode of arrival: ambulatory Limitations: no limitations History of Present Illness ED Provider: LOU SANABRIA Narrative: 64 yo female with PMH of COPD not on home O2 who still smokes, HIV, PAD, HTN, mood disorder who notes she started to get sick last week not feeling well, chills, yellow sputum production. She did fall last week at work landing on a tote striking LUE and chest wall. She has had chest pain since then. She notes her URI continued to worsen and she was started on prednisone and doxy Sunday but it is not helping. No recent travel/sick contacts. She lives alone with her dog. She reports this morning she got up to get ready for work and felt even worse she couldn't catch her breath - EMS noted 98% on RA and given a duoneb. She did not take the doxy or prednisone this AM MD complaint: shortness of breath and wheezing Onset (ago): day(s) (few) Severity: severe Context: recent URI Associated symptoms: productive cough Asthma History: adult onset Treatments Prior to Arrival: inhaled bronchodilator Related Data Home Medications ?Medication ?Instructions ?Recorded ?Confirmed aspirin 81 mg tablet,delayed 81 mg PO DAILY 06/15/20 03/16/25 release (Shakira Low Dose Aspirin) calcium carbonate-vitamin D3 500 1 cap PO DAILY 03/08/21 03/16/25 mg (1,250 mg)-50 unit capsule elviteg 150 mg-cob 150 mg-emtricit 1 tab PO DAILY 03/08/21 03/16/25 200 mg-tenofo alafenam 10 mg tablet (Genvoya) buprenorphine 8 mg-naloxone 2 mg 2 film sublingual DAILY 06/15/23 03/16/25 sublingual film Previous Rx's ?Medication ?Instructions ?Recorded nebulizers #1 ea 08/15/23 ibuprofen 600 mg tablet 600 mg PO Q6H PRN fever or pain 03/07/24 #30 tabs albuterol sulfate 2.5 mg/3 mL 2.5 mg (3 mL) inhalation Q4-6H PRN 04/01/24 (0.083 %) solution for nebulization shortness of breath or wheezing #90 mL albuterol sulfate 90 mcg/actuation 1 puff PO QID PRN for dyspnea #8.5 11/07/24 aerosol inhaler grams fluticasone fur. 200 mcg-umeclid 1 inh inhalation DAILY #60 ea 11/07/24 62.5 mcg-vilant 25 mcg inhalat.powder (Trelegy Ellipta) atorvastatin 10 mg tablet 10 mg PO DAILY 90 days #90 tabs 12/22/24 losartan 50 mg tablet 50 mg PO DAILY 90 days #90 tabs 12/22/24 venlafaxine 25 mg tablet 25 mg PO DAILY 90 days #90 tabs 01/30/25 doxycycline hyclate 100 mg capsule 100 mg PO BID 7 days #14 caps 03/13/25 prednisone 20 mg tablet 40 mg (2 x 20 mg) PO DAILY 5 days 03/13/25 #10 tabs Allergies Allergy/AdvReac Type Severity Reaction Status Date / Time abacavir Allergy Severe high fever Verified 03/16/25 06:32 erythromycin base Allergy Unknown Unknown Verified 03/16/25 06:32 Review of Systems Review of Systems: Constitutional : No Fever, No Chills ENT/Mouth : No Hoarseness, No sore throat, No Rhinorrhea Eyes: No Redness, No Discharge, No Vision Changes Cardiovascular : No Chest Pain, positive SOB, positive Dyspnea on Exertion, No Edema Respiratory : positive Cough, No Sputum, positive Wheezing, Gastrointestinal : No Nausea, No Vomiting, No Diarrhea, No abdominal Pain Genitourinary : No Dysuria, No Hematuria Musculoskeletal : No joint pain, No Myalgias Skin : No rash Neuro : No Weakness, No Numbness, No Headache All other systems reviewed and are negative PMFSH Past Medical History Attestation statement: The following information was validated with the patient. Source: old records reviewed Medical History Nicotine dependence, cigarettes, uncomplicated Tongue sore Liver cirrhosis COPD (chronic obstructive pulmonary disease) PVD (peripheral vascular disease) History of opioid abuse Osteopenia GERD (gastroesophageal reflux disease) Hyperlipidemia Hepatitis C (~1998) PTSD (post-traumatic stress disorder) HTN (hypertension) HIV (human immunodeficiency virus infection) (~1996) Surgical History History of colonoscopy (~2016) History of esophagogastroduodenoscopy (EGD) (~2017) History of angioplasty (~2018) History of carpal tunnel surgery of right wrist (~2003) History of liver biopsy (~2001) Hx of cholecystectomy (~2001) History of hysterectomy Family History Family History Mother Lung cancer Father Substance use disorder Son Substance use disorder Social History Social History Household Members: None Housing: Apartment Do you presently have visiting nurse or other home services: No Alcohol intake: current Patient Tobacco Use Status: Current everyday Tobacco user Tobacco use type: Cigarette Cigarette Packs Per Day: 1 Cigarettes Per Day: 20 Years Smoked: 50 Smoked in Last 30 Days: Yes e-Cigarette/Vaping Use: Never Used Second Hand Smoke Exposure: No Use of substances other than those prescribed or required for medical reasons: No Advance Directives: No Advance Directives Information Provided: Yes service: No Current occupational status: employed 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 Oriented X3. No acute distress. anxious Eyes: Pupils equal, round and reactive to light. ENT: Pharynx normal. ames face appearance Neck: Normal inspection. Neck supple. CVS: Normal heart rate and rhythm. Pulses normal. Respiratory: No respiratory distress. Breath sounds very coarse and diminished throughout Abdomen: Soft and nontender. Skin: Skin warm and dry. Normal skin color. thin skin with signs of bruising on UE, LUE normal ROM and NV intact but bruising noted on bicep Extremities: No lower extremity edema. Neuro: Oriented X 3. No motor deficit. No sensory deficit. Course Course Course Narrative: patient has no complaints states she feels much better Reevaluation(s) Reevaluation #1: given trop and ddimer will obtain CTA:PE for VTE Medications Administered Discontinued Medications Generic Name Dose Route Start Last Admin Trade Name Lyndsey PRN Reason Stop Dose Admin Aspirin 162 mg 03/16/25 09:36 03/16/25 09:54 Aspirin 81 Mg Tab.Chew PO 03/16/25 09:37 162 mg ONCE ONE Administration Atorvastatin Calcium 40 mg 03/16/25 12:38 03/16/25 13:49 Atorvastatin Calcium 40 Mg Tablet PO 03/16/25 12:39 40 mg ONCE ONE Administration Ceftriaxone Sodium 1 gm 03/16/25 06:36 03/16/25 06:54 Ceftriaxone Sodium 1 Gm Vial IVPUSH 03/16/25 06:37 1 gm ONCE ONE Administration Albuterol Sulfate 2.5 mg/ 0 mg 03/16/25 07:06 03/16/25 07:10 Albuterol/Ipratropium 3 ml INHALE 03/16/25 07:07 5 dose ONCE ONE Administration Magnesium Sulfate 2 gm in 50 mls @ 150 mls/hr 03/16/25 06:36 03/16/25 07:47 Magnesium Sulfate/H2o IV 03/16/25 06:55 Infused ONCE ONE Infusion Lactated Ringer's 500 mls @ 999 mls/hr 03/16/25 07:25 03/16/25 09:25 Lr IV 03/16/25 07:55 Infused .Q31M ONE Infusion Doxycycline Hyclate 100 mg/ 250 mls @ 166.67 mls/hr 03/16/25 08:36 03/16/25 09:25 Sodium Chloride IV 03/16/25 10:05 166.67 mls/hr ONCE ONE Administration Iohexol 100 ml 03/16/25 11:54 03/16/25 11:54 Iohexol 350 Mg/Ml 100 Ml Infus..Btl IV 03/16/25 11:55 65 ml ONCE ONE Administration Methylprednisolone Sodium Succinate 60 mg 03/16/25 06:34 03/16/25 06:54 Methylprednisolone Sod Succ 125 Mg/2 Ml Vial IVPUSH 03/16/25 06:35 60 mg ONCE ONE Administration Morphine Sulfate 4 mg 03/16/25 11:42 03/16/25 12:07 Morphine Sulfate 4 Mg/Ml Cartridge IVPUSH 03/16/25 11:43 4 mg ONCE ONE Administration Protocol Nicotine 21 mg 03/16/25 08:51 03/16/25 09:25 Nicotine 21 Mg Patch.Td24 TRANSDERMA 03/16/25 08:52 21 mg ONCE ONE Administration Medical Decision Making Medical Decision Making [facility] Narrative: 64 yo female with PMH of COPD not on home O2 who still smokes, HIV, PAD, HTN, mood disorder now here with worsening COPD exacerbation - sputums, diff breathing in setting of recent chest trauma at work she is already on prednisone and doxy. Will give IV steroids, IV ceftriaxone, IV magnesium - obtain labs, CT chest for pneumonia vs rib fracture. Her chest pain seems related to more trauma vs ACS. I did obtain EKG and trop x 1. She has no recent travel or procedures and no signs of DVT to suggest VTE Differential Diagnosis Differential Diagnoses: The differential diagnosis associated with the presentation includes bronchitis, URI, pneumonia, COPD Admission/Observation Consideration of admission/observation: Escalation of care including admission/observation considered already failed oral abx and oral prednisone will admit for further management 88% on RA walking trial as well Consult Healthcare Provider Management of the patient was discussed with: Hospitalist (will admit) and Health Care Facilities Inspector Cardiology - hold heparin, give asa / statin Lab Data [facility] Lab Attestation statement: I reviewed the patient's lab results. 03/16/25 06:53 03/16/25 06:53 Labs: Lab Results 03/16/25 03/16/25 03/16/25 Range/Units 06:53 07:01 09:02 WBC 8.6 (4.8-10.8) X10*3/uL RBC 3.79 L (4.20-5.50) X10*6/uL Hgb 13.3 (12.0-16.0) g/dl Hct 38.5 (37.0-47.0) % MCV 101.6 H (80.0-98.0) fL MCH 35.1 H (27.0-33.0) pg MCHC 34.5 (31.0-35.0) g/dl RDW 12.9 (11.0-16.0) % Plt Count 200 (160-400) X10*3/uL MPV 9.5 (9.4-12.3) fL Immature Gran % (Auto) 1.0 H (0.0-0.4) % Neut % (Auto) 82.4 H (45-73) % Lymph % (Auto) 10.7 L (20-40) % [place] % (Auto) 5.7 (2-11) % Eos % (Auto) 0.1 (0-4) % Baso % (Auto) 0.1 (0-2) % Lymph # (Auto) 0.9 L (1.2-4.9) X10*3/uL [place] # (Auto) 0.5 (0.1-1.2) X10*3/uL Eos # (Auto) 0.0 (0.0-0.4) X10*3/uL Baso # (Auto) 0.0 (0.0-0.2) X10*3/uL Abs Immat Gran (auto) 0.09 H (0.00-0.03) X10*3/uL Absolute Neuts (auto) 7.1 (2.0-8.3) x10*3/uL Absolute Nucleated RBC 0.000 (0.0-0.012) X10*3/uL Nucleated RBC % (auto) 0.0 (0.0-0.2) /100WBC PT (10.9-12.4) SEC INR (0.9-1.1) APTT (26.7-34.1) SEC D-Dimer High Sensitivty NG/ML Hold Blue Top VBG pH 7.42 (7.32-7.43) VBG pCO2 43 mmHg VBG pO2 58 mmHg VBG HCO3 29 H (22-26) mmol/L VBG O2 Saturation 85.0 % VBG Base Excess 4.0 mmol/L Sodium 138 (135-145) mmol/L Potassium 4.4 (3.3-5.1) mmol/L Chloride 102 (96-108) mmol/L Carbon Dioxide 27 (22-29) mmol/L Anion Gap 13 (12-20) BUN 16 (9-16) mg/dL Creatinine 0.70 (0.5-1.4) mg/dL Estim Creat Clear Calc 65.7 Estimated GFR > 60 Random Glucose 131 H (60-115) mg/dL Lactic Acid 2.3 H* (0.5-2.0) mmol/L Lactic Acid F/U @ 2Hr (0.5-2.0) mmol/L Calcium 9.6 (8.4-10.2) mg/dL Magnesium 2.1 (1.6-2.6) mg/dL Total Bilirubin 0.2 (0.0-1.0) mg/dL Direct Bilirubin < 0.2 (0.0-0.5) mg/dL AST 34 H (5-31) U/L ALT 23 (0-31) U/L Alkaline Phosphatase 74 (39-117) U/L Troponin I High Sens 22.9 H D 173.8 H* D (<3.5-17.0) ng/L C-Reactive Protein 5.91 H (< or = 0.50) mg/dL NT-Pro-B Natriuret Pep 440.1 H (<300) pg/mL Total Protein 7.1 (6.5-8.0) g/dL Albumin 4.0 (3.5-5.0) g/dL Procalcitonin 0.03 ng/mL Influenza Type A (PCR) NEGATIVE (Negative) Influenza Type B (PCR) NEGATIVE (Negative) RSV RNA Qual (PCR) NEGATIVE (Negative) SARS-CoV-2 RNA (RT-PCR) NEGATIVE (Negative) 03/16/25 03/16/25 03/16/25 Range/Units 09:32 09:49 09:50 WBC (4.8-10.8) X10*3/uL RBC (4.20-5.50) X10*6/uL Hgb (12.0-16.0) g/dl Hct (37.0-47.0) % MCV (80.0-98.0) fL MCH (27.0-33.0) pg MCHC (31.0-35.0) g/dl RDW (11.0-16.0) % Plt Count (160-400) X10*3/uL MPV (9.4-12.3) fL Immature Gran % (Auto) (0.0-0.4) % Neut % (Auto) (45-73) % Lymph % (Auto) (20-40) % [place] % (Auto) (2-11) % Eos % (Auto) (0-4) % Baso % (Auto) (0-2) % Lymph # (Auto) (1.2-4.9) X10*3/uL [place] # (Auto) (0.1-1.2) X10*3/uL Eos # (Auto) (0.0-0.4) X10*3/uL Baso # (Auto) (0.0-0.2) X10*3/uL Abs Immat Gran (auto) (0.00-0.03) X10*3/uL Absolute Neuts (auto) (2.0-8.3) x10*3/uL Absolute Nucleated RBC (0.0-0.012) X10*3/uL Nucleated RBC % (auto) (0.0-0.2) /100WBC PT 9.6 L (10.9-12.4) SEC INR 0.8 L (0.9-1.1) APTT 23.0 L (26.7-34.1) SEC D-Dimer High Sensitivty 362 NG/ML Hold Blue Top SEE NOTE VBG pH (7.32-7.43) VBG pCO2 mmHg VBG pO2 mmHg VBG HCO3 (22-26) mmol/L VBG O2 Saturation % VBG Base Excess mmol/L Sodium (135-145) mmol/L Potassium (3.3-5.1) mmol/L Chloride (96-108) mmol/L Carbon Dioxide (22-29) mmol/L Anion Gap (12-20) BUN (9-16) mg/dL Creatinine (0.5-1.4) mg/dL Estim Creat Clear Calc Estimated GFR Random Glucose (60-115) mg/dL Lactic Acid (0.5-2.0) mmol/L Lactic Acid F/U @ 2Hr 2.0 (0.5-2.0) mmol/L Calcium (8.4-10.2) mg/dL Magnesium (1.6-2.6) mg/dL Total Bilirubin (0.0-1.0) mg/dL Direct Bilirubin (0.0-0.5) mg/dL AST (5-31) U/L ALT (0-31) U/L Alkaline Phosphatase (39-117) U/L Troponin I High Sens (<3.5-17.0) ng/L C-Reactive Protein (< or = 0.50) mg/dL NT-Pro-B Natriuret Pep (<300) pg/mL Total Protein (6.5-8.0) g/dL Albumin (3.5-5.0) g/dL Procalcitonin ng/mL Influenza Type A (PCR) (Negative) Influenza Type B (PCR) (Negative) RSV RNA Qual (PCR) (Negative) SARS-CoV-2 RNA (RT-PCR) (Negative) Independent Interpretation I performed an independent interpretation of an: EKG and CT Scan (no trauma, bronchopneumonia) Interpretation: Rate: 64 Rhythm: NSR [place]: normal Normal P waves. Normal ALBERTO. Normal QRS complex. ST T wave : no ELLIS, t waves are slightly tented qTC: 367 prior studies: tented t waves same as prior The study has been interpreted contemporaneously by me. EKG #2 Rate: 63 Rhythm: NSR [place]: normal Normal P waves. Normal ALBERTO. Normal QRS complex. ST T wave : inverted t wave aVL, no ELLIS, tented t waves again qTC: 378 prior studies: no change no ELLIS The study has been interpreted contemporaneously by me. . Radiology Impression Discussion of test interpretation with radiology: I have reviewed the radiologist's reading. Independent Historian Clinical information obtained from an independent historian. History obtained from or confirmed by: EMS External Record Review External record reviewed: Inpatient record, Outpatient record and Prior outpatient labs Critical Care Time Critical Care Time Critical Care Time: Yes Total Critical Care Time: 35 Attestation: Time is exclusive of separately billable procedures. Time includes: direct patient care, patient reassessment, coordination of patient care, interpretation of data (laboratory data, pulse oximetry, venous blood gases and chest xrays/CTA), review of patient's medical records, medical consultation and documentation of patient care. IV morphine for pain with improvement. Procedures excluded from critical care time: electrocardiography. I attest to this time spent taking care of the patient Discharge Plan Discharge Clinical Impression: Acute exacerbation of chronic obstructive pulmonary disease, Bronchopneumonia, Acidosis, lactic, Hypoxia, Elevated troponin
[2025-03-16 07:04] LABS: MANUAL DIFF FLAG NO
[2025-03-16 07:04] LABS: Venous Blood Gas Refer to POC result
[2025-03-16 07:05] LABS: Hematocrit 38.5 % (37.0-47.0); Hemoglobin 13.3 g/dl (12.0-16.0); Imm Gran Abs Auto 0.09 X10*3/uL (0.00-0.03); Imm Gran Pct Auto 1.0 % (0.0-0.4); Lymphocytes Absolute Auto 0.9 X10*3/uL (1.2-4.9); Mean Corpuscular HGB Conc 34.5 g/dl (31.0-35.0); Mean Corpuscular Hemoglobin 35.1 pg (27.0-33.0); Mean Corpuscular Volume 101.6 fL (80.0-98.0); NRBC Abs Auto 0.000 X10*3/uL (0.0-0.012); NRBC Pct Auto 0.0 /100WBC (0.0-0.2); Platelet Count 200 X10*3/uL (160-400); Red Blood Count 3.79 X10*6/uL (4.20-5.50); White Blood Count 8.6 X10*3/uL (4.8-10.8)
[2025-03-16 07:05] LABS: VBG HCO3 29 mmol/L (22-26); VBG O2 % Saturation 85.0 %
[2025-03-16] MEDS: Albuterol Sulfate 2.5 MG, Albuterol/Iprat 2.5/0.5MG 3 ML 3 ML INHALE (07:10)
[2025-03-16 07:24] LABS: Alanine Aminotransferase 23 U/L (0-31); Albumin Level 4.0 g/dL (3.5-5.0); Alkaline Phosphatase 74 U/L (39-117); Anion Gap 13 (12-20); Aspartate Amino Transferase 34 U/L (5-31); Blood Urea Nitrogen 16 mg/dL (9-16); Calcium 9.6 mg/dL (8.4-10.2); Carbon Dioxide 27 mmol/L (22-29); Chloride 102 mmol/L (96-108); Creatinine Clr Calc Pharmacy 65.7; Estimated Glomerular Filt Rate > 60; Magnesium 2.1 mg/dL (1.6-2.6); Potassium 4.4 mmol/L (3.3-5.1); Sodium 138 mmol/L (135-145); Total Protein 7.1 g/dL (6.5-8.0)
--- OUTSIDE RECORDS SUMMARY | 2025-03-16 07:27 | XMS_ITS | Patient Health Record ---
Author Organization [facility] Address [address] [place] [address] Care Team Providers Care Bridge Builder Name Role Phone Richard Varela Unavailable [phone] Reason For Referral No Information Plan Of Treatment No Information
[2025-03-16 07:28] LABS: NT Pro B Type Natriuretic Pept 440.1 pg/mL (<300); Troponin-I High Sensitivity 22.9 ng/L (<3.5-17.0)
--- NOTE | 2025-03-16 07:41 | PC.NURSE ---
Resumed care of pt at 0700, she is currently receiving a breathing tx by resp, exp wheezing noted. Pt is flushed in the face at this time, mag completed, pt placed on O2/threat monitoring analyst. O2 remaining in pt COPD range. Call banegas within reach, all needs met at this time. Awaiting results of work up at this time.
[2025-03-16 07:43] LABS: Resp Syncy Virus RNA Qual PCR NEGATIVE (Negative); SARS COV2 PCR INHOUSE NEGATIVE (Negative)
[2025-03-16 07:57] LABS: Procalcitonin 0.03 ng/mL
[2025-03-16] MEDS: Lactated Ringers 500 ML 999 ML IV (08:20)
--- NOTE | 2025-03-16 08:32 | PC.NURSE ---
walking O2 being done on RA, per Resp request using ear probe to monitor O2 d/t previous perfusion low results
[2025-03-16 09:02] LABS: Reflex Lactate? Lactic Acid Added
[2025-03-16] MEDS: Nicotine 21 MG PATCH.TD24 TRANSDERMA (09:25)
[2025-03-16 09:33] LABS: Troponin-I High Sensitivity 173.8 ng/L (<3.5-17.0)
--- NOTE | 2025-03-16 09:34 | ECG_ITS ---
Test Reason : ELEVATED TROP Blood Pressure : */* mmHG Vent. Rate : 63 BPM Atrial Rate : 63 BPM P-R Int : 132 ms QRS Dur : 84 ms QT Int : 370 ms P-R-T Axes : 77 84 73 degrees QTcB Int : 378 ms Normal sinus rhythm Minimal voltage criteria for LVH, may be normal variant ( Sokolow-Barkley ) Borderline ECG When compared with ECG of 16-Mar-2025 06:50, No significant change was found Referred By: Mayte Hollis Electronically Signed By: JANAE BARR MD
[2025-03-16 09:50] LABS: ~Lactic Acid-LAB USE ONLY 2.0 mmol/L (0.5-2.0)
--- NOTE | 2025-03-16 10:40 | PC.NURSE ---
US line placed at this time d/t hard stick and #22 being very positional, and pt requiring multiple lab draws. Repeat trop and EKG completed, asa given, pt educated and updated on repeat labs, and pending future dispo. Pt reporting her chest squeezing is still there but is tolerable if she is just laying in bed and not moving. Pt has been on the phone throughout the entire morning, with ease, no SOB, able to speak in full sentences. Nicotine patch applied per pt request
--- NOTE | 2025-03-16 10:48 | PC.NURSE ---
lab called at this time, d/t PT/INR being rejected, second tube was sent down, at this time they are going to attempt to run second draw and will touch base with ED if they are unable, if they are able they will re-receive the PT/INR and D-Dimer. aware.
[2025-03-16 10:52] LABS: INTERNATIONAL NORM RATIO 0.8 (0.9-1.1); Prothrombin Time 9.6 SEC (10.9-12.4)
[2025-03-16 10:54] LABS: D Dimer High Sensitivity 362 NG/ML
[2025-03-16 11:14] LABS: Partial Thromboplastin Time 23.0 SEC (26.7-34.1)
[2025-03-16] MEDS: iohexoL 350 MG/ML 100 ML INFUS..BTL IV (11:54)
--- NOTE | 2025-03-16 12:36 | P.HPHOSP_ITS ---
History of Present Illness Date of Service: 03/16/25 Attending physician on admission: [facility] Chief Complaint: SOB Pt is a 64-year-old female with a PMH significant for COPD not on home O2, HIV, opiate dependence on Suboxone, peripheral vascular disease, HTN, mood disorder, and currently smoking a pack daily who presents to the ED with increased SOB and difficulty breathing for the past few days. Pt reports 2 weeks ago she came down with URI type symptoms including sore throat, cough, and rhinorrhea. These symptoms went away, but pt soon developed worsening cough, SOB, and difficulty breathing. Pt repeatedly used all her inhalers with little effect. Went to a walk-in clinic on Sunday and was prescribed doxycycline and prednisone that did not help over the weekend. This morning pt reports she could not breathe and had central nonradiating chest pain that was worse with movement and cough which prompted her call to EMS. Pt also notes had a mechanical fall at work where she struck her chest wall on a tote. No LOC or head strike. In the ED pt's vitals were significant for tachypnea up to 22 and desatting into the upper 80s on RA. Labs were significant for lactic acid 2.3, initial troponin 22.9 with repeat 173.8, CRP 591, and pro BNP mildly elevated at 440.1. No leukocytosis. CXR showed probable bronchopneumonia vs bronchitis. CTA of chest showed no definite pulmonary embolus, but showing [id number] emphysema. EKG demonstrated normal sinus without evidence of significant ischemic changes. Pt was treated in the ED with Solu-Medrol, Mag sulfate, DuoNebs, IVF, morphine, aspirin, doxycycline, and ceftriaxone. Pt is admitted to the hospital for treatment and further evaluation of elevated troponins in the setting of acute hypoxic respiratory failure secondary to COPD exacerbation with possible superimposed pneumonia. Review of Systems 2 Review of Systems: Negative except for that which is stated in the HPI. [facility] Medical History Nicotine dependence, cigarettes, uncomplicated Tongue sore Liver cirrhosis COPD (chronic obstructive pulmonary disease) PVD (peripheral vascular disease) History of opioid abuse Osteopenia GERD (gastroesophageal reflux disease) Hyperlipidemia Hepatitis C (~1998) PTSD (post-traumatic stress disorder) HTN (hypertension) HIV (human immunodeficiency virus infection) (~1996) Family History Mother Lung cancer Father Substance use disorder Son Substance use disorder Surgical History History of colonoscopy (~2016) History of esophagogastroduodenoscopy (EGD) (~2016) History of angioplasty (~2017) History of carpal tunnel surgery of right wrist (~2003) History of liver biopsy (~2001) Hx of cholecystectomy (~2001) History of hysterectomy Social History Household Members: None Housing: Apartment Do you presently have visiting nurse or other home services: No Alcohol intake: current Patient Tobacco Use Status: Current everyday Tobacco user Tobacco use type: Cigarette Cigarette Packs Per Day: 1 Cigarettes Per Day: 20 Years Smoked: 50 Smoked in Last 30 Days: Yes e-Cigarette/Vaping Use: Never Used Second Hand Smoke Exposure: No Use of substances other than those prescribed or required for medical reasons: No Advance Directives: No Advance Directives Information Provided: Yes service: No Current occupational status: employed 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, 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 Cognitive needs: No Hearing needs: No Vision needs: No Meds Allergies Allergy/AdvReac Type Severity Reaction Status Date / Time abacavir Allergy Severe high fever Verified 03/16/25 06:32 erythromycin base Allergy Unknown Unknown Verified 03/16/25 06:32 Home Medications ?Medication ?Instructions ?Recorded ?Confirmed ?Last Taken ?Type aspirin 81 mg tablet,delayed 81 mg PO DAILY 06/15/20 1 03/15/25 History release (Shakira Low Dose Aspirin) calcium carbonate-vitamin D3 500 1 cap PO DAILY 03/16/25 03/15/25 History mg (1,250 mg)-50 unit capsule elviteg 150 mg-cob 150 mg-emtricit 1 tab PO DAILY 02/1003/16/25 03/15/25 History 200 mg-tenofo alafenam 10 mg tablet (Genvoya) buprenorphine 8 mg-naloxone 2 mg 2 film sublingual SAMMIE LY 06/15/23 03/16/25 03/15/25 History sublingual film Physical Exam 2 Vital Signs and Narrative: Vital Signs: Last Vital Signs Temp 98 F 03/16/25 08:25 Pulse 76 03/16/25 09:47 Resp 20 03/16/25 09:47 BP 109/71 03/16/25 09:47 Pulse Ox 94 03/16/25 09:47 O2 Del Method Room Air 03/16/25 09:47 BMI result Body Mass Index 27.3 General: AOx3, no acute distress Resp: Diffuse wheezing and rhonchi throughout CVS: S1, S2, RRR Chest: Central and left-sided chest wall tender to palpation. No ecchymosis or signs of trauma. GI: +BS, NT, no distention Skin: Warm, dry Neuro: Cranial nerves II-XII grossly intact bilaterally. Motor grossly intact bilaterally Extremities: No edema Psych: Appropriate affect Results Labs 03/16/25 06:53 03/16/25 06:53 Labs: Laboratory Results - last 24 hr 03/16/25 03/16/25 03/16/25 06:53 07:01 09:02 MCV 101.6 H MCH 35.1 H MCHC 34.5 RDW 12.9 Plt Count 200 MPV 9.5 Immature Gran % (Auto) 1.0 H Neut % (Auto) 82.4 H Lymph % (Auto) 10.7 L [place] % (Auto) 5.7 Eos % (Auto) 0.1 Baso % (Auto) 0.1 Lymph # (Auto) 0.9 L [place] # (Auto) 0.5 Eos # (Auto) 0.0 Baso # (Auto) 0.0 Abs Immat Gran (auto) 0.09 H Absolute Neuts (auto) 7.1 Absolute Nucleated RBC 0.000 Nucleated RBC % (auto) 0.0 PT INR APTT D-Dimer High Sensitivty Hold Blue Top VBG pH 7.42 VBG pCO2 43 VBG pO2 58 VBG HCO3 29 H VBG O2 Saturation 85.0 VBG Base Excess 4.0 Anion Gap 13 Estim Creat Clear Calc 65.7 Estimated GFR > 60 Random Glucose 131 H Lactic Acid 2.3 H* Lactic Acid F/U @ 2Hr Calcium 9.6 Magnesium 2.1 Total Bilirubin 0.2 Direct Bilirubin < 0.2 AST 34 H ALT 23 Alkaline Phosphatase 74 Troponin I High Sens 22.9 H D 173.8 H* D C-Reactive Protein 5.91 H NT-Pro-B Natriuret Pep 440.1 H Total Protein 7.1 Albumin 4.0 Procalcitonin 0.03 Influenza Type A (PCR) NEGATIVE Influenza Type B (PCR) NEGATIVE RSV RNA Qual (PCR) NEGATIVE SARS-CoV-2 RNA (RT-PCR) NEGATIVE 03/16/25 03/16/25 03/16/25 09:32 09:49 09:50 MCV MCH MCHC RDW Plt Count MPV Immature Gran % (Auto) Neut % (Auto) Lymph % (Auto) [place] % (Auto) Eos % (Auto) Baso % (Auto) Lymph # (Auto) [place] # (Auto) Eos # (Auto) Baso # (Auto) Abs Immat Gran (auto) Absolute Neuts (auto) Absolute Nucleated RBC Nucleated RBC % (auto) PT 9.6 L INR 0.8 L APTT 23.0 L D-Dimer High Sensitivty 362 Hold Blue Top SEE NOTE VBG pH VBG pCO2 VBG pO2 VBG HCO3 VBG O2 Saturation VBG Base Excess Anion Gap Estim Creat Clear Calc Estimated GFR Random Glucose Lactic Acid Lactic Acid F/U @ 2Hr 2.0 Calcium Magnesium Total Bilirubin Direct Bilirubin AST ALT Alkaline Phosphatase Troponin I High Sens C-Reactive Protein NT-Pro-B Natriuret Pep Total Protein Albumin Procalcitonin Influenza Type A (PCR) Influenza Type B (PCR) RSV RNA Qual (PCR) SARS-CoV-2 RNA (RT-PCR) Imaging Radiologist's Impressions: Impressions Chest CTA 03/16/25 11:44 IMPRESSION: No definite pulmonary embolus. There is heterogeneity within pulmonary vessels leading to the left lower lobe that is similar but slightly more pronounced than on the prior CTPA on 10/03/2024. Flow-related heterogeneity is favored over pulmonary emboli. Mild to moderate emphysema. Cholecystectomy. Fleischner guidelines were followed. Electronically signed by: Ricardo Reardon MD 03/16/2025 12:18 PM EDT Assessment and Plan (1) Elevated troponin: Status: Acute (2) Hypoxia: Status: Acute Plan Pt is a 64-year-old female with a PMH significant for COPD not on home O2, HIV, opiate dependence on Suboxone, peripheral vascular disease, HTN, mood disorder, and currently smoking a pack daily who presents to the ED with increased SOB and difficulty breathing for the past few days. Pt is admitted to the hospital for treatment and further evaluation of elevated troponins in the setting of acute hypoxic respiratory failure secondary to COPD exacerbation with possible superimposed pneumonia. Acute hypoxic respiratory failure in the setting of COPD exacerbation with superimposed pneumonia Pt desatting into the 80s on RA, CXR with likely bronchopneumonia, increased SOB/WILSON/wheezing not improved with ED bronchodilator treatment No sepsis Solu-Medrol, DuoNebs, guaifenesin Ceftriaxone and doxycycline, day 1 Titrate supplemental O2 >92, wean as tolerated Follow cultures Elevated troponins Initial troponin 22.9 with repeat 173.8 Pt asymptomatic: Chest pain reproducible with palpation, EKG nonischemic Likely type 2 in the setting of increased demand due to hypoxia Cardiology consulted, recommend aspirin and statin Trend troponins, echo in the morning Monitor on telemetry Acute lactic acidosis, resolved Initial lactic acid 2.3 with repeat 2.0 after IVF Secondary to hypoxia, not sepsis HIV Continue Genvoya HTN Continue losartan Mood disorder Continue venlafaxine Full Code Attending:?Dr. Prado DVT Prophylaxis: Lovenox Pt will require a hospitalization of at least two nights for treatment of elevated troponins and?acute hypoxic respiratory failure in the setting of COPD exacerbation with superimposed pneumonia. Quality Stroke Does the patient have a stroke diagnosis?: No VTE Prior VTE?: No VTE Risk Level:: Medical - moderate - high VTE Device Contraindication: Treatment Not Indicated VTE Drug Contraindication: N/A - Med Ordered
--- NOTE | 2025-03-16 13:46 | PHA.MEDREC ---
Addendum entered by Dyllan Beard PharmD 03/16/25 13:50: reviewed Original Note: Pharmacy Consult ? Medication Reconciliation Pharmacy has completed the medication reconciliation. Spoke with pt and he confirmed her medications. Pt confirmed she started the Doxycycline and Prednisone regimens on Sunday and she is taking Buprenorphine-Naloxone 8-2mg films and confirmed she takes 2 films daily.
[2025-03-16] MEDS: Albuterol/Iprat 2.5/0.5MG 3 ML AMPUL.NEB INHALE ×2 (16:05→19:34)
[2025-03-16 16:34] LABS: Troponin-I High Sensitivity 318.3 ng/L (<3.5-17.0)
--- NOTE | 2025-03-16 19:17 | PC.NURSE ---
Pt requesting breathing tx early (scheduled for 1999). Respiratory contacted, on their way to administer treatment. Pt denies CP/dizziness. SPO2 95%.
--- NOTE | 2025-03-16 22:48 | HO.NURTONUR ---
Pt arrived to ED c/o worsening SOB and CP. Hx COPD (no home O2), HIV+, opiate dependence (suboxone), HTN, bipolar. Pt still smokes approx 1 pack/day. ED workup positive for increasing troponins = 22.9-173.8-318.3, and possible pneumonia. Pt given lovenox, doxycycline, ceftriaxone, solumedrol, and duonebs - currently on room air, sats >94%. Admit for further eval of trops and COPD exacerbation w/possible pneumonia. Plan for echo in AM. Pt aaox4, ambulatory/independent but WILSON.
[2025-03-17] VITALS (11 sets, daily range): BP systolic 123–156; BP diastolic 67–83; PULSE 57–76; RESP 14–20; TEMP 36.3–36.9; O2SAT 92–98
[2025-03-17] MEDS: 0.9 % Sodium Chloride Flush 3 ML SYRINGE IVFLUSH ×4 (01:19→20:59)
--- NOTE | 2025-03-17 07:00 | CA_ITS ---
Transthoracic Echocardiogram Patient (Last, First, Middle): Jenn Stahl M Gender: Female Date of : 1960 Age: 64 Procedure Date: 03/17/2025 Procedure Type: Transthoracic Echocardiogram [place] [facility] [place]: 152.4 cm Weight: 47.17 kg BSA: 1.41 m2 Heart Rate: 60 bpm BP: 142 / 83 mmHg Magnetic Grinder Operator: ABBI Referring MD: Shaye ALVAREZ Stretch Machine Operator: Xavier Sanchez MD Symptoms: Elevated troponins Study Quality: Adequate ECG Rhythm: Sinus Conclusions: - 1. Low normal LV ejection fraction 50-55% with pseudonormal filling pattern with wall motion abnormality in LAD territory 2. Normal cardiac valvular Dopplers 3. Normal RV systolic pressure 4. Mildly dilated ascending aorta at 3.9 cm 5. No gross pericardial effusion Findings Left Ventricle Normal left ventricular cavity size. There is normal left ventricular wall thickness. The left ventricular systolic function is low normal. Spectral Doppler is indicative of a pseudonormal filling pattern. Wall Motion Rest Echo Findings The inferoseptal wall, the basal anterior, mid anterior, basal anteroseptal, and mid anteroseptal segments are hypokinetic. All other scored wall segments showed normal motion. Right Ventricle Normal right ventricular cavity size and systolic function. Atria The left atrium is likely dilated. There is no evidence of interatrial shunt. The right atrium is normal in size. Aortic Valve Normal aortic valve structure and function. There is no aortic valve stenosis. There is no aortic valve regurgitation. Mitral Valve There is mild anterior and posterior mitral leaflet thickening. There is mild mitral annular calcification. There is no mitral valve regurgitation. There is no mitral valve stenosis. Pulmonic Valve The pulmonic valve is likely normal. Tricuspid Valve Normal tricuspid valve structure. There is mild tricuspid valve regurgitation. The right ventricular systolic pressure is normal. The right ventricular systolic pressure is 30 mmHg. Normal right atrial pressure. There is no evidence of pulmonary hypertension. Great Vessels The pulmonary artery was not well visualized. There is mild dilatation of the ascending aorta measuring 3.90 cm. Venous The inferior vena cava is normal in size and collapses greater than 50% with inspiration. Pericardium/Pleural There is no evidence of pericardial effusion. Prior Study Comparison Changes noted compared to prior study dated: 04/04/2023. LV ejection fraction is mildly reduced along with wall motion abnormality in LAD territory Measurements 2D Linear Measurements IVSd: 0.86 0.6-0.9/0.6-1.0 cm LVIDd: 4.65 3.9-5.3/4.2-5.9 cm LVIDd Index: 3.30 2.4-3.2/2.2-3.1 cm/m2 LVIDs: 3.06 2.0-3.6 cm LVPWd: 0.77 0.7-1.1 cm LA Diam: 3.70 2.7-3.8/3.0-4.0 cm LAIDs Index: 2.62 1.5-2.3 cm/m2 LV Mass: 152.03 67-162/88-224 g LV Mass Index: 107.82 43-95/49-115 g/m2 LVOT Diam: 2.00 3.0+(-)1.3 cm 2D Systolic Function EF 4C: 50.60 >55% EF 2C: 56.00 >55% EF BiP: 53.90 >55% Mitral Valve MV Pk E: 1.08 MV PK A: 0.89 MV Decel Time: 200.00 E/A: 1.20 E'Lateral: 5.11 E'Medial: 5.77 E/E' Med: 18.70 E/E' Lat: 21.10 PHT: 58.00 MVA PHT: 3.79 Decel Walsh: 5.43 Aortic Valve AoV Pk Manpreet: 1.40 AoV Mn Manpreet: 0.94 AoV VTI: 0.31 AoV Pk Grad: 8.00 Aov Mn Grad: 4.00 AGNIESZKA Cont.VTI: 2.68 LVOT LVOT Pk Manpreet: 1.26 LVOT Mn Manpreet: 0.82 LVOT VTI: 0.27 LVOT Pk Grad: 6.00 LVOT Mn Grad: 3.00 LVOT Diam: 2.00 LVOT Area: 3.14 Diastolic Function MV Pk E: 1.08 MV Pk A: 0.89 E/A: 1.20 E'Medial: 5.77 E/E' Med: 18.70 E' Laterial: 5.11 E/E' Lat: 21.10 Right Ventricle TAPSE (mm): 23.50 TVS' Manpreet: 11.90 Tricuspid Valve TR Pk Manpreet: 2.61 TR Pk Grad: 27.00 RA Press: 3.00 RVSP: 30.00 Great Vessels Aorta Sinus of Valsalva: 2.80 2.0-3.5 cm Ao Asc: 3.90 2.1-3.4 cm Ao Arch: 2.40 Pulmonary Veins Pulm Vein S/D 1.80 Pulmonary Valve PV Pk Manpreet: 1.16 Peak PV Grad: 5.00 Updated in Other Vendor System with Status of Final Xavier Sanchez MD electronically signed on 03/17/2025 12:26:51 PM with status of Final
[2025-03-17 07:03] LABS: Hematocrit 38.4 % (37.0-47.0); Hemoglobin 13.0 g/dl (12.0-16.0); Mean Corpuscular HGB Conc 33.9 g/dl (31.0-35.0); Mean Corpuscular Hemoglobin 34.6 pg (27.0-33.0); Mean Corpuscular Volume 102.1 fL (80.0-98.0); NRBC Abs Auto 0.020 X10*3/uL (0.0-0.012); NRBC Pct Auto 0.2 /100WBC (0.0-0.2); Platelet Count 187 X10*3/uL (160-400); Red Blood Count 3.76 X10*6/uL (4.20-5.50); White Blood Count 8.6 X10*3/uL (4.8-10.8)
[2025-03-17 07:16] LABS: Anion Gap 15 (12-20); Blood Urea Nitrogen 16 mg/dL (9-16); Calcium 9.5 mg/dL (8.4-10.2); Carbon Dioxide 28 mmol/L (22-29); Chloride 104 mmol/L (96-108); Creatinine Clr Calc Pharmacy 66.2; Estimated Glomerular Filt Rate > 60; Potassium 4.5 mmol/L (3.3-5.1); Sodium 142 mmol/L (135-145)
[2025-03-17 07:34] LABS: Troponin-I High Sensitivity 273.5 ng/L (<3.5-17.0)
--- NOTE | 2025-03-17 07:39 | PC.ADMIT ---
Addendum entered by Caitlyn Blount RN 03/17/25 07:42: All high fall risk measures in place at this time. Original Note: Pt arrived to floor via stretcher from ED at 2300. Pt A & O x 4. Calm and cooperative with care. Pt able to move all extremities and able to make needs known. See MAR, flowsheets, and worklist tasks for more info. Plan of care continues.
--- NOTE | 2025-03-17 07:47 | HO.PM.IMPN ---
Subjective Subjective Date of Service: 03/17/25 Interval History: Did not sleep well last night Continued pain with cough Breathing overall improved Subjective fever; face and head above neck have felt hot No chest pressure; pain with cough or movement No N/V/D or abd pain Review of Systems Review of Systems: Yes all other systems are reviewed and are negative Physical Exam Exam: Exam: General: AOx3, no acute distress Resp: Diffuse expiratory wheezing CVS: S1, S2, RRR GI: +BS, NT, no distention Chest: Central and left-sized chest wall tenderness to palpation. No trauma or ecchymosis noted Skin: Warm, dry Neuro: Cranial nerves II-XII grossly intact bilaterally. Motor grossly intact bilaterally Extremities: No edema Psych: Appropriate affect Vital Signs: Vital Signs: Last Vital Signs Temp 97.3 F 03/17/25 07:09 Pulse 57 03/17/25 07:09 Resp 14 03/17/25 07:09 BP 142/83 H 03/17/25 07:09 Pulse Ox 94 03/17/25 07:09 O2 Del Method Room Air 03/17/25 07:09 O2 Flow Rate 2 03/16/25 14:00 BMI result Body Mass Index 20.4 Objective Data Active Medications Acetaminophen (Acetaminophen 325 Mg Tablet) 650 mg PO Q6H PRN PRN Reason: Pain, Mild 1-3,fever,headache Albuterol Sulfate (Albuterol Sulfate (0.083%) 2.5 Mg/3 Ml Vial.Neb) 2.5 mg INHALE RQ4H PRN PRN Reason: shortness of breath or wheezing Albuterol/Ipratropium (Albuterol/Iprat 2.5/0.5mg 3 Ml Ampul.Neb) 3 ml INHALE RQ4H WHILE AWAKE [facility] Last Admin: 03/16/25 19:34 Dose: 3 ml Documented By: NISHI Aspirin (Aspirin Enteric Coated 81 Mg Tablet.) 81 mg PO DAILY [facility] Atorvastatin Calcium (Atorvastatin Calcium 10 Mg Tablet) 10 mg PO DAILY [facility] Buprenorphine/Naloxone (Buprenorphine/Naloxone 8/2 Mg Film) 2 film SUBLINGUAL DAILY [facility] Calcium Carbonate (Calcium Carbonate 750 Mg Tab.Chew) 750 mg PO Q4H PRN PRN Reason: Heartburn Ceftriaxone Sodium (Ceftriaxone Sodium 1 Gm Vial) 1 gm IVPUSH Q24H [facility] Elvitegravir/Cobicis/Emtricit/Tenof (Elviteg/[place]/Emtric/Tenofo Ala 150/150/200/10 Tablet) 1 tab PO DAILY [facility] Enoxaparin Sodium (Enoxaparin Sodium 40 Mg/0.4 Ml Syringe) 40 mg SUBCUT Q24H [facility] Last Admin: 03/16/25 19:14 Dose: 40 mg Documented By: ROGELIO Doxycycline Hyclate 100 mg/ (Sodium Chloride) 250 mls @ 166.67 mls/hr IV Q12H [facility] Last Infusion: 03/16/25 23:18 Dose: Infused Documented By: BROOKS Influenza Virus Vaccine (Flu Vacc [id number](6mo Up)/Pf 0.5 Ml Syringe) 0.5 ml IM .ONCE ONE Stop: 03/18/25 09:01 Losartan Potassium (Losartan Potassium 50 Mg Tablet) 50 mg PO DAILY [facility]; Protocol Magnesium Hydroxide (Milk Of Magnesia 30 Ml Oral.Susp) 30 ml PO DAILY PRN PRN Reason: Constipation Melatonin (Melatonin 3 Mg Tablet) 6 mg PO BEDTIME PRN PRN Reason: Insomnia Last Admin: 03/17/25 01:19 Dose: 6 mg Documented By: BROOKS Methylprednisolone Sodium Succinate (Methylprednisolone Sod Succ 40 Mg/Ml Vial) 40 mg IVPUSH Q12H [facility] Last Admin: 03/16/25 21:40 Dose: 40 mg Documented By: ROGELIO Ondansetron HCl (Ondansetron Hcl 4 Mg/2 Ml Vial) 4 mg IVPUSH Q8H PRN PRN Reason: Nausea and Vomiting Sodium Chloride (0.9 % Sodium Chloride Flush 3 Ml Syringe) 3 ml IVFLUSH QSHIFT [facility] Last Admin: 03/17/25 01:19 Dose: 3 ml Documented By: BROOKS Venlafaxine HCl (Venlafaxine Hcl 25 Mg Tablet) 25 mg PO DAILY [facility] Labs 03/17/25 06:33 03/17/25 06:33 Labs: Laboratory Results - last 24 hr 03/16/25 03/16/25 03/16/25 06:53 09:02 09:32 MCV MCH MCHC RDW Plt Count MPV Absolute Nucleated RBC Nucleated RBC % (auto) PT INR APTT D-Dimer High Sensitivty Hold Blue Top Anion Gap Estim Creat Clear Calc Estimated GFR Random Glucose Lactic Acid F/U @ 2Hr 2.0 Calcium Troponin I High Sens 173.8 H* D Procalcitonin 0.03 03/16/25 03/16/25 03/16/25 09:49 09:50 15:47 MCV MCH MCHC RDW Plt Count MPV Absolute Nucleated RBC Nucleated RBC % (auto) PT 9.6 L INR 0.8 L APTT 23.0 L D-Dimer High Sensitivty 362 Hold Blue Top SEE NOTE Anion Gap Estim Creat Clear Calc Estimated GFR Random Glucose Lactic Acid F/U @ 2Hr Calcium Troponin I High Sens 318.3 H* D Procalcitonin 03/17/25 06:33 MCV 102.1 H MCH 34.6 H MCHC 33.9 RDW 12.6 Plt Count 187 MPV 9.7 Absolute Nucleated RBC 0.020 H Nucleated RBC % (auto) 0.2 PT INR APTT D-Dimer High Sensitivty Hold Blue Top Anion Gap 15 Estim Creat Clear Calc 66.2 Estimated GFR > 60 Random Glucose 146 H Lactic Acid F/U @ 2Hr Calcium 9.5 Troponin I High Sens 273.5 H* Procalcitonin Assessment and Plan (1) Acute exacerbation of chronic obstructive pulmonary disease: Status: Acute (2) Hypoxia: Status: Acute Plan Pt is a 64-year-old female with a PMH significant for COPD not on home O2, HIV, opiate dependence on Suboxone, peripheral vascular disease, HTN, mood disorder, and currently smoking a pack daily who presents to the ED with increased SOB and difficulty breathing for the past few days. Pt is admitted to the hospital for treatment and further evaluation of elevated troponins in the setting of acute hypoxic respiratory failure secondary to COPD exacerbation with possible superimposed pneumonia. Acute hypoxic respiratory failure in the setting of COPD exacerbation with superimposed pneumonia Pt desatting into the 80s on RA, CXR with likely bronchopneumonia, increased SOB/WILSON/wheezing not improved with ED bronchodilator treatment No sepsis Solu-Medrol, DuoNebs, guaifenesin Ceftriaxone and doxycycline, day 1 Titrate supplemental O2 >92, wean as tolerated Follow cultures Elevated troponins Initial troponin 22.9 with repeat 173.8; continued to increase and then fall Pt asymptomatic: Chest pain reproducible with palpation, EKG nonischemic Likely type 2 in the setting of increased demand due to hypoxia Cardiology consulted, recommend aspirin and statin; likely has underlying CAD that will need outpatient workup Echo showed low normal LVEF of 50-55% Monitor on telemetry Acute lactic acidosis, resolved Initial lactic acid 2.3 with repeat 2.0 after IVF Secondary to hypoxia, not sepsis HIV Continue Genvoya HTN Continue losartan Mood disorder Continue venlafaxine Full Code Attending:?Dr. Prado DVT Prophylaxis: Lovenox Pt will requires continued hospitalization for continued treatment of acute hypoxic respiratory failure in the setting of COPD exacerbation with superimposed pneumonia. Quality Stroke Does the patient have a stroke diagnosis?: No VTE Prior VTE?: No VTE Risk Level:: Medical - moderate - high VTE Device Contraindication: Treatment Not Indicated VTE Drug Contraindication: N/A - Med Ordered
[2025-03-17] MEDS: Albuterol/Iprat 2.5/0.5MG 3 ML AMPUL.NEB INHALE ×4 (07:49→20:25)
[2025-03-17] MEDS: Aspirin Enteric Coated 81 MG TABLET.DR PO (08:20)
--- NOTE | 2025-03-17 09:38 | MHC.CM.PN ---
IMM 03/17/25, Pt. lives alone, PCP confirmed: Dami Cagle. HCP discussed, she will complete form here. she does not use home health services. For DME, she has a nebulizer. Referral to be put into financial counselor to assist pt. with [employer]. she only has Medicare, no supplemental. Transport home at DC via [facility]. DCP: home, self care or with services. CM to follow for DC needs.
--- NOTE | 2025-03-17 09:54 | P.CONCA_ITS ---
History of Present Illness History of Present Illness Date of Service: 03/17/25 Consult reason: troponin elevation Chief complaint: COPD w/Hypoxia Narrative: I was consulted to see Jenn in cardiology consultation today for elevated troponin. She is a 64 year female with prior history of COPD unfortunately continue smoking, acid reflux disease, HIV, mildly dilated ascending aorta by echocardiogram in 2022, mild carotid and peripheral vascular disease. Patient came to the hospital after developing a sore throat and then gradually progressed to developed a cold like symptoms and that progressively getting more and more short of breath still on Sunday she was not able to breathe. She did go to urgent care on Sunday and was prescribed prednisone and antibiotics but her symptoms continued get worse and she came to the emergency room yesterday where she was barely able to breathe. She also complained of retrosternal chest pain which started on Sunday was continuously present till yesterday, worse with touch as well as worse with deep breathing as well as coughing. However since she has been here she says she is breathing a lot better and she is able to speak in sentences. However continues to have this chest discomfort since yesterday present. Troponin were measured and this showed rise and fall consistent with myocardial injury. She has no prior history of coronary artery disease. Review of Systems 2 Constitutional: Constitutional: Reports weakness Eyes: Eyes: Reports no additional eye complaints ENT: Reports system reviewed and no additional complaints, except as documented Cardiovascular: Cardiovascular: Reports dyspnea and Reports dyspnea on exertion Respiratory: Respiratory: Reports pain on inspiration, Reports pain with cough, Reports dyspnea, Reports dyspnea on exertion and Reports wheezing Gastrointestinal: Gastrointestinal: Reports no additional gastrointestinal complaints Genitourinary: Genitourinary: Reports no additional female genitourinary complaints Musculoskeletal: Musculoskeletal: Reports no additional musculoskeletal complaints Integumentary/Breasts: Skin/Breast: Reports system reviewed and no additional complaints, except as docu Neurologic: Reports system reviewed and no additional complaints, except as documented and Reports weakness Psychiatric: Psychiatric: Reports no additional psychiatric complaints Allergic/Immunologic: Allergic/Immunologic: Reports wheezing [facility] Past Medical History Medical History Nicotine dependence, cigarettes, uncomplicated Tongue sore Liver cirrhosis COPD (chronic obstructive pulmonary disease) PVD (peripheral vascular disease) History of opioid abuse Osteopenia GERD (gastroesophageal reflux disease) Hyperlipidemia Hepatitis C (~1998) PTSD (post-traumatic stress disorder) HTN (hypertension) HIV (human immunodeficiency virus infection) (~1996) Family History Family History Mother Lung cancer Father Substance use disorder Son Substance use disorder Surgical History Surgical History History of colonoscopy (~2016) History of esophagogastroduodenoscopy (EGD) (~2016) History of angioplasty (~2017) History of carpal tunnel surgery of right wrist (~2003) History of liver biopsy (~2001) Hx of cholecystectomy (~2001) History of hysterectomy Social History Social History Household Members: None Housing: Apartment Do you presently have visiting nurse or other home services: No Alcohol intake: current Patient Tobacco Use Status: Current everyday Tobacco user Tobacco use type: Cigarette Cigarette Packs Per Day: 1 Cigarettes Per Day: 20 Years Smoked: 50 Smoked in Last 30 Days: Yes e-Cigarette/Vaping Use: Never Used Second Hand Smoke Exposure: No Use of substances other than those prescribed or required for medical reasons: No Have you been hit, kicked, punched, or otherwise hurt by someone within the past year? If so, by whom?: No Do you feel safe in your current relationship?: No Current Relationship Is there a partner from a previous relationship who is making you feel unsafe now?: No Are you made to feel afraid or neglected: No Advance Directives: No Advance Directives Information Provided: Yes Do you have a plan to hurt others: No Plan Recently lost weight without trying: Yes How much weight loss: 2-13 pounds Eating poorly because of decreased appetite: Yes Nutrition screen score: 4 Nutrition Risks: Poor intake 0-25% >4 days Patient : No : No Poor oral hygiene: No service: No Current occupational status: employed 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, 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 Cognitive needs: No Hearing needs: No Vision needs: No Meds Allergies Allergy/AdvReac Type Severity Reaction Status Date / Time abacavir Allergy Severe high fever Verified 03/16/25 06:32 erythromycin base Allergy Unknown Unknown Verified 03/16/25 06:32 Active Medications: Current Medications Acetaminophen (Acetaminophen 325 Mg Tablet) 650 mg PO Q6H PRN PRN Reason: Pain, Mild 1-3,fever,headache Albuterol Sulfate (Albuterol Sulfate (0.083%) 2.5 Mg/3 Ml Vial.Neb) 2.5 mg INHALE RQ4H PRN PRN Reason: shortness of breath or wheezing Albuterol/Ipratropium (Albuterol/Iprat 2.5/0.5mg 3 Ml Ampul.Neb) 3 ml INHALE RQ4H WHILE AWAKE [facility] Last Admin: 03/17/25 07:49 Dose: 3 ml Aspirin (Aspirin Enteric Coated 81 Mg Tablet.Dr) 81 mg PO DAILY [facility] Last Admin: 03/17/25 08:20 Dose: 81 mg Atorvastatin Calcium (Atorvastatin Calcium 10 Mg Tablet) 10 mg PO DAILY [facility] Last Admin: 03/17/25 08:20 Dose: 10 mg Buprenorphine/Naloxone (Buprenorphine/Naloxone 8/2 Mg Film) 2 film SUBLINGUAL DAILY [facility] Last Admin: 03/17/25 08:27 Dose: 2 film Calcium Carbonate (Calcium Carbonate 750 Mg Tab.Chew) 750 mg PO Q4H PRN PRN Reason: Heartburn Ceftriaxone Sodium (Ceftriaxone Sodium 1 Gm Vial) 1 gm IVPUSH Q24H [facility] Last Admin: 03/17/25 08:18 Dose: 1 gm Elvitegravir/Cobicis/Emtricit/Tenof (Elviteg/[place]/Emtric/Tenofo Ala 150/150/200/10 Tablet) 1 tab PO DAILY [facility] Enoxaparin Sodium (Enoxaparin Sodium 40 Mg/0.4 Ml Syringe) 40 mg SUBCUT Q24H [facility] Last Admin: 03/16/25 19:14 Dose: 40 mg Doxycycline Hyclate 100 mg/ (Sodium Chloride) 250 mls @ 166.67 mls/hr IV Q12H [facility] Last Admin: 03/17/25 08:35 Dose: 250 mls/hr Influenza Virus Vaccine (Flu Vacc [id number](6mo Up)/Pf 0.5 Ml Syringe) 0.5 ml IM .ONCE ONE Stop: 03/18/25 09:01 Losartan Potassium (Losartan Potassium 50 Mg Tablet) 50 mg PO DAILY [facility]; Protocol Last Admin: 03/17/25 08:20 Dose: 50 mg Magnesium Hydroxide (Milk Of Magnesia 30 Ml Oral.Susp) 30 ml PO DAILY PRN PRN Reason: Constipation Melatonin (Melatonin 3 Mg Tablet) 6 mg PO BEDTIME PRN PRN Reason: Insomnia Last Admin: 03/17/25 01:19 Dose: 6 mg Methylprednisolone Sodium Succinate (Methylprednisolone Sod Succ 40 Mg/Ml Vial) 40 mg IVPUSH Q12H [facility] Last Admin: 03/17/25 08:19 Dose: 40 mg Ondansetron HCl (Ondansetron Hcl 4 Mg/2 Ml Vial) 4 mg IVPUSH Q8H PRN PRN Reason: Nausea and Vomiting Sodium Chloride (0.9 % Sodium Chloride Flush 3 Ml Syringe) 3 ml IVFLUSH QSHIFT [facility] Last Admin: 03/17/25 08:26 Dose: 3 ml Venlafaxine HCl (Venlafaxine Hcl 25 Mg Tablet) 25 mg PO DAILY [facility] Home Medications ?Medication ?Instructions ?Recorded ?Confirmed ?Last Taken ?Type aspirin 81 mg tablet,delayed 81 mg PO DAILY 06/15/20 1 03/15/25 History release (Shakira Low Dose Aspirin) calcium carbonate-vitamin D3 500 1 cap PO DAILY 03/16/25 03/15/25 History mg (1,250 mg)-50 unit capsule elviteg 150 mg-cob 150 mg-emtricit 1 tab PO DAILY 02/1003/16/25 03/15/25 History 200 mg-tenofo alafenam 10 mg tablet (Genvoya) buprenorphine 8 mg-naloxone 2 mg 2 film sublingual SAMMIE LY 06/15/23 03/16/25 03/15/25 History sublingual film Physical Exam 2 Vital Signs: Vital Signs: Last Vital Signs Temp 97.3 F 03/17/25 07:09 Pulse 76 03/17/25 07:51 Resp 18 03/17/25 07:51 BP 142/83 H 03/17/25 08:20 Pulse Ox 94 03/17/25 07:09 O2 Del Method Room Air 03/17/25 07:09 O2 Flow Rate 2 03/16/25 14:00 BMI result Body Mass Index 20.4 Const: General: cooperative, comfortable, alert, awake and in distress moderate and respiratory Nutritional Appearance: average body habitus O rientation/consciousness: patient oriented x3 HEENT: Head: Yes normocephalic and Yes atraumatic Neck: Neck: Yes trachea midline, Yes supple and Yes no JVD Resp: Auscultation: wheezes scattered wheezes and diminished lung sounds Cardio: Jugular venous distension: no JVD Rate: regular rate Rhythm: r egular rhythm Heart sounds: S1 normal heart sound present, S2 normal heart sound present, no click, no gallops, no murmurs and no rubs GI: Auscultation: normal bowel sounds Skin: General skin exam: no rashes or lesions noted Neuro: General: patient oriented x3 and no focal motor deficits Extrem: General: Yes no clubbing, cyanosis or edema Psych: Appearance: grossly normal Objective Labs and Meds 03/17/25 06:33 03/17/25 06:33 Lab results: Laboratory Results - last 24 hr 03/16/25 03/16/25 03/16/25 09:49 09:50 15:47 WBC RBC Hgb Hct MCV MCH MCHC RDW Plt Count MPV Absolute Nucleated RBC Nucleated RBC % (auto) PT 9.6 L INR 0.8 L APTT 23.0 L D-Dimer High Sensitivty 362 Hold Blue Top SEE NOTE Sodium Potassium Chloride Carbon Dioxide Anion Gap BUN Creatinine Estim Creat Clear Calc Estimated GFR Random Glucose Calcium Troponin I High Sens 318.3 H* D 03/17/25 06:33 WBC 8.6 RBC 3.76 L Hgb 13.0 Hct 38.4 MCV 102.1 H MCH 34.6 H MCHC 33.9 RDW 12.6 Plt Count 187 MPV 9.7 Absolute Nucleated RBC 0.020 H Nucleated RBC % (auto) 0.2 PT INR APTT D-Dimer High Sensitivty Hold Blue Top Sodium 142 Potassium 4.5 Chloride 104 Carbon Dioxide 28 Anion Gap 15 BUN 16 Creatinine 0.60 Estim Creat Clear Calc 66.2 Estimated GFR > 60 Random Glucose 146 H Calcium 9.5 Troponin I High Sens 273.5 H* Imaging Radiologist's impression: Impressions Chest CTA 03/16/25 11:44 IMPRESSION: No definite pulmonary embolus. There is heterogeneity within pulmonary vessels leading to the left lower lobe that is similar but slightly more pronounced than on the prior CTPA on 10/03/2024. Flow-related heterogeneity is favored over pulmonary emboli. Mild to moderate emphysema. Cholecystectomy. Fleischner guidelines were followed. Electronically signed by: Ricardo Reardon MD 03/16/2025 12:18 PM EDT Assessment and Plan (1) Myocardial injury: Status: Acute Myocardial injury in this elderly woman secondary to hypoxemic respiratory failure suggestive of secondary NSTEMI. Patient has significant COPD exacerbation significant hypoxemia. High likelihood of underlying coronary artery disease which needs to be evaluated once her pulmonary condition has improved unless her echocardiogram shows significant wall motion abnormality. Will review the echocardiogram in near future. For now continue aspirin as well as high-intensity statin therapy with at least 40-80 mg of atorvastatin. Would hold off on beta-kimberly therapy given her significant bronchospasm. Continue aggressive treatment for a COPD exacerbation. No indication for IV heparin for secondary NSTEMI. Continue to treat hypoxemia with oxygen supplementation. Will need improved blood pressure control and can increase losartan to 100 mg daily. Will sign of the case unless there are ongoing issues and will follow with you then. Procedures Date of Service Date of Service: 03/17/25
[2025-03-17] MEDS: guaiFEN/Codeine SF 200/20/10ML 10 ML LIQUID 5 ML PO ×2 (11:07→18:05)
[2025-03-17] MEDS: Elviteg/Cobi/Emtric/Tenofo Ala 150/150/200/10 TABLET 1 TAB PO (11:07)
[2025-03-17] MEDS: Nicotine 21 MG PATCH.TD24 TRANSDERMA (18:06)
[2025-03-18] VITALS (10 sets, daily range): BP systolic 130–175; BP diastolic 69–89; PULSE 54–71; RESP 16–20; TEMP 36.4–37.1; O2SAT 90–96
[2025-03-18] MEDS: guaiFEN/Codeine SF 200/20/10ML 10 ML LIQUID 5 ML PO ×3 (00:18→21:27)
[2025-03-18 07:25] LABS: Troponin-I High Sensitivity 122.0 ng/L (<3.5-17.0)
[2025-03-18] MEDS: Albuterol/Iprat 2.5/0.5MG 3 ML AMPUL.NEB INHALE ×4 (07:51→19:20)
[2025-03-18] MEDS: Aspirin Enteric Coated 81 MG TABLET.DR PO (08:51)
[2025-03-18] MEDS: Elviteg/Cobi/Emtric/Tenofo Ala 150/150/200/10 TABLET 1 TAB PO (08:51)
[2025-03-18] MEDS: Nicotine 21 MG PATCH.TD24 TRANSDERMA (08:53)
[2025-03-18] MEDS: 0.9 % Sodium Chloride Flush 3 ML SYRINGE IVFLUSH ×3 (09:02→21:27)
--- NOTE | 2025-03-18 09:56 | MHC.CM.PN ---
PER REVIEW OF CHART, CARDIOLOGY HAS SIGNED OFF. PLAN IS FOR CONTINUATION OF HYPOXIA TREATMENT. CM FOLLOWING IN THE EVENT PATIENT IS ABLE TO DC HOME. PLAN IS HOME -SELF CARE.
--- NOTE | 2025-03-18 15:30 | HO.PM.IMPN ---
Subjective Subjective Date of Service: 03/18/25 Interval History: Continued anterior chest wall pain with movement and cough, though cough better than yesterday Was able to get some sleep last night Pt worried about going home as she lives by herself Review of Systems Review of Systems: Yes all other systems are reviewed and are negative Physical Exam Exam: Exam: General: AOx3, no acute distress Resp: Lungs diminished but clear CVS: S1, S2, RRR GI: +BS, NT, no distention Chest: No significant anterior chest wall tenderness to palpation Skin: Warm, dry Neuro: Cranial nerves II-XII grossly intact bilaterally. Motor grossly intact bilaterally Extremities: No edema Psych: Anxious Vital Signs: Vital Signs: Last Vital Signs Temp 97.6 F 03/18/25 15:18 Pulse 71 03/18/25 15:18 Resp 17 03/18/25 15:18 BP 143/70 H 03/18/25 15:18 Pulse Ox 93 03/18/25 15:18 O2 Del Method Room Air 03/18/25 15:18 O2 Flow Rate 2 03/16/25 14:00 BMI result Body Mass Index 20.4 Objective Data Active Medications Acetaminophen (Acetaminophen 325 Mg Tablet) 650 mg PO Q6H PRN PRN Reason: Pain, Mild 1-3,fever,headache Albuterol Sulfate (Albuterol Sulfate (0.083%) 2.5 Mg/3 Ml Vial.Neb) 2.5 mg INHALE RQ4H PRN PRN Reason: shortness of breath or wheezing Albuterol/Ipratropium (Albuterol/Iprat 2.5/0.5mg 3 Ml Ampul.Neb) 3 ml INHALE RQ4H WHILE AWAKE [facility] Last Admin: 03/18/25 15:16 Dose: 3 ml Documented By: STACEY Aspirin (Aspirin Enteric Coated 81 Mg Tablet.Dr) 81 mg PO DAILY [facility] Last Admin: 03/18/25 08:51 Dose: 81 mg Documented By: OMAR Atorvastatin Calcium (Atorvastatin Calcium 10 Mg Tablet) 10 mg PO DAILY [facility] Last Admin: 03/18/25 08:51 Dose: 10 mg Documented By: OMAR Buprenorphine/Naloxone (Buprenorphine/Naloxone 8/2 Mg Film) 2 film SUBLINGUAL DAILY [facility] Last Admin: 03/18/25 08:52 Dose: 2 film Documented By: OMAR Calcium Carbonate (Calcium Carbonate 750 Mg Tab.Chew) 750 mg PO Q4H PRN PRN Reason: Heartburn Ceftriaxone Sodium (Ceftriaxone Sodium 1 Gm Vial) 1 gm IVPUSH Q24H [facility] Last Admin: 03/18/25 06:31 Dose: 1 gm Documented By: MARICRUZ Elvitegravir/Cobicis/Emtricit/Tenof (Elviteg/[place]/Emtric/Tenofo Ala 150/150/200/10 Tablet) 1 tab PO DAILY [facility] Last Admin: 03/18/25 08:51 Dose: 1 tab Documented By: OMAR Enoxaparin Sodium (Enoxaparin Sodium 40 Mg/0.4 Ml Syringe) 40 mg SUBCUT Q24H [facility] Last Admin: 03/17/25 18:05 Dose: 40 mg Documented By: JULIAN Guaifenesin/Codeine Phosphate (Guaifen/Codeine Sf 200/20/10ml 10 Ml Liquid) 5 ml PO Q6H PRN PRN Reason: Cough Last Admin: 03/18/25 12:20 Dose: 5 ml Documented By: OMAR Doxycycline Hyclate 100 mg/ (Sodium Chloride) 250 mls @ 166.67 mls/hr IV Q12H [facility] Last Infusion: 03/18/25 10:15 Dose: Infused Documented By: OMAR Ketorolac Tromethamine (Ketorolac Tromethamine 15 Mg/Ml Vial) 15 mg IVPUSH Q6H PRN PRN Reason: Pain, Moderate(Pain Scale 4-6) Losartan Potassium (Losartan Potassium 50 Mg Tablet) 50 mg PO DAILY [facility]; Protocol Last Admin: 03/18/25 08:51 Dose: 50 mg Documented By: OMAR Magnesium Hydroxide (Milk Of Magnesia 30 Ml Oral.Susp) 30 ml PO DAILY PRN PRN Reason: Constipation Melatonin (Melatonin 3 Mg Tablet) 6 mg PO BEDTIME PRN PRN Reason: Insomnia Last Admin: 03/17/25 01:19 Dose: 6 mg Documented By: BROOKS Methylprednisolone Sodium Succinate (Methylprednisolone Sod Succ 40 Mg/Ml Vial) 40 mg IVPUSH Q12H [facility] Last Admin: 03/18/25 08:52 Dose: 40 mg Documented By: OMAR Nicotine (Nicotine 21 Mg Patch.Td24) 21 mg TRANSDERMA DAILY [facility] Last Admin: 03/18/25 08:53 Dose: 21 mg Documented By: OMAR Ondansetron HCl (Ondansetron Hcl 4 Mg/2 Ml Vial) 4 mg IVPUSH Q8H PRN PRN Reason: Nausea and Vomiting Sodium Chloride (0.9 % Sodium Chloride Flush 3 Ml Syringe) 3 ml IVFLUSH QSHIFT [facility] Last Admin: 03/18/25 09:02 Dose: 3 ml Documented By: OMAR Venlafaxine HCl (Venlafaxine Hcl 25 Mg Tablet) 25 mg PO DAILY [facility] Last Admin: 03/18/25 08:52 Dose: 25 mg Documented By: OMAR Zolpidem Tartrate (Zolpidem Tartrate 5 Mg Tablet) 5 mg PO BEDTIME PRN PRN Reason: Insomnia Last Admin: 03/18/25 00:18 Dose: 5 mg Documented By: MARICRUZ Labs 03/17/25 06:33 03/17/25 06:33 Labs: Laboratory Results - last 24 hr 03/18/25 03/18/25 06:28 06:30 Hold Purple Top SEE NOTE Troponin I High Sens 122.0 H* D Microbiology Microbiology Results: Microbiology 03/16/25 06:53 Blood Culture - Preliminary Blood - Venous No growth after 48 hours. 03/16/25 06:53 Blood Culture - Preliminary Blood - Venous No growth after 48 hours. Assessment and Plan (1) Acute exacerbation of chronic obstructive pulmonary disease: Status: Acute Plan Pt is a 64-year-old female with a PMH significant for COPD not on home O2, HIV, opiate dependence on Suboxone, peripheral vascular disease, HTN, mood disorder, and currently smoking a pack daily who presents to the ED with increased SOB and difficulty breathing for the past few days. Pt is admitted to the hospital for treatment and further evaluation of elevated troponins in the setting of acute hypoxic respiratory failure secondary to COPD exacerbation with possible superimposed pneumonia. Acute hypoxic respiratory failure in the setting of COPD exacerbation with superimposed pneumonia Pt desatting into the 80s on RA, CXR with likely bronchopneumonia, increased SOB/WILSON/wheezing not improved with ED bronchodilator treatment No sepsis Solu-Medrol, DuoNebs, guaifenesin Ceftriaxone and doxycycline, day 1 Titrate supplemental O2 >92, wean as tolerated BCx neg after 48h PT recommending possible outpatient pulmonary rehab Elevated troponins Troponins initially trended up to 318.3, then fell to 122.0 Pt asymptomatic: Chest pain reproducible with palpation, EKG nonischemic Likely type 2 in the setting of increased demand due to hypoxia Cardiology consulted, recommend continuing aspirin and increasing statin to 40 mg daily; likely has underlying CAD that will need outpatient workup Echo showed low normal LVEF of 50-55% Monitor on telemetry Acute lactic acidosis, resolved Initial lactic acid 2.3 with repeat 2.0 after IVF Secondary to hypoxia, not sepsis HIV Continue Genvoya HTN Continue losartan Mood disorder Continue venlafaxine Full Code DVT Prophylaxis: Lovenox Pt requires continued hospitalization for additional treatment for COPD exacerbation with superimposed pneumonia with IV steroids and breathing treatments. Plan is to discharge pt home tomorrow. Quality Stroke Does the patient have a stroke diagnosis?: No VTE Prior VTE?: No VTE Risk Level:: Medical - moderate - high VTE Device Contraindication: Treatment Not Indicated VTE Drug Contraindication: N/A - Med Ordered
[2025-03-19] VITALS: BP 158/79; PULSE 62; RESP 16; TEMP 36.4; O2SAT 92
[2025-03-19 04:00] VITALS: BP 176/86; PULSE 54; RESP 18; TEMP 36.1; O2SAT 95
[2025-03-19 07:50] VITALS: BP 165/80; PULSE 55; RESP 18; TEMP 37.1; O2SAT 93
[2025-03-19] MEDS: Aspirin Enteric Coated 81 MG TABLET.DR PO (08:21)
[2025-03-19] MEDS: Elviteg/Cobi/Emtric/Tenofo Ala 150/150/200/10 TABLET 1 TAB PO (08:21)
[2025-03-19] MEDS: Nicotine 21 MG PATCH.TD24 TRANSDERMA (08:22)
[2025-03-19] MEDS: 0.9 % Sodium Chloride Flush 3 ML SYRINGE IVFLUSH (08:22)
[2025-03-19 08:37] VITALS: PULSE 58; RESP 16
[2025-03-19] MEDS: Albuterol/Iprat 2.5/0.5MG 3 ML AMPUL.NEB INHALE (08:37)
[2025-03-19 11:16] VITALS: BP 156/72; PULSE 64; RESP 18; TEMP 36.6; O2SAT 93
--- NOTE | 2025-03-19 13:24 | PM.DS ---
DS: Providers Provider Date of Service: 03/19/25 Date of admission: 03/16/25 12:47 Date of discharge: 03/19/25 Primary care physician: ALLEN Vazquez Consults: 03/16/25 17:46 Consult to Cardiology Routine Consulting Provider: [facility] Reason for consultation: Elevated troponins DS: Diagnosis Discharge Diagnosis (1) Acute exacerbation of chronic obstructive pulmonary disease: Status: Acute DS: Summary Hospital Course Hospital Course: From admission HPI: Date of Service: 03/16/25 [facility] Chief Complaint: SOB Pt is a 64-year-old female with a PMH significant for COPD not on home O2, HIV, opiate dependence on Suboxone, peripheral vascular disease, HTN, mood disorder, and currently smoking a pack daily who presents to the ED with increased SOB and difficulty breathing for the past few days. Pt reports 2 weeks ago she came down with URI type symptoms including sore throat, cough, and rhinorrhea. These symptoms went away, but pt soon developed worsening cough, SOB, and difficulty breathing. Pt repeatedly used all her inhalers with little effect. Went to a walk-in clinic on Sunday and was prescribed doxycycline and prednisone that did not help over the weekend. This morning pt reports she could not breathe and had central nonradiating chest pain that was worse with movement and cough which prompted her call to EMS. Pt also notes had a mechanical fall at work where she struck her chest wall on a tote. No LOC or head strike. In the ED pt's vitals were significant for tachypnea up to 22 and desatting into the upper 80s on RA. Labs were significant for lactic acid 2.3, initial troponin 22.9 with repeat 173.8, CRP 591, and pro BNP mildly elevated at 440.1. No leukocytosis. CXR showed probable bronchopneumonia vs bronchitis. CTA of chest showed no definite pulmonary embolus, but showing [id number] emphysema. EKG demonstrated normal sinus without evidence of significant ischemic changes. Pt was treated in the ED with Solu-Medrol, Mag sulfate, DuoNebs, IVF, morphine, aspirin, doxycycline, and ceftriaxone. Pt is admitted to the hospital for treatment and further evaluation of elevated troponins in the setting of acute hypoxic respiratory failure secondary to COPD exacerbation with possible superimposed pneumonia. Hospital course: Pt was admitted to the hospital for acute hypoxic respiratory failure in the setting of COPD exacerbation and superimposed pneumonia that failed outpatient therapy. Pt was treated with IV antibiotics, IV steroids, and bronchodilator therapy to good effect. Pt was eventually weaned off oxygen and breathing improved. Was seen and evaluated by Physical therapy who recommended outpatient pulmonary. Patient's hospital stay was complicated by elevated troponins; pt without typical chest pain and EKG was nonischemic. Was seen and evaluated Cardiology who thought was likely secondary to increased demand from hypoxia. They did think that pt likely had underlying CAD, and recommended close follow up with Cardiology for outpatient ischemic workup. Pt did have echocardiogram that showed low normal LVEF of 50-55%. For COPD exacerbation and pneumonia, pt will be discharged on prednisone 40 mg daily x3 days, doxycycline 100 mg b.i.d. x3 days, and cefuroxime 500 mg b.i.d. x3 days. For elevated troponins in the setting of likely CAD, pt should continue aspirin and atorvastatin will be increased to 40 mg daily. Pt should follow up with PCP in 1 week for routine post hospitalization visit as well as for outpatient referral to pulmonary rehab. Pt should follow up with Cardiology in 1-2 weeks for outpatient cardiac ischemia workup. She should resume all other home medications. Time Attestation Discharge Coordination Time (in mins): 35 Quality: Safe Use of Opioids Does Pt have an Active Cancer Diagnosis on the Problem List?: No Quality: Stroke Does the patient have a stroke diagnosis?: No Physical Exam Exam: Exam: General: AOx3, no acute distress Resp: Lungs diminished throughout but CTA CVS: S1, S2, RRR GI: +BS, NT, no distention Skin: Warm, dry Neuro: Cranial nerves II-XII grossly intact bilaterally. Motor grossly intact bilaterally Extremities: No edema Psych: Appropriate affect Vital Signs: Vital Signs: Last Vital Signs Temp 97.8 F 03/19/25 11:16 Pulse 64 03/19/25 11:16 Resp 18 03/19/25 11:16 BP 156/72 H 03/19/25 11:16 Pulse Ox 93 03/19/25 11:16 O2 Del Method Room Air 03/19/25 11:16 O2 Flow Rate 2 03/16/25 14:00 BMI result Body Mass Index 20.4 DS: Data Data Completed and Pending Labs on day of discharge: Preliminary micro results at discharge 03/16/25 06:53 Blood Culture - Preliminary Blood - Venous No growth after 48 hours. 03/16/25 06:53 Blood Culture - Preliminary Blood - Venous No growth after 48 hours. Discharge Plan Discharge Anticipated Discharge Date/Time: 03/19/25 12:38 Patient Disposition: Home, Self-Care Discharge Diagnosis: Acute hypoxic respiratory failure in the setting of COPD exacerbation with underlying pneumonia Referrals: Dami Grajeda FNP-BC [Primary Care Provider, Internal Medicine] - 1 Week Xavier Sanchez MD [Physician, Cardiology] - 1 Week Referral Note: Elevated troponins in hospital likely type 2 in the setting hypoxia. Pt needs outpatient ischemic workup hospital CAD. Discharge Medications: New prednisone 20 mg tablet 40 mg PO DAILY Qty: 6 0RF Rx Instructions: Take 40 mg (2 tabs) daily for the next three days, starting on 03/20 and ending on 03/22. nicotine 21 mg/24 hr patch 24 hour 1 patch transdermal DAILY Qty: 28 0RF Rx Instructions: Apply one patch to upper arm daily for nicotine replacement therapy cefuroxime axetil 500 mg tablet 500 mg PO BID Qty: 6 0RF Rx Instructions: Take one tablet twice a day for the next 3 days, starting the morning of 10 and ending the evening of 03/22 doxycycline monohydrate 100 mg capsule 100 mg PO BID Qty: 7 0RF Rx Instructions: Take one tablet twice a day with food for the next 3 days, starting the evening of 10 in ending the evening of 03/22. codeine-guaifenesin [Guaifenesin AC] 10-100 mg/5 mL liquid 5 ml PO Q6H PRN (Reason: cough) Qty: 120 0RF Rx Instructions: Take 5 mL as needed up to every 6 hours for cough ketorolac 10 mg tablet 10 mg PO Q8H PRN (Reason: pain, moderate) 5 Days Qty: 15 0RF Rx Instructions: Take 1 tablet up to 3 times daily for moderate pain atorvastatin [Lipitor] 40 mg tablet 40 mg PO DAILY Qty: 90 0RF Rx Instructions: Take one tablet daily Continued losartan 50 mg tablet 50 mg PO DAILY 90 Days Qty: 90 1RF venlafaxine 25 mg tablet 25 mg PO DAILY 90 Days Qty: 90 0RF buprenorphine-naloxone 8-2 mg film 2 film sublingual DAILY ibuprofen 600 mg tablet 600 mg PO Q6H PRN (Reason: fever or pain) Qty: 30 0RF Genvoya [id number] mg tablet 1 tab PO DAILY calcium carbonate-vitamin D3 500 mg(1,250mg) -50 unit capsule 1 cap PO DAILY (DME) nebulizers Misc See Rx Instructions .Route Qty: 1 0RF Rx Instructions: copd, use PRN aspirin [Shakira Low Dose Aspirin] 81 mg tablet,delayed release (DR/EC) 81 mg PO DAILY albuterol sulfate 2.5 mg /3 mL (0.083 %) solution for nebulization 2.5 mg inhalation Q4-6H PRN (Reason: shortness of breath or wheezing) Qty: 90 0RF Trelegy Ellipta 200-62.5-25 mcg blister with device 1 inh inhalation DAILY Qty: 60 6RF albuterol sulfate 90 mcg/actuation HFA aerosol inhaler 1 puff PO QID PRN (Reason: for dyspnea) Qty: 8.5 3RF Discontinued atorvastatin 10 mg tablet 10 mg PO DAILY 90 Days Qty: 90 1RF doxycycline hyclate 100 mg capsule 100 mg PO BID 7 Days Qty: 14 0RF prednisone 20 mg tablet 40 mg PO DAILY 5 Days Qty: 10 0RF Discharge Orders: Discharge Order (Routine); Ordered 03/19/25 Ordered By: Shaye Troy Activity on Discharge: As tolerated Stand Alone Forms: Patient Portal Discharge page Print Language: Macedonian Care Plan Goals: See below Health Concerns: Acute hypoxic respiratory failure COPD exacerbation Pneumonia Plan of Treatment: You were admitted hospital for acute hypoxic respiratory failure in the setting COPD exacerbation and pneumonia that failed outpatient therapy. You were treated with IV antibiotics, IV steroids, and bronchodilator therapy to good effect. You were eventually weaned off of oxygen and breathing improved, including with ambulation. Hospital stay was complicated by elevated troponins without typical chest pain. You were seen and evaluated by Cardiology who thought elevated troponins were secondary to increased demand from hypoxia. Cardiology thought you likely had underlying CAD, and recommended continuing aspirin, increasing atorvastatin to 40 mg daily, and following outpatient for ischemic workup. You had an echocardiogram that showed low normal LVEF of 50-55%. You were also seen and evaluated by Physical therapy who recommended outpatient pulmonology rehab. You will be discharged home with prescriptions for oral antibiotics, a short prednisone course, ketorolac for anterior chest wall pain, guaifenesin with codeine for cough, and nicotine patches for smoking sensation. -- take doxycycline 100 mg twice a day for the next 3 days, starting the evening of 03/19 and ending the evening of 03/22 -- take cefuroxime 500mg twice a day for the next 3 days, starting the morning of 03/20 and ending the evening of 03/22 -- take prednisone 40 mg daily for the next 3 days, starting on 03/20 and ending on 03/22 -- your atorvastatin has been increased to 40 mg daily -- follow up with PCP in 1 week for routine post hospitalization visit -- follow up with PCP or laboratory machinist for referral to outpatient pulmonary rehab -- follow up with Cardiology for outpatient cardiac ischemia workup Assessment: See discharge summary
--- NOTE | 2025-03-19 13:42 | MHC.CM.PN ---
Pt has been medically cleared to [place], she will go home via family transport, plan is self care.
--- NOTE | 2025-03-22 16:26 | P.CDIM_ITS ---
PROVIDER RESPONSE TEXT: To clarify, the appropriate diagnosis supported by the clinical indicators: NSTEMI due to demand ischemia QUERY TEXT: PHYSICIAN'S DOCUMENTATION REQUEST Date of Query: 03/18/2025 08:19 AM EDT Patient Name: Jenn Stahl Admit Date: 03/16/2025 Dear Shaye ALVAREZ, A review of the medical record indicates additional documentation may be needed. Please review below and update the documentation accordingly. Clinical Indicators: Progress note 03/16/25 - Elevated troponins Initial troponin 22.9 with repeat 173.8 318.3 Asymptomatic, chest pain reproducible with palpitation. Likely Type 2 in the setting of increased demand due to hypoxia. Aspirin and statin Monitor on Telemetry, Cardiology note 03/17/25 - Myocardial injury secondary to hypoxemic respiratory failure suggestive of secondary NSTEMI. Please clarify the type of the documented NSTEMI for clarity: NSTEMI due to demand ischemia Type 2 UT Other specifics Other (explain) Clinically unable to determine (explain) Thank you, Katt Odell, CCS, CDIS Use of terms such as suspected, likely, concern for, or probable (associated with a specific diagnosis that is being evaluated, monitored, or treated as if it exists) are acceptable and can be coded in the inpatient setting, when documented at the time of discharge. Please use your independent medical judgment in providing your response. THIS QUERY IS PART OF THE PERMANENT MEDICAL RECORD
== END 2025-03-19 14:45 | disposition home or self-care (01) | DRG 193 ==
LOC: HO.ED 07:47 → HO.EDOVER 13:49 → HO.IMC 22:35
PROVIDERS: Admitting Provider Student in an Organized Health Care Education/Training Program; Emergency Provider Emergency Medicine; PCP Nurse Practitioner Family; Visit Provider Student in an Organized Health Care Education/Training Program
DX: J18.9 Pneumonia, unspecified organism (principal); I21.A1 Myocardial infarction type 2; J96.01 Acute respiratory failure with hypoxia; E87.21 Acute metabolic acidosis; F11.20 Opioid dependence, uncomplicated; J43.9 Emphysema, unspecified; F39 Unspecified mood [affective] disorder; F17.210 Nicotine dependence, cigarettes, uncomplicated; Z21 Asymptomatic human immunodeficiency virus [HIV] infection status; Z71.6 Tobacco abuse counseling; Z20.822 Contact with and (suspected) exposure to COVID-19; Z79.51 Long term (current) use of inhaled steroids; Z79.82 Long term (current) use of aspirin; Z79.899 Other long term (current) drug therapy
CPT/HCPCS: 36415; 71250; 71275; 80048; 80076; 82803; 83605; 83735; 83880; 84145; 84484; 85025; 85027; 85379; 85610; 85730; 86140; 87040; 87637; 93005; 93306; 94640; 97161; 99285; J0696; J1271; J1650; J1885; J2270; J2919; J3475; J7120; Q9967

== ENCOUNTER → 2025-03-16 06:35 | Outpatient (BNV) | payer MEDICARE, SELFPAY | PROVIDERS: Emergency Provider Emergency Medicine; PCP Nurse Practitioner Family; Visit Provider Internal Medicine Cardiovascular Disease | DX: R06.02 Shortness of breath (principal); R07.9 Chest pain, unspecified; R79.89 Other specified abnormal findings of blood chemistry | CPT/HCPCS: 93010 ==

== ENCOUNTER → 2025-03-16 06:35 | Outpatient (BNV) | payer MEDICARE, SELFPAY | PROVIDERS: Emergency Provider Emergency Medicine; PCP Nurse Practitioner Family; Visit Provider Radiology Vascular & Interventional Radiology | DX: R06.00 Dyspnea, unspecified (principal); R05.9 Cough, unspecified; W19.XXXA Unspecified fall, initial encounter | CPT/HCPCS: 71250 ==

== ENCOUNTER 2025-03-16 12:47 | Outpatient (BNV) | payer MEDICARE, SELFPAY | END 2025-03-17 07:00 | PROVIDERS: Admitting Provider Student in an Organized Health Care Education/Training Program; Emergency Provider Emergency Medicine; PCP Nurse Practitioner Family; Visit Provider Internal Medicine Cardiovascular Disease | DX: I51.89 Other ill-defined heart diseases (principal); I77.810 Thoracic aortic ectasia | CPT/HCPCS: 93306 ==

== ENCOUNTER → 2025-03-16 12:47 | Outpatient (BNV) | payer MEDICARE, SELFPAY | PROVIDERS: Admitting Provider Student in an Organized Health Care Education/Training Program; Emergency Provider Emergency Medicine; PCP Nurse Practitioner Family; Visit Provider Internal Medicine Cardiovascular Disease | DX: I5A Non-ischemic myocardial injury (non-traumatic) (principal) | CPT/HCPCS: 99222 ==

== ENCOUNTER → 2025-03-16 12:47 | Outpatient (BNV) | payer MEDICARE, SELFPAY | PROVIDERS: Admitting Provider Student in an Organized Health Care Education/Training Program; Emergency Provider Emergency Medicine; PCP Nurse Practitioner Family; Visit Provider Student in an Organized Health Care Education/Training Program | DX: J44.1 Chronic obstructive pulmonary disease with (acute) exacerbation (principal); R09.02 Hypoxemia; R79.89 Other specified abnormal findings of blood chemistry | CPT/HCPCS: 99223; 99232; 99233 ==

== ENCOUNTER 2025-03-20 13:15 | Outpatient (AMB) | payer MEDICARE, SELFPAY ==
--- NOTE | 2025-03-20 13:16 | A.OFFPC_ITS ---
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 Accompanied by: Self / Same As Patient Allergies abacavir Allergy (Severe, Verified 03/20/25 13:17) high fever erythromycin base Allergy (Unknown, Verified 03/20/25 13:17) Unknown Medication List - Last Reconciled 03/20/25 by Mihir Dunaway MD albuterol sulfate 2.5 mg (3 mL) inhalation Q4-6H PRN albuterol sulfate 90 mcg/actuation 1 puff PO QID PRN aspirin (Shakira Low Dose Aspirin) 81 mg PO DAILY atorvastatin (Lipitor) 40 mg PO DAILY buprenorphine-naloxone 8-2 mg 2 film sublingual DAILY calcium carbonate-vitamin D3 500 mg(1,250mg) -50 unit 1 cap PO DAILY cefuroxime axetil 500 mg PO BID codeine-guaifenesin 10-100 mg/5 mL (Guaifenesin AC) 5 mL PO Q6H PRN doxycycline monohydrate 100 mg PO BID llhnjfv-vmq-xbrda-tenof alafen [phone] mg (Genvoya) 1 tab PO DAILY snhgjhjsavv-lpynreezi-qdnrkegf 200-62.5-25 mcg (Trelegy Ellipta) 1 inh inhalation DAILY ibuprofen 600 mg PO Q6H PRN ketorolac 10 mg PO Q8H PRN 5 days losartan 50 mg PO DAILY 90 days nebulizers copd, use PRN nicotine 1 patch transdermal DAILY prednisone 40 mg (2 x 20 mg) PO DAILY venlafaxine 25 mg PO DAILY 90 days Tobacco use date assessed: 10/21/24 Fall risk assessment: No Falls in past year Last assessed Fall Risk: 03/20/25 Dental Screening Dental Screen Date: 10/21/24 HPI Hospital discharge HPI Details Order labs Patient came in today for hospital discharge follow-up she was in [facility] on 16 of March date of discharge 03/20/2025 Patient have a history of COPD and still smokes, HIV positive, hypertension, CAD, mood disorder she started to feel sick last week with chills and yellowish productive sputum, she also verbalized to falling last week at work landing on her left upper extremity and chest wall and was complaining of chest pain. She was started on prednisone and doxycycline this past Sunday which did not help. She continued to get short of breath so called EMS In emergency room she was found to be wheezing and was coughing Her vital signs were stable there was no fever blood pressure was 133/77 pulse 66 and pulse ox was 96 with 2 L of oxygen via nasal cannula Her EKG showed normal sinus rhythm normal P wave normal QRS complex no acute findings Critical care team was involved And patient was admitted Her initial troponins came back 22.9 with a repeat 173.8 CRP 591 and proBNP mildly elevated at 440.1 No leukocytosis Chest x-ray showed probable bronchopneumonia versus bronchitis CTA of chest showed no definite pulmonary embolus but showing mild to moderate emphysema Admission diagnosis acute hypoxic respiratory failure in the setting of COPD superimposed pneumonia that failed outpatient therapy She was treated with IV antibiotics and IV steroid and bronchodilator therapy eventually was weaned off oxygen breathing improved Physical therapist recommended outpatient pulmonary rehab She was evaluated by reading interventionist who thought troponins are increased due to hypoxia and did not think that patient likely had underlying coronary artery disease Outpatient Cardiology follow-up is recommended Echocardiogram showed LV EF of 55% Patient was discharged on prednisone 40 mg daily for 3 days Doxycycline 100 mg b.i.d. for 3 days Cefuroxime 500 mg b.i.d. for 3 days It was also recommended that she continue aspirin and atorvastatin increase dose of 40 mg She came in today for a follow-up appointment Patient needs an outpatient referral to Pulmonary he rehab And cardiology appointment She is feeling much better however still symptomatic and having some cough and chest congestion Shortness a breath has improved patient is still on steroids - Oxygen levels were previously low but currently at 97%. - Experiences pain while coughing or blo wing nose, partially relieved by anti- inflammatory medication. - Mentioned not having smoked recently a nd using a nicotine patch. 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 - No exposure to chemicals at work was c onfirmed. - Resides alone, exhibited a need for ex ternal aid during acute health episodes. - Recent initiation of a nicotine patch to assist with smoking cessation. - Expressed difficulty adjusting to a ne w job [place] [employer] - Cardiology: Referral to Dr. Barth for e valuation due to recent COPD exacerbation. - Pulmonology: At [facility] Plan - Book appointments with the cardiologis t and for pulmonary rehabilitation to assess heart function and strengthen lung capacity. - Maintain medication routine including Trelegy and prednisolone tapering. - Reinforce the cessation of smoking wit h continuous use of the nicotine patch. - Encourage monitoring of respiratory sy mptoms and pain management with anti- inflammatory agents as necessary. - Provide documentation for work restric tions related to recent hospitalization, allowing return by March 23 without restrictions. If back to baseline Letter provided - abnormal labs need to be repeated Review of Systems General: No fever no chills neurological: No headaches no dizziness ear nose throat: No sore throat no hearing difficulty no ear pain cardiovascular: No syncope, no palpitations gastrointestinal: No nausea vomiting or diarrhea endocrine: No polyuria polydipsia no heat intolerance genitourinary: No dysuria skin: No new complaints Physical Exam general: No acute distress HEENT: No acute findings neck: Supple respiratory system: Able to talk in full sentences, no audible wheeze, no stridor clear to auscultation posteriorly cardiovascular: S1-S2 RRR gastrointestinal: No pain extremities: No new findings PRODUCTION MATERIAL COORDINATOR: Alert awake oriented x3 motor sensory intact skin: Normal turgor [facility] TCM Information Date of Discharge 03/19/25 Discharged From [facility] Interactive Contact Date (Reference documentation from this date) 03/20/25 HPI Comments History of Present Illness Details Date of admission/discharge: March 16, 2025 to March 19, 2025 Facility: [facility] Discharge 2/current location: Home Diagnosis/procedure: COPD exacerbation/acute respiratory failure/bronchopneumonia New/DC medications: Patient was given steroid/antibiotics for details see HPI Changed medication/dozing: None Pending labs/tests: None Call to patient: Date/time TCM visit TCM discharge loca tion/reason [facility]D TCM discharge date 03/19/25 TCM Interactive Co ntact Date 03/20/25 TCM details no voicemail How are you feeling? Improved Any pain or discomfort? Still having chest discomfort when read Do you have any questions about your condition or discharge instructions? No Were you able to get her medications filled? Yes Do you have any questions about your medications? No Were you able to schedule your follow-up appointments? Cardiology referral is placed and pulmonary rehab appointment requested If home health was ordered, have they contacted you? None ordered and none needed as per patient Any outpatient services, if so, are you scheduled? None needed Are there any additional resources like transportation you might need during your recovery? No Educational needs/resources: None needed What support system do you have? Lives alone and does not want any help as per patient [facility] Medical History Nicotine dependence, cigarettes, uncomplicated Tongue sore Liver cirrhosis COPD (chronic obstructive pulmonary disease) PVD (peripheral vascular disease) History of opioid abuse Osteopenia GERD (gastroesophageal reflux disease) Hyperlipidemia Hepatitis C (~1998) PTSD (post-traumatic stress disorder) HTN (hypertension) HIV (human immunodeficiency virus infection) (~1996) Surgical History History of colonoscopy (~2016) History of esophagogastroduodenoscopy (EGD) (~2016) History of angioplasty (~2017) History of carpal tunnel surgery of right wrist (~2003) History of liver biopsy (~2001) Hx of cholecystectomy (~2001) History of hysterectomy Family History Mother Lung cancer Father Substance use disorder Son Substance use disorder Social History Household Members: None Housing: Apartment Do you presently have visiting nurse or other home services: No Alcohol intake: current Patient Tobacco Use Status: Current everyday Tobacco user Tobacco use type: Cigarette Cigarette Packs Per Day: 1 Cigarettes Per Day: 20 Years Smoked: 50 e-Cigarette/Vaping Use: Never Used Second Hand Smoke Exposure: No service: No Current occupational status: employed 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 1. Little interest or pleasure in doing things: several days 2. Feeling down, depressed, or hopeless: several days 3. Trouble falling or staying asleep, or sleeping too much: more than half the days 4. Feeling tired or having little energy: more than half the days 5. Poor appetite or overeating: several days 6. Feeling bad about yourself - or that you are a failure or have let yourself or your family down: not at all 7. Trouble concentrating on things, such as reading the newspaper or watching television: not at all 8. Moving or speaking so slowly that other people could have noticed. Or the opposite - being so fidgety or restless that you have been moving around a lot more than usual: not at all 9. Thoughts that you would be better off or of hurting yourself in some way: not at all Total score: 7 Depression Screening Interpretation: Negative Depression Screening Done: Yes 79247 - PHQ-9 Billing: Yes Source: Developed by Drs. Richard Gonzalez, Annie Pérez, James Nevarez and colleagues, with an educational florinda from [employer] Thrive Questionnaire Date Thrive assessed: 10/21/24 I am a: Patient What is your living situation today?: I have a steady place to live Within the past 12 months, did the food you bought not last and you didn't have the money to get more?: Never true Within the past 12 months, did you worry whether your food would run out before you got money to buy more?: Never true Do you have trouble paying for medicines?: No Do you have trouble getting transportation to medical appointments?: No Do you have trouble paying your heating and electricity bill?: No Do you have trouble taking care of your child, family member or friend?: No Do you have trouble with day-to-day activities such as bathing, preparing meals, shopping, managing finances, etc.?: No Are you currently unemployed and looking for a job?: No Are you interested in more education?: No Please select the resources that you would like help with: None Currently or been in a relationship where the following occur: No concerns reported THRIVE Score: 0 AUDIT C Alcohol Use Questionnaire (AUDIT-C) 1. How often do you have a drink containing alcohol?: 2-4 times a month 2. How many drinks containing alcohol do you have on a typical day when you are drinking?: 1 or 2 3. How often do you have six or more drinks on one occasion?: Never Total Score: 2 PEARL-7 AMB Questionnaire PEARL-7 Date PEARL - 7 assessed: 10/21/24 Feeling nervous, anxious, or on edge: 0 = Not at all Not being able to stop or control worryin = Several days Worrying too much about different things: 1 = Several days Trouble relaxin = Not at all Being so restless that it is hard to sit still: 0 = Not at all Becoming easily annoyed or irritable: 0 = Not at all Feeling afraid as if something awful might happen: 0 = Not at all Total PEARL-7 score (0-4 normal; 5-9 mild; 10-14 moderate; 15-21 severe): 2 Source: Developed by Drs. Richard Gonzalez, Annie Pérez, James Nevarez and colleagues, with an educational florinda from [employer] PEARL-7 Assessment Billing PEARL-7 Assessment Tool: PEARL-7 Assessment [id number] Physical exam (Primary Care) Vital Signs: Last Vital Signs Pulse 68 03/20/25 13:17 BP 140/78 H 03/20/25 13:17 Pulse Ox 97 03/20/25 13:17 Oxygen Delivery Method Room Air 03/20/25 13:17 BMI result Body Mass Index 20.1 Tobacco/Smoking Status: Tobacco use Status Tobacco use date assessed 10/21/24 03/20/25 13:20 Patient Tobacco Use Status Current everyday Tobacco 03/20/25 13:20 Tobacco use type Cigarette 03/20/25 13:20 e-Cigarette/Vaping Use Never Used 03/20/25 13:20 PHQ-9: PHQ-9 Score PHQ-9: Total score 7 03/20/25 13:49 Depression Screening Interpretation: Negative Thrive Assessment: Date of Thrive Assessment Date Thrive assessed 10/21/24 03/20/25 13:20 Currently or been in a relationship where the following occur: No concerns reported Coding Level of Care Code TCM High MDM <= 7 Days Diagnoses Hospital discharge follow-up Z09 Acute exacerbation of chronic obstructive pulmonary disease J44.1 Bronchopneumonia J18.0 Elevated C-reactive protein (CRP) R79.82 Elevated lactic acid level R79.89 Myocardial injury I5A Ascending aorta dilatation I77.810 Elevated troponin R79.89 Additional Codes PHQ-9 - 07729 - PHQ-9 Billing: Yes ([id number]) PEARL-7 Assessment Billing - PEARL-7 Assessment Tool: PEARL-7 Assessment [id number] ([id number]) Assessment & Plan Assessment & Plan (1) Hospital discharge follow-up: Code(s): Z09 - Encounter for follow-up examination after completed treatment for conditions other than malignant neoplasm Category: Medical (2) Acute exacerbation of chronic obstructive pulmonary disease: Code(s): J44.1 - Chronic obstructive pulmonary disease with (acute) exacerbation Category: Medical (3) Bronchopneumonia: Code(s): J18.0 - Bronchopneumonia, unspecified organism Category: Medical (4) Elevated C-reactive protein (CRP): Code(s): R79.82 - Elevated C-reactive protein (CRP) Category: Medical (5) Elevated lactic acid level: Code(s): R79.89 - Other specified abnormal findings of blood chemistry Category: Medical (6) Myocardial injury: Code(s): I5A - Non-ischemic myocardial injury (non-traumatic) Category: Medical (7) Ascending aorta dilatation: Code(s): I77.810 - Thoracic aortic ectasia Category: Medical (8) Elevated troponin: Code(s): R79.89 - Other specified abnormal findings of blood chemistry Category: Medical Plan Order labs Patient came in today for hospital discharge follow-up she was in [facility] on 16 of March date of discharge 03/20/2025 Patient have a history of COPD and still smokes, HIV positive, hypertension, CAD, mood disorder she started to feel sick last week with chills and yellowish productive sputum, she also verbalized to falling last week at work landing on her left upper extremity and chest wall and was complaining of chest pain. She was started on prednisone and doxycycline this past Sunday which did not help. She continued to get short of breath so called EMS In emergency room she was found to be wheezing and was coughing Her vital signs were stable there was no fever blood pressure was 133/77 pulse 66 and pulse ox was 96 with 2 L of oxygen via nasal cannula Her EKG showed normal sinus rhythm normal P wave normal QRS complex no acute findings Critical care team was involved And patient was admitted Her initial troponins came back 22.9 with a repeat 173.8 CRP 591 and proBNP mildly elevated at 440.1 No leukocytosis Chest x-ray showed probable bronchopneumonia versus bronchitis CTA of chest showed no definite pulmonary embolus but showing mild to moderate emphysema Admission diagnosis acute hypoxic respiratory failure in the setting of COPD superimposed pneumonia that failed outpatient therapy She was treated with IV antibiotics and IV steroid and bronchodilator therapy eventually was weaned off oxygen breathing improved Physical therapist recommended outpatient pulmonary rehab She was evaluated by reading interventionist who thought troponins are increased due to hypoxia and did not think that patient likely had underlying coronary artery disease Outpatient Cardiology follow-up is recommended Echocardiogram showed LV EF of 55% Patient was discharged on prednisone 40 mg daily for 3 days Doxycycline 100 mg b.i.d. for 3 days Cefuroxime 500 mg b.i.d. for 3 days It was also recommended that she continue aspirin and atorvastatin increase dose of 40 mg She came in today for a follow-up appointment Patient needs an outpatient referral to Pulmonary he rehab And cardiology appointment She is feeling much better however still symptomatic and having some cough and chest congestion Shortness a breath has improved patient is still on steroids - Oxygen levels were previously low but currently at 97%. - Experiences pain while coughing or blowing nose, partially relieved by anti- inflammatory medication. - Mentioned not having smoked recently and using a nicotine patch. 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 - No exposure to chemicals at work was confirmed. - Resides alone, exhibited a need for external aid during acute health episodes. - Recent initiation of a nicotine patch to assist with smoking cessation. - Expressed difficulty adjusting to a new job [place] [employer] - Cardiology: Referral to Dr. Barth for evaluation due to recent COPD exacerbation. - Pulmonology: At [facility] Plan - Book appointments with the reading interventionist and for pulmonary rehabilitation to assess heart function and strengthen lung capacity. - Maintain medication routine including Trelegy and prednisolone tapering. - Reinforce the cessation of smoking with continuous use of the nicotine patch. - Encourage monitoring of respiratory symptoms and pain management with anti- inflammatory agents as necessary. - Provide documentation for work restrictions related to recent hospitalization, allowing return by March 23 without restrictions. If back to baseline Letter provided - abnormal labs need to be repeated Orders: Orders Pulmonary Rehab Today J18.0 - Bronchopneumonia, unspecified organism, J44.1 - Chronic obstructive pulmonary disease with (acute) exacerbation CRP High Sensitivity Today I5A - Non-ischemic myocardial injury (non- traumatic), R79.82 - Elevated C-reactive protein (CRP), R79.89 - Other specified abnormal findings of blood chemistry Troponin-I High Sensitivity Today I5A - Non-ischemic myocardial injury (non- traumatic), R79.82 - Elevated C-reactive protein (CRP), R79.89 - Other specified abnormal findings of blood chemistry NT Pro B Type Natriuretic Pept Today I5A - Non-ischemic myocardial injury (non- traumatic), R79.82 - Elevated C-reactive protein (CRP), R79.89 - Other specified abnormal findings of blood chemistry Lactic Acid Today I5A - Non-ischemic myocardial injury (non-traumatic), R79.82 - Elevated C-reactive protein (CRP), R79.89 - Other specified abnormal findings of blood chemistry Referrals Cardiology Referral I5A - Non-ischemic myocardial injury (non-traumatic), I77.810 - Thoracic aortic ectasia, R79.89 - Other specified abnormal findings of blood chemistry, Z09 - Encounter for follow-up examination after completed treatment for conditions other than malignant neoplasm
[2025-03-20 13:17] VITALS: BP 140/78; PULSE 68; O2SAT 97; BMI 20.1
== END 2025-03-20 13:50 | disposition home or self-care (01) ==
PROVIDERS: PCP Nurse Practitioner Family; Visit Provider Internal Medicine
DX: J44.1 Chronic obstructive pulmonary disease with (acute) exacerbation (principal); Z09 Encounter for follow-up examination after completed treatment for conditions other than malignant neoplasm; J18.0 Bronchopneumonia, unspecified organism; R79.82 Elevated C-reactive protein (CRP); R79.89 Other specified abnormal findings of blood chemistry; I5A Non-ischemic myocardial injury (non-traumatic); I77.810 Thoracic aortic ectasia

== ENCOUNTER → 2025-03-20 13:15 | Outpatient (BNVA) | payer MEDICARE, SELFPAY | PROVIDERS: PCP Nurse Practitioner Family; Visit Provider Internal Medicine | DX: J44.1 Chronic obstructive pulmonary disease with (acute) exacerbation (principal); J18.0 Bronchopneumonia, unspecified organism; R79.82 Elevated C-reactive protein (CRP); B20 Human immunodeficiency virus [HIV] disease; I25.10 Atherosclerotic heart disease of native coronary artery without angina pectoris; F17.210 Nicotine dependence, cigarettes, uncomplicated; R79.89 Other specified abnormal findings of blood chemistry; I5A Non-ischemic myocardial injury (non-traumatic); I77.810 Thoracic aortic ectasia; Z09 Encounter for follow-up examination after completed treatment for conditions other than malignant neoplasm | CPT/HCPCS: 96127; 99496 ==

== ENCOUNTER 2025-03-22 18:40 | Inpatient (IN) | payer MEDICARE, SELFPAY ==
--- NOTE | ~2025-03-22 | CT_ITS ---
Examination: CT left hand with IV contrast TECHNIQUE: Axial CT of the left hand was performed with IV contrast. Coronal and sagittal reformatted images were generated from the original axial data set. IV contrast: 85 mL Omnipaque 350 ALARA: The examination used one or more of the following radiation dose reduction techniques: Automated exposure control, iterative reconstruction, and/or adjustment of mA and/or KV. No prior INDICATION: New bilateral hand swelling after discharge FINDINGS: Degenerative cystic changes are present in the distal radius, lunate, triquetrum, pisiform, and the first and third metacarpal heads. There is no joint diastases. No definite soft tissue fluid collection is identified with peripheral enhancement. 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 Flexor and extensor tendons are grossly intact. Radial and ulnar arteries are patent without hemodynamically significant stenosis.. CT/CT hand LT w IV con IMPRESSION: No abscess is identified. No acute bony erosions are noted. Multilevel mild degenerative changes are present along with nonunion of a ulnar styloid fracture. Electronically signed by: Ricardo Reardon MD 03/24/2025 09:57 AM EDT
--- NOTE | ~2025-03-22 | XR_ITS ---
CLINICAL HISTORY: chest pain Two views of the chest. COMPARISON: XR chest dated 09/27/24 at 14:59 EDT FINDINGS: Cholecystectomy clips. Normal heart size. Atherosclerotic thoracic aorta. Hyperinflation. No consolidation. No pleural effusion or pneumothorax. Marginal osteophytes along the mid to lower thoracic spine. IMPRESSION: 1. Hyperinflation. No consolidation. This document has been electronically signed by: Nik Trevino MD on 03/22/2025 20:12:55
--- NOTE | ~2025-03-22 | CT_ITS ---
EXAMINATION: CT HAND WITH CONTRAST, RIGHT TECHNIQUE: Axial CT was performed through the right hand with IV contrast. Coronal and sagittal reformatted images were generated from the original axial data set. IV contrast: 85 mL Omnipaque 350 ALARA: The examination used one or more of the following radiation dose reduction techniques: Automated exposure control, iterative reconstruction, and/or adjustment of mA and/or KV. No prior INDICATION: New bilateral hand swelling after discharge FINDINGS: Degenerative cyst is noted on the underside of the lunate, within pisiform, and within the first and third metacarpal heads There is no joint diastases. No definite soft tissue fluid collection with or without peripheral enhancement is identified. Flexor and extensor tendons are grossly intact. Radial and ulnar arteries are patent without hemodynamically significant stenosis.. CT/CT hand RT w IV con IMPRESSION: No abscess is identified. No acute bony erosions are noted. Minimal multifocal degenerative changes are present. Electronically signed by: Ricardo Reardon MD 03/24/2025 10:03 AM EDT
[2025-03-22 18:42] VITALS: BP 136/82; PULSE 76; RESP 12; TEMP 36.3; O2SAT 98; BMI 19.8
--- NOTE | 2025-03-22 18:42 | ED.GENADULT ---
HPI - General Adult General Chief complaint: Extremity Problem Stated complaint: pain in left and right hands Time Seen by Provider: 03/22/25 21:11 Related Data Home Medications ?Medication ?Instructions ?Recorded ?Confirmed aspirin 81 mg tablet,delayed 81 mg PO DAILY 06/15/20 03/20/25 release (Shakira Low Dose Aspirin) calcium carbonate-vitamin D3 500 1 cap PO DAILY 03/08/21 03/20/25 mg (1,250 mg)-50 unit capsule elviteg 150 mg-cob 150 mg-emtricit 1 tab PO DAILY 03/08/21 03/20/25 200 mg-tenofo alafenam 10 mg tablet (Genvoya) buprenorphine 8 mg-naloxone 2 mg 2 film sublingual DAILY 06/15/23 03/20/25 sublingual film Previous Rx's ?Medication ?Instructions ?Recorded nebulizers #1 ea 08/15/23 ibuprofen 600 mg tablet 600 mg PO Q6H PRN fever or pain 03/07/24 #30 tabs albuterol sulfate 2.5 mg/3 mL 2.5 mg (3 mL) inhalation Q4-6H PRN 04/01/24 (0.083 %) solution for nebulization shortness of breath or wheezing #90 mL albuterol sulfate 90 mcg/actuation 1 puff PO QID PRN for dyspnea #8.5 11/07/24 aerosol inhaler grams fluticasone fur. 200 mcg-umeclid 1 inh inhalation DAILY #60 ea 11/07/24 62.5 mcg-vilant 25 mcg inhalat.powder (Trelegy Ellipta) losartan 50 mg tablet 50 mg PO DAILY 90 days #90 tabs 12/22/24 venlafaxine 25 mg tablet 25 mg PO DAILY 90 days #90 tabs 01/30/25 atorvastatin 40 mg tablet (Lipitor) 40 mg PO DAILY #90 tabs 03/19/25 cefuroxime axetil 500 mg tablet 500 mg PO BID #6 tabs 03/19/25 codeine 10 mg-guaifenesin 100 mg/5 5 ml PO Q6H PRN cough #120 mL 03/19/25 mL oral liquid (Guaifenesin AC) doxycycline monohydrate 100 mg 100 mg PO BID #7 caps 03/19/25 capsule ketorolac 10 mg tablet 10 mg PO Q8H PRN pain, moderate 5 03/19/25 days #15 tabs nicotine 21 mg/24 hr daily 1 patch transdermal DAILY #28 ea 03/19/25 transdermal patch prednisone 20 mg tablet 40 mg (2 x 20 mg) PO DAILY #6 tabs 03/19/25 Allergies Allergy/AdvReac Type Severity Reaction Status Date / Time abacavir Allergy Severe high fever Verified 03/22/25 18:43 erythromycin base Allergy Unknown Unknown Verified 03/22/25 18:43 PMFSH Past Medical History Medical History Nicotine dependence, cigarettes, uncomplicated Tongue sore Liver cirrhosis COPD (chronic obstructive pulmonary disease) PVD (peripheral vascular disease) History of opioid abuse Osteopenia GERD (gastroesophageal reflux disease) Hyperlipidemia Hepatitis C (~1998) PTSD (post-traumatic stress disorder) HTN (hypertension) HIV (human immunodeficiency virus infection) (~1996) Surgical History History of colonoscopy (~2016) History of esophagogastroduodenoscopy (EGD) (~2016) History of angioplasty (~2017) History of carpal tunnel surgery of right wrist (~2003) History of liver biopsy (~2001) Hx of cholecystectomy (~2001) History of hysterectomy Family History Family History Mother Lung cancer Father Substance use disorder Son Substance use disorder Social History Social History Household Members: None Housing: Apartment Do you presently have visiting nurse or other home services: No Alcohol intake: current Alcohol intake frequency: holidays/special occasions only Alcohol type: wine Patient Tobacco Use Status: Current everyday Tobacco user Tobacco use type: Cigarette Cigarette Packs Per Day: 1 Cigarettes Per Day: 20 Years Smoked: 50 Smoked in Last 30 Days: Yes e-Cigarette/Vaping Use: Never Used Second Hand Smoke Exposure: No Use of substances other than those prescribed or required for medical reasons: No Advance Directives: No Advance Directives Information Provided: Yes Do you have a plan to hurt others: No Plan service: No Current occupational status: employed 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, 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 Patient is a 64 year old assigned female at presenting to the emergency department with bilateral hand pain and chest pain. Patient states that she was hospitalized here for pneumonia, discharged home, and is now having bilateral hand pain. Detailed physical exam and review of systems are deferred to the tutoring clinician. EKG and labs ordered. Patient placed back in the waiting room pending room availability and results. Medications Administered Generic Name Dose Route Start Last Admin Trade Name Freq PRN Reason Stop Dose Admin Heparin Sodium/Sodium Chloride 25,000 unit in 250 mls @ 0 mls/hr 03/23/25 01:45 03/23/25 02:09 Heparin Sodium,Porcine/1/2ns IVCONT 12 units/kg/hr .Q0M KIMANI 5.64 mls/hr Protocol Administration Per Protocol Sodium Chloride 3 ml 03/23/25 08:00 03/23/25 07:03 0.9 % Sodium Chloride Flush 3 Ml Syringe IVFLUSH Not Given QSHIFT KIMANI Discontinued Medications Generic Name Dose Route Start Last Admin Trade Name Freq PRN Reason Stop Dose Admin Acetaminophen 975 mg 03/23/25 00:22 03/23/25 00:27 Acetaminophen 325 Mg Tablet PO 03/23/25 00:23 975 mg ONCE ONE Administration Aspirin 324 mg 03/23/25 01:46 03/23/25 02:17 Aspirin 81 Mg Tab.Chew PO 03/23/25 01:47 324 mg ONCE ONE Administration Clindamycin HCl 600 mg 03/23/25 03:12 03/23/25 03:36 Clindamycin Hcl 300 Mg Capsule PO 03/23/25 03:13 600 mg ONCE ONE Administration Heparin Sodium (Porcine) 2,800 unit 03/23/25 01:39 03/23/25 02:13 Heparin Sodium,Porcine 5,000 Unit/Ml Vial 60 unit/kg (2800 unit) 03/23/25 01:40 2,800 unit IVPUSH Administration ONCE ONE Morphine Sulfate 4 mg 03/23/25 01:42 03/23/25 02:13 Morphine Sulfate 4 Mg/Ml Cartridge IVPUSH 03/23/25 01:43 4 mg ONCE ONE Administration Protocol Morphine Sulfate 4 mg 03/23/25 02:42 03/23/25 02:52 Morphine Sulfate 4 Mg/Ml Cartridge IVPUSH 03/23/25 02:43 4 mg ONCE ONE Administration Protocol Nitroglycerin 1 inch 03/23/25 00:56 03/23/25 01:10 Nitroglycerin 2 % Oint 1 Gm Packet TRANSDERMA 03/23/25 00:57 1 inch ONCE ONE Administration Ondansetron HCl 4 mg 03/23/25 01:42 03/23/25 02:14 Ondansetron Hcl 4 Mg/2 Ml Vial IVPUSH 03/23/25 01:43 4 mg ONCE ONE Administration Procedures Procedure Narrative Procedure Narrative: Ultrasound-guided IV 20 gauge 1-3/4 inch IV placed in right upper extremity. Adequate blood return flushes well secured with Tegaderm. Performed by Eve Maxwell PA-C Medical Decision Making Medical Decision Making MDM Narrative: Patient presents today with a chief complaint of chest pain. Differential diagnosis includes, but is not limited to, acute coronary syndrome, musculoskeletal pain, pneumothorax, GERD, pleurisy, pulmonary embolism, dissection, among others. I will order EKG, chest x-ray, the laboratory workup including cardiac enzymes to further evaluate for etiology. Patient with recent hospitalization for NSTEMI related to COPD exacerbation. She was started on a high dose statin which she has been taking. Developed bilateral hand pain which appears to be cellulitic in nature. Covering her with clindamycin since she was just on doxycycline and cefuroxime for her COPD exacerbation and pneumonia. Her initial cardiac enzymes slightly elevated, though less than when she was hospitalized last week. She has some peaked T-waves on her EKG which are concerning however, her chest pain she states is more related to her breathing. Plan for repeat cardiac enzymes and repeat EKG. Repeat EKG shows persistent peaked T-waves with some sub mm ST-elevation in the inferior leads. She does continue to have chest tightness. Her hand pain has improved after morphine. Case discussed with company marker on-call who would like to treat this as ACS. She was initiated on a heparin drip and will be admitted to the hospitalist for further care and evaluation. Repeat cardiac enzyme at 5:30 a.m.. Admitted in guarded condition. Differential Diagnosis Differential Diagnoses: The differential diagnosis associated with the presentation includes (As above) Admission/Observation Consideration of admission/observation: Escalation of care including admission/observation considered Consult Healthcare Provider Management of the patient was discussed with: Hospitalist and Supervisor Looping Lab Data [facility] Lab Attestation statement: I reviewed the patient's lab results. 03/23/25 05:25 03/23/25 05:25 Labs: Lab Results 03/22/25 03/22/25 03/23/25 Range/Units 19:10 23:39 01:45 WBC 8.2 (4.8-10.8) X10*3/uL RBC 4.07 L (4.20-5.50) X10*6/uL Hgb 14.1 (12.0-16.0) g/dl Hct 40.7 (37.0-47.0) % MCV 100.0 H (80.0-98.0) fL MCH 34.6 H (27.0-33.0) pg MCHC 34.6 (31.0-35.0) g/dl RDW 12.1 (11.0-16.0) % Plt Count 200 (160-400) X10*3/uL MPV 9.1 L (9.4-12.3) fL Immature Gran % (Auto) 1.2 H (0.0-0.4) % Neut % (Auto) 70.4 (45-73) % Lymph % (Auto) 19.8 L (20-40) % Thurston % (Auto) 7.6 (2-11) % Eos % (Auto) 0.9 (0-4) % Baso % (Auto) 0.1 (0-2) % Lymph # (Auto) 1.6 (1.2-4.9) X10*3/uL Thurston # (Auto) 0.6 (0.1-1.2) X10*3/uL Eos # (Auto) 0.1 (0.0-0.4) X10*3/uL Baso # (Auto) 0.0 (0.0-0.2) X10*3/uL Abs Immat Gran (auto) 0.10 H (0.00-0.03) X10*3/uL Absolute Neuts (auto) 5.7 (2.0-8.3) x10*3/uL Absolute Nucleated RBC 0.000 (0.0-0.012) X10*3/uL Nucleated RBC % (auto) 0.0 (0.0-0.2) /100WBC ESR 9 (0-20) MM/HR PT 10.7 L (10.9-12.4) SEC INR 0.9 (0.9-1.1) aPTT Heparin Protocol 24.6 L (53-77.9) SEC Sodium 140 (135-145) mmol/L Potassium 4.0 (3.3-5.1) mmol/L Chloride 104 (96-108) mmol/L Carbon Dioxide 26 (22-29) mmol/L Anion Gap 14 (12-20) BUN 26 H (9-16) mg/dL Creatinine 0.63 (0.5-1.4) mg/dL Estim Creat Clear Calc 63.1 Estimated GFR > 60 Random Glucose 131 H (60-115) mg/dL Calcium 9.0 (8.4-10.2) mg/dL Magnesium 2.0 (1.6-2.6) mg/dL Total Bilirubin 0.3 (0.0-1.0) mg/dL AST 21 (5-31) U/L ALT 28 (0-31) U/L Alkaline Phosphatase 70 (39-117) U/L Troponin I High Sens 98.6 H* 118.8 H* (<3.5-17.0) ng/L C-Reactive Protein 0.23 (< or = 0.50) mg/dL Total Protein 6.3 L (6.5-8.0) g/dL Albumin 3.8 (3.5-5.0) g/dL Urine Opiates Screen Not Detected (Not Detect) Ur Buprenorphine Scrn Positive H (Not Detect) ng/mL Ur Oxycodone Screen Not Detected (Not Detect) ng/mL Urine Methadone Screen Not Detected (Not Detect) ng/mL Urine Fentanyl Screen Not Detected (Not Detect) Ur Barbiturates Screen Not Detected (Not Detect) Ur Phencyclidine Scrn Not Detected (Not Detect) Ur Amphetamines Screen Not Detected (Not Detect) U Benzodiazepines Scrn Not Detected (Not Detect) Urine Cocaine Screen Not Detected (Not Detect) U Marijuana (THC) Screen Not Detected (Not Detect) Independent Interpretation I performed an independent interpretation of an: EKG and Plain X-Ray Interpretation: My independent interpretation of the chest x-ray reveals no consolidations, pulmonary edema, pleural effusion, pneumothorax, obvious bony abnormalities. Radiology Impression Discussion of test interpretation with radiology: I have reviewed the radiologist's reading. Independent Historian Clinical information obtained from an independent historian. History obtained from or confirmed by: EMS External Record Review External record reviewed: Inpatient record Chronic Conditions Patient?s care impacted by: Other (COPD) Discharge Plan Discharge Clinical Impression: Non-ST elevation [place] (NSTEMI), Bilateral hand pain, Cellulitis of right hand, Acute chest pain Patient Disposition: Admitted As Inpatient
--- NOTE | 2025-03-22 18:44 | ECG_ITS ---
Test Reason : CHEST PAIN Blood Pressure : */* mmHG Vent. Rate : 69 BPM Atrial Rate : 69 BPM P-R Int : 116 ms QRS Dur : 80 ms QT Int : 372 ms P-R-T Axes : 87 68 80 degrees QTcB Int : 398 ms Normal sinus rhythm Possible Left atrial enlargement Left ventricular hypertrophy ( Sokolow-Barkley , Romhilt-Cherry ) Abnormal ECG When compared with ECG of 16-Mar-2025 10:09, No significant change was found Referred By: Luz Maharaj Electronically Signed By: Mauricio Crow
[2025-03-22 19:16] LABS: MANUAL DIFF FLAG NO
[2025-03-22 19:17] LABS: Hematocrit 40.7 % (37.0-47.0); Hemoglobin 14.1 g/dl (12.0-16.0); Imm Gran Abs Auto 0.10 X10*3/uL (0.00-0.03); Imm Gran Pct Auto 1.2 % (0.0-0.4); Lymphocytes Absolute Auto 1.6 X10*3/uL (1.2-4.9); Mean Corpuscular HGB Conc 34.6 g/dl (31.0-35.0); Mean Corpuscular Hemoglobin 34.6 pg (27.0-33.0); Mean Corpuscular Volume 100.0 fL (80.0-98.0); NRBC Abs Auto 0.000 X10*3/uL (0.0-0.012); NRBC Pct Auto 0.0 /100WBC (0.0-0.2); Platelet Count 200 X10*3/uL (160-400); Red Blood Count 4.07 X10*6/uL (4.20-5.50); White Blood Count 8.2 X10*3/uL (4.8-10.8)
--- OUTSIDE RECORDS SUMMARY | 2025-03-22 19:18 | XMS_ITS | Patient Health Record ---
Author Organization [facility] Address [address] [place] [address] Care Team Providers [facility] Upholsterer Name Role Phone Richard Varela Unavailable [phone] Reason For Referral No Information Plan Of Treatment No Information
[2025-03-22 19:33] LABS: Alanine Aminotransferase 28 U/L (0-31); Albumin Level 3.8 g/dL (3.5-5.0); Alkaline Phosphatase 70 U/L (39-117); Anion Gap 14 (12-20); Aspartate Amino Transferase 21 U/L (5-31); Blood Urea Nitrogen 26 mg/dL (9-16); Calcium 9.0 mg/dL (8.4-10.2); Carbon Dioxide 26 mmol/L (22-29); Chloride 104 mmol/L (96-108); Creatinine Clr Calc Pharmacy 63.1; Estimated Glomerular Filt Rate > 60; Magnesium 2.0 mg/dL (1.6-2.6); Potassium 4.0 mmol/L (3.3-5.1); Sodium 140 mmol/L (135-145); Total Protein 6.3 g/dL (6.5-8.0)
--- NOTE | 2025-03-22 19:44 | PC.NURSE ---
pt a&ox4, respirations even and unlabored. pt reports onset of bilateral hand swelling and hand pain x1 day, reports she has been having difficulty moving her hands for daily functions. [place] [facility] [place] and is unsure if this is related. pt also reports pain with inspiration. pt 96% on ra at this time. lab contacted this rn at this time with trop of 98.6, MD Raymond aware
[2025-03-22 19:46] LABS: Troponin-I High Sensitivity 98.6 ng/L (<3.5-17.0)
[2025-03-22 19:48] VITALS: PULSE 64; RESP 15; O2SAT 95
[2025-03-22 20:25] VITALS: BP 130/76; PULSE 60; RESP 15; TEMP 36.7; O2SAT 93
[2025-03-22 23:15] VITALS: BP 153/72; PULSE 58; TEMP 37.2; O2SAT 94
[2025-03-23 00:17] LABS: Troponin-I High Sensitivity 118.8 ng/L (<3.5-17.0)
--- NOTE | 2025-03-23 00:30 | ECG_ITS ---
Test Reason : ELEVATED TROP Blood Pressure : */* mmHG Vent. Rate : 55 BPM Atrial Rate : 55 BPM P-R Int : 128 ms QRS Dur : 80 ms QT Int : 404 ms P-R-T Axes : 77 46 70 degrees QTcB Int : 386 ms Sinus bradycardia Minimal voltage criteria for LVH, may be normal variant ( Sokolow-Barkley Abnormal ECG When compared with ECG of 22-Mar-2025 18:53, No significant change was found Referred By: Indira Walker Electronically Signed By: Mauricio Crow
--- NOTE | 2025-03-23 00:30 | PC.NURSE ---
pt medicated per mar for pain managment.
[2025-03-23] MEDS: Nitroglycerin 2 % Oint 1 GM Packet 1 INCH TRANSDERMA (01:10)
--- NOTE | 2025-03-23 01:12 | PC.NURSE ---
medicated per Mitch falcon will assist with ultra sound Iv.
[2025-03-23 01:58] VITALS: BMI 20.2
[2025-03-23 01:59] LABS: INTERNATIONAL NORM RATIO 0.9 (0.9-1.1); Prothrombin Time 10.7 SEC (10.9-12.4)
[2025-03-23 02:01] LABS: PTT Heparin Drip 24.6 SEC (53-77.9)
[2025-03-23 02:05] LABS: Cannabinoid Screen Urine Not Detected (Not Detect)
[2025-03-23] MEDS: Heparin Sodium,Porcine/1/2NS 25,000 UNIT/250 ML IV.SOLN 5.64 UNIT IVCONT (02:09)
--- NOTE | 2025-03-23 02:19 | PC.NURSE ---
pt medicated per aug, Heparin drip started and verified with KENNETH Murillo.
--- NOTE | 2025-03-23 02:47 | ECG_ITS ---
Test Reason : CP Blood Pressure : */* mmHG Vent. Rate : 55 BPM Atrial Rate : 55 BPM P-R Int : 128 ms QRS Dur : 76 ms QT Int : 410 ms P-R-T Axes : 78 51 72 degrees QTcB Int : 392 ms Sinus bradycardia Minimal voltage criteria for LVH, may be normal variant ( Sokolow-Barkley ) Abnormal ECG When compared with ECG of 23-Mar-2025 00:46, No significant change was found Referred By: Eve Maxwell Electronically Signed By: Mauricio Crow
--- NOTE | 2025-03-23 02:54 | PC.NURSE ---
repeat EKG and medicated for pain.
--- NOTE | 2025-03-23 03:38 | PC.NURSE ---
Medicated with antibiotics
[2025-03-23 04:42] VITALS: BP 149/79; PULSE 56; RESP 57; TEMP 36.1; O2SAT 94
--- NOTE | 2025-03-23 04:43 | PC.NURSE ---
pt sleeping at this time, no sign of distress.
--- NOTE | 2025-03-23 04:47 | PC.NURSE ---
pt oob to bathroom with a steady gait.
[2025-03-23 05:30] LABS: Hematocrit 40.9 % (37.0-47.0); Hemoglobin 14.0 g/dl (12.0-16.0); Imm Gran Abs Auto 0.11 X10*3/uL (0.00-0.03); Imm Gran Pct Auto 1.3 % (0.0-0.4); Lymphocytes Absolute Auto 1.9 X10*3/uL (1.2-4.9); MANUAL DIFF FLAG NO; Mean Corpuscular HGB Conc 34.2 g/dl (31.0-35.0); Mean Corpuscular Hemoglobin 34.7 pg (27.0-33.0); Mean Corpuscular Volume 101.2 fL (80.0-98.0); NRBC Abs Auto 0.000 X10*3/uL (0.0-0.012); NRBC Pct Auto 0.0 /100WBC (0.0-0.2); Platelet Count 174 X10*3/uL (160-400); Red Blood Count 4.04 X10*6/uL (4.20-5.50); White Blood Count 8.3 X10*3/uL (4.8-10.8)
[2025-03-23 05:45] LABS: Alanine Aminotransferase 26 U/L (0-31); Albumin Level 3.4 g/dL (3.5-5.0); Alkaline Phosphatase 62 U/L (39-117); Anion Gap 11 (12-20); Aspartate Amino Transferase 22 U/L (5-31); Blood Urea Nitrogen 24 mg/dL (9-16); Calcium 8.5 mg/dL (8.4-10.2); Carbon Dioxide 28 mmol/L (22-29); Chloride 107 mmol/L (96-108); Creatinine Clr Calc Pharmacy 65.1; Estimated Glomerular Filt Rate > 60; Potassium 4.8 mmol/L (3.3-5.1); Sodium 141 mmol/L (135-145); Total Protein 5.8 g/dL (6.5-8.0)
--- NOTE | 2025-03-23 06:18 | PM.IMHP ---
History of Present Illness Date of Service: 03/23/25 Chief Complaint: Hand pain 58-year-old female with a past medical history of HTN,, HLD, CAD, COPD, HIV, opiate dependence on Suboxone, peripheral vascular disease, mood disorder, tobacco dependence; just discharged from the hospital after being treated for COPD exacerbation/pneumonia//demand ischemia; presented to the hospital today with a chief complaint of bilateral hand pain. Patient mentioned that she was initially doing okay off she was discharged from the hospital and has been taking her antibiotics that was prescribed. Yesterday she noted to have bilateral hand swelling which causes pain with any movement. Swelling on the dorsum of the hand. No erythema. Patient denies any fevers. Patient says she has been having chest pains intermittently. Has seen Cardiology during the last admission and was supposed to follow with cardiology clinic eventually. Patient denies any numbness tingling or focal weakness. Denies any urinary symptoms. Denies any nausea or vomiting. Review of all other systems is negative except mentioned above ER course: Per ER team, patient had a bilateral hand swelling on the dorsum without any erythema; patient also reported having chest pain; has had elevated troponins but plateaued. Discussed with Cardiology. Started on heparin drip for possible NSTEMI. [facility] Medical History Nicotine dependence, cigarettes, uncomplicated Tongue sore Liver cirrhosis COPD (chronic obstructive pulmonary disease) PVD (peripheral vascular disease) History of opioid abuse Osteopenia GERD (gastroesophageal reflux disease) Hyperlipidemia Hepatitis C (~1998) PTSD (post-traumatic stress disorder) HTN (hypertension) HIV (human immunodeficiency virus infection) (~1996) Family History Mother Lung cancer Father Substance use disorder Son Substance use disorder Surgical History History of colonoscopy (~2016) History of esophagogastroduodenoscopy (EGD) (~2016) History of angioplasty (~2017) History of carpal tunnel surgery of right wrist (~2003) History of liver biopsy (~2001) Hx of cholecystectomy (~2001) History of hysterectomy Social History Household Members: None Housing: Apartment Do you presently have visiting nurse or other home services: No Alcohol intake: current Alcohol intake frequency: holidays/special occasions only Alcohol type: wine Patient Tobacco Use Status: Current everyday Tobacco user Tobacco use type: Cigarette Cigarette Packs Per Day: 1 Cigarettes Per Day: 20 Years Smoked: 50 Smoked in Last 30 Days: Yes e-Cigarette/Vaping Use: Never Used Second Hand Smoke Exposure: No Use of substances other than those prescribed or required for medical reasons: No Advance Directives: No Advance Directives Information Provided: Yes Do you have a plan to hurt others: No Plan service: No Current occupational status: employed 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, 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 Cognitive needs: No Hearing needs: No Vision needs: No Meds Allergies Allergy/AdvReac Type Severity Reaction Status Date / Time abacavir Allergy Severe high fever Verified 03/22/25 18:43 erythromycin base Allergy Unknown Unknown Verified 03/22/25 18:43 Active Medications: Current Medications Acetaminophen (Acetaminophen 325 Mg Tablet) 650 mg PO Q6H PRN PRN Reason: Pain, Mild 1-3,fever,headache Albuterol/Ipratropium (Albuterol/Iprat 2.5/0.5mg 3 Ml Ampul.Neb) 3 ml INHALE Q4H PRN PRN Reason: Shortness of Breath/Wheezing Calcium Carbonate (Calcium Carbonate 750 Mg Tab.Chew) 750 mg PO Q4H PRN PRN Reason: Heartburn Heparin Sodium (Porcine) (Heparin Sodium,Porcine 5,000 Unit/Ml Vial) 1,900 unit IVPUSH PROTOCOL BOLUS PRN; Protocol PRN Reason: 40 unit/kg - Heparin Protocol Heparin Sodium (Porcine) (Heparin Sodium,Porcine 5,000 Unit/Ml Vial) 3,800 unit IVPUSH PROTOCOL BOLUS PRN; Protocol PRN Reason: 80 unit/kg - Heparin Protocol Hydromorphone HCl (Hydromorphone Hcl 0.5 Mg/0.5 Ml Syringe) 0.5 mg IVPUSH Q4H PRN; Protocol PRN Reason: Pain, Severe (Pain Scale 7-10) Heparin Sodium/Sodium Chloride (Heparin Sodium,Porcine/1/2ns) 25,000 unit in 250 mls @ 0 mls/hr IVCONT .Q0M KIMANI; Protocol Last Admin: 03/23/25 02:09 Dose: 12 units/kg/hr, 5.64 mls/hr Magnesium Hydroxide (Milk Of Magnesia 30 Ml Oral.Susp) 30 ml PO DAILY PRN PRN Reason: Constipation Melatonin (Melatonin 3 Mg Tablet) 6 mg PO BEDTIME PRN PRN Reason: Insomnia Nitroglycerin (Nitroglycerin 0.4 Mg Tab.Subl) 0.4 mg SUBLINGUAL Q5MX3 PRN PRN Reason: Chest Pain Sodium Chloride (0.9 % Sodium Chloride Flush 3 Ml Syringe) 3 ml IVFLUSH QSHIFT KIMANI Temazepam (Temazepam 15 Mg Capsule) 15 mg PO BEDTIME PRN PRN Reason: Insomnia Home Medications ?Medication ?Instructions ?Recorded ?Confirmed ?Last Taken ?Type aspirin 81 mg tablet,delayed 81 mg PO DAILY 06/15/20 03/20/25 03/15/25 History release (Shakira Low Dose Aspirin) calcium carbonate-vitamin D3 500 1 cap PO DAILY 03/08/21 03/20/25 03/15/25 History mg (1,250 mg)-50 unit capsule elviteg 150 mg-cob 150 mg-emtricit 1 tab PO DAILY 03/08/21 03/20/25 03/15/25 History 200 mg-tenofo alafenam 10 mg tablet (Genvoya) buprenorphine 8 mg-naloxone 2 mg 2 film sublingual DAILY 06/15/23 03/20/25 03/15/25 History sublingual film Physical Exam Vital Signs and Narrative: Vital Signs: Last Vital Signs Temp 97 F 03/23/25 04:42 Pulse 56 03/23/25 04:42 Resp 57 H 03/23/25 04:42 BP 149/79 H 03/23/25 04:42 Pulse Ox 94 03/23/25 04:42 O2 Del Method Room Air 03/23/25 04:42 BMI result Body Mass Index 20.2 Gen: Appears be in no acute distress HEENT: NCAT, Moist mucosa. Pulmonary: Vesicular breath sounds, fair air entry CVS: Normal S1-S2 Abdomen: BS+, Soft, Nontender Extremities: Warm well perfused; noted to have mild swelling on the dorsum of the bilateral hands without any erythema or warmth. Has symmetric swelling on bilateral hands. Range of motion around the wrist joint and the extension flexion of the fingers is intact. Reports mild pain on the dorsum of the hand with handgrip movements. Neuro: Alert and awake. Results Labs 03/23/25 05:25 03/23/25 05:25 Labs: Laboratory Results - last 24 hr 03/22/25 03/22/25 03/23/25 19:10 23:39 01:45 MCV 100.0 H MCH 34.6 H MCHC 34.6 RDW 12.1 Plt Count 200 MPV 9.1 L Immature Gran % (Auto) 1.2 H Neut % (Auto) 70.4 Lymph % (Auto) 19.8 L [place] % (Auto) 7.6 Eos % (Auto) 0.9 Baso % (Auto) 0.1 Lymph # (Auto) 1.6 [place] # (Auto) 0.6 Eos # (Auto) 0.1 Baso # (Auto) 0.0 Abs Immat Gran (auto) 0.10 H Absolute Neuts (auto) 5.7 Absolute Nucleated RBC 0.000 Nucleated RBC % (auto) 0.0 ESR 9 PT 10.7 L INR 0.9 aPTT Heparin Protocol 24.6 L Anion Gap 14 Estim Creat Clear Calc 63.1 Estimated GFR > 60 Random Glucose 131 H Calcium 9.0 Magnesium 2.0 Total Bilirubin 0.3 AST 21 ALT 28 Alkaline Phosphatase 70 Troponin I High Sens 98.6 H* 118.8 H* C-Reactive Protein 0.23 Total Protein 6.3 L Albumin 3.8 Urine Opiates Screen Not Detected Ur Buprenorphine Scrn Positive H Ur Oxycodone Screen Not Detected Urine Methadone Screen Not Detected Urine Fentanyl Screen Not Detected Ur Barbiturates Screen Not Detected Ur Phencyclidine Scrn Not Detected Ur Amphetamines Screen Not Detected U Benzodiazepines Scrn Not Detected Urine Cocaine Screen Not Detected U Marijuana (THC) Screen Not Detected 03/23/25 05:25 MCV 101.2 H MCH 34.7 H MCHC 34.2 RDW 12.2 Plt Count 174 MPV 9.4 Immature Gran % (Auto) 1.3 H Neut % (Auto) 67.3 Lymph % (Auto) 22.5 [place] % (Auto) 7.8 Eos % (Auto) 1.0 Baso % (Auto) 0.1 Lymph # (Auto) 1.9 [place] # (Auto) 0.7 Eos # (Auto) 0.1 Baso # (Auto) 0.0 Abs Immat Gran (auto) 0.11 H Absolute Neuts (auto) 5.6 Absolute Nucleated RBC 0.000 Nucleated RBC % (auto) 0.0 ESR PT INR aPTT Heparin Protocol Anion Gap 11 L Estim Creat Clear Calc 65.1 Estimated GFR > 60 Random Glucose 91 Calcium 8.5 Magnesium Total Bilirubin 0.5 AST 22 ALT 26 Alkaline Phosphatase 62 Troponin I High Sens C-Reactive Protein Total Protein 5.8 L Albumin 3.4 L Urine Opiates Screen Ur Buprenorphine Scrn Ur Oxycodone Screen Urine Methadone Screen Urine Fentanyl Screen Ur Barbiturates Screen Ur Phencyclidine Scrn Ur Amphetamines Screen U Benzodiazepines Scrn Urine Cocaine Screen U Marijuana (THC) Screen Assessment and Plan (1) Chest discomfort: Status: Acute 58-year-old female with a past medical history of HTN,, HLD, CAD, COPD, HIV, opiate dependence on Suboxone, peripheral vascular disease, mood disorder, tobacco dependence; just discharged from the hospital after being treated for COPD exacerbation/pneumonia//demand ischemia; presented to the hospital today with a chief complaint of bilateral hand pain Bilateral hand pain: Nonspecific swelling on the dorsum of the bilateral hands. Less concern for skin cellulitis. ROM around the joints maintained. Supportive care. Chest pain: Troponin elevated from 98-118. Patient had similar troponins in the last admission. Patient has nitro patch placed. Also started on the heparin drip. Cardiology was notified. Opiate dependence: Patient on Suboxone. To resume patient's home Suboxone once med rec is completed. Recent pneumonia: Patient finished course of antibiotics. HIV: Continue home medications. COPD: Stable. DuoNebs p.r.n.. DVT prophylaxis: Lovenox Code status: Full code Quality Stroke Does the patient have a stroke diagnosis?: No VTE Prior VTE?: No VTE Risk Level:: Medical - moderate - high VTE Device Contraindication: Treatment Not Indicated VTE Drug Contraindication: N/A - Med Ordered
--- NOTE | 2025-03-23 06:51 | PC.NURSE ---
Report given to KENNETH Zaragoza, reviewed Heparin drip at bedside.
--- NOTE | 2025-03-23 07:23 | PC.NURSE ---
pt a&ox3, rr equal non labored- lungs rhonchi clears with cough, pt c/o 4/10 chest and bilateral hand pain- bilateral hands red/with mild swelling, 20g rt ac- per report ultrasound guided. heparin drip presently at 12u/kg/hr, repeat PTT scheduled for 8 am by phlebotomy. cardiac nurse specialist intact- sinus herbie 50s, vss, plan of care ongoing
[2025-03-23 07:25] VITALS: BP 119/65; PULSE 51; RESP 12; TEMP 36.2; O2SAT 93
--- NOTE | 2025-03-23 08:05 | HO.NURTONUR ---
Addendum entered by Mila Sosa RN 03/23/25 09:18: PTT came back as 47.5, pt given bolus at heparin drip increased by 2 to 14u/kg/hr Original Note: patient came from home with c/o bilateral hand pain/swelling and mild chest discomfort 4/10 pain. pt was noted to have bumped troponins 98.6 and 118.8, placed on a heparin drip for a nonstemi heparin running at 12u/kg/hr through US guided 20G in RT AC. panel monitor pt sinus herbie 50s, vitals otherwise stable- pt has a history of copd- non-O2 dependent. pt is independent with ambulation/steady gait. Presently NPO until cardiology sees patient. She is in a hospital bed. Next PTT and troponin are due- awaiting phlebotomy to draw. Hope you have a great day!
--- NOTE | 2025-03-23 08:14 | PC.NURSE ---
phlebotomy currently at bedside to do ptt/trop draw
[2025-03-23 08:58] LABS: PTT Heparin Drip 47.5 SEC (53-77.9)
[2025-03-23 08:59] LABS: Troponin-I High Sensitivity 80.3 ng/L (<3.5-17.0)
--- NOTE | 2025-03-23 09:26 | PHA.MEDREC ---
Pharmacy Consult ? Medication Reconciliation Pharmacy has completed the medication reconciliation. Patient was recently discharged 03/16/25
[2025-03-23 09:55] VITALS: BMI 21.5
--- NOTE | 2025-03-23 10:06 | PC.NURSE ---
Received patient at 1000 from ED on heparin gtt running at 14unit/kg/hour. Safety check done with ED RN.
[2025-03-23 10:10] VITALS: BP 125/60; PULSE 64; RESP 18; TEMP 37.1; O2SAT 93
[2025-03-23 10:59] VITALS: BP 106/61; PULSE 59; RESP 18; TEMP 36.3; O2SAT 95
--- NOTE | 2025-03-23 12:59 | PM.CNCAR ---
History of Present Illness History of Present Illness Date of Service: 03/23/25 Chief complaint: Chest Pain Narrative: [age] year female with COPD who recently had COPD exacerbation and had pleuritic chest pain with mildly elevated troponin levels. Echocardiography did show some regional wall motion abnormalities and plan was to consider ischemic evaluation as outpatient. She was sent home and apparently came back with swelling of her hands. She has no shortness of breath or change in her symptoms. She is still has some pleuritic appearing chest pains. Her troponins were trending down from the type 2 FL she had a week ago and are 80.3 at this point. She is denying any cardiac sounding chest discomfort or change in symptoms. As mentioned her main complaint is hand swelling. [facility] Past Medical History Medical History Nicotine dependence, cigarettes, uncomplicated Tongue sore Liver cirrhosis COPD (chronic obstructive pulmonary disease) PVD (peripheral vascular disease) History of opioid abuse Osteopenia GERD (gastroesophageal reflux disease) Hyperlipidemia Hepatitis C (~1998) PTSD (post-traumatic stress disorder) HTN (hypertension) HIV (human immunodeficiency virus infection) (~1996) Family History Family History Mother Lung cancer Father Substance use disorder Son Substance use disorder Surgical History Surgical History History of colonoscopy (~2016) History of esophagogastroduodenoscopy (EGD) (~2016) History of angioplasty (~2017) History of carpal tunnel surgery of right wrist (~2003) History of liver biopsy (~2001) Hx of cholecystectomy (~2001) History of hysterectomy Social History Social History Household Members: None Housing: Apartment Do you presently have visiting nurse or other home services: No Alcohol intake: current Alcohol intake frequency: holidays/special occasions only Alcohol type: wine Patient Tobacco Use Status: Current everyday Tobacco user Tobacco use type: Cigarette Cigarette Packs Per Day: 1 Cigarettes Per Day: 20 Years Smoked: 50 Smoked in Last 30 Days: Yes e-Cigarette/Vaping Use: Never Used Patient Interested in Nicotine Replacement: Yes Patient Given Instructions on How to Stop Smoking: No (Not interested at this time.) Second Hand Smoke Exposure: No Use of substances other than those prescribed or required for medical reasons: No Have you been hit, kicked, punched, or otherwise hurt by someone within the past year? If so, by whom?: No Do you feel safe in your current relationship?: No Current Relationship Is there a partner from a previous relationship who is making you feel unsafe now?: No Are you made to feel afraid or neglected: No Advance Directives: No Advance Directives Information Provided: Yes Do you have a plan to hurt others: No Plan Recently lost weight without trying: Yes How much weight loss: 2-13 pounds Eating poorly because of decreased appetite: Yes Nutrition screen score: 4 Nutrition Risks: No Nutritional Risk Patient : No : No Poor oral hygiene: No (Top denture) service: No Current occupational status: employed 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, 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 Cognitive needs: No Hearing needs: No Vision needs: No Meds Allergies Allergy/AdvReac Type Severity Reaction Status Date / Time abacavir Allergy Severe high fever Verified 03/22/25 18:43 erythromycin base Allergy Unknown Unknown Verified 03/22/25 18:43 Active Medications: Current Medications Acetaminophen (Acetaminophen 325 Mg Tablet) 650 mg PO Q6H PRN PRN Reason: Pain, Mild 1-3,fever,headache Albuterol/Ipratropium (Albuterol/Iprat 2.5/0.5mg 3 Ml Ampul.Neb) 3 ml INHALE Q4H PRN PRN Reason: Shortness of Breath/Wheezing Calcium Carbonate (Calcium Carbonate 750 Mg Tab.Chew) 750 mg PO Q4H PRN PRN Reason: Heartburn Last Admin: 03/23/25 08:33 Dose: 750 mg Heparin Sodium (Porcine) (Heparin Sodium,Porcine 5,000 Unit/Ml Vial) 1,900 unit IVPUSH PROTOCOL BOLUS PRN; Protocol PRN Reason: 40 unit/kg - Heparin Protocol Last Admin: 03/23/25 09:16 Dose: 1,900 unit Heparin Sodium (Porcine) (Heparin Sodium,Porcine 5,000 Unit/Ml Vial) 3,800 unit IVPUSH PROTOCOL BOLUS PRN; Protocol PRN Reason: 80 unit/kg - Heparin Protocol Hydromorphone HCl (Hydromorphone Hcl 0.5 Mg/0.5 Ml Syringe) 0.5 mg IVPUSH Q4H PRN; Protocol PRN Reason: Pain, Severe (Pain Scale 7-10) Heparin Sodium/Sodium Chloride (Heparin Sodium,Porcine/1/2ns) 25,000 unit in 250 mls @ 0 mls/hr IVCONT .Q0M [facility]; Protocol Last Titration: 03/23/25 09:16 Dose: 14 units/kg/hr, 6.58 mls/hr Magnesium Hydroxide (Milk Of Magnesia 30 Ml Oral.Susp) 30 ml PO DAILY PRN PRN Reason: Constipation Melatonin (Melatonin 3 Mg Tablet) 6 mg PO BEDTIME PRN PRN Reason: Insomnia Nitroglycerin (Nitroglycerin 0.4 Mg Tab.Subl) 0.4 mg SUBLINGUAL Q5MX3 PRN PRN Reason: Chest Pain Sodium Chloride (0.9 % Sodium Chloride Flush 3 Ml Syringe) [facility] Last Admin: 03/23/25 07:03 Dose: Not Given Temazepam (Temazepam 15 Mg Capsule) 15 mg PO BEDTIME PRN PRN Reason: Insomnia Home Medications ?Medication ?Instructions ?Recorded ?Confirmed ?Last Taken ?Type aspirin 81 mg tablet,delayed 81 mg PO DAILY 06/15/20 03/23/25 03/15/25 History release (Shakira Low Dose Aspirin) calcium carbonate-vitamin D3 500 1 cap PO DAILY 03/08/21 03/23/25 03/15/25 History mg (1,250 mg)-50 unit capsule elviteg 150 mg-cob 150 mg-emtricit 1 tab PO DAILY 03/08/21 03/23/25 03/15/25 History 200 mg-tenofo alafenam 10 mg tablet (Genvoya) buprenorphine 8 mg-naloxone 2 mg 2 film sublingual DAILY 06/15/23 03/23/25 03/15/25 History sublingual film Physical Exam Vital Signs: Vital Signs: Last Vital Signs Temp 97.3 F 03/23/25 10:59 Pulse 59 03/23/25 10:59 Resp 18 03/23/25 10:59 BP 106/61 03/23/25 10:59 Pulse Ox 95 03/23/25 10:59 O2 Del Method Room Air 03/23/25 10:59 BMI result Body Mass Index 21.5 GENERAL APPEARANCE: in no acute distress, pleasant. NECK: no carotid bruit, no jugular venous distention. SKIN: no suspicious lesions, warm and dry. HEART: no murmurs, regular rate and rhythm. LUNGS: clear to auscultation bilaterally. ABDOMEN: soft, nontender. EXTREMITIES: no lower extremity edema. Mild puffiness of the right hand. PERIPHERAL PULSES: equal. NEUROLOGIC: No gross deficits, AAO X 3 Objective Labs and Meds 03/23/25 05:25 03/23/25 05:25 Lab results: Laboratory Results - last 24 hr 03/22/25 03/22/25 03/23/25 19:10 23:39 01:45 WBC 8.2 RBC 4.07 L Hgb 14.1 Hct 40.7 MCV 100.0 H MCH 34.6 H MCHC 34.6 RDW 12.1 Plt Count 200 MPV 9.1 L Immature Gran % (Auto) 1.2 H Neut % (Auto) 70.4 Lymph % (Auto) 19.8 L [place] % (Auto) 7.6 Eos % (Auto) 0.9 Baso % (Auto) 0.1 Lymph # (Auto) 1.6 [place] # (Auto) 0.6 Eos # (Auto) 0.1 Baso # (Auto) 0.0 Abs Immat Gran (auto) 0.10 H Absolute Neuts (auto) 5.7 Absolute Nucleated RBC 0.000 Nucleated RBC % (auto) 0.0 ESR 9 PT 10.7 L INR 0.9 aPTT Heparin Protocol 24.6 L Sodium 140 Potassium 4.0 Chloride 104 Carbon Dioxide 26 Anion Gap 14 BUN 26 H Creatinine 0.63 Estim Creat Clear Calc 63.1 Estimated GFR > 60 Random Glucose 131 H Calcium 9.0 Magnesium 2.0 Total Bilirubin 0.3 AST 21 ALT 28 Alkaline Phosphatase 70 Troponin I High Sens 98.6 H* 118.8 H* C-Reactive Protein 0.23 Total Protein 6.3 L Albumin 3.8 Urine Opiates Screen Not Detected Ur Buprenorphine Scrn Positive H Ur Oxycodone Screen Not Detected Urine Methadone Screen Not Detected Urine Fentanyl Screen Not Detected Ur Barbiturates Screen Not Detected Ur Phencyclidine Scrn Not Detected Ur Amphetamines Screen Not Detected U Benzodiazepines Scrn Not Detected Urine Cocaine Screen Not Detected U Marijuana (THC) Screen Not Detected 03/23/25 03/23/25 05:25 08:18 WBC 8.3 RBC 4.04 L Hgb 14.0 Hct 40.9 MCV 101.2 H MCH 34.7 H MCHC 34.2 RDW 12.2 Plt Count 174 MPV 9.4 Immature Gran % (Auto) 1.3 H Neut % (Auto) 67.3 Lymph % (Auto) 22.5 [place] % (Auto) 7.8 Eos % (Auto) 1.0 Baso % (Auto) 0.1 Lymph # (Auto) 1.9 [place] # (Auto) 0.7 Eos # (Auto) 0.1 Baso # (Auto) 0.0 Abs Immat Gran (auto) 0.11 H Absolute Neuts (auto) 5.6 Absolute Nucleated RBC 0.000 Nucleated RBC % (auto) 0.0 ESR PT INR aPTT Heparin Protocol 47.5 L D Sodium 141 Potassium 4.8 Chloride 107 Carbon Dioxide 28 Anion Gap 11 L BUN 24 H Creatinine 0.61 Estim Creat Clear Calc 65.1 Estimated GFR > 60 Random Glucose 91 Calcium 8.5 Magnesium Total Bilirubin 0.5 AST 22 ALT 26 Alkaline Phosphatase 62 Troponin I High Sens 80.3 H* C-Reactive Protein Total Protein 5.8 L Albumin 3.4 L Urine Opiates Screen Ur Buprenorphine Scrn Ur Oxycodone Screen Urine Methadone Screen Urine Fentanyl Screen Ur Barbiturates Screen Ur Phencyclidine Scrn Ur Amphetamines Screen U Benzodiazepines Scrn Urine Cocaine Screen U Marijuana (THC) Screen Assessment and Plan (1) Elevated troponin: Status: Acute Plan 64 year female with recent type 2 FL in the setting of COPD exacerbation. She is presenting now with puffiness of her hand likely related to steroid use but etiology unclear. She has noticed to have mild troponin elevation which appears to be related to slow washout from recent type 2 injury. On 03/18 her troponin was 122, on readmission on 03/22 troponins were 98.6, 118.8 and 80.3. She has no change in his symptomatology. She has pleuritic chest pain worse with coughing and taking deep breaths. Stop the heparin drip. Symptomatic treatment for chest pain. She can get outpatient workup as planned before. Thank you for allowing me to participate in the care of your patient. Please feel free to contact me if you have any questions. Procedures Date of Service Date of Service: 03/23/25
--- NOTE | 2025-03-23 14:56 | PM.EVENT ---
Event Note Date of Service: 03/23/25 Event Note: Patient seen today. Endorsing no retrosternal chest pain or discomfort. No palpitations, diaphoresis, dyspnea. Patient endorses persistent bilateral wrist pain, especially with moving digits and fingers, seems localized to the dorsal aspect of the index finger; mostly on extension. No pain on palpation of the bony prominences of either hand, however notable swelling is present bilaterally. No IV was placed in the site previously. Blood draw was completed during prior hospitalization. Further evaluation of the patient's bilateral hand pain with CT-hands with IV contrast to evaluate for potential abscess. Likely impression of tenosynovitis. The patient also endorses that the swelling had begun initially after increasing atorvastatin dose to 40 mg from 10 mg on prior admission. We will hold atorvastatin for the time being. Evaluate for improvement in swelling. If it does, then this would be a contraindication to continue atorvastatin, and would switch to pravastatin, and monitor for similar symptoms if it does present. Evaluation regarding the patient's heparin drip. The patient has troponin elevation on admission, which has remained stable since presentation. Presumption for NSTEMI (type 1) initially. Consultation with cardiology - felt to be type 2 demand NSTEMI from prior admission, with persistent elevation identified during this admission. Of note, patient does have wall motion abnormalities on repeat echocardiography. Can stop heparin drip. Time Spent With Patient Time: Total time managing care of this patient today 35 minutes.
[2025-03-23 15:18] VITALS: BP 112/58; PULSE 74; RESP 18; TEMP 36.3; O2SAT 92
[2025-03-23] MEDS: iohexoL 350 MG/ML 100 ML INFUS..BTL 85 ML IV (15:25)
[2025-03-23 19:27] VITALS: BP 138/59; PULSE 69; RESP 16; TEMP 37.6; O2SAT 94
[2025-03-23] MEDS: 0.9 % Sodium Chloride Flush 3 ML SYRINGE IVFLUSH (19:50)
[2025-03-23] MEDS: Nicotine 21 MG PATCH.TD24 TRANSDERMA (20:15)
[2025-03-24] VITALS: BP 124/62; PULSE 64; RESP 16; TEMP 36.5; O2SAT 93
[2025-03-24 03:47] VITALS: BP 116/56; PULSE 59; RESP 16; TEMP 35.6; O2SAT 96
[2025-03-24 07:28] VITALS: BP 119/68; PULSE 58; RESP 20; TEMP 36.8; O2SAT 96
[2025-03-24 07:36] LABS: Hematocrit 43.5 % (37.0-47.0); Hemoglobin 14.6 g/dl (12.0-16.0); Mean Corpuscular HGB Conc 33.6 g/dl (31.0-35.0); Mean Corpuscular Hemoglobin 34.2 pg (27.0-33.0); Mean Corpuscular Volume 101.9 fL (80.0-98.0); NRBC Abs Auto 0.000 X10*3/uL (0.0-0.012); NRBC Pct Auto 0.0 /100WBC (0.0-0.2); Platelet Count 169 X10*3/uL (160-400); Red Blood Count 4.27 X10*6/uL (4.20-5.50); White Blood Count 7.7 X10*3/uL (4.8-10.8)
[2025-03-24] MEDS: Fluticasone/Umeclidinium/Vilanterol 200/62.5/25 BLST.W.DEV 1 PUFF INHALE (08:20)
[2025-03-24 08:21] VITALS: PULSE 58; RESP 16
[2025-03-24] MEDS: Aspirin Enteric Coated 81 MG TABLET.DR PO (09:25)
[2025-03-24] MEDS: Elviteg/Cobi/Emtric/Tenofo Ala 150/150/200/10 TABLET 1 TAB PO (09:25)
[2025-03-24] MEDS: 0.9 % Sodium Chloride Flush 3 ML SYRINGE IVFLUSH (09:25)
--- NOTE | 2025-03-24 11:31 | PM.PNCARD ---
Subjective Subjective Date of Service: 03/24/25 Interval history: Seen and examined at bedside. Hand swelling is improving. Continues to have pleuritic chest discomfort. Physical Exam Vital Signs: Last Vital Signs Temp 98.2 F 03/24/25 07:28 Pulse 58 03/24/25 08:21 Resp 16 03/24/25 08:21 BP 119/68 03/24/25 07:28 Pulse Ox 96 03/24/25 07:28 O2 Del Method Room Air 03/24/25 07:28 BMI result Body Mass Index 21.5 GENERAL APPEARANCE: in no acute distress, pleasant. NECK: no carotid bruit, no jugular venous distention. SKIN: no suspicious lesions, warm and dry. HEART: no murmurs, regular rate and rhythm. LUNGS: clear to auscultation bilaterally. ABDOMEN: soft, nontender. EXTREMITIES: no lower extremity edema. Mild puffiness of the right hand. PERIPHERAL PULSES: equal. NEUROLOGIC: No gross deficits, AAO X 3 Objective Labs and Meds 03/24/25 06:56 03/23/25 05:25 Lab results: Laboratory Results - last 24 hr 03/24/25 06:56 WBC 7.7 RBC 4.27 Hgb 14.6 Hct 43.5 MCV 101.9 H MCH 34.2 H MCHC 33.6 RDW 12.2 Plt Count 169 MPV 9.4 Absolute Nucleated RBC 0.000 Nucleated RBC % (auto) 0.0 Imaging Radiologist's impression: Impressions Hand CT 03/23/25 14:34 IMPRESSION: No abscess is identified. No acute bony erosions are noted. Multilevel mild degenerative changes are present along with nonunion of a ulnar styloid fracture. Electronically signed by: Ricardo Reardon MD 03/24/2025 09:57 AM EDT RP Hand CT 03/23/25 14:34 IMPRESSION: No abscess is identified. No acute bony erosions are noted. Minimal multifocal degenerative changes are present. Electronically signed by: Ricardo Reardon MD 03/24/2025 10:03 AM EDT RP Progress Note: A&P Assessment and plan (1) Chest discomfort: Status: Acute (2) Elevated troponin: Status: Acute Plan Pleasant 64 year female with peripheral vascular disease and COPD who recently had COPD exacerbation with mildly elevated troponins which were thought to be due to type 2 MA. She is presenting with in a week after that event with slightly elevated troponins which appears to be washed out from the previous event. Clinical story was consistent with type 2 MA due to COPD exacerbation. She did have some wall motion abnormalities on echocardiography and plan was to do outpatient testing for that. I agree that she will need ischemic evaluation as outpatient and I think she should get a diagnostic angiogram. We will arrange this for her as outpatient. Supportive care for the pleuritic chest pain likely related to bronchitis/costochondritis. Hand edema is improving. She should elevate the hand and maybe use ice pack. Thank you for allowing me to participate in the care of your patient. Please feel free to contact me if you have any questions. Time Spent With Patient Time: Total time managing care of this patient today ____ minutes. Progress Note: Quality Stroke Does the patient have a stroke diagnosis?: No Procedures Date of Service Date of Service: 03/24/25
[2025-03-24 11:58] VITALS: BP 119/62; PULSE 71; RESP 20; TEMP 36.5; O2SAT 94
--- NOTE | 2025-03-24 13:22 | MHC.CM.PN ---
PLAN IS FOR HOME WITH NO SERVICES
[2025-03-24 14:40] LABS: Anion Gap 13 (12-20); Blood Urea Nitrogen 21 mg/dL (9-16); Calcium 8.9 mg/dL (8.4-10.2); Carbon Dioxide 27 mmol/L (22-29); Chloride 104 mmol/L (96-108); Creatinine Clr Calc Pharmacy 62.1; Estimated Glomerular Filt Rate > 60; Potassium 4.0 mmol/L (3.3-5.1); Sodium 140 mmol/L (135-145)
--- NOTE | 2025-03-24 15:25 | MHC.SLORD ---
Speech Language Pathology Order Status: Patient seen for clinical swallow assessment at lunch, currently on regular diet, patient reported she is pending D/C. Per patient, she has history of esophageal stricture, not experiencing any swallowing difficulty at the moment, but episodically has difficulty. Swallow assessment today was WFL. Patient advised to consult with PCP re: GI referral to address stricture (issue is not a part of this medical admission). Full evaluation report to follow.
[2025-03-24 15:50] VITALS: BP 95/51; PULSE 67; RESP 18; TEMP 36.9; O2SAT 94
--- NOTE | 2025-03-24 16:49 | P.DS_ITS ---
DS: Providers Provider Date of Service: 03/24/25 Date of admission: 03/23/25 03:17 Date of discharge: 03/24/25 Primary care physician: ALLEN Vazquez Consults: 03/23/25 03:17 Consult to Cardiology Routine Consulting Provider[place] [facility] [place] Reason for consultation: nstemi DS: Diagnosis Discharge Diagnosis (1) Chest discomfort: Status: Acute (2) Elevated troponin: Status: Acute DS: Summary Hospital Course Hospital Course: 58-year-old female with a past medical history of HTN,, HLD, CAD, COPD, HIV, op iate dependence on Suboxone, peripheral vascular disease, mood disorder, tobacco dependence; just discharged from the hospital after being treated for COPD exacerbation/pneumonia//demand ischemia; presented to the hospital today with a chief complaint of bilateral hand pain. PRESENTATION Patient mentioned that she was initially doing okay off she was discharged from the hospital and has been taking her antibiotics that was prescribed. 2-3 day prior to admission she noted to have bilateral hand swelling which causes pain with any movement. Swelling on the dorsum of the hand bilaterally. No erythema. Patient denies any fevers. No evidence of neurovascular compromise on presentation Has seen Cardiology during the last admission and was supposed to follow with cardiology clinic eventually. Patient denies any numbness tingling or focal weakness. Prior admission was notable for COPD exacerbation (infective bronchitis) with type II demand NSTEMI. Denies any urinary symptoms. Denies any nausea or vomiting ED COURSE Per ER team, patient had a bilateral hand swelling on the dorsum without any erythema; patient also reported having chest pain; has had elevated troponins but plateaued. Discussed with Cardiology. Started on heparin drip for possible NSTEMI. PROBLEMS Endorsing no retrosternal chest pain or discomfort. No palpitations, diaphoresis, dyspnea. Patient endorses persistent bilateral wrist pain, especially with moving digits and fingers, seems localized to the dorsal aspect of the index finger; mostly on extension. No pain on palpation of the bony prominences of either hand, however notable swelling is present bilaterally. No IV was placed in the site previously. Blood draw was completed during prior hospitalization. Further evaluation of the patient's bilateral hand pain with CT-hands with IV contrast to evaluate for potential abscess. Likely impression of tenosynovitis. The patient also endorses that the swelling had begun initially after increasing atorvastatin dose to 40 mg from 10 mg on prior admission. We will hold atorvastatin for the time being. The patient's bilateral hand swelling has improved since admission while holding atorvastatin. If it does, then this would be a contraindication to continue atorvastatin, and would switch to pravastatin, and monitor for similar symptoms if it does present. Presentation is likely consistent with atypical side effect of atorvastatin. Evaluation regarding the patient's heparin drip. The patient has troponin elevation on admission, which has remained stable since presentation. Presumption for NSTEMI (type 1) initially. Consultation with cardiology - felt to be type 2 demand NSTEMI from prior admission, with persistent elevation identified during this admission. Of note, patient does have wall motion abnormalities on repeat echocardiography. Heparin gtt was discontinued. Status at Discharge Functional status at discharge: independent ambulation Overall status at discharge: patient is back to baseline Time Attestation Total time managing care of this patient today: 45 mintues. Discharge Coordination Time (in mins): 15 Quality: Safe Use of Opioids Does Pt have an Active Cancer Diagnosis on the Problem List?: No Quality: Stroke Does the patient have a stroke diagnosis?: No Physical Exam Exam: Exam: General: A&O x3, oriented to time place person and situation, comfortable, no pain Cardiac: S1, S2 auscultated with no S3/4, no MRG. Well perfused. Respiratory: Normal breath sounds auscultated throughout all lung zones, without wheezing, rales. Normal rate. GI/ : No abdominal pain on palpation, no masses or distentions. MSK: Normal ambulation without pain at bony prominences or musculature Neurological: Normal neurological examination on overview, without obvious CN II-XII abnormalities. Vital Signs: Vital Signs: Last Vital Signs Temp 98.5 F 03/24/25 15:50 Pulse 67 03/24/25 15:50 Resp 18 03/24/25 15:50 BP 95/51 L 03/24/25 15:50 Pulse Ox 94 03/24/25 15:50 O2 Del Method Room Air 03/24/25 15:50 BMI result Body Mass Index 21.5 DS: Data Data Completed and Pending Labs on day of discharge: Laboratory Results - last 24 hr 03/24/25 03/24/25 06:56 12:30 WBC 7.7 RBC 4.27 Hgb 14.6 Hct 43.5 MCV 101.9 H MCH 34.2 H MCHC 33.6 RDW 12.2 Plt Count 169 MPV 9.4 Absolute Nucleated RBC 0.000 Nucleated RBC % (auto) 0.0 Sodium 140 Potassium 4.0 Chloride 104 Carbon Dioxide 27 Anion Gap 13 BUN 21 H Creatinine 0.64 Estim Creat Clear Calc 62.1 Estimated GFR > 60 Random Glucose 113 Calcium 8.9 Discharge Plan Discharge Anticipated Discharge Date/Time: 03/24/25 16:54 Patient Disposition: Home, Self-Care Discharge Diagnosis: bilateral hand swelling Referrals: Dami Grajeda, SOFTWARE BUSINESS ANALYST- [Primary Care Provider, Internal Medicine] - 1 Week Discharge Medications: Continued losartan 50 mg tablet 50 mg PO DAILY 90 Days Qty: 90 1RF venlafaxine 25 mg tablet 25 mg PO DAILY 90 Days Qty: 90 0RF buprenorphine-naloxone 8-2 mg film 2 film sublingual DAILY ibuprofen 600 mg tablet 600 mg PO Q6H PRN (Reason: fever or pain) Qty: 30 0RF nicotine 21 mg/24 hr patch 24 hour 1 patch transdermal DAILY Qty: 28 0RF Rx Instructions: Apply one patch to upper arm daily for nicotine replacement therapy codeine-guaifenesin [Guaifenesin AC] 10-100 mg/5 mL liquid 5 ml PO Q6H PRN (Reason: cough) Qty: 120 0RF Rx Instructions: Take 5 mL as needed up to every 6 hours for cough ketorolac 10 mg tablet 10 mg PO Q8H PRN (Reason: pain, moderate) 5 Days Qty: 15 0RF Rx Instructions: Take 1 tablet up to 3 times daily for moderate pain Genvoya [phone] mg tablet 1 tab PO DAILY calcium carbonate-vitamin D3 500 mg(1,250mg) -50 unit capsule 1 cap PO DAILY (DME) nebulizers Misc See Rx Instructions .Route Qty: 1 0RF Rx Instructions: copd, use PRN aspirin [Shakira Low Dose Aspirin] 81 mg tablet,delayed release (DR/EC) 81 mg PO DAILY albuterol sulfate 2.5 mg /3 mL (0.083 %) solution for nebulization 2.5 mg inhalation Q4-6H PRN (Reason: shortness of breath or wheezing) Qty: 90 0RF Trelegy Ellipta 200-62.5-25 mcg blister with device 1 inh inhalation DAILY Qty: 60 6RF albuterol sulfate 90 mcg/actuation HFA aerosol inhaler 1 puff PO QID PRN (Reason: for dyspnea) Qty: 8.5 3RF Discontinued atorvastatin [Lipitor] 40 mg tablet 40 mg PO DAILY Qty: 90 0RF Rx Instructions: Take one tablet daily Discharge Orders: Discharge Order (Routine); Ordered 03/24/25 Ordered By: Dee Callahan Diet: Advance to usual diet Activity on Discharge: As tolerated Stand Alone Forms: Patient Portal Discharge page, Work/School Release Print Language: Andorran Care Plan Goals: as above Health Concerns: as above Plan of Treatment: - Stop atorvastatin - Consider transitioning to pravastatin high dose in 5 days after admission - FU with outpatient cardiology for workup/ evaluation of type II demand NSTEMI - FU PCP within 1 week of DC Assessment: Haemodynamically stable during admission, without evidence of compromise.
== END 2025-03-24 17:28 | disposition home or self-care (01) | DRG 557 ==
LOC: HO.ED 03-23 03:20 → HO.EDOVER 03-23 03:25 → HO.IMC 03-23 08:00
PROVIDERS: Physician Assistant Medical; Admitting Provider Hospitalist; Emergency Provider Emergency Medicine; PCP Nurse Practitioner Family; Visit Provider Hospitalist
DX: M65.942 Unspecified synovitis and tenosynovitis, left hand (principal); I21.A1 Myocardial infarction type 2; F11.20 Opioid dependence, uncomplicated; M65.941 Unspecified synovitis and tenosynovitis, right hand; F17.210 Nicotine dependence, cigarettes, uncomplicated; M94.0 Chondrocostal junction syndrome [Tietze]; I25.10 Atherosclerotic heart disease of native coronary artery without angina pectoris; J44.9 Chronic obstructive pulmonary disease, unspecified; Z21 Asymptomatic human immunodeficiency virus [HIV] infection status; Z71.6 Tobacco abuse counseling; Z79.51 Long term (current) use of inhaled steroids; Z79.82 Long term (current) use of aspirin; Z79.899 Other long term (current) drug therapy
CPT/HCPCS: 36415; 71046; 73201; 80048; 80053; 80307; 83735; 84484; 85025; 85027; 85610; 85652; 85730; 86140; 93005; 99285; J1171; J1644; J2270; J2405; Q9967

== ENCOUNTER → 2025-03-22 18:44 | Outpatient (BNV) | payer MEDICARE, SELFPAY | PROVIDERS: Admitting Provider Hospitalist; Emergency Provider Emergency Medicine; PCP Nurse Practitioner Family; Visit Provider Internal Medicine Cardiovascular Disease | DX: I51.7 Cardiomegaly (principal) | CPT/HCPCS: 93010 ==

== ENCOUNTER → 2025-03-22 19:39 | Outpatient (BNV) | payer MEDICARE, SELFPAY | PROVIDERS: PCP Nurse Practitioner Family; Visit Provider Radiology Diagnostic Radiology | DX: J98.4 Other disorders of lung (principal) | CPT/HCPCS: 71046 ==

== ENCOUNTER 2025-03-23 03:17 | Outpatient (BNV) | payer MEDICARE, SELFPAY | END 2025-03-23 14:34 | PROVIDERS: Admitting Provider Hospitalist; Emergency Provider Emergency Medicine; PCP Nurse Practitioner Family; Visit Provider Radiology Diagnostic Radiology | DX: M79.89 Other specified soft tissue disorders (principal); S52.612A Displaced fracture of left ulna styloid process, initial encounter for closed fracture; M19.042 Primary osteoarthritis, left hand | CPT/HCPCS: 73201 ==

== ENCOUNTER → 2025-03-23 03:17 | Outpatient (BNV) | payer MEDICARE, SELFPAY | PROVIDERS: Admitting Provider Hospitalist; Emergency Provider Emergency Medicine; PCP Nurse Practitioner Family; Visit Provider Internal Medicine Cardiovascular Disease | DX: R79.89 Other specified abnormal findings of blood chemistry (principal) | CPT/HCPCS: 99223 ==

== ENCOUNTER → 2025-03-23 03:17 | Outpatient (BNV) | payer MEDICARE, SELFPAY | PROVIDERS: Admitting Provider Hospitalist; Emergency Provider Emergency Medicine; PCP Nurse Practitioner Family; Visit Provider Hospitalist | DX: R07.89 Other chest pain (principal) | CPT/HCPCS: 99223 ==

== ENCOUNTER 2025-03-26 11:16 | Outpatient (AMB) | payer MEDICARE, SELFPAY ==
[2025-03-26 11:28] VITALS: BP 110/60; PULSE 70; O2SAT 96; BMI 19.7
--- NOTE | 2025-03-26 11:28 | MHC.PC.OV ---
Vital Signs 03/26/25 11:28 Height 5 ft Weight 101 lb BMI 19.7 BP 110/60 Blood Pressure Location Lt brachial Position Sitting Pulse 70 Pulse Source Pulse Oximeter Pulse Oximetry (%) 96 Intake Visit Reasons: HDF Allergies abacavir Allergy (Severe, Verified 03/26/25 11:28) high fever erythromycin base Allergy (Unknown, Verified 03/26/25 11:28) Unknown atorvastatin Adverse Reaction (Intermediate, Verified 03/26/25 11:28) Muscle Pain Tobacco use date assessed: 10/21/24 Fall risk assessment: No Falls in past year Last assessed Fall Risk: 03/26/25 Dental Screening Dental Screen Date: 10/21/24 HPI TCM TCM Information Date of Discharge 03/24/25 Discharged From [facility] Interactive Contact Date (Reference documentation from this date) 03/25/25 HPI Comments History of Present Illness Details History of Present Illness - The patient is a 64-year-old female presenting for a hospital discharge follow up. She was recently admitted to [facility] on March 23 and discharged on March 24. She was admitted for an NSTEMI and bilateral hand swelling and pain which the jig fitter felt was secondary to an increase in her atorvastatin 3 days prior to her admission. - The patient was started on atorvastatin 40 mg, shortly after which she developed hand swelling and pain. This medication was discontinued during her stay, shortly after, her hand swelling and pain improved although not completely resolved. Cardiology wanted to see her on a follow up but they also wanted her started on pravastatin. - The NSTEMI treated with a heparin drip. - the hospitalist also told the patient to go to pulmonary rehab for her COPD, she did have a recent pneumonia with an admission just prior to this one. - Yeast infection: The patient developed a yeast infection with white chunky discharge after being on antibiotics during her hospital first stay. - The patient reports oral thrush, likely related to her use of Trelegy, despite rinsing her mouth after use. - The patient has a history of COPD and was told to start pulmonary rehabilitation but this hasn't been set up yet. - she also mentions that she started a new job and she still within her 90 day window of starting and she has been missing a lot of work so she needs [facility] paperwork filled out. Review of Systems - Cardiovascular: denies chest pain, denies current shortness of breath. - Respiratory: Denies dyspnea, reports oral thrush. - Musculoskeletal: Reports hand swelling and pain. - Genitourinary: Reports yeast infection with white chunky discharge, denies urinary symptoms. All systems reviewed and are unremarkable except as noted in HPI General: Cooperative, healthy appearing, comfortable, no acute distress and well developed Orientation: Patient oriented x3 Limitations: No limitations Head: Normal to inspection Ears: Hearing grossly normal bilaterally Nose: Normal External nose present Face and sinus: Normal facial exam Eyes: Appearance normal, both eyes and all related structures Neck: Normal visual inspection and Yes full ROM Respiratory: Normal respiratory effort and able to speak in complete sentences. Clear to auscultation throughout, no wheezes, rales and rhonchi. Cardiac: Regular rate and rhythm, Normal S1 and S2, no murmurs, rubs or gallops Skin: No rashes or lesions noted Neuro: Patient oriented x3, gait normal Extremities: Normal to inspection [facility] Medical History (Updated 03/27/25 @ 00:01 by Rosa Dwyer) Nicotine dependence, cigarettes, uncomplicated Tongue sore Liver cirrhosis COPD (chronic obstructive pulmonary disease) PVD (peripheral vascular disease) History of opioid abuse Osteopenia GERD (gastroesophageal reflux disease) Hyperlipidemia Hepatitis C (~1998) PTSD (post-traumatic stress disorder) HTN (hypertension) HIV (human immunodeficiency virus infection) (~1996) Surgical History History of colonoscopy (~2016) History of esophagogastroduodenoscopy (EGD) (~2016) History of angioplasty (~2017) History of carpal tunnel surgery of right wrist (~2003) History of liver biopsy (~2001) Hx of cholecystectomy (~2001) History of hysterectomy Family History Mother Lung cancer Father Substance use disorder Son Substance use disorder Social History Household Members: None Housing: Apartment Do you presently have visiting nurse or other home services: No Alcohol intake: current Alcohol intake frequency: holidays/special occasions only Alcohol type: wine Patient Tobacco Use Status: Current everyday Tobacco user Tobacco use type: Cigarette Cigarette Packs Per Day: 1 Cigarettes Per Day: 20 Years Smoked: 50 e-Cigarette/Vaping Use: Never Used Second Hand Smoke Exposure: No service: No Current occupational status: employed 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 Richard Gonzalez, Annie Pérez, James Nevarez and colleagues, with an educational florinda from [employer]. Physical exam (Primary Care) Vital Signs: Last Vital Signs Pulse 70 03/26/25 11:28 BP 110/60 03/26/25 11:28 Pulse Ox 96 03/26/25 11:28 BMI result Body Mass Index 19.7 Tobacco/Smoking Status: Tobacco use Status Tobacco use date assessed 10/21/24 03/26/25 11:35 Patient Tobacco Use Status Current everyday Tobacco 03/26/25 11:35 Tobacco use type Cigarette 03/26/25 11:35 e-Cigarette/Vaping Use Never Used 03/26/25 11:35 Thrive Assessment: Date of Thrive Assessment Date Thrive assessed 10/21/24 03/26/25 11:35 Coding Level of Care Code TCM Mod MDM <= 7 Days Diagnoses COPD (chronic obstructive pulmonary disease) J44.9 Hospital discharge follow-up Z09 Non-ST elevation NV (NSTEMI) I21.4 Hyperlipidemia E78.5 Yeast infection of the vagina B37.31 Thrush, oral B37.0 Assessment & Plan Assessment & Plan (1) COPD (chronic obstructive pulmonary disease): Code(s): J44.9 - Chronic obstructive pulmonary disease, unspecified Category: Medical Plan: Assessment and Plan 1. Allergic reaction to atorvastatin - The patient will discontinue atorvastatin and start pravastatin at a low dose of 10 mg, with plans to gradually increase the dose while monitoring for any adverse reactions. - In 3 weeks, the patient will call our nurse and touch base to assess for any side effects, if there are no side effects, we will increase her dose to 20mg daily pravastatin for one month. - 3 weeks after starting the 20 mg dose, she will call our nurse and report any unwanted side effects and if there are none, we will increase her dose to 40 mg pravastatin for 1 month. - She does have a follow up appointment with her PCP May 25 so they can continue the increase in the pravastatin, as appropriate. 2. Hand swelling and pain - Mildly improved. - The patient is advised to take Aleve for two days to help reduce swelling, ensuring adequate hydration. 3. NSTEMI - The patient has been referred to cardiology for further evaluation and follow-up, including a cardiac catheterization. - gave patient the phone number Cardiology so she can follow up regarding an appointment. A referral has already been sent. 4. Yeast infection - The patient will take fluconazole 150 mg today, with a second dose in three days if symptoms persist. 5. Oral thrush - The patient will use clotrimazole lozenges five times a day for seven days. 6. Chronic Obstructive Pulmonary Disease (COPD) - Referral for pulmonary rehabilitation has been sent and advised to follow up with pulmonology. Patient was informed and verbally consented to the use of an ambient scribe for clinic note documentation during this visit. (2) Hospital discharge follow-up: Code(s): Z09 - Encounter for follow-up examination after completed treatment for conditions other than malignant neoplasm Category: Medical Plan: as above (3) Non-ST elevation NV (NSTEMI): Code(s): I21.4 - Non-ST elevation (NSTEMI) myocardial infarction Category: Medical Plan: as above (4) Hyperlipidemia: Code(s): E78.5 - Hyperlipidemia, unspecified Category: Medical Plan: as above (5) Yeast infection of the vagina: Code(s): B37.31 - Acute candidiasis of vulva and vagina Category: Medical Plan: as above (6) Thrush, oral: Code(s): B37.0 - Candidal stomatitis Category: Medical Plan: as above Orders: Orders Pulmonary Rehab 03/26/25 J44.9 - Chronic obstructive pulmonary disease, unspecified Medications: New clotrimazole 10 mg mucous membrane .5 times per day 35 tabs 0RF 7 days pravastatin 10 mg PO BEDTIME 30 tabs 0RF fluconazole may repeat second dose 72 hrs after first dose if symptoms persist 150 mg PO Q3D 2 tabs 0RF
--- OUTSIDE RECORDS SUMMARY | 2025-03-26 14:22 | XMS_ITS | Patient Health Record ---
Author Organization [facility] Address [address] [place] [address] Care Team Providers Care Qa Software Tester Name Role Phone Richard Varela Unavailable [phone] Reason For Referral No Information Plan Of Treatment No Information
== END 2025-03-26 13:43 | disposition home or self-care (01) ==
LOC: HO.HMCC 11:16
PROVIDERS: PCP Nurse Practitioner Family; Visit Provider Physician Assistant
DX: I21.4 Non-ST elevation (NSTEMI) myocardial infarction (principal); J44.9 Chronic obstructive pulmonary disease, unspecified; Z09 Encounter for follow-up examination after completed treatment for conditions other than malignant neoplasm; E78.5 Hyperlipidemia, unspecified; B37.31 Acute candidiasis of vulva and vagina; B37.0 Candidal stomatitis

== ENCOUNTER → 2025-03-26 11:16 | Outpatient (BNVA) | payer MEDICARE, SELFPAY | PROVIDERS: PCP Nurse Practitioner Family; Visit Provider Physician Assistant | DX: B37.31 Acute candidiasis of vulva and vagina (principal); B37.0 Candidal stomatitis; I25.2 Old myocardial infarction; J44.9 Chronic obstructive pulmonary disease, unspecified; E78.5 Hyperlipidemia, unspecified; Z09 Encounter for follow-up examination after completed treatment for conditions other than malignant neoplasm; Z79.899 Other long term (current) drug therapy | CPT/HCPCS: 99495 ==

== ENCOUNTER 2025-04-05 18:12 | Emergency (ER) | payer MEDICARE, SELFPAY ==
--- NOTE | ~2025-04-05 | XR_ITS ---
CLINICAL HISTORY: cp, cough 2 view chest x-ray Comparison: CR - XR CHEST 2V - 03/22/25 19:[address]/SR - CT CHEST ANGIOGRAPHY WITH IV CONTRAST - 03/16/25 11:44 EDT Findings: Mild right mid lung infiltrative changes. Normal size heart. No acute fracture. IMPRESSION: 1. Mild right mid lung infiltrative changes, may represent resolving pneumonia. Follow-up until resolution is recommended. This document has been electronically signed by: Thea Owens MD on 04/05/2025 20:08:13
--- NOTE | ~2025-04-05 | CT_ITS ---
CLINICAL HISTORY: cough, HIV, CT chest without contrast Comparison: CR - XR CHEST 2V - 04/05/25 18:[address]/SR - CT CHEST ANGIOGRAPHY WITH IV CONTRAST - 03/16/25 11:44 EDT Findings: The heart size is normal. The visualized thyroid and mediastinum are unremarkable. Right middle lobe consolidation. Mild emphysematous changes. The upper abdomen is unremarkable. No acute fractures. IMPRESSION: 1. Right middle lobe consolidation likely represent aspiration or pneumonia. Follow-up until resolution is recommended. 2. Mild emphysema. This document has been electronically signed by: Thea Owens MD on 04/05/2025 21:03:54
--- NOTE | 2025-04-05 18:18 | ED_ITS ---
HPI - General Adult General Chief complaint: Fever Stated complaint: swollen hands/fever Time Seen by Provider: 04/05/25 18:49 Related Data Home Medications ?Medication ?Instructions ?Recorded ?Confirmed aspirin 81 mg tablet,delayed 81 mg PO DAILY 06/15/20 1 release (Shakira Low Dose Aspirin) calcium carbonate-vitamin D3 500 1 cap PO DAILY 03/23/25 mg (1,250 mg)-50 unit capsule elviteg 150 mg-cob 150 mg-emtricit 1 tab PO DAILY 02/1003/23/25 200 mg-tenofo alafenam 10 mg tablet (Genvoya) buprenorphine 8 mg-naloxone 2 mg 2 film sublingual SAMMIE LY 06/15/23 03/23/25 sublingual film Previous Rx's ?Medication ?Instructions ?Recorded nebulizers #1 ea 08/15/23 albuterol sulfate 2.5 mg/3 mL 2.5 mg (3 mL) inhalation Q4-6H PRN 04/01/24 (0.083 %) solution for nebulization shortness of breat h or wheezing #90 mL albuterol sulfate 90 mcg/actuation 1 puff PO QID PRN f or dyspnea #8.5 11/07/24 aerosol inhaler grams fluticasone fur. 200 mcg-umeclid 1 inh inhalation DB Y #60 ea 11/07/24 62.5 mcg-vilant 25 mcg inhalat.powder (Trelegy Ellipta) losartan 50 mg tablet 50 mg PO DAILY 90 days #90 t abs 12/22/24 venlafaxine 25 mg tablet 25 mg PO DAILY 90 days #90 t abs 01/30/25 nicotine 21 mg/24 hr daily 1 patch transdermal DAILY # 28 ea 03/19/25 transdermal patch clotrimazole 10 mg gerry 10 mg mucous membrane .5 suyapa es per 03/26/25 day 7 days #35 tabs fluconazole 150 mg tablet 150 mg PO Q3D #2 tabs pravastatin 10 mg tablet 10 mg PO BEDTIME #30 tabs levofloxacin 750 mg tablet 750 mg PO DAILY 7 days #7 t abs 04/05/25 Allergies Allergy/AdvReac Type Severity Reaction Status Date / Time abacavir Allergy Severe high fever Verified 04/05/25 18:22 erythromycin base Allergy Unknown Unknown Verified 04/05/25 18:22 atorvastatin AdvReac Intermediate Muscle Pain Verified 04/05/25 18:22 [facility] Past Medical History Medical History (Updated 04/05/25 @ 19:55 by Joseph Gomez MD) Nicotine dependence, cigarettes, uncomplicated Tongue sore Liver cirrhosis COPD (chronic obstructive pulmonary disease) PVD (peripheral vascular disease) History of opioid abuse Osteopenia GERD (gastroesophageal reflux disease) Hyperlipidemia Hepatitis C (~1998) PTSD (post-traumatic stress disorder) HTN (hypertension) HIV (human immunodeficiency virus infection) (~1996) Surgical History History of colonoscopy (~2016) History of esophagogastroduodenoscopy (EGD) (~2016) History of angioplasty (~2017) History of carpal tunnel surgery of right wrist (~2003) History of liver biopsy (~2001) Hx of cholecystectomy (~2001) History of hysterectomy Family History Family History Mother Lung cancer Father Substance use disorder Son Substance use disorder Social History Social History Household Members: None Housing: Apartment Do you presently have visiting nurse or other home services: No Alcohol intake: current Alcohol intake frequency: holidays/special occasions only Alcohol type: wine Patient Tobacco Use Status: Current everyday Tobacco user Tobacco use type: Cigarette Cigarette Packs Per Day: 1 Cigarettes Per Day: 20 Years Smoked: 50 Smoked in Last 30 Days: Yes e-Cigarette/Vaping Use: Never Used Second Hand Smoke Exposure: No Use of substances other than those prescribed or required for medical reasons: No Advance Directives: No Advance Directives Information Provided: Yes service: No Current occupational status: employed 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 Deferred additional HPI, ROS, PE to primary provider. 64 yo female with PMH of COPD, HIV, PAD, HTN, mood disorder, Recent NSTEMI (has planned cardiac cath on 04/09 at [facility] [place]) here with SOB, fever (max 103) x 2 days. Son admitted for PNA here at [facility] [place]. Medications Administered Generic Name Dose Route Start Last Admin Trade Name Freq PRN Reason Stop Dose Admin Sodium Chloride 1,000 mls @ 999 mls/hr 04/05/25 19:15 04/05/25 19:45 Ns IV 04/05/25 20:15 999 mls/hr .Q1H1M KIMANI Administration Discontinued Medications Generic Name Dose Route Start Last Admin Trade Name Freq PRN Reason Stop Dose Admin Acetaminophen 975 mg 04/05/25 18:22 04/05/25 19:13 Acetaminophen 325 Mg Tablet PO 04/05/25 18:23 975 mg ONCE ONE Administration Sodium Chloride 1,000 mls @ 999 mls/hr 04/05/25 18:22 04/05/25 19:10 Ns IV 04/05/25 19:22 999 mls/hr .Q1H1M STA Administration Piperacillin Sod/Tazobactam 50 mls @ 100 mls/hr 04/05/25 19:14 04/05/25 19:25 Sod 3.375 gm/ Sodium Chloride IV 04/05/25 19:43 100 mls/hr ONCE ONE Administration Medical Decision Making Medical Decision Making [facility] Narrative: Medical Decision Makin-year-old female who meets SIRS criteria with fever. She has multiple comorbid medical conditions most relevant are well-controlled HIV, tobacco use disorder, COPD. Recently diagnosed with COPD exacerbation looks like on the 16 of March sent home with doxycycline prednisone. She comes with fever once again some mild cough sick contact at home her son in fact is admitted to the hospital with severe pneumonia but that is felt to be aspiration. Patient denies significant dyspnea on exertion or wheeze no stridor or sore throat. She has persistent hand swelling this was addressed on a previous admission and felt possibly secondary to statin allergy or adverse reaction. The patient has no hypoxia in the ED in his breathing comfortably. CT shows right-sided pneumonia. She does not have any laboratory or clinical evidence of end-organ damage or severe sepsis criteria. Lactate 0.9. Hemodynamics stable. Patient agreeable and amenable to go home with a strict return precautions we will prescribed levofloxacin for a week The patient denies any active or persistent chest pain on my history taking. She was recently here and felt to have possibly type 2 more likely than type 1 CT with troponin plateau. Currently is on a downtrend do not think this is ACS. Preliminary Favored Differential Diagnosis: Pneumonia, COPD, pleural effusion a orion additional considered etiologies Testing Interpreted Independently: ?See below for details Radiology or Lab testing Results Reviewed: ?See below for details Consults: ?See below for details Independent Historians/External Chart Reviews: ?See below for details Social Determinants of Health Impacting MDM/Planning: ?See below for details Lab Data 04/05/25 19:01 04/05/25 19:01 Labs: Lab Results 04/05/25 Range/Units 19:01 WBC 11.6 H (4.8-10.8) X10*3/uL RBC 3.88 L (4.20-5.50) X10*6/uL Hgb 13.6 (12.0-16.0) g/dl Hct 39.4 (37.0-47.0) % MCV 101.5 H (80.0-98.0) fL MCH 35.1 H (27.0-33.0) pg MCHC 34.5 (31.0-35.0) g/dl RDW 13.5 (11.0-16.0) % Plt Count 166 (160-400) X10*3/uL MPV 8.8 L (9.4-12.3) fL Immature Gran % (Auto) 0.7 H (0.0-0.4) % Neut % (Auto) 84.4 H (45-73) % Lymph % (Auto) 8.8 L (20-40) % [place] % (Auto) 5.3 (2-11) % Eos % (Auto) 0.5 (0-4) % Baso % (Auto) 0.3 (0-2) % Lymph # (Auto) 1.0 L (1.2-4.9) X10*3/uL [place] # (Auto) 0.6 (0.1-1.2) X10*3/uL Eos # (Auto) 0.1 (0.0-0.4) X10*3/uL Baso # (Auto) 0.0 (0.0-0.2) X10*3/uL Abs Immat Gran (auto) 0.08 H (0.00-0.03) X10*3/uL Absolute Neuts (auto) 9.8 H (2.0-8.3) x10*3/uL Absolute Nucleated RBC 0.000 (0.0-0.012) X10*3/uL Nucleated RBC % (auto) 0.0 (0.0-0.2) /100WBC Sodium 138 (135-145) mmol/L Potassium 3.5 (3.3-5.1) mmol/L Chloride 99 (96-108) mmol/L Carbon Dioxide 27 (22-29) mmol/L Anion Gap 16 (12-20) BUN 11 (9-16) mg/dL Creatinine 0.70 (0.5-1.4) mg/dL Estim Creat Clear Calc 56.5 Estimated GFR > 60 Random Glucose 98 (60-115) mg/dL Lactic Acid 0.9 (0.5-2.0) mmol/L Calcium 9.6 D (8.4-10.2) mg/dL Magnesium 1.6 (1.6-2.6) mg/dL Total Bilirubin 0.6 (0.0-1.0) mg/dL Direct Bilirubin 0.2 (0.0-0.5) mg/dL AST 41 H (5-31) U/L ALT 22 (0-31) U/L Alkaline Phosphatase 94 (39-117) U/L Troponin I High Sens 98.1 H* (<3.5-17.0) ng/L Total Protein 7.1 (6.5-8.0) g/dL Albumin 4.3 (3.5-5.0) g/dL COVID-19 (ANDREY) Negative (Negative) COVID-19 Clin Com See Note Influenza Type A (ARMIN) Negative (Negative) Influenza Type B (ARMIN) Negative (Negative) Influenza A & B Note See Note Discharge Plan Discharge Clinical Impression: Pneumonia Additional Instructions: You were evaluated in the emergency department for cough and fever. You did not have any criteria for admission and preferred discharge home with oral antibiotics. Your oxygen and vital signs were stable. As we discussed you should return at anytime for severe difficulty breathing, severe or sudden change or development of chest pain, shaking chills or sweats at night or generalized worsening condition despite at least 48 hours of antibiotics. Call your primary doctor in your pulmonary doctor for close follow up you should be seen within 3-5 days Prescriptions: New levofloxacin 750 mg tablet 750 mg PO DAILY 7 Days Qty: 7 0RF No Action losartan 50 mg tablet 50 mg PO DAILY 90 Days Qty: 90 1RF venlafaxine 25 mg tablet 25 mg PO DAILY 90 Days Qty: 90 0RF buprenorphine-naloxone 8-2 mg film 2 film sublingual DAILY nicotine 21 mg/24 hr patch 24 hour 1 patch transdermal DAILY Qty: 28 0RF Rx Instructions: Apply one patch to upper arm daily for nicotine replacement therapy Genvoya [phone] mg tablet 1 tab PO DAILY calcium carbonate-vitamin D3 500 mg(1,250mg) -50 unit capsule 1 cap PO DAILY (DME) nebulizers Misc See Rx Instructions .Route Qty: 1 0RF Rx Instructions: copd, use PRN aspirin [Shakira Low Dose Aspirin] 81 mg tablet,delayed release (DR/EC) 81 mg PO DAILY albuterol sulfate 2.5 mg /3 mL (0.083 %) solution for nebulization 2.5 mg inhalation Q4-6H PRN (Reason: shortness of breath or wheezing) Qty: 90 0RF Trelegy Ellipta 200-62.5-25 mcg blister with device 1 inh inhalation DAILY Qty: 60 6RF albuterol sulfate 90 mcg/actuation HFA aerosol inhaler 1 puff PO QID PRN (Reason: for dyspnea) Qty: 8.5 3RF pravastatin 10 mg tablet 10 mg PO BEDTIME Qty: 30 0RF clotrimazole 10 mg gerry 10 mg mucous membrane .5 times per day 7 Days Qty: 35 0RF fluconazole 150 mg tablet 150 mg PO Q3D Qty: 2 0RF Rx Instructions: may repeat second dose 72 hrs after first dose if symptoms persist Print Language: Moldovan
[2025-04-05 18:19] VITALS: BP 128/64; PULSE 105; RESP 18; TEMP 38.8; O2SAT 95; BMI 17.7
--- NOTE | 2025-04-05 18:21 | ECG_ITS ---
Test Reason : CP Blood Pressure : */* mmHG Vent. Rate : 90 BPM Atrial Rate : 90 BPM P-R Int : 128 ms QRS Dur : 66 ms QT Int : 326 ms P-R-T Axes : 65 61 81 degrees QTcB Int : 398 ms Sinus rhythm with Premature supraventricular complexes Nonspecific ST abnormality Abnormal ECG When compared with ECG of 23-Mar-2025 02:52, Premature supraventricular complexes are now Present Vent. rate has increased by 35 bpm T wave amplitude has decreased in Lateral leads Referred By: Jeanne Ross Electronically Signed By: ZEINAB SHI
--- NOTE | 2025-04-05 19:03 | ED.GENADULT ---
HPI - General Adult General Chief complaint: Fever Stated complaint: swollen hands/fever Time Seen by Provider: 04/05/25 18:49 History of Present Illness ED Provider: lucy HPI narrative: 64 F pmh ?63 year old female with past medical history of HIV diagnosed in 1996 currently on Genvoya, ? per [facility] records ID note 06/2024 PMH? - Hep C -genotype 1b: rx ?Harvoni one tab daily PO. 04-11-17 fro 12 wks, 3 mo post HCV UD , HTN,? PVD,? COPD? cataract bilateral and glaucoma Related Data Home Medications ?Medication ?Instructions ?Recorded ?Confirmed aspirin 81 mg tablet,delayed 81 mg PO DAILY 06/15/20 03/23/25 release (Shakira Low Dose Aspirin) calcium carbonate-vitamin D3 500 1 cap PO DAILY 03/08/21 03/23/25 mg (1,250 mg)-50 unit capsule elviteg 150 mg-cob 150 mg-emtricit 1 tab PO DAILY 03/08/21 03/23/25 200 mg-tenofo alafenam 10 mg tablet (Genvoya) buprenorphine 8 mg-naloxone 2 mg 2 film sublingual DAILY 06/15/23 03/23/25 sublingual film Previous Rx's ?Medication ?Instructions ?Recorded nebulizers #1 ea 08/15/23 albuterol sulfate 2.5 mg/3 mL 2.5 mg (3 mL) inhalation Q4-6H PRN 04/01/24 (0.083 %) solution for nebulization shortness of breath or wheezing #90 mL albuterol sulfate 90 mcg/actuation 1 puff PO QID PRN for dyspnea #8.5 11/07/24 aerosol inhaler grams fluticasone fur. 200 mcg-umeclid 1 inh inhalation DAILY #60 ea 11/07/24 62.5 mcg-vilant 25 mcg inhalat.powder (Trelegy Ellipta) losartan 50 mg tablet 50 mg PO DAILY 90 days #90 tabs 12/22/24 venlafaxine 25 mg tablet 25 mg PO DAILY 90 days #90 tabs 01/30/25 nicotine 21 mg/24 hr daily 1 patch transdermal DAILY #28 ea 03/19/25 transdermal patch clotrimazole 10 mg gerry 10 mg mucous membrane .5 times per 03/26/25 day 7 days #35 tabs fluconazole 150 mg tablet 150 mg PO Q3D #2 tabs 03/26/25 pravastatin 10 mg tablet 10 mg PO BEDTIME #30 tabs 03/26/25 levofloxacin 750 mg tablet 750 mg PO DAILY 7 days #7 tabs 04/05/25 Allergies Allergy/AdvReac Type Severity Reaction Status Date / Time abacavir Allergy Severe high fever Verified 04/05/25 18:22 erythromycin base Allergy Unknown Unknown Verified 04/05/25 18:22 atorvastatin AdvReac Intermediate Muscle Pain Verified 04/05/25 18:22 [facility] Past Medical History Medical History (Updated 04/06/25 @ 00:01 by [facility] Dajessica) Nicotine dependence, cigarettes, uncomplicated Tongue sore Liver cirrhosis COPD (chronic obstructive pulmonary disease) PVD (peripheral vascular disease) History of opioid abuse Osteopenia GERD (gastroesophageal reflux disease) Hyperlipidemia Hepatitis C (~1998) PTSD (post-traumatic stress disorder) HTN (hypertension) HIV (human immunodeficiency virus infection) (~1996) Surgical History History of colonoscopy (~2016) History of esophagogastroduodenoscopy (EGD) (~2016) History of angioplasty (~2017) History of carpal tunnel surgery of right wrist (~2003) History of liver biopsy (~2001) Hx of cholecystectomy (~2001) History of hysterectomy Family History Family History Mother Lung cancer Father Substance use disorder Son Substance use disorder Social History Social History Household Members: None Housing: Apartment Do you presently have visiting nurse or other home services: No Alcohol intake: current Alcohol intake frequency: holidays/special occasions only Alcohol type: wine Patient Tobacco Use Status: Current everyday Tobacco user Tobacco use type: Cigarette Cigarette Packs Per Day: 1 Cigarettes Per Day: 20 Years Smoked: 50 e-Cigarette/Vaping Use: Never Used Second Hand Smoke Exposure: No service: No Current occupational status: employed 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 Head: Atraumatic Eyes: Anicteric, Normal conjunctiva. ENT: Moist mucosa, no pallor. ? Neck: Supple. Skin: ?No observable rash or bruising on exposed or examined skin Respiratory: Breathing comfortably, No distress. Very mild scant expiratory only wheeze. Respiratory rate Cardiovascular: Regular rate and rhythm. No murmurs or rub. Well perfused periphery, warm extremities. No edema. ? Abdominal: No focal tenderness. Soft, no objective distension. No palpable masses or obvious organomegaly. ?No guarding, no rebound tenderness or other peritoneal findings. : No flank tenderness. Neuro: Alert. Gross movement of all extremities intact. ? Psych: Calm. Cooperative. MSK: No grossly visible deformity. Vital signs: See flowsheet Vital Signs: Vital Signs - 24 hr 04/05/25 18:19 Temperature 101.8 F H Pulse Rate 105 H Respiratory Rate 18 Blood Pressure 128/64 Pulse Oximetry 95 Oxygen Delivery Method Room Air BMI result Body Mass Index 17.7 Medications Administered Discontinued Medications Generic Name Dose Route Start Last Admin Trade Name Freq PRN Reason Stop Dose Admin Acetaminophen 975 mg 04/05/25 18:22 04/05/25 19:13 Acetaminophen 325 Mg Tablet PO 04/05/25 18:23 975 mg ONCE ONE Administration Sodium Chloride 1,000 mls @ 999 mls/hr 04/05/25 18:22 04/05/25 20:12 Ns IV 04/05/25 19:22 Infused .Q1H1M STA Infusion Sodium Chloride 1,000 mls @ 999 mls/hr 04/05/25 19:15 04/05/25 20:12 Ns IV 04/05/25 20:15 Infused .Q1H1M KIMANI Infusion Piperacillin Sod/Tazobactam 50 mls @ 100 mls/hr 04/05/25 19:14 04/05/25 19:56 Sod 3.375 gm/ Sodium Chloride IV 04/05/25 19:43 Infused ONCE ONE Infusion Vancomycin HCl 1,250 mg/ 250 mls @ 166.667 mls/hr 04/05/25 19:14 04/05/25 20:12 Sodium Chloride IV 04/05/25 20:43 Infused ONCE ONE Infusion Medical Decision Making Medical Decision Making MDM Narrative: Medical Decision Making: [age] female with cough, chronic bronchitis just saw pulmonology yesterday medications were added and she she has not really even initiated that new regimen yet came in cough. She is concerned about what she feels was mass on imaging. I tried to reassure her that the CT finding does not describe a mass or nodule that reimaged but has not suggestive of cancer at this time. She has perhaps some mild scant wheezing and is comfortable. No indication for advanced imaging or admission to the hospital. Message sent to try to coordinate outpatient pulmonology care follow up. Brief prednisone course DuoNeb here 1st dose prednisone Preliminary Favored Differential Diagnosis: Chronic bronchitis, pneumonia, pneumothorax among additional considered etiologies Testing Interpreted Independently: Sinus rhythm occasional APC. Rate 90 QTC 398 no acute ischemic changes normal intervals and axis otherwise Radiology or Lab testing Results Reviewed: ?See below for details Consults: ?See below for details Independent Historians/External Chart Reviews: ?See below for details Social Determinants of Health Impacting MDM/Planning: ?See below for details Lab Data MDM Lab Attestation statement: I reviewed the patient's lab results. 04/05/25 19:01 04/05/25 19:01 Labs: Lab Results 04/05/25 Range/Units 19:01 WBC 11.6 H (4.8-10.8) X10*3/uL RBC 3.88 L (4.20-5.50) X10*6/uL Hgb 13.6 (12.0-16.0) g/dl Hct 39.4 (37.0-47.0) % MCV 101.5 H (80.0-98.0) fL MCH 35.1 H (27.0-33.0) pg MCHC 34.5 (31.0-35.0) g/dl RDW 13.5 (11.0-16.0) % Plt Count 166 (160-400) X10*3/uL MPV 8.8 L (9.4-12.3) fL Immature Gran % (Auto) 0.7 H (0.0-0.4) % Neut % (Auto) 84.4 H (45-73) % Lymph % (Auto) 8.8 L (20-40) % [place] % (Auto) 5.3 (2-11) % Eos % (Auto) 0.5 (0-4) % Baso % (Auto) 0.3 (0-2) % Lymph # (Auto) 1.0 L (1.2-4.9) X10*3/uL [place] # (Auto) 0.6 (0.1-1.2) X10*3/uL Eos # (Auto) 0.1 (0.0-0.4) X10*3/uL Baso # (Auto) 0.0 (0.0-0.2) X10*3/uL Abs Immat Gran (auto) 0.08 H (0.00-0.03) X10*3/uL Absolute Neuts (auto) 9.8 H (2.0-8.3) x10*3/uL Absolute Nucleated RBC 0.000 (0.0-0.012) X10*3/uL Nucleated RBC % (auto) 0.0 (0.0-0.2) /100WBC Sodium 138 (135-145) mmol/L Potassium 3.5 (3.3-5.1) mmol/L Chloride 99 (96-108) mmol/L Carbon Dioxide 27 (22-29) mmol/L Anion Gap 16 (12-20) BUN 11 (9-16) mg/dL Creatinine 0.70 (0.5-1.4) mg/dL Estim Creat Clear Calc 56.5 Estimated GFR > 60 Random Glucose 98 (60-115) mg/dL Lactic Acid 0.9 (0.5-2.0) mmol/L Calcium 9.6 D (8.4-10.2) mg/dL Magnesium 1.6 (1.6-2.6) mg/dL Total Bilirubin 0.6 (0.0-1.0) mg/dL Direct Bilirubin 0.2 (0.0-0.5) mg/dL AST 41 H (5-31) U/L ALT 22 (0-31) U/L Alkaline Phosphatase 94 (39-117) U/L Troponin I High Sens 98.1 H* (<3.5-17.0) ng/L Total Protein 7.1 (6.5-8.0) g/dL Albumin 4.3 (3.5-5.0) g/dL COVID-19 (ANDREY) Negative (Negative) COVID-19 Clin Com See Note Influenza Type A (ARMIN) Negative (Negative) Influenza Type B (ARMIN) Negative (Negative) Influenza A & B Note See Note Discharge Plan Discharge Clinical Impression: Pneumonia Patient Disposition: Home, Self-Care Additional Instructions: You were evaluated in the emergency department for cough and fever. You did not have any criteria for admission and preferred discharge home with oral antibiotics. Your oxygen and vital signs were stable. As we discussed you should return at anytime for severe difficulty breathing, severe or sudden change or development of chest pain, shaking chills or sweats at night or generalized worsening condition despite at least 48 hours of antibiotics. Call your primary doctor in your pulmonary doctor for close follow up you should be seen within 3-5 days Prescriptions: New levofloxacin 750 mg tablet 750 mg PO DAILY 7 Days Qty: 7 0RF No Action losartan 50 mg tablet 50 mg PO DAILY 90 Days Qty: 90 1RF venlafaxine 25 mg tablet 25 mg PO DAILY 90 Days Qty: 90 0RF buprenorphine-naloxone 8-2 mg film 2 film sublingual DAILY nicotine 21 mg/24 hr patch 24 hour 1 patch transdermal DAILY Qty: 28 0RF Rx Instructions: Apply one patch to upper arm daily for nicotine replacement therapy Genvoya [phone] mg tablet 1 tab PO DAILY calcium carbonate-vitamin D3 500 mg(1,250mg) -50 unit capsule 1 cap PO DAILY ([facility]) nebulizers Misc See Rx Instructions .Route Qty: 1 0RF Rx Instructions: copd, use PRN aspirin [Shakira Low Dose Aspirin] 81 mg tablet,delayed release (DR/EC) 81 mg PO DAILY albuterol sulfate 2.5 mg /3 mL (0.083 %) solution for nebulization 2.5 mg inhalation Q4-6H PRN (Reason: shortness of breath or wheezing) Qty: 90 0RF Trelegy Ellipta 200-62.5-25 mcg blister with device 1 inh inhalation DAILY Qty: 60 6RF albuterol sulfate 90 mcg/actuation HFA aerosol inhaler 1 puff PO QID PRN (Reason: for dyspnea) Qty: 8.5 3RF pravastatin 10 mg tablet 10 mg PO BEDTIME Qty: 30 0RF clotrimazole 10 mg gerry 10 mg mucous membrane .5 times per day 7 Days Qty: 35 0RF fluconazole 150 mg tablet 150 mg PO Q3D Qty: 2 0RF Rx Instructions: may repeat second dose 72 hrs after first dose if symptoms persist Interventions: ED Discharge Assessment Last Done: 04/05/25 20:27 Discharge Date/Time: 04/05/25 20:27 Print Language: [place] Arabian
[2025-04-05 19:10] LABS: MANUAL DIFF FLAG NO
[2025-04-05 19:11] LABS: Hematocrit 39.4 % (37.0-47.0); Hemoglobin 13.6 g/dl (12.0-16.0); Imm Gran Abs Auto 0.08 X10*3/uL (0.00-0.03); Imm Gran Pct Auto 0.7 % (0.0-0.4); Lymphocytes Absolute Auto 1.0 X10*3/uL (1.2-4.9); Mean Corpuscular HGB Conc 34.5 g/dl (31.0-35.0); Mean Corpuscular Hemoglobin 35.1 pg (27.0-33.0); Mean Corpuscular Volume 101.5 fL (80.0-98.0); NRBC Abs Auto 0.000 X10*3/uL (0.0-0.012); NRBC Pct Auto 0.0 /100WBC (0.0-0.2); Platelet Count 166 X10*3/uL (160-400); Red Blood Count 3.88 X10*6/uL (4.20-5.50); White Blood Count 11.6 X10*3/uL (4.8-10.8)
[2025-04-05 19:14] VITALS: BP 142/78; PULSE 89; RESP 15; O2SAT 95
[2025-04-05 19:24] LABS: COVID-19 Test Negative (Negative); IDNOW Serial# 6674DD1D
--- OUTSIDE RECORDS SUMMARY | 2025-04-05 19:24 | XMS_ITS | Patient Health Record ---
Author Organization [facility] Address [address] [place] [address] Care Team Providers Care Mental Telepathist Name Role Phone Richard Varela Unavailable [phone] Reason For Referral No Information Plan Of Treatment No Information
[2025-04-05 19:27] LABS: Alanine Aminotransferase 22 U/L (0-31); Albumin Level 4.3 g/dL (3.5-5.0); Alkaline Phosphatase 94 U/L (39-117); Anion Gap 16 (12-20); Aspartate Amino Transferase 41 U/L (5-31); Blood Urea Nitrogen 11 mg/dL (9-16); Calcium 9.6 mg/dL (8.4-10.2); Carbon Dioxide 27 mmol/L (22-29); Chloride 99 mmol/L (96-108); Creatinine Clr Calc Pharmacy 56.5; Estimated Glomerular Filt Rate > 60; Magnesium 1.6 mg/dL (1.6-2.6); Potassium 3.5 mmol/L (3.3-5.1); Sodium 138 mmol/L (135-145); Total Protein 7.1 g/dL (6.5-8.0)
[2025-04-05 19:29] LABS: IDNOW Serial# 08D9AD1C; Influenza B2 Negative (Negative)
[2025-04-05 19:36] LABS: Troponin-I High Sensitivity 98.1 ng/L (<3.5-17.0)
[2025-04-05 19:45] VITALS: BP 113/58; PULSE 79; RESP 12; TEMP 37.5; O2SAT 97
--- NOTE | 2025-04-05 20:13 | PC.NURSE ---
Dr Diaz discharging patient stopped Vanco and IVF at this time
[2025-04-05 20:26] VITALS: BP 117/56; PULSE 77; RESP 16; TEMP 37.2; O2SAT 97
[2025-04-05 20:27] VITALS: BP 117/56; PULSE 77; RESP 16; TEMP 37.2; O2SAT 97
== END 2025-04-05 20:27 | disposition home or self-care (01) ==
PROVIDERS: Nurse Practitioner Family; Emergency Provider Emergency Medicine; PCP Nurse Practitioner Family
DX: J18.9 Pneumonia, unspecified organism (principal); R07.89 Other chest pain; R50.9 Fever, unspecified; R11.0 Nausea; R60.0 Localized edema; Z79.899 Other long term (current) drug therapy; F17.210 Nicotine dependence, cigarettes, uncomplicated; Z11.52 Encounter for screening for COVID-19
CPT/HCPCS: 36415; 71046; 71250; 80048; 80076; 83605; 83735; 84484; 85025; 87040; 87502; 87635; 93005; 96361; 96374; 96375; 99284; J2543; J3374

== ENCOUNTER → 2025-04-05 18:21 | Outpatient (BNV) | payer MEDICARE, SELFPAY | PROVIDERS: Emergency Provider Emergency Medicine; PCP Nurse Practitioner Family; Visit Provider Internal Medicine | DX: I49.1 Atrial premature depolarization (principal) | CPT/HCPCS: 93010 ==

== ENCOUNTER → 2025-04-05 18:22 | Outpatient (BNV) | payer MEDICARE, SELFPAY | PROVIDERS: Emergency Provider Emergency Medicine; PCP Nurse Practitioner Family; Visit Provider Student in an Organized Health Care Education/Training Program | DX: J18.1 Lobar pneumonia, unspecified organism (principal); J43.9 Emphysema, unspecified; R91.8 Other nonspecific abnormal finding of lung field | CPT/HCPCS: 71046; 71250 ==

== ENCOUNTER 2025-04-14 12:58 | Outpatient (AMB) | payer MEDICARE, SELFPAY ==
--- NOTE | 2025-04-14 13:00 | MHC.OFFVIS ---
Vital Signs 04/14/25 13:01 Height 5 ft Weight 104 lb 6 oz BMI 20.4 BP 118/64 Blood Pressure Location Rt brachial Position Sitting Pulse 78 Pulse Source Pulse Oximeter Pulse Oximetry (%) 97 Oxygen Delivery Method Room Air Intake Visit Reasons: COPD/ ED FU Allergies abacavir Allergy (Severe, Verified 04/14/25 13:05) high fever erythromycin base Allergy (Unknown, Verified 04/14/25 13:05) Unknown atorvastatin Adverse Reaction (Intermediate, Verified 04/14/25 13:05) Muscle Pain HPI HPI COPD/ ED FU: Details: Varsha is a pleasant 64-year-old female, current 50 pack year smoker, underlying COPD, history of HIV, hepatitis-C with cirrhosis, hypertension, hyperlipidemia and opioid use disorder on Suboxone. At baseline, patient controlled on Trelegy and albuterol MDI/DuoNeb. Today she presents for hospital discharge follow up. She was [place] [facility] [place] for acute hypoxic respiratory failure in the setting of COPD exacerbation and superimposed pneumonia that failed outpatient therapy. Pt was treated with IV antibiotics, IV steroids, and bronchodilator therapy to good effect. Pt was eventually weaned off oxygen and breathing improved. She was discharged on prednisone 40 mg daily x3 days, doxycycline 100 mg b.i.d. x3 days, and cefuroxime 500 mg b.i.d. x3 days. During this admission also with NSTEMI and plan for cardiac cath at [facility]. Patient was seen again at ED due to worsening respiratory symptoms 04/05 found to have persistent PNA, treated with Levaquin which she completed yesterday. She reports significant improvements in respiratory symptoms, noting decrease in cough, wheezing and dyspnea. She has not required nebulized therapy or albuterol MDI over the last few days. Denies chest congestion, fever or chills. [facility] Medical History (Updated 04/14/25 @ 13:30 by Dede Acosta NP) Nicotine dependence, cigarettes, uncomplicated Tongue sore Liver cirrhosis COPD (chronic obstructive pulmonary disease) PVD (peripheral vascular disease) History of opioid abuse Osteopenia GERD (gastroesophageal reflux disease) Hyperlipidemia Hepatitis C (~1998) PTSD (post-traumatic stress disorder) HTN (hypertension) HIV (human immunodeficiency virus infection) (~1996) Surgical History History of colonoscopy (~2016) History of esophagogastroduodenoscopy (EGD) (~2016) History of angioplasty (~2017) History of carpal tunnel surgery of right wrist (~2003) History of liver biopsy (~2001) Hx of cholecystectomy (~2001) History of hysterectomy Family History Mother Lung cancer Father Substance use disorder Son Substance use disorder Social History (Updated 04/14/25 @ 13:04 by Rhoda Dorsey [facility]) Household Members: None Housing: Apartment Do you presently have visiting nurse or other home services: No Alcohol intake: current Alcohol intake frequency: holidays/special occasions only Alcohol type: wine Patient Tobacco Use Status: Current everyday Tobacco user Tobacco use type: Cigarette Cigarette Packs Per Day: 0.75 Cigarettes Per Day: 15 Years Smoked: 50 e-Cigarette/Vaping Use: Never Used Second Hand Smoke Exposure: No service: No Current occupational status: employed 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, 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 Cognitive needs: No Hearing needs: No Vision needs: No Review of Systems Const Denies chills, Denies excessive sweating, Denies fever(s), Denies headache(s) and Denies night sweats Eyes Denies dry eyes, Denies irritation and Denies itchy eyes ENT Reports Normal hearing present, Denies headache(s), Denies nasal congestion, Denies nasal discharge, Denies post nasal drip and Denies sore throat Card Denies chest pain, Denies chest pain at rest, Denies chest pain with activity, Denies claudication, Denies leg edema, Denies orthopnea and Denies paroxysmal nocturnal dyspnea Resp Denies pain on inspiration, Denies pain with cough and Denies stridor Musc Denies myalgias Neuro Reports Normal hearing present and Denies headache(s) Endo Denies excessive sweating Nura/Lymph Denies lymphadenopathy Aller/Immun Denies itchy eyes and Denies seasonal rhinorrhea Physical Exam Vital Signs: Last Vital Signs Pulse 78 04/14/25 13:01 BP 118/64 04/14/25 13:01 Pulse Ox 97 04/14/25 13:01 Oxygen Delivery Method Room Air 04/14/25 13:01 BMI result Body Mass Index 20.4 Const General: cooperative, healthy appearing, no acute distress, well developed and alert Nutritional Appearance: thin Orientation/consciousness: patient oriented x3 Limitations: no limitations HEENT Head: Yes normal to inspection, Yes normocephalic and Yes atraumatic Ears: hearing grossly normal bilaterally and external ears normal Eyes General: appearance normal, both eyes and all related structures Eyelids: Yes eyelids normal Sclerae: sclerae normal EOM: EOMs intact bilaterally Neck Neck: Yes normal visual inspection and Yes no lymphadenopathy Lymphatic: no lymphadenopathy noted Chest Chest palpation & inspection: normal inspection of the chest Resp Effort & Inspection: normal respiratory effort, able to speak in complete sentences, no audible wheezes, no cough, no stridor, not tachypneic, no tripod positioning and no use of accessory muscles Auscultation: clear to auscultation bilaterally Cardio Jugular venous distension: no JVD Rate: regular rate Rhythm: regular rhythm Skin Other: warm, dry General skin exam: no rashes or lesions noted Neuro General: patient oriented x3 Cranial nerves: Yes Normal hearing present Cognition (Neuro): normal cognition Gait exam (Neuro): Normal gait present Extrem General: Yes normal to inspection, Yes capillary refill normal, Yes no clubbing, cyanosis or edema and Yes no pedal edema Psych Appearance: grossly normal and well kempt Speech and movement: Normal speech and movement present and Clear speech present Affect: normal affect Attitude: cooperative Thought process: Normal thought process present Thought content: Normal thought content present Insight: Good insight present (Psych) Judgement: Good judgement present (Psych) Results Reviewed Results Reviewed: [place] [address] CT Scan Report Signed Patient: Jenn Stahl MR#: [id number] : 1960 Acct:[id number] Age/Sex: 64 / F ADM Date: 04/05/25 Loc: HO.ED Attending Dr: Ordering Physician: Joseph Gomez MD Date of Service: 04/05/25 Procedure(s): CT chest wo IV con Accession Number(s): [id number] cc: Joseph Gomez MD; Dami Grajeda [employer]~ Report Number: [id number]: Total DLP = 180.00 mGy-cm Reason for Exam: cough, HIV, CLINICAL HISTORY: cough, HIV, CT chest without contrast Comparison: CR - XR CHEST 2V - 04/05/25 18:[address]/SR - CT CHEST ANGIOGRAPHY WITH IV CONTRAST - 03/16/25 11:44 EDT Findings: The heart size is normal. The visualized thyroid and mediastinum are unremarkable. Right middle lobe consolidation. Mild emphysematous changes. The upper abdomen is unremarkable. No acute fractures. IMPRESSION: 1. Right middle lobe consolidation likely represent aspiration or pneumonia. Follow-up until resolution is recommended. 2. Mild emphysema. This document has been electronically signed by: Thea Owens MD on 04/05/2025 21:03:54 Dictated By: Thea Owens MD Signed By: <Electronically signed by Thea Owesn MD in OV> 04/05/252103 DD/ 02 Assessment & Plan Assessment & Plan (1) COPD (chronic obstructive pulmonary disease): Code(s): J44.9 - Chronic obstructive pulmonary disease, unspecified Category: Medical (2) Nicotine dependence, cigarettes, uncomplicated: Comment: (Current smoker, onset 12, 1-1.5ppd x 45yrs, now 1/2-3/4ppd, 50+PYH + fam hx lung ca - in LDCT program) Code(s): F17.210 - Nicotine dependence, cigarettes, uncomplicated Category: Medical (3) History of recent pneumonia: Code(s): Z87.01 - Personal history of pneumonia (recurrent) Category: Medical Plan At this time patient reports significant improvement in bronchitic symptoms since initiating Levaquin, respiratory exam unremarkable and VSS. She is aware to call if symptoms change. Advised to continue Trelegy, DuoNeb PRN and Albuterol MDI PRN. Dscussed with the patient the importance of monitoring her symptoms and the need for a chest x-ray in two weeks to evaluate the improvement of her pneumonia. We also discussed ordering follow-up CT scan planned for eight weeks. Recommended considering the pneumonia, RSV, and flu vaccines to prevent future respiratory infections.Smoking cessation is strongly encouraged, and the patient is advised to restart NRT when she is ready to quit. All questions were answered and patient is in agreement of plan. Will follow up in 2 weeks or sooner if needed. Orders: Orders XR chest 2V 2 Weeks Z87.01 - Personal history of pneumonia (recurrent) CT chest wo IV con Today Z87.01 - Personal history of pneumonia (recurrent) Coding Level of Care Code Est Pt Level 4 (20715) Complex EM visit Add On G2211 Diagnoses COPD (chronic obstructive pulmonary disease) J44.9 Nicotine dependence, cigarettes, uncomplicated F17.210 History of recent pneumonia Z87.01
[2025-04-14 13:01] VITALS: BP 118/64; PULSE 78; O2SAT 97; BMI 20.4
--- OUTSIDE RECORDS SUMMARY | 2025-04-14 15:37 | XMS_ITS | Patient Health Record ---
Author Organization [facility] Address [address] [place] [address] Care Team Providers Care Plant Physiologist Name Role Phone Richard Varela Unavailable [phone] Reason For Referral No Information Plan Of Treatment No Information
== END 2025-04-14 13:53 | disposition home or self-care (01) ==
PROVIDERS: PCP Nurse Practitioner Family; Visit Provider Nurse Practitioner Family
DX: J44.9 Chronic obstructive pulmonary disease, unspecified (principal); F17.210 Nicotine dependence, cigarettes, uncomplicated; Z87.01 Personal history of pneumonia (recurrent)
CPT/HCPCS: 99214; G2211

== ENCOUNTER → 2025-04-14 12:58 | Outpatient (BNVA) | payer MEDICARE, SELFPAY | PROVIDERS: PCP Nurse Practitioner Family; Visit Provider Nurse Practitioner Family | DX: Z09 Encounter for follow-up examination after completed treatment for conditions other than malignant neoplasm (principal); J44.9 Chronic obstructive pulmonary disease, unspecified; F17.210 Nicotine dependence, cigarettes, uncomplicated; Z87.01 Personal history of pneumonia (recurrent) | CPT/HCPCS: 99212 ==

== ENCOUNTER 2025-04-16 14:57 | Outpatient (AMB) | payer MEDICARE, SELFPAY ==
--- OUTSIDE RECORDS SUMMARY | 2025-04-10 22:59 | XMS_ITS | Continuity of Care Document ---
Author Organization [facility] Address [address] [place] [id number]- Care Team Providers Care Foot Worker Name Role Phone Nicci LANZA, Dami Butler Primary Care Physician Encounter [facility] Date(s): 03/30/25 - 04/10/[address] [address]- Attending Physician: Mauricio Crow MD Admitting Physician: Mauricio Crow MD Encounter Type: Preadmit Daystay Allergies, Adverse Reactions, Alerts Substance Criticality Severity Reaction Reaction Severity Status Ziagen Active Immunizations Given and Recorded Vaccine Date Status Refusal Reason tetanus/diphtheria/pertussis, acel(Tdap) 01/08/24 Given tetanus/diphtheria/pertussis, acel(Tdap) 03/24/10 Given influenza virus vaccine, inactivated 04/05/23 Mehdi rded influenza virus vaccine, inactivated 03/13/22 Mehdi rded influenza virus vaccine, inactivated 03/05/21 Mehdi rded influenza virus vaccine, inactivated 04/24/19 Mehdi rded influenza virus vaccine, inactivated 1 03/05/18 Gi [facility]igh influenza virus vaccine, inactivated 2, 3 03/26/17 Given influenza virus vaccine, inactivated 03/10/16 Give n influenza virus vaccine, inactivated 03/09/15 Give n influenza virus vaccine, inactivated 02/27/11 Give n SARS-CoV-2(COVID-19)mRNA-LNP vac([id number]) 04/05/23 Recorded [id number] bivalent booster vax 03/13/22 Recorded SARS-CoV-2 (COVID-19) mRNA BNT-162b2 vac 05/18/21 Recorded SARS-CoV-2 (COVID-19) mRNA BNT-162b2 vac 10/11/20 Recorded SARS-CoV-2 (COVID-19) mRNA BNT-162b2 vac 4 10/05/20 Recorded SARS-CoV-2 (COVID-19) mRNA BNT-162b2 vac 5 09/14/20 Recorded pneumococcal 23-valent vaccine 03/08/21 Recorded pneumococcal 23-valent vaccine 01/25/07 Given zoster vaccine, inactivated 03/05/21 Recorded zoster vaccine, inactivated 6 08/09/19 Recorded zoster vaccine, inactivated 7 11/11/18 Recorded hepatitis B adult vaccine 8 04/25/16 Given hepatitis B adult vaccine 9 08/06/12 Given hepatitis B adult vaccine 09/22/02 Given Pneumovax 23 (oldterm) 11/16/14 Given Hepatitis B Vaccine (old term) 10 09/03/12 Given pneumococcal 13-valent vaccine 08/06/12 Given Hepatitis A Adult Vaccine 11/01/00 Given Hepatitis A Adult Vaccine 02/23/00 Given 1Admin Note: Flucelvax Quadrivalent 2Result Comment: [03/26/2017] [facility]# [id number] 3Admin Note: afluria quadrivalent 4Result Comment: [facility] [address] 5Result Comment: [facility] 6Result Comment: [facility] [employer] 7Result Comment: [facility] [employer] 8Admin Note: Booster 9Admin Note: #1 10Admin Note: #2 Medications aspirin 81 mg oral tablet, disintegrating 1 tablet = 81 mg, By Mouth, Daily, 0 Refills, Maintenance, 03/05/18 10:55:03 AM EDT Start Date: 03/05/18 Status: Ordered Medication Dispense Status: Completed Total Allowed Fills: 1 Fills Dispensed: 0 atorvastatin 10 mg oral tablet 1 tablet = 10 mg, By Mouth, Daily, dose unknown, # 30 tablet, 0 Refills, Maintenance Start Date: 10/09/17 Status: Ordered Medication Dispense Status: Completed Quantity: 30.0 Unit: tablet Total Allowed Fills: 1 Fills Dispensed: 0 calcium (as carbonate and lactate)-vitamin D 200 mg-250 intl units oral tablet, chewable 1 tablet, Chew, 2 times a day, # 100 tablet, 0 Refills, Maintenance, 07/30/19 3:31:00 PM EST, Chew Tablet Start Date: 07/30/19 Status: Ordered Medication Dispense Status: Completed Quantity: 100.0 Unit: tablet Total Allowed Fills: 1 Fills Dispensed: 0 Genvoya oral tablet See Instructions, TAKE ONE TABLET BY MOUTH ONCE DAILY WITH FOOD, # 30 tablet, 5 Refills, Maintenance, 01/20/25 8:33:00 AM EDT, [facility], 30, TAKE ONE TABLET BY MOUTH ONCE DAILY WITHFOOD, 155.5, cm, 07/08/24 11:06:00 EST, Height Start Date: 01/20/25 Status: Ordered Medication Dispense Status: Completed Quantity: 30.0 Unit: tablet Total Allowed Fills: 1 Fills Dispensed: 0 ibuprofen 800mg ibuprofen 800mg, Refills 0, Maintenance, 07/11/16 11:27:23 AM EST, Compound Start Date: 07/11/16 Status: Ordered Medication Dispense Status: Completed Total Allowed Fills: 1 Fills Dispensed: 0 losartan 25 mg oral tablet 25 mg, 1, tablet, By Mouth, Daily, # 30 tablet, Refills 0, Maintenance, 07/03/17 12:13:52 PM EST Start Date: 07/03/17 Status: Ordered Medication Dispense Status: Completed Quantity: 30.0 Unit: tablet Total Allowed Fills: 1 Fills Dispensed: 0 Nutritional Supplements See Instructions, # 90 can, Refills 11, Tot. Refills 11, Maintenance, Ensure Plus TID dx: HIV weight loss, 08/26/14 12:08:39 PM EDT, Compound Start Date: 08/26/14 Status: Ordered Medication Dispense Status: Completed Quantity: 90.0 Unit: can Total Allowed Fills: 12 Fills Dispensed: 0 ProAir HFA Inhalation, 4 times a day, prn, 0 Refills, Maintenance, 03/14/11 11:17:03 AM EDT Start Date: 03/14/11 Status: Ordered Medication Dispense Status: Completed Total Allowed Fills: 1 Fills Dispensed: 0 Suboxone 2 mg-0.5 mg sublingual tablet, disintegrating 1 tablet, Sublingual, Daily, 0 Refills, Soft Stop, 12/18/08 10:22:50 AM EDT Start Date: 12/18/08 Status: Ordered Medication Dispense Status: Completed Total Allowed Fills: 1 Fills Dispensed: 0 venlafaxine 75 mg oral capsule, extended release 1 capsule = 75 mg, By Mouth, Daily, # 30 capsule, 0 Refills, Maintenance, 06/01/15 8:58:28 AM EST, CR Capsule Start Date: 06/01/15 Status: Ordered Medication Dispense Status: Completed Quantity: 30.0 Unit: capsule Total Allowed Fills: 1 Fills Dispensed: 0 Vitamin D3 2000 intl units oral capsule 1 capsule = 2,000 International_Units, By Mouth, Daily, 0 Refills, Maintenance, 03/23/15 9:56:17 AMEDT Start Date: 03/23/15 Status: Ordered Medication Dispense Status: Completed Total Allowed Fills: 1 Fills Dispensed: 0 Problem List Condition Confirmation Course Effective Dates Status Health St atus Informant Carpal tunnel release Confirmed Active Esophageal stricture Confirmed Active Hepatitis C 1, 2, 3, 4, 5 Confirmed Active Hepatitis C 6, 7, 8, 9, 10 Confirmed Active HIV Confirmed Active Hysterectomy and unilateral salpingo-oophorecto my sample Confirmed Active Low back pain Confirmed Active Osteoporosis Confirmed Active 1genotype 1B 2d 3d 79953: fibrosure F1-F2, liver US=normal 5failed rx ~2001 6genotype 1B 7d 8d 26288: fibrosure F1-F2, liver US=normal 10failed rx ~2001 Social History Social History Type Response Smoking Status Current every day sm oker; Tobacco user in household: Yes entered on: 07/28/14 Sex Sex Representation Female (finding) History and physical note * Event Display: History and Physical Hospital Authored Date: Patient Care team information Care Team Personnel Name: Dami Grajeda NP Position: Reference Physician Member Role: PCP Address: [address] [place] [address] Telecom: Care Team Related Persons Name: VIVIANA PEARSON Name: ROSA ESTRADA Insurance Providers Guarantor name: DANIELA SALINAS [facility] Plan Information #: 1 Payer: MEDICARE B Payer Identifier: GABBIE Member Number: [id number] Group Number: NA Subscriber Identifier: [id number] Relationship to Subscriber: self Coverage Type: NA Coverage Verification Date: NA Telecom: NA Address:
--- NOTE | 2025-04-16 15:03 | MHC.PC.OV ---
Vital Signs 04/16/25 15:04 Height 5 ft Weight 103 lb BMI 20.1 BP 170/90 H Blood Pressure Location Lt brachial Position Sitting Pulse 75 Pulse Source Pulse Oximeter Temp 99.1 F Temp Source Oral Pulse Oximetry (%) 98 Oxygen Delivery Method Room Air Intake Visit Reasons: ER followup pneumonia Allergies abacavir Allergy (Severe, Verified 04/16/25 15:04) high fever erythromycin base Allergy (Unknown, Verified 04/16/25 15:04) Unknown atorvastatin Adverse Reaction (Intermediate, Verified 04/16/25 15:04) Muscle Pain Tobacco use date assessed: 10/21/24 Fall risk assessment: No Falls in past year Last assessed Fall Risk: 04/16/25 Dental Screening Dental Screen Date: 10/21/24 HPI HPI Comments History of Present Illness Details Patient is a 64 year old female here for a ED follow-up. On April 05, she went to the [facility] emergency department for a cough income concerned about what she felt is a mass on imaging that she had done. The ED physician tried to reassure her that the CT finding does not suggest cancer at this time and that there is no indication for advanced imaging or admission to the hospital and they messaged outpatient pulmonology to follow up. Gave her a prednisone course and DuoNeb and discharged her home. The record from the ED visit is incomplete so difficult to assess what happened. Today, she tells me her son is in the [facility] ICU with PNA and is intubated, he was with her all weekend. She tells me she went to the ED and was diagnosed with PNA and was given levaquin. She took the medication in full. She is having a repeat CXR in [address] scan in 8 weeks. Today, she is not symptomatic, denies congestion or fevers. She admits to a slight cough but nothing concerning, no shortness of breath, no chest pain. Of note, she states her hand swelling went down with the IV steroids the ED gave her, the next day it was back to normal. [facility] Medical History Nicotine dependence, cigarettes, uncomplicated Tongue sore Liver cirrhosis COPD (chronic obstructive pulmonary disease) PVD (peripheral vascular disease) History of opioid abuse Osteopenia GERD (gastroesophageal reflux disease) Hyperlipidemia Hepatitis C (~1998) PTSD (post-traumatic stress disorder) HTN (hypertension) HIV (human immunodeficiency virus infection) (~1996) Surgical History History of colonoscopy (~2016) History of esophagogastroduodenoscopy (EGD) (~2016) History of angioplasty (~2017) History of carpal tunnel surgery of right wrist (~2003) History of liver biopsy (~2001) Hx of cholecystectomy (~2001) History of hysterectomy Family History Mother Lung cancer Father Substance use disorder Son Substance use disorder Social History Household Members: None Housing: Apartment Do you presently have visiting nurse or other home services: No Alcohol intake: current Alcohol intake frequency: holidays/special occasions only Alcohol type: wine Patient Tobacco Use Status: Current everyday Tobacco user Tobacco use type: Cigarette Cigarette Packs Per Day: 0.75 Cigarettes Per Day: 15 Years Smoked: 50 e-Cigarette/Vaping Use: Never Used Second Hand Smoke Exposure: No service: No Current occupational status: employed 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, 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 Cognitive needs: No Hearing needs: No Vision needs: No Questionnaire Thrive Questionnaire Date Thrive assessed: 10/21/24 I am a: Patient What is your living situation today?: I have a steady place to live Within the past 12 months, did the food you bought not last and you didn't have the money to get more?: Never true Within the past 12 months, did you worry whether your food would run out before you got money to buy more?: Never true Do you have trouble paying for medicines?: No Do you have trouble getting transportation to medical appointments?: No Do you have trouble paying your heating and electricity bill?: No Do you have trouble taking care of your child, family member or friend?: No Do you have trouble with day-to-day activities such as bathing, preparing meals, shopping, managing finances, etc.?: No Are you currently unemployed and looking for a job?: No Are you interested in more education?: No Please select the resources that you would like help with: None Currently or been in a relationship where the following occur: No concerns reported THRIVE Score: 0 PEARL-7 AMB Questionnaire PEARL-7 Date PEARL - 7 assessed: 10/21/24 Source: Developed by Drs. Richard Gonzalez, Annie Pérez, James Nevarez and colleagues, with an educational florinda from [employer]. Physical exam (Primary Care) Vital Signs: Last Vital Signs Temp 99.1 F 04/16/25 15:04 Pulse 75 04/16/25 15:04 BP 170/90 H 04/16/25 15:04 Pulse Ox 95 04/16/25 15:04 BMI result Body Mass Index 20.1 Tobacco/Smoking Status: Tobacco use Status Tobacco use date assessed 10/21/24 04/16/25 15:04 Patient Tobacco Use Status Current everyday Tobacco 04/16/25 15:04 Tobacco use type Cigarette 04/16/25 15:04 e-Cigarette/Vaping Use Never Used 04/16/25 15:04 Thrive Assessment: Date of Thrive Assessment Date Thrive assessed 10/21/24 04/16/25 15:04 Currently or been in a relationship where the following occur: No concerns reported Const General: cooperative, healthy appearing, comfortable, no acute distress and well developed Orientation/consciousness: patient oriented x3 Limitations: no limitations HENMT Head: Yes normal to inspection Ears: hearing grossly normal bilaterally General nose exam: Normal external nose present Face and sinus: Yes normal facial exam Eyes General: appearance normal, both eyes and all related structures Neck Neck: Yes normal visual inspection and Yes full ROM Resp Effort & Inspection: normal respiratory effort and able to speak in complete sentences Auscultation: clear to auscultation bilaterally Cardio Rate: regular rate Rhythm: regular rhythm Heart sounds: normal S1 and S2 Skin General skin exam: no rashes or lesions noted Neuro General: patient oriented x3 Extrem General: Yes normal to inspection Coding Level of Care Code Est Pt Level 3 (73833) Diagnoses Hospital discharge follow-up Z09 Chronic cough R05.3 Cough type: chronic Assessment & Plan Assessment & Plan (1) Hospital discharge follow-up: Code(s): Z09 - Encounter for follow-up examination after completed treatment for conditions other than malignant neoplasm Category: Medical Plan: VSS, pt well appearing and PE unremarkable, pt developing very slight cough. As a close contact currently is intubated with pneumonia, advised to be very aware of her symptoms and if she develops worsening cough, shortness of breath or fever, she should go straight to the emergency department for a thorough evaluation. She does appear to be fully recovered from the most recent pneumonia after taking Levaquin. Her hand swelling also seems to have completely resolved after she was given IV steroids in the emergency department. (2) Cough: Code(s): R05.9 - Cough, unspecified Category: Medical Qualifiers: Cough type: chronic Qualified Code(s): R05.3 - Chronic cough Plan: as above
[2025-04-16 15:04] VITALS: BP 170/90; PULSE 75; TEMP 37.3; O2SAT 98; BMI 20.1
--- OUTSIDE RECORDS SUMMARY | 2025-04-16 18:05 | XMS_ITS | Patient Health Record ---
Author Organization [facility] Address [address] [place] [address] Care Team Providers Care Weigh Boss Name Role Phone Richard Varela Unavailable [phone] Reason For Referral No Information Plan Of Treatment No Information
== END 2025-04-16 15:25 | disposition home or self-care (01) ==
LOC: HO.HMCC 14:58
PROVIDERS: PCP Nurse Practitioner Family; Visit Provider Physician Assistant
DX: Z09 Encounter for follow-up examination after completed treatment for conditions other than malignant neoplasm (principal); R05.3 Chronic cough

== ENCOUNTER → 2025-04-16 14:57 | Outpatient (BNVA) | payer MEDICARE, SELFPAY | PROVIDERS: PCP Nurse Practitioner Family; Visit Provider Physician Assistant | DX: Z09 Encounter for follow-up examination after completed treatment for conditions other than malignant neoplasm (principal); R05.3 Chronic cough | CPT/HCPCS: 99212 ==

== ENCOUNTER 2025-04-30 15:08 | Outpatient (REF) | payer MEDICARE, SELFPAY ==
--- NOTE | ~2025-04-30 | XR_ITS ---
EXAMINATION: XR CHEST CLINICAL INFORMATION: Z87.01 - Personal history of pneumonia (recurrent) COMPARISON: 04/05/2025 TECHNIQUE: 2 views of the chest were obtained. FINDINGS: Vague density in the right middle lobe present on the prior examination, both CT and x-ray, has decreased and nearly resolved. There is chronic mild wedging and sclerosis of a lower thoracic vertebral body, probably T11. There is also moderate disc space narrowing in the lower thoracic spine, similar to the prior. Heart size is within normal limits. XR/XR chest 2V IMPRESSION: Near complete resolution of changes related to right middle lobe pneumonia. Electronically signed by: Ricardo Reardon MD 04/30/2025 04:01 PM SHARA
--- OUTSIDE RECORDS SUMMARY | 2025-04-30 20:28 | XMS_ITS | Patient Health Record ---
Author Organization [facility] Address [address] [place] [address] Care Team Providers Care Flower Grower Name Role Phone Richard Varela Unavailable [phone] Reason For Referral No Information Plan Of Treatment No Information
== END 2025-04-30 15:09 | disposition home or self-care (01) ==
LOC: HO.XRAY 15:08
PROVIDERS: PCP Nurse Practitioner Family; Visit Provider Nurse Practitioner Family
DX: Z87.01 Personal history of pneumonia (recurrent) (principal)
CPT/HCPCS: 71046

== ENCOUNTER → 2025-04-30 15:11 | Outpatient (BNV) | payer MEDICARE, SELFPAY | PROVIDERS: PCP Nurse Practitioner Family; Visit Provider Radiology Diagnostic Radiology | DX: Z87.01 Personal history of pneumonia (recurrent) (principal) | CPT/HCPCS: 71046 ==

== ENCOUNTER 2025-05-12 15:03 | Outpatient (REF) | payer MEDICARE, SELFPAY ==
[2025-05-12 15:19] LABS: MANUAL DIFF FLAG NO
[2025-05-12 15:50] LABS: Hematocrit 38.3 % (37.0-47.0); Hemoglobin 12.9 g/dl (12.0-16.0); Imm Gran Abs Auto 0.04 X10*3/uL (0.00-0.03); Imm Gran Pct Auto 0.5 % (0.0-0.4); Lymphocytes Absolute Auto 1.7 X10*3/uL (1.2-4.9); Mean Corpuscular HGB Conc 33.7 g/dl (31.0-35.0); Mean Corpuscular Hemoglobin 34.7 pg (27.0-33.0); Mean Corpuscular Volume 103.0 fL (80.0-98.0); NRBC Abs Auto 0.000 X10*3/uL (0.0-0.012); NRBC Pct Auto 0.0 /100WBC (0.0-0.2); Platelet Count 218 X10*3/uL (160-400); Red Blood Count 3.72 X10*6/uL (4.20-5.50); White Blood Count 8.8 X10*3/uL (4.8-10.8)
[2025-05-12 16:01] LABS: INTERNATIONAL NORM RATIO 0.8 (0.9-1.1); Prothrombin Time 10.3 SEC (11.2-13.5)
[2025-05-12 16:10] LABS: Anion Gap 14 (12-20); Blood Urea Nitrogen 24 mg/dL (9-16); Calcium 9.4 mg/dL (8.4-10.2); Carbon Dioxide 27 mmol/L (22-29); Chloride 103 mmol/L (96-108); Estimated Glomerular Filt Rate 54; Potassium 4.9 mmol/L (3.3-5.1); Sodium 139 mmol/L (135-145)
== END 2025-05-12 15:04 | disposition home or self-care (01) ==
LOC: HO.LAB 15:03
PROVIDERS: PCP Nurse Practitioner Family; Visit Provider Internal Medicine Cardiovascular Disease
DX: Z51.81 Encounter for therapeutic drug level monitoring (principal); I77.810 Thoracic aortic ectasia
CPT/HCPCS: 36415; 80048; 85025; 85610

== ENCOUNTER → 2025-05-19 23:59 | Outpatient (BNV) | payer MEDICARE, SELFPAY | PROVIDERS: PCP Nurse Practitioner Family; Visit Provider Internal Medicine Cardiovascular Disease | DX: I42.8 Other cardiomyopathies (principal); R94.31 Abnormal electrocardiogram [ECG] [EKG] | CPT/HCPCS: 93458; 99152 ==

== ENCOUNTER 2025-06-05 14:28 | Outpatient (AMB) | payer MEDICARE, SELFPAY ==
--- OUTSIDE RECORDS SUMMARY | 2025-06-05 14:31 | XMS_ITS | Patient Health Record ---
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
[2025-06-05 14:33] VITALS: BP 130/78; PULSE 70; BMI 19.4
--- NOTE | 2025-06-05 14:33 | A.OFFVIS_ITS ---
Vital Signs 06/05/25 14:33 Height 5 ft Weight 99 lb 3.328 oz BMI 19.4 BP 130/78 Blood Pressure Location Lt brachial Position Sitting Pulse 70 Pulse Source Pulse Oximeter Intake Visit Reasons: Follow up post cardiac cath Allergies abacavir Allergy (Severe, Verified 04/16/25 15:04) high fever erythromycin base Allergy (Unknown, Verified 04/16/25 15:04) Unknown atorvastatin Adverse Reaction (Intermediate, Verified 04/16/25 15:04) Muscle Pain Medication List - Last Reconciled 06/05/25 by Bentley Bajwa NP albuterol sulfate 90 mcg/actuation 1 puff PO QID PRN albuterol sulfate 2.5 mg (3 mL) inhalation Q4-6H PRN aspirin (Shakira Low Dose Aspirin) 81 mg PO DAILY buprenorphine-naloxone 8-2 mg 2 film sublingual DAILY calcium carbonate-vitamin D3 500 mg(1,250mg) -50 unit 1 cap PO DAILY xrmxkna-ybb-wztqn-tenof alafen 420-319-588-10 mg (Genvoya) 1 tab PO DAILY ayhkgfxzlyr-ilezzkbwo-imovnptb 200-62.5-25 mcg (Trelegy Ellipta) 1 ea inhalation DAILY lorazepam 0.5 mg PO BID PRN 10 days losartan 50 mg PO DAILY 90 days nebulizers copd, use PRN nicotine 1 patch transdermal DAILY venlafaxine 25 mg PO DAILY 90 days HPI Comments Details: This is a 64-year-old female patient coming in for a follow-up visit status post cardiac catheterization. Patient with a history of hypertension, hyperlipidemia, peripheral vascular disease, HIV, former opiate use on Suboxone, COPD and current tobacco use. Most recently in March patient was in the hospital for COPD exacerbation and pneumonia where patient had elevated troponins and echocardiogram showed regional wall motion abnormality warranting further evaluation and underwent a outpatient cardiac catheterization with Dr. Crow on 05/19/2025. During the hospital stay, patient was increased on his atorvastatin to 40 mg however had significant reaction to it where her hands got swollen and was switched to pravastatin 10 mg with the same effect. Currently not on any statin therapy. Patient is otherwise reporting feeling well overall without any cardiac symptoms of exertional chest pain, shortness of breath, palpitations, dizziness, orthopnea, PND, leg edema, presyncope or syncope. Patient is reporting compliance with all her medications otherwise. PFSH Medical History (Updated 06/05/25 @ 15:50 by Bentley Bajwa NP) Nicotine dependence, cigarettes, uncomplicated Tongue sore Liver cirrhosis COPD (chronic obstructive pulmonary disease) PVD (peripheral vascular disease) History of opioid abuse Osteopenia GERD (gastroesophageal reflux disease) Hyperlipidemia Hepatitis C (~1998) PTSD (post-traumatic stress disorder) HTN (hypertension) HIV (human immunodeficiency virus infection) (~1996) Surgical History History of colonoscopy (~2016) History of esophagogastroduodenoscopy (EGD) (~2016) History of angioplasty (~2017) History of carpal tunnel surgery of right wrist (~2003) History of liver biopsy (~2001) Hx of cholecystectomy (~2001) History of hysterectomy Family History Mother Lung cancer Father Substance use disorder Son Substance use disorder Social History Household Members: None Housing: Apartment Do you presently have visiting nurse or other home services: No Alcohol intake: current Alcohol intake frequency: holidays/special occasions only Alcohol type: wine Patient Tobacco Use Status: Current everyday Tobacco user Tobacco use type: Cigarette Cigarette Packs Per Day: 0.75 Cigarettes Per Day: 15 Years Smoked: 50 e-Cigarette/Vaping Use: Never Used Second Hand Smoke Exposure: No service: No Current occupational status: employed 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, 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 Cognitive needs: No Hearing needs: No Vision needs: No Review of Systems Const Denies weakness ENT Denies dizziness Card Reports no additional complaints, Denies chest pain, Denies chest pain with activity, Denies syncope, Denies rapid heart rate, Denies pedal edema, Denies edema, Denies leg edema, Denies lightheadedness, Denies palpitations, Denies dys pnea, Denies dyspnea on exertion and Denies orthopnea Resp Denies cough, Denies dyspnea and Denies dyspnea on exertion GI Denies hematochezia and Denies change in stool character Musc Denies abnormal gait, Denies muscle cramps, Denies muscle weakness, Denies numbness, Denies radiating pain into limb and Denies tingling Neuro Denies abnormal gait, Denies dizziness, Denies syncope, Denies numbness, Denies tingling and Denies weakness Endo Denies palpitations Physical Exam Vital Signs: Last Vital Signs Pulse 70 06/05/25 14:33 BP 130/78 06/05/25 14:33 BMI result Body Mass Index 19.4 Const General: cooperative, healthy appearing, comfortable and no acute distress Orientation/consciousness: patient oriented x3 HEENT Head: Yes normal to inspection Neck Neck: Yes normal visual inspection, Yes trachea midline and Yes supple Chest Chest palpation & inspection: normal inspection of the chest Resp Effort & Inspection: normal respiratory effort Auscultation: clear to auscultation bilaterally, no crackles, no rales, no rhonchi and no wheezes Cardio Jugular venous distension: no JVD Palpation: normal PMI Rate: regular rate Rhythm: regular rhythm Heart sounds: S1 normal heart sound present, S2 normal heart sound present, no click, no gallops, no murmurs and no rubs Peripheral pulses: Peripheral pulses 2+ throughout GI Inspection: Yes normal to inspection Palpation (GI): Soft to palpation Auscultation: normal bowel sounds Skin General skin exam: no rashes or lesions noted Neuro General: patient oriented x3 Extrem General: Yes normal to inspection, No no pedal edema and No calf tenderness Psych Appearance: grossly normal Mental Status: mental status grossly normal Speech and movement: Normal speech and movement present Assessment & Plan Assessment & Plan (1) Status post cardiac catheterization: Code(s): Z98.890 - Other specified postprocedural states Plan: In March patient was in the hospital for COPD exacerbation and pneumonia where patient had elevated troponins. Echo at that time 03/17/2025 showed a low-normal LV EF between 50-55% with pseudo normal filling pattern with a wall motion abnormality in the LAD territory, and mildly dilated ascending aorta at 3.9 cm. Patient had also reported chest discomfort and pleuritic pain and this further warranted for ischemic workup. 05/19/2025-patient underwent a cardiac catheterization with Dr. Crow at [facility] showing no significant coronary artery disease. Given above finding, patient had stress-induced cardiomyopathy secondary to COPD exacerbation and pneumonia. Clinically stable and without any cardiac symptoms. Right wrist catheterization site is well healed. We will plan to repeat echo in 6 months. (2) Cardiomyopathy: Code(s): I42.9 - Cardiomyopathy, unspecified Category: Medical Plan: As above. (3) Hyperlipidemia: Code(s): E78.5 - Hyperlipidemia, unspecified Category: Medical Plan: LDL in September within goal of less than 70. Most recently during the hospitalization her atorvastatin was increased to 40 mg and had intolerance to it. Patient was switched to pravastatin however develop the same intolerance with significant hence swelling. Currently not on any statin therapy and therefore we will plan to put patient back on her initial atorvastatin dose of 10 mg. Advised on low fat diet. (4) HTN (hypertension): Code(s): I10 - Essential (primary) hypertension Category: Medical Plan: Blood pressure today is well-controlled. Continue current regimen with a blood pressure goal less than 130/80. Advised on low-salt diet. (5) Hospital discharge follow-up: Code(s): Z09 - Encounter for follow-up examination after completed treatment for conditions other than malignant neoplasm Category: Medical Plan: As above. Advised on heart healthy diet, regular exercise, med compliance, stress mitigation strategies, and aggressive management of vascular risk factors. Follow up in 6 months. In the interim, patient will call the office with any concerns or change in symptoms. This note was generated using voice recognition software. While every effort has been made to ensure accuracy and proper reconditioning associate, there may be occasional errors that could affect the content or meaning of the described symptoms. Orders: Orders CA echo transthoracic complete 6 Months I42.9 - Cardiomyopathy, unspecified Medications: New atorvastatin (Lipitor) 10 mg PO DAILY 90 tabs 3RF Coding Level of Care Code Est Pt Level 4 (54036) Add On Problem Visit Only Diagnoses Status post cardiac catheterization Z98.890 Cardiomyopathy I42.9 Hyperlipidemia E78.5 HTN (hypertension) I10 Hospital discharge follow-up Z09 Time Spent (min) 32 Comment Time spent in reviewing the chart, test results, assessment, counseling and documentation.
== END 2025-06-05 14:49 | disposition home or self-care (01) ==
LOC: HO.HCS 14:29
PROVIDERS: PCP Nurse Practitioner Family
DX: Z98.890 Other specified postprocedural states (principal); I42.9 Cardiomyopathy, unspecified; E78.5 Hyperlipidemia, unspecified; I10 Essential (primary) hypertension; Z09 Encounter for follow-up examination after completed treatment for conditions other than malignant neoplasm
CPT/HCPCS: 99214; G2211

== ENCOUNTER → 2025-06-05 14:28 | Outpatient (BNVA) | payer MEDICARE, SELFPAY | PROVIDERS: PCP Nurse Practitioner Family | DX: I10 Essential (primary) hypertension (principal); I42.9 Cardiomyopathy, unspecified; F17.210 Nicotine dependence, cigarettes, uncomplicated; E78.5 Hyperlipidemia, unspecified; Z98.890 Other specified postprocedural states; Z09 Encounter for follow-up examination after completed treatment for conditions other than malignant neoplasm | CPT/HCPCS: 99212 ==